=== PATIENT | male | born 1955 | race Caucasian/White ===

== ENCOUNTER → 2017-05-18 | Day surgery (SDC) | payer OTHER ==
[2017-05-11 07:41] VITALS: BMI 28.0
[~2017-05-18] VITALS: Ht 167.6 cm; Wt 79.5 kg
[~2017-05-18] MED LIST: 500ML BSS 0.3ML EPI 1:1000PF IRRIG ONE; ACETAMINOPHEN 325 MG TAB PO PRN; AMVISC PLUS 0.8ML SYRINGE INT OCU ONE; ASPI-461 PO; ATROPINE SULFATE 0.1 MG/ML 5ML SYR IV PRN; BSS FLUSH ONE; EpHEDrine SULFATE INJ 50 MG/ML AMP IV PRN; EpINEphrine INJ 1MG/ML AMP 1 MG/ML AMP ONE; LACTATED RINGER'S 1000ML 500 ML IV SCH; LIDOCAINE 3.5% OPH GEL PER APPLICATION CHARGE ONE; LIDOCAINE HCL 1% MPF 2 ML VIAL ONE; MIDAZOLAM HCL 1 MG/ML 2ML VIAL ONE; NAPR1TAB9 PO; NRN600 PO; NTRGSL/4 UT; OCUCOAT 1 ML SOLN IO ONE; POVIDONE-IODINE OP SOLN 30 ML BTL ONE; PRLSR20 PO; PROPARACAINE 0.5% OP SOLN PER DROP CHARGE OPR SCH; TOBRAMYCIN/DEXAMETHASONE OPH OINT PER APPLN CHARGE ONE
[2017-05-18 13:12] VITALS: Ht 167.6 cm; Wt 79.5 kg
[2017-05-18] MEDS: GATIFLOXACIN OP SOLN PER DROP CHARGE OPR SCH ×2 (13:19→13:26)
[2017-05-18] MEDS: PHENYLEPHRINE HCL 2.5% OP SOLN PER DROP CHARGE OPR SCH ×2 (13:19→13:20)
[2017-05-18] MEDS: CYCLOPENTOLATE HCL 1% OP SOLN PER DROP CHARGE OPR SCH ×2 (13:19→13:23)
[2017-05-18] MEDS: TROPICAMIDE 1% OP SOLN PER DROP CHARGE OPR SCH ×2 (13:19→13:21)
[2017-05-18] MEDS: KETOROLAC 0.5% OP SOLN PER DROP CHARGE OPR SCH ×2 (13:19→13:24)
--- NOTE | 2017-05-18 13:39 | History & Physical Bridge - [place] ---
H&P Re-Evaluation Bridge Note: I have examined the patient, reviewed the History & Physical and in the interval since the performance of the History & Physical I have noted the following changes of clinical significance: No changes noted
--- NOTE | 2017-05-18 14:44 | [facility] Operative Report ---
Operative Report Date of Service May 18, 2017. Operative Report 1. PREOPERATIVE DIAGNOSIS: Cataract of the right eye. 2. POSTOPERATIVE DIAGNOSIS: Same. 3. PROCEDURE: Phacoemulsification with intraocular lens implantation of the right eye. SURGEON: Dr. Sukhjinder Hart. ANESTHESIA: Topical Lidocaine gel, 1% Non- Preserved intracameral Lidocaine, and monitored intravenous sedation. INDICATIONS FOR THE PROCEDURE: The patient is a 61 - year-old male with a history of cataract of the right eye causing significant visual impairment. The details of the proposed procedure were explained to the patient who asked appropriate questions and following discussion of all risks, benefits and alternatives agreed to have the procedure done. 4. OPERATION AND FINDINGS: DESCRIPTION OF PROCEDURE: After informed consent was obtained, the patient was brought to the Operating Room at the [facility]. The patient was placed in a supine position and then the right eye was prepped and draped in the usual sterile fashion for intraocular surgery. A drop of topical Lidocaine gel was placed in the operative eye. A wire lid speculum was then placed in the fornices. A corneal paracentesis was then created temporally. The Non-Preserved Lidocaine was then instilled into the anterior chamber. The anterior chamber was then pressurized with viscoelastic. A 2.0 mm clear corneal incision was then created temporally. A cystotome was inserted into the anterior chamber and used to create a tear in the anterior lens capsule. This capsular tear was then used to create a small flap and the flap was dragged in a counterclockwise direction in order to create a continuous curvilinear capsulorrhexis. Hydrodissection was accomplished with balanced salt solution. Phacoemulsification of the lens nucleus was then performed in a standard [id number] technique. The phaco time was 16 seconds with an average power of 11 %. The remaining cortical material was removed using irrigation aspiration. The capsular bag was then filled with viscoelastic. A Bausch [employer] Lomb MI60L +22.5 diopters lens was then loaded into the injector and injected into the capsular bag. The remaining viscoelastic was removed with the irrigation aspiration handpiece. The wound was hydrated and then checked and found to be watertight. The intraocular pressure was checked and found to be adequate. The wire lid speculum was removed and the patient's face was cleaned and dried. TobraDex ointment was placed in the inferior fornix. The patient was discharged to the Recovery Room having tolerated the procedure well. There were no complications. The patient will be seen tomorrow in the office for follow-up. I attest to the content of the Intraoperative Record and any orders documented therein. Any exceptions are noted below.
--- NOTE | 2017-05-18 14:45 | Discharge Instructions-SurgCtr ---
Discharge Instructions Date of Service May 18, 2017. Visit Reason for Visit: Right Cataract Discharge Discharge Diagnosis / Problem: cataract Discharge Goals Goal(s): Improve function Activity Recommendations Activity Limitations: per Instructions/Follow-up section Anesthesia . Post Anesthesia Instructions: If you have had General Anesthesia or IV Sedation: * Do not drive today. * Resume driving when surgeon permits. * Do not make important decisions or sign legal documents today. * Call surgeon for: 1. Temperature elevations greater than 101 degrees F. 2. Uncontrollable pain. 3. Excessive bleeding. 4. Persistent nausea and vomiting. 5. Medication intolerance (nausea, vomiting or rash). * For nausea and vomiting use only clear liquids such as: tea, soda, bouillon until nausea subsides, then gradually increase diet as tolerated. * If you have any concerns or questions, call your surgeon's office. If physician is unavailable and it is an emergency, call 911 or go to the nearest emergency room. . Diet Recommendations Home Diet: resume previous diet Procedures Procedures Performed: Right Cataract Phacoemulsification With Intraocular Lens Implant Pending Studies Studies pending at discharge: no Medical Emergencies . Who to Call and When: Medical Emergencies: If at any time you feel your situation is an emergency, please call 911 immediately. . Non-Emergent Contact Non-Emergency issues call your: Regional Education Manager . . "Provider Documentation" section prepared by Sukhjinder Hart. .
[2017-05-18 14:49] VITALS: TEMP 36.5
--- NOTE | 2017-05-18 15:02 | Anesthesia Progress Nt - [facility] ---
Anesthesia Post Op Note Date & Time May 18, 2017 at 15:02 Vital Signs Pain Intensity: 0 Vital Signs Past 12 Hours Date Time Temp Pulse Resp B/P (MAP) Pulse Ox O2 Delivery O2 Flow Rate FiO2 05/18/17 14:49 36.5 57 16 165/91 (115) 97 Room Air 05/18/17 13:06 36.9 57 16 131/88 (102) 98 Room Air Notes Mental Status: alert / awake / arousable, participated in evaluation Pt Amnestic to Procedure: Yes Nausea / Vomiting: adequately controlled Pain: adequately controlled Airway Patency, RR, SpO2: stable & adequate BP & HR: stable & adequate Hydration State: stable & adequate Anesthetic Complications: no major complications apparent
[2017-05-18 15:18] VITALS: BP 163/80; PULSE 55; O2SAT 98
== END | disposition home or self-care (01) ==
LOC: X.SURG 12:01
PROVIDERS: ATTEND Ophthalmology
DX: H26.8 Other specified cataract (principal); K21.9 Gastro-esophageal reflux disease without esophagitis; I10 Essential (primary) hypertension; M54.5 Low back pain; Z79.82 Long term (current) use of aspirin; Z79.899 Other long term (current) drug therapy; I25.10 Atherosclerotic heart disease of native coronary artery without angina pectoris

== ENCOUNTER → 2017-06-15 | Day surgery (SDC) | payer OTHER ==
[2017-05-26 13:23] VITALS: Ht 169.5 cm; Wt 81.8 kg
[~2017-06-15] VITALS: Ht 169.5 cm; Wt 81.8 kg
[~2017-06-15] MED LIST changes: +ONDANSETRON INJ 2 MG/ML 2 ML VIAL IV PRN; +PROPARACAINE 0.5% OP SOLN PER DROP CHARGE OPL SCH; -PROPARACAINE 0.5% OP SOLN PER DROP CHARGE OPR SCH
[2017-06-15] MEDS: PHENYLEPHRINE HCL 2.5% OP SOLN PER DROP CHARGE OPL SCH ×2 (10:14→10:19)
[2017-06-15] MEDS: TROPICAMIDE 1% OP SOLN PER DROP CHARGE OPL SCH ×2 (10:15→10:20)
[2017-06-15] MEDS: CYCLOPENTOLATE HCL 1% OP SOLN PER DROP CHARGE OPL SCH ×2 (10:16→10:21)
[2017-06-15] MEDS: KETOROLAC 0.5% OP SOLN PER DROP CHARGE OPL SCH ×2 (10:17→10:22)
[2017-06-15] MEDS: GATIFLOXACIN OP SOLN PER DROP CHARGE OPL SCH ×2 (10:18→10:28)
--- NOTE | 2017-06-15 10:22 | History & Physical Bridge - [place] ---
H&P Re-Evaluation Bridge Note: I have examined the patient, reviewed the History & Physical and in the interval since the performance of the History & Physical I have noted the following changes of clinical significance: Diagnosis: Left Cataract Procedure: Left Cataract Removal with Lens Implant No changes noted
--- NOTE | 2017-06-15 10:54 | [facility] Operative Report ---
Operative Report Date of Service Jun 15, 2017. Operative Report 1. PREOPERATIVE DIAGNOSIS: Cataract of the left eye. 2. POSTOPERATIVE DIAGNOSIS: Same. 3. PROCEDURE: Phacoemulsification with intraocular lens implantation of the left eye. SURGEON: Dr. Sukhjinder Hart. ANESTHESIA: Topical Lidocaine gel, 1% Non- Preserved intracameral Lidocaine INDICATIONS FOR THE PROCEDURE: The patient is a 62 - year-old male with a history of cataract of the left eye causing significant visual impairment. The details of the proposed procedure were explained to the patient who asked appropriate questions and following discussion of all risks, benefits and alternatives agreed to have the procedure done. 4. OPERATION AND FINDINGS: DESCRIPTION OF PROCEDURE: After informed consent was obtained, the patient was brought to the Operating Room at the [facility]. The patient was placed in a supine position and then the left eye was prepped and draped in the usual sterile fashion for intraocular surgery. A drop of topical Lidocaine gel was placed in the operative eye. A wire lid speculum was then placed in the fornices. A corneal paracentesis was then created temporally. The Non-Preserved Lidocaine was then instilled into the anterior chamber. The anterior chamber was then pressurized with viscoelastic. A 2.0 mm clear corneal incision was then created temporally. A cystotome was inserted into the anterior chamber and used to create a tear in the anterior lens capsule. This capsular tear was then used to create a small flap and the flap was dragged in a counterclockwise direction in order to create a continuous curvilinear capsulorrhexis. Hydrodissection was accomplished with balanced salt solution. Phacoemulsification of the lens nucleus was then performed in a standard [id number] technique. The phaco time was 16 seconds with an average power of 8 %. The remaining cortical material was removed using irrigation aspiration. The capsular bag was then filled with viscoelastic. A Bausch & Lomb MI60L +22.5 diopters lens was then loaded into the injector and injected into the capsular bag. The remaining viscoelastic was removed with the irrigation aspiration handpiece. The wound was hydrated and then checked and found to be watertight. The intraocular pressure was checked and found to be adequate. The wire lid speculum was removed and the patient's face was cleaned and dried. TobraDex ointment was placed in the inferior fornix. The patient was discharged to the Recovery Room having tolerated the procedure well. There were no complications. The patient will be seen tomorrow in the office for follow-up. I attest to the content of the Intraoperative Record and any orders documented therein. Any exceptions are noted below.
--- NOTE | 2017-06-15 10:55 | Discharge Instructions-SurgCtr ---
Discharge Instructions Date of Service Jun 15, 2017. Visit Reason for Visit: Cataract Left Eye Discharge Discharge Diagnosis / Problem: cataract Discharge Goals Goal(s): Improve function Activity Recommendations Activity Limitations: per Instructions/Follow-up section Anesthesia . Post Anesthesia Instructions: If you have had General Anesthesia or IV Sedation: * Do not drive today. * Resume driving when surgeon permits. * Do not make important decisions or sign legal documents today. * Call surgeon for: 1. Temperature elevations greater than 101 degrees F. 2. Uncontrollable pain. 3. Excessive bleeding. 4. Persistent nausea and vomiting. 5. Medication intolerance (nausea, vomiting or rash). * For nausea and vomiting use only clear liquids such as: tea, soda, bouillon until nausea subsides, then gradually increase diet as tolerated. * If you have any concerns or questions, call your surgeon's office. If physician is unavailable and it is an emergency, call 911 or go to the nearest emergency room. . Diet Recommendations Home Diet: resume previous diet Procedures Procedures Performed: Left Cataract Phacoemulsification With Intraocular Lens Implant Pending Studies Studies pending at discharge: no Medical Emergencies . Who to Call and When: Medical Emergencies: If at any time you feel your situation is an emergency, please call 911 immediately. . Non-Emergent Contact Non-Emergency issues call your: Spindraw Operator . . "Provider Documentation" section prepared by Sukhjinder Hart. .
[2017-06-15 11:00] VITALS: BP 153/79; PULSE 60; TEMP 36.6; O2SAT 97
== END | disposition home or self-care (01) ==
LOC: X.SURG 09:16
PROVIDERS: ATTEND Ophthalmology
DX: H26.9 Unspecified cataract (principal); I10 Essential (primary) hypertension; I25.10 Atherosclerotic heart disease of native coronary artery without angina pectoris; K21.9 Gastro-esophageal reflux disease without esophagitis; M54.5 Low back pain; Z88.8 Allergy status to other drugs, medicaments and biological substances; Z88.0 Allergy status to penicillin; Z91.013 Allergy to seafood; Z91.040 Latex allergy status; I25.2 Old myocardial infarction; Z95.5 Presence of coronary angioplasty implant and graft; M19.90 Unspecified osteoarthritis, unspecified site

== ENCOUNTER 2020-12-03 17:02 | Inpatient (IN) ==
[2020-12-03] MEDS ORDERED: SODIUM CHLORIDE 0.9% 500 ML IV ONE (19:18)
[2020-12-03] MEDS ORDERED: dexAMETHasone**PF** 10 MG/ML VIAL IV ONE (19:18)
--- NOTE | 2020-12-03 19:28 | Emergency Department Note ---
Impression & Plan COVID-19, Hypoxia ED Provider Note NAME: KEYONNA DOUGLAS AGE: 65 SEX: M : 1955 ARRIVES VIA: Walk-In INFORMANT: Patient ED PROVIDER(S): Byron Castillo DO CHIEF COMPLAINT: Upper respiratory symptoms HPI: Patient is a 65-year-old male who presents to the ER for cough, congestion, shortness of breath. His symptoms started 10 days ago. Started with diffuse myalgias and arthralgias. He denies any belly pain, nausea, vomiting, or diarrhea. No dysuria, urgency, or frequency. He has lost his sense of taste and smell. He notes he is exhausted with any kind of movement. He is not vaccinated. He has not been around anyone has been sick that he is aware of. He does have a little headache. ROS: See above HPI for pertinent positives & negatives. A total of 10 systems reviewed and were otherwise negative. PAST MEDICAL HISTORY:See Below PAST SURGICAL HISTORY:See Below FAMILY HISTORY:See Below SOCIAL HISTORY:See Below HOME MEDICATIONS:See Below ALLERGIES:See Below VITALS:See Below PHYSICAL EXAMINATION: GENERAL: Sitting up in bed, alert, ill-appearing, disheveled, mild distress with exertion, intermittent cough EYE EXAM: normal conjunctiva. OROPHARYNX: no exudate, no erythema, lips, buccal mucosa, and tongue normal and mucous membranes are moist NECK: supple, no nuchal rigidity, no adenopathy, non-tender LUNGS: Clear to auscultation. Normal chest wall mechanics HEART: no murmurs, S1 normal and S2 normal ABDOMEN: abdomen soft, non-tender, normo-active bowel sounds, no masses, no rebound or guarding. BACK: Back is symmetrical on inspection and there is no deformity, no midline tenderness, no CVA tenderness. SKIN: no rashes and no bruising UPPER EXTREMITIES: upper extremities are grossly normal. LOWER EXTREMITIES: No pitting edema. NEURO EXAM: Normal sensorium, cranial nerves II-XII intact, normal speech, no weakness of arms, no weakness of legs. MEDICAL DECISION MAKING: Patient is a 65-year-old male who presents the ER for upper respiratory symptoms. IV was established blood work was obtained. Labs show no significant leukocytosis or anemia. BMP with mild hyponatremia at 134. Potassium slightly low at 3.4. LFTs bilirubin was unremarkable. Patient was Covid positive. Chest x-ray with patchy infiltrates bilaterally. He remained on 3 L nasal cannula. He was given steroids and fluids. He was updated bedside. Discussed with the hospitalist for further evaluation. EKG with T wave inversion versions. Triage Nursing notes reviewed. Limited review of prior medical records performed Vital Signs: reviewed and remarkable for hypoxic, hypertensive Differential diagnosis: Differential diagnoses includes but is not limited to pneumonia, bronchitis, COPD/Asthma exacerbation, pneumothorax, pulmonary embolism, congestive heart failure, acute coronary syndrome ER treatment provided: See below Diagnostics interpreted by me: ECG: Sinus rhythm rate 74 Left axis T wave inversions in inferior leads QTC 452 Cardiac Monitoring: An order was placed for continuous cardiac monitoring. The monitor shows a rate of 70 with sinus rhythm. Laboratory studies: As stated above and show below. Imaging studies: See below Consultation(s): Discussed with Disha Betts for further evaluation Procedures: none Critical Care: I have personally spent 32 minutes of critical care time in the direct management of this patient. This includes bedside care, interpretation of diagnostic studies, and testing, discussion with consultants, patient, and family members, and other required patient management activities. This 32 minutes is in excess of all separately billable procedures. Past Med/Surg History Medical History (Updated 12/04/20 @ 14:33 by Byron Castillo DO) Benign essential hypertension CAD (coronary artery disease) s/p TATI x 2 to RCA in 06/2015 GERD (gastroesophageal reflux disease) Hyperlipidemia Surgical History (Updated 12/03/20 @ 22:42 by May Betts DO) S/P coronary artery stent placement Social History (Updated 12/03/20 @ 22:42 by May Betts DO) Smoking Status: Never smoker Do You Dip or Chew Tobacco: No; Hx Alcohol Use: No Hx Substance Use: No Preferred Language: Yakut Communication Ability: Effective Coat Operator Required: No Beliefs That Will Affect Care: None marital status: Current Living Situation: Spouse Feels Safe at Home: Yes Assistive Devices: None Allergies Allergies Allergy/AdvReac Type Severity Reaction Status Date / Time latex Allergy Unknown RASH Verified 12/03/20 20:36 Penicillins Allergy Unknown RASH Verified 12/03/20 20:36 shellfish derived Allergy Unknown RASH Verified 12/03/20 20:36 Methylated Spirits Allergy Unknown RASH Uncoded 12/03/20 20:36 Home Meds Home Medications Medication Instructions Recorded Confirmed aspirin 81 mg tablet,delayed 81 mg PO HS tab 11/03/18 12/03/20 release atorvastatin 80 mg tablet 0 mg PO QPM #90 tab 11/03/18 12/03/20 lisinopril 5 mg tablet 0 mg PO DAILY #30 tab 11/03/18 12/03/20 omeprazole 20 mg capsule,delayed 20 mg PO DAILY cap 11/03/18 12/03/20 release ibuprofen 200 mg tablet 400 - 600 mg PO DAILY tab 11/25/18 12/03/20 metoprolol succinate 25 mg 0 mg PO DAILY 11/25/18 12/03/20 tablet,extended release 24 hr nitroglycerin 0.4 mg sublingual 0.4 mg SL Q5M PRN 11/25/18 12/03/20 tablet (Nitrostat) Results & Data (ED) Vital Signs Vital Signs - 24 hr 12/03/20 17:13 12/03/20 19:18 12/03/20 19:29 Temperature 37.3 C Temperature Source Oral Pulse Rate 93 H Pulse Rate [Apical] 95 H Respiratory Rate 22 24 Respiratory Effort / Characteristics Non-Labored Spontaneous Respiratory Depth Normal Blood Pressure 148/87 H Blood Pressure [Left Arm] 149/104 H Blood Pressure Mean 107 Blood Pressure Mean [Left Arm] 119 Blood Pressure Position Sitting Pulse Oximetry 89 L 86 L 96 Oxygen Delivery Method Room Air Room Air Nasal Cannula Nasal Cannula Oxygen Flow Rate 3 Sepsis Recent Fever Within 48 Hours No Sepsis New/Unexplained Change in Mental Status N/A Sepsis Action Taken by Nursing No Action Required Oxygen Flow Rate - Titration 3 Pulse Oximetry Post Tiitration 94 12/03/20 19:56 12/03/20 20:29 Temperature Temperature Source Pulse Rate Pulse Rate [Apical] Respiratory Rate Respiratory Effort / Characteristics Respiratory Depth Blood Pressure Blood Pressure [Left Arm] Blood Pressure Mean Blood Pressure Mean [Left Arm] Blood Pressure Position Pulse Oximetry 89 L 97 Oxygen Delivery Method Nasal Cannula Nasal Cannula Oxygen Flow Rate 3 6 Sepsis Recent Fever Within 48 Hours Sepsis New/Unexplained Change in Mental Status Sepsis Action Taken by Nursing Oxygen Flow Rate - Titration 6 4 Pulse Oximetry Post Tiitration 94 94 Laboratory Data Result diagrams: 12/03/20 19:10 12/03/20 19:10 Lab Results 12/03/20 12/03/20 12/03/20 Range/Units 19:05 19:05 19:10 WBC 6.08 (4.8-10.8) K/uL RBC 4.98 (4.7-6.1) M/uL Hgb 15.0 (14.0-18.0) g/dL Hct 43.1 (42-52) % MCV 86.5 (80-100) fL MCH 30.1 (25-34) pg MCHC 34.8 (32-36) g/dL RDW Std Deviation 45.9 (36.4-46.3) fL RDW Coeff of Lu 14.5 (11.5-14.5) % Plt Count 157 (130-400) K/uL MPV 9.6 (7.4-10.4) fL Immature Gran % (Auto) 0.2 % Neut % (Auto) 85.1 % Lymph % (Auto) 8.9 % Teller % (Auto) 5.8 % Eos % (Auto) 0.0 % Baso % (Auto) 0.0 % Neut # (Auto) 5.18 (1.4-6.5) K/uL Lymph # (Auto) 0.54 L (1.2-3.4) K/uL Teller # (Auto) 0.35 (0.11-0.59) K/uL Eos # (Auto) 0.00 (0-0.5) K/uL Baso # (Auto) 0.00 (0-0.2) K/uL Immature Gran # (Auto) 0.01 (0.00-0.02) K/uL Sodium (136-145) mmol/L Potassium (3.5-5.1) mmol/L Chloride (98-107) mmol/L Carbon Dioxide (21-32) mmol/L Anion Gap (3-11) BUN (7-18) mg/dl Creatinine (0.6-1.4) mg/dl Est Cr Clr Drug Dosing ml/min Est GFR ( Amer) ml/min Est GFR (Non-Af Amer) ml/min BUN/Creatinine Ratio (10-20) Glucose (70-99) mg/dl Lactate (0.4-2.0) mmol/L Calcium (8.5-10.1) mg/dl Ferritin (8-388) ng/ml Total Bilirubin (0.2-1) mg/dl AST (15-37) U/L ALT (12-78) U/L Alkaline Phosphatase (45-117) U/L Lactate Dehydrogenase (87-241) U/L C-Reactive Protein (0-0.29) mg/dl NT-Pro-B Natriuret Pep (0-900) pg/ml Total Protein (6.4-8.2) gm/dl Albumin (3.4-5.0) gm/dl Globulin (2.5-4.0) gm/dl Albumin/Globulin Ratio (0.9-2) COVID-19 Eval Order Covid19 at [facility] SARS-CoV-2 (PCR) POSITIVE A* (Negative) 12/03/20 12/03/20 12/03/20 Range/Units 19:10 20:41 20:41 WBC (4.8-10.8) K/uL RBC (4.7-6.1) M/uL Hgb (14.0-18.0) g/dL Hct (42-52) % MCV (80-100) fL MCH (25-34) pg MCHC (32-36) g/dL RDW Std Deviation (36.4-46.3) fL RDW Coeff of Lu (11.5-14.5) % Plt Count (130-400) K/uL MPV (7.4-10.4) fL Immature Gran % (Auto) % Neut % (Auto) % Lymph % (Auto) % Teller % (Auto) % Eos % (Auto) % Baso % (Auto) % Neut # (Auto) (1.4-6.5) K/uL Lymph # (Auto) (1.2-3.4) K/uL Teller # (Auto) (0.11-0.59) K/uL Eos # (Auto) (0-0.5) K/uL Baso # (Auto) (0-0.2) K/uL Immature Gran # (Auto) (0.00-0.02) K/uL Sodium 134 L (136-145) mmol/L Potassium 3.4 L (3.5-5.1) mmol/L Chloride 100 (98-107) mmol/L Carbon Dioxide 25 (21-32) mmol/L Anion Gap 9.0 (3-11) BUN 19 H (7-18) mg/dl Creatinine 0.99 (0.6-1.4) mg/dl Est Cr Clr Drug Dosing 70.1 ml/min Est GFR ( Amer) 91.0 ml/min Est GFR (Non-Af Amer) 78.5 ml/min BUN/Creatinine Ratio 18.8 (10-20) Glucose 126 H (70-99) mg/dl Lactate 1.6 (0.4-2.0) mmol/L Calcium 9.2 (8.5-10.1) mg/dl Ferritin 190.8 (8-388) ng/ml Total Bilirubin 0.7 (0.2-1) mg/dl AST 93 H (15-37) U/L ALT 39 (12-78) U/L Alkaline Phosphatase 203 H (45-117) U/L Lactate Dehydrogenase (87-241) U/L C-Reactive Protein 10.90 H (0-0.29) mg/dl NT-Pro-B Natriuret Pep 143 (0-900) pg/ml Total Protein 8.1 (6.4-8.2) gm/dl Albumin 2.5 L (3.4-5.0) gm/dl Globulin 5.6 H (2.5-4.0) gm/dl Albumin/Globulin Ratio 0.4 L (0.9-2) COVID-19 Eval Order SARS-CoV-2 (PCR) (Negative) 12/03/20 Range/Units 20:41 WBC (4.8-10.8) K/uL RBC (4.7-6.1) M/uL Hgb (14.0-18.0) g/dL Hct (42-52) % MCV (80-100) fL MCH (25-34) pg MCHC (32-36) g/dL RDW Std Deviation (36.4-46.3) fL RDW Coeff of Lu (11.5-14.5) % Plt Count (130-400) K/uL MPV (7.4-10.4) fL Immature Gran % (Auto) % Neut % (Auto) % Lymph % (Auto) % Teller % (Auto) % Eos % (Auto) % Baso % (Auto) % Neut # (Auto) (1.4-6.5) K/uL Lymph # (Auto) (1.2-3.4) K/uL Teller # (Auto) (0.11-0.59) K/uL Eos # (Auto) (0-0.5) K/uL Baso # (Auto) (0-0.2) K/uL Immature Gran # (Auto) (0.00-0.02) K/uL Sodium (136-145) mmol/L Potassium (3.5-5.1) mmol/L Chloride (98-107) mmol/L Carbon Dioxide (21-32) mmol/L Anion Gap (3-11) BUN (7-18) mg/dl Creatinine (0.6-1.4) mg/dl Est Cr Clr Drug Dosing ml/min Est GFR ( Amer) ml/min Est GFR (Non-Af Amer) ml/min BUN/Creatinine Ratio (10-20) Glucose (70-99) mg/dl Lactate (0.4-2.0) mmol/L Calcium (8.5-10.1) mg/dl Ferritin (8-388) ng/ml Total Bilirubin (0.2-1) mg/dl AST (15-37) U/L ALT (12-78) U/L Alkaline Phosphatase (45-117) U/L Lactate Dehydrogenase 341 H (87-241) U/L C-Reactive Protein (0-0.29) mg/dl NT-Pro-B Natriuret Pep (0-900) pg/ml Total Protein (6.4-8.2) gm/dl Albumin (3.4-5.0) gm/dl Globulin (2.5-4.0) gm/dl Albumin/Globulin Ratio (0.9-2) COVID-19 Eval Order SARS-CoV-2 (PCR) (Negative) Administered Medications Aspirin (Aspirin 81 Mg Ectab) 81 mg PO HS TONY Stop: 01/02/21 22:22 Last Admin: 12/03/20 23:54 Dose: 81 mg Documented by: [id number] Enoxaparin Sodium (Enoxaparin Inj 40 Mg/0.4 Ml Syr) 40 mg SQ Q12H TONY Stop: 01/02/21 22:59 Last Admin: 12/04/20 11:13 Dose: Not Given Documented by: [id number] Admin: 12/03/20 23:53 Dose: 40 mg Documented by: [id number] Famotidine (Famotidine 40 Mg Tablet) 40 mg PO QAM TONY Stop: 01/03/21 08:59 Last Admin: 12/04/20 08:05 Dose: 40 mg Documented by: [id number] Guaifenesin (Guaifenesin 600 Mg Tabcr) 1,200 mg PO Q12 TONY Stop: 01/03/21 09:29 Last Admin: 12/04/20 10:19 Dose: 1,200 mg Documented by: [id number] Dexamethasone 6 mg/ Syringe 1.5 mls @ 1 mls/min IV Q24H TONY Stop: 01/03/21 08:59 Last Admin: 12/04/20 08:06 Dose: 1 mls/min Documented by: [id number] Lisinopril (Lisinopril 5 Mg Tab) 0 mg PO DAILY TONY Stop: 01/03/21 08:59 Last Admin: 12/04/20 10:59 Dose: Not Given Documented by: [id number] Metoprolol Succinate (Metoprolol Succ 25mg Ext Rel Tab) 0 mg PO DAILY TONY Stop: 01/03/21 08:59 Last Admin: 12/04/20 11:00 Dose: Not Given Documented by: [id number] Discontinued Medications Dexamethasone Sodium Phosphate (DexamethasonePf 10 Mg/Ml Vial) 6 mg IV NOW ONE Stop: 12/03/20 19:19 Last Admin: 12/03/20 20:23 Dose: 6 mg Documented by: [id number] Sodium Chloride (Nss) 500 mls @ 999 mls/hr IV .Q31M ONE Stop: 12/03/20 19:48 Last Infusion: 12/03/20 20:06 Dose: 0 mls/hr Documented by: [id number] Admin: 12/03/20 19:26 Dose: 999 mls/hr Documented by: [id number] Potassium Chloride (Potassium Chloride Crtab 20 Meq Tabcr) 40 meq PO NOW STA Stop: 12/03/20 22:54 Last Admin: 12/03/20 23:53 Dose: 40 meq Documented by: [id number] Imaging Data Radiologist's Impression: Chest X-Ray 12/03/20 18:35 XR chest 1V portable INDICATION: [place] ^fever. TECHNIQUE: Single frontal radiograph of the chest was obtained. Comparison: None available at the time of this dictation. FINDINGS: No lines and tubes are seen. The aorta is tortuous. The remainder of the cardiomediastinal silhouette is unremarkable. Faint bilateral airspace opacities are seen. No evidence of pleural effusion or pneumothorax. IMPRESSION: Faint bilateral airspace opacities which may represent atelectasis, pneumonia, and/or aspiration. ACT 112: Negative or not required by law. Electronically signed by: Felipe Fenton M.D. 12/03/2020 7:39 PM Discharge Plan Visit Data Chief Complaint: Headache Stated Complaint: chills, aches, headache, dehydrated ED Provider: Byron Castillo Discharge Problem: COVID-19, Hypoxia Patient Disposition: Admitted As Inpatient Discharge Instructions Interventions: ED Discharge Assessment Last Done: 12/03/20 21:38
--- NOTE | 2020-12-03 19:40 | XRay Report ---
XR chest 1V portable INDICATION: MN ^fever. TECHNIQUE: Single frontal radiograph of the chest was obtained. Comparison: None available at the time of this dictation. FINDINGS: No lines and tubes are seen. The aorta is tortuous. The remainder of the cardiomediastinal silhouette is unremarkable. Faint bilateral airspace opacities are seen. No evidence of pleural effusion or pne umothorax. IMPRESSION: Faint bilateral airspace opacities which may represent atelectasis, pneumonia, and/or aspiration. ACT 112: Negative or not required by law. Electronically signed by: Felipe Fenton M.D. 12/03/2020 7:39 PM
[2020-12-03 19:58] LABS: Hematocrit (blood only) 43.1 % (42-52); Immature Granulocytes # (auto) 0.01 K/uL (0.00-0.02); Immature Granulocytes % (auto) 0.2 %; Lymphocytes # (auto) 0.54 K/uL (1.2-3.4); Lymphocytes % (auto) 8.9 %; Mean Corpuscular Hemoglobin 30.1 pg (25-34); Mean Corpuscular Hgb Conc 34.8 g/dL (32-36); Mean Corpuscular Volume 86.5 fL (80-100); Mean Platelet Volume 9.6 fL (7.4-10.4); Monocytes # (auto) 0.35 K/uL (0.11-0.59); Monocytes % (auto) 5.8 %; Neutrophils # (auto) 5.18 K/uL (1.4-6.5); Neutrophils % (auto) 85.1 %; Platelet Count 157 K/uL (130-400); RDW Coefficient of Variation 14.5 % (11.5-14.5); RDW Standard Deviation 45.9 fL (36.4-46.3); Red Blood Count 4.98 M/uL (4.7-6.1); White Blood Count 6.08 K/uL (4.8-10.8)
[2020-12-03 20:22] LABS: Albumin Level 2.5 gm/dl (3.4-5.0); BUN Creatinine Ratio 18.8 (10-20); Calcium 9.2 mg/dl (8.5-10.1); Creatinine Clr Calc Pharmacy 70.1 ml/min; Est GFR (Non-African American) 78.5 ml/min; Potassium 3.4 mmol/L (3.5-5.1)
[2020-12-03 20:25] LABS: Albumin Globulin Ratio 0.4 (0.9-2); Bilirubin,Total 0.7 mg/dl (0.2-1); Globulin 5.6 gm/dl (2.5-4.0); Total Protein 8.1 gm/dl (6.4-8.2)
--- NOTE | 2020-12-03 20:52 | History & Physical Report ---
Date of Service December 03, 2020 Assessment & Plan (1) COVID-19: Plan: 65yo male presenting with Covid-19 infection. Patient is unvaccinated. On approximately day 10 of illness. Hypoxic on arrival to 86% - improved with supplemental O2 -Admit to medical -Maintain isolation precautions -Supplemental O2 as needed -Dexamethasone 6mg IV daily -Tylenol as needed -Lovenox 40mg BID (2) CAD (coronary artery disease): Plan: Chronic. Stable -Continue ASA 81mg po qHS -Continue Atorvastatin 80mg po qPM -Continue metoprolol and Lisinopril (3) GERD (gastroesophageal reflux disease): Plan: Chronic -Continue Pepcid 40mg po q AM (4) Hyperlipidemia: Plan: Chronic -Continue Atorvastatin 80mg po qPM (5) Benign essential hypertension: Plan: Blood pressure mildly elevated -Continue metoprolol and Lisinopril -Continue to monitor History of Present Illness Chief Complaint: cough, congestion, SOB Primary Care Provider: Elyse Hall PA-C Rony Sierra is a 65yo male presenting to [facility] with 10d of cough productive for yellow sputum, congestion, SOB, chills, body aches and headache. Patient also with loss of taste and smell. Found to be POSITIVE for Covid-19 infection. He is unvaccinated against Covid-19. Uncertain of where his was exposed. He denies chest pain, abdominal pain, nausea, vomiting. He had some diarrhea last week which has since resolved. Upon arrival to the ER patient afebrile, mildly hypertensive. RR of 22 saturating 89% on room air. He was placed on 3L NC which was increased to 4L. Presently breathing comfortably on 4L, saturating 94% No additional complaints at this time ER Course: Dexamethasone 6mg IV, NSS x 500mL bolus Allergies Allergy/AdvReac Type Severity Reaction Status Date / Time latex Allergy Unknown RASH Verified 12/03/20 20:36 Penicillins Allergy Unknown RASH Verified 12/03/20 20:36 shellfish derived Allergy Unknown RASH Verified 12/03/20 20:36 Methylated Spirits Allergy Unknown RASH Uncoded 12/03/20 20:36 Home Medications Medication Instructions Recorded Confirmed Type aspirin 81 mg tablet,delayed 81 mg PO HS tab 11/03/18 12/03/20 History release atorvastatin 80 mg tablet 0 mg PO QPM #90 tab 11/03/18 12/03/20 History lisinopril 5 mg tablet 0 mg PO DAILY #30 tab 11/03/18 12/03/20 History omeprazole 20 mg capsule,delayed 20 mg PO DAILY cap 11/03/18 12/03/20 History release ibuprofen 200 mg tablet 400 - 600 mg PO DAILY tab 11/25/18 12/03/20 History metoprolol succinate 25 mg 0 mg PO DAILY 11/25/18 12/03/20 History tablet,extended release 24 hr nitroglycerin 0.4 mg sublingual 0.4 mg SL Q5M PRN 11/25/18 12/03/20 History tablet (Nitrostat) Past Med/Surg History Medical History (Updated 12/03/20 @ 22:44 by May Betts DO) Benign essential hypertension CAD (coronary artery disease) s/p TATI x 2 to RCA in 06/2015 GERD (gastroesophageal reflux disease) Hyperlipidemia Surgical History (Updated 12/03/20 @ 22:42 by Mya Betts DO) S/P coronary artery stent placement Social History (Updated 12/03/20 @ 22:42 by May Betts DO) Smoking Status: Never smoker Do You Dip or Chew Tobacco: No; Hx Alcohol Use: No Hx Substance Use: No Preferred Language: Indonesian Communication Ability: Effective Construction Safety Consultant Required: No Beliefs That Will Affect Care: None Current Living Situation: Spouse Feels Safe at Home: No Assistive Devices: None Review of Systems Review of Systems: All systems reviewed & are unremarkable except as noted in HPI & below Physical Exam Physical Exam: General: patient resting comfortably, NAD, AA&O x 4, +cough Skin: warm, dry, intact, no rashes or lesions HEENT: NC/AT, PERRL, EOMI, anicteric sclera, conjunctiva without injection, external ear normal to inspection and nontender, nares patent, moist mucus membranes, dentition intact, no oropharyngeal lesions, neck supple, trachea midline, no LAD, no thyromegaly, no JVD Heart: +S1/S2, regular, no m/r/g Lungs: equal air entry bilaterally, no rales/rhonchi/wheezes Abd: +BS, soft, NT/ND, no masses/organomegaly/ascites Ext: warm, 2+ pulses in UE/LE bilaterally, no clubbing/cyanosis or edema Neuro: nonfocal, patient AA&O x 4, speech intact, no facial droop, moving all extremities on command with equal strength 5/5 Results & Data Results & Data ([facility]) Vital Signs (Past 12 Hours) Vital Signs Temp Pulse Pulse Resp BP BP Pulse Ox 12/03/20 20:29 97 12/03/20 19:56 89 L 12/03/20 19:29 95 H 24 149/104 H 96 12/03/20 19:18 86 L 12/03/20 17:13 37.3 C 93 H 22 148/87 H 89 L Laboratory Results Laboratory Results WBC 6.08 K/uL (4.8-10.8) 12/03/20 19:10 RBC 4.98 M/uL (4.7-6.1) 12/03/20 19:10 Hgb 15.0 g/dL (14.0-18.0) 12/03/20 19:10 Hct 43.1 % (42-52) 12/03/20 19:10 MCV 86.5 fL (80-100) 12/03/20 19:10 MCH 30.1 pg (25-34) 12/03/20 19:10 MCHC 34.8 g/dL (32-36) 12/03/20 19:10 RDW Std Deviation 45.9 fL (36.4-46.3) 12/03/20 19:10 RDW Coeff of Lu 14.5 % (11.5-14.5) 12/03/20 19:10 Plt Count 157 K/uL (130-400) 12/03/20 19:10 MPV 9.6 fL (7.4-10.4) 12/03/20 19:10 Immature Gran % (Auto) 0.2 % 12/03/20 19:10 Neut % (Auto) 85.1 % 12/03/20 19:10 Lymph % (Auto) 8.9 % 12/03/20 19:10 [place] % (Auto) 5.8 % 12/03/20 19:10 Eos % (Auto) 0.0 % 12/03/20 19:10 Baso % (Auto) 0.0 % 12/03/20 19:10 Neut # (Auto) 5.18 K/uL (1.4-6.5) 12/03/20 19:10 Lymph # (Auto) 0.54 K/uL (1.2-3.4) L 12/03/20 19:10 [place] # (Auto) 0.35 K/uL (0.11-0.59) 12/03/20 19:10 Eos # (Auto) 0.00 K/uL (0-0.5) 12/03/20 19:10 Baso # (Auto) 0.00 K/uL (0-0.2) 12/03/20 19:10 Immature Gran # (Auto) 0.01 K/uL (0.00-0.02) 12/03/20 19:10 Sodium 134 mmol/L (136-145) L 12/03/20 19:10 Potassium 3.4 mmol/L (3.5-5.1) L 12/03/20 19:10 Chloride 100 mmol/L (98-107) 12/03/20 19:10 Carbon Dioxide 25 mmol/L (21-32) 12/03/20 19:10 Anion Gap 9.0 (3-11) 12/03/20 19:10 BUN 19 mg/dl (7-18) H 12/03/20 19:10 Creatinine 0.99 mg/dl (0.6-1.4) 12/03/20 19:10 Est Cr Clr Drug Dosing 70.1 ml/min 12/03/20 19:10 Est GFR ( Amer) 91.0 ml/min 12/03/20 19:10 Est GFR (Non-Af Amer) 78.5 ml/min 12/03/20 19:10 BUN/Creatinine Ratio 18.8 (10-20) 12/03/20 19:10 Glucose 126 mg/dl (70-99) H 12/03/20 19:10 Lactate 1.6 mmol/L (0.4-2.0) 12/03/20 20:41 Calcium 9.2 mg/dl (8.5-10.1) 12/03/20 19:10 Ferritin 190.8 ng/ml (8-388) 12/03/20 20:41 Total Bilirubin 0.7 mg/dl (0.2-1) 12/03/20 19:10 AST 93 U/L (15-37) H 12/03/20 19:10 ALT 39 U/L (12-78) 12/03/20 19:10 Alkaline Phosphatase 203 U/L (45-117) H 12/03/20 19:10 Lactate Dehydrogenase 341 U/L (87-241) H 12/03/20 20:41 C-Reactive Protein 10.90 mg/dl (0-0.29) H 12/03/20 20:41 NT-Pro-B Natriuret Pep 143 pg/ml (0-900) 12/03/20 20:41 Total Protein 8.1 gm/dl (6.4-8.2) 12/03/20 19:10 Albumin 2.5 gm/dl (3.4-5.0) L 12/03/20 19:10 Globulin 5.6 gm/dl (2.5-4.0) H 12/03/20 19:10 Albumin/Globulin Ratio 0.4 (0.9-2) L 12/03/20 19:10 COVID-19 Eval Order Covid19 at [facility] 12/03/20 19:05 SARS-CoV-2 (PCR) POSITIVE (Negative) A* 12/03/20 19:05 Impressions Chest X-Ray 12/03/20 18:35 XR chest 1V portable INDICATION: MN ^fever. TECHNIQUE: Single frontal radiograph of the chest was obtained. Comparison: None available at the time of this dictation. FINDINGS: No lines and tubes are seen. The aorta is tortuous. The remainder of the cardiomediastinal silhouette is unremarkable. Faint bilateral airspace opacities are seen. No evidence of pleural effusion or pneumothorax. IMPRESSION: Faint bilateral airspace opacities which may represent atelectasis, pneumonia, and/or aspiration. ACT 112: Negative or not required by law. Electronically signed by: Felipe Fenton M.D. 12/03/2020 7:39 PM Code Status & VTE Plan VTE Prophylaxis Plan VTE Prophylaxis will be ordered: Yes PG Care Time/CCT Total # of Minutes Spent Total Time Spent with Patient: Total time spent is greater than 50% in coordination of care (as documented) at patient's floor/unit and/or counseling patient: Coding Level of Care Code 12930 Initial Inpt Care Lvl 3 Diagnoses CAD (coronary artery disease) I25.10 COVID-19 U07.1 GERD (gastroesophageal reflux disease) K21.9 Hyperlipidemia E78.5 Benign essential hypertension I10
[2020-12-03 21:13] LABS: C Reactive Protein 10.9 mg/dl (0-0.29); Ferritin 190.8 ng/ml (8-388)
[2020-12-03] MEDS ORDERED: ATORVASTATIN 40 MG TAB PO SCH (22:23)
[2020-12-03] MEDS ORDERED: ONDANSETRON INJ 2 MG/ML 2 ML VIAL IV PRN (22:23)
[2020-12-03] MEDS ORDERED: POTASSIUM CHLORIDE CRTAB 20 MEQ TABCR PO STA (22:53)
[2020-12-03] MEDS: ENOXAPARIN INJ 40 MG/0.4 ML SYR SQ SCH (23:53)
[2020-12-03] MEDS: ASPIRIN 81 MG ECTAB PO SCH (23:54)
[2020-12-04 07:51] LABS: Albumin Level 2.1 gm/dl (3.4-5.0); Bilirubin Direct 0.2 mg/dl (0-0.2); Bilirubin,Total 0.7 mg/dl (0.2-1)
[2020-12-04] MEDS: FAMOTIDINE 40 MG TABLET PO SCH (08:05)
[2020-12-04] MEDS: dexAMETHasone 6 MG in SYRINGE 0 ML IV SCH (08:06)
[2020-12-04] MEDS ORDERED: lisinopril 5 MG TAB PO SCH (09:00)
[2020-12-04] MEDS ORDERED: METOPROLOL SUCC 25MG EXT REL TAB PO SCH (09:00)
[2020-12-04] MEDS: guaiFENesin 600 MG TABCR PO SCH ×2 (10:19→20:31)
[2020-12-04] MEDS: ENOXAPARIN INJ 40 MG/0.4 ML SYR SQ SCH ×2 (11:13→21:55)
--- NOTE | 2020-12-04 17:46 | Electrocardiogram Report ---
Test Reason : Blood Pressure : / mmHG Vent. Rate : 074 BPM Atrial Rate : 074 BPM P-R Int : 156 ms QRS Dur : 114 ms QT Int : 408 ms P-R-T Axes : 021 -38 -21 degrees QTc Int : 452 ms Normal sinus rhythm Left axis deviation Moderate voltage criteria for LVH, may be normal variant Abnormal ECG When compared with ECG of 12-JUL-2015 06:43, T wave inversion no longer evident in Anterior leads Confirmed by Jj Saab ([id number]) on 12/04/2020 5:45:45 PM Referred By: REFERRED SELF Confirmed By:Pankaj Saab
[2020-12-04] MEDS: ASPIRIN 81 MG ECTAB PO SCH (20:32)
[2020-12-04] MEDS: ATORVASTATIN 40 MG TAB PO SCH (20:33)
[2020-12-04] MEDS: ACETAMINOPHEN 325 MG TAB PO PRN (20:34)
--- NOTE | 2020-12-04 21:44 | Hospitalist Progress Note ---
Date of Service December 04, 2020 Assessment & Plan (1) Pneumonia due to 2019 novel coronavirus: Plan: moderate 4 L NC O2 requirement has the potential to worsen from hypoxia standpoint as he is just past the 10- day david of the illness we discussed proning - he will attempt discussed pulm toilet -- incentive jamel, flutter valve, etc add mucinex 1200mg BID no evidence of bacterial superinfection continue dexamethasone 6mg daily; day #2 of such Remdesivir deferred due to where he is in the illness course (over 10 days); minimal to no efficacy at this point CRP elevated - recheck am (2) Acute respiratory failure with hypoxia: Plan: 2nd to #1 no complicating CHF no complicating bacterial superinfection DVT proph as below (3) CAD (coronary artery disease): Plan: h/o RCA stents remains on asa, statin was NOT taking REI or BB at home - hold for now no ischemic symptoms during this illness (4) Benign essential hypertension: Plan: BPs relatively controlled despite being off his usual meds Monitor (5) Hyperlipidemia: Plan: statin (6) GERD (gastroesophageal reflux disease): Plan: PPI (7) Elevated LFTs: Plan: likely 2nd to COVID-19 infection trend (8) Hyponatremia: Plan: 2nd recent diarrhea, poor oral intake, etc BMP am (9) Hypokalemia: Plan: replace repeat BMP am check mag level am (10) DVT prophylaxis: Plan: lovenox 40mg BID Plan: left message for pt's this evening on voicemail Admission and Anticipated Discharge Date Admission Date: December 03, 2020 Subjective patient feels poorly fatigue, anorexia, cough, congestion, dyspnea on exertion, weak he lost weight from his illness - 8 pounds he feels "a little better" than yesterday over the last few months/weeks he has had NO exertional chest pain, dyspnea, etc Review of Systems Review of Systems: gen - no fevers/chills CV - no chest pain, no pleuritic pain pulm - minimal sputum production GI - no vomiting; had had diarrhea at home - now resolved - voiding w/o issue Physical Exam Physical Exam: Gen: NAD, lying flat in bed comfortably Mouth: MM mildly dry Neck: no JVD Heart: RRR, s1 s2 Lungs: b/l rales, no wheeze, no increased work of breathing Abd: soft, NT, ND, BS+, no HSM Ext: no edema, pulses 2+ b/l Skin: no rash Psych: a/o x 3 Results & Data Results & Data ([facility]) Vital Signs (Past 12 Hours) Vital Signs Temp Pulse Resp BP Pulse Ox 12/04/20 15:38 36.6 C 62 16 131/71 90 Laboratory Results Laboratory Results - last 24 hr 12/04/20 06:50 Total Bilirubin 0.7 Direct Bilirubin 0.2 AST 73 H ALT 41 Alkaline Phosphatase 181 H Total Protein 7.0 Albumin 2.1 L PG Care Time/CCT Total # of Minutes Spent Total Time Spent with Patient: Total time spent is greater than 50% in coordination of care (as documented) at patient's floor/unit and/or counseling patient: Coding Level of Care Code 11168 Subseq Hosp Care Lvl 3 Diagnoses Pneumonia due to 2019 novel coronavirus U07.1; J12.82 Acute respiratory failure with hypoxia J96.01 CAD (coronary artery disease) I25.10 Benign essential hypertension I10 Hyperlipidemia E78.5 GERD (gastroesophageal reflux disease) K21.9 Elevated LFTs R79.89 DVT prophylaxis Z29.9 Hyponatremia E87.1 Hypokalemia E87.6
[2020-12-04] MEDS: PANTOprazole 40 MG TAB PO SCH (21:55)
[2020-12-05 07:52] LABS: BUN Creatinine Ratio 30.6 (10-20); C Reactive Protein 5.57 mg/dl (0-0.29); Calcium 8.3 mg/dl (8.5-10.1); Creatinine Clr Calc Pharmacy 73.8 ml/min; Est GFR (African American) 96.8 ml/min; Est GFR (Non-African American) 83.6 ml/min; Magnesium 2.4 mg/dl (1.8-2.4)
[2020-12-05] MEDS: FAMOTIDINE 40 MG TABLET PO SCH (09:10)
[2020-12-05] MEDS: guaiFENesin 600 MG TABCR PO SCH ×2 (09:10→20:11)
[2020-12-05] MEDS: dexAMETHasone 6 MG in SYRINGE 0 ML IV SCH (09:17)
[2020-12-05] MEDS: ENOXAPARIN INJ 40 MG/0.4 ML SYR SQ SCH ×4 (11:45→22:06)
--- NOTE | 2020-12-05 13:44 | XRay Report ---
XR chest 1V portable INDICATION: MN ^Y ^Covid 19 pneumonia. TECHNIQUE: Single frontal radiograph of the chest was obtained. Comparison: Comparison is made to chest one view 12/03/2020 FINDINGS: No lines and tubes are seen. The cardiomediastinal silhouette is normal. Lungs are underinflated. Mul tifocal airspace opacities are more prominent on the prior exam. No evidence of pleural effusion or p neumothorax. IMPRESSION: Multifocal airspace opacities compatible with history of viral pneumonia. ACT 112: Negative or not required by law. Electronically signed by: Felipe Fenton M.D. 12/05/2020 1:43 PM
[2020-12-05] MEDS: ACETAMINOPHEN 325 MG TAB PO PRN (20:12)
[2020-12-05] MEDS: ATORVASTATIN 40 MG TAB PO SCH (20:12)
[2020-12-05] MEDS: ASPIRIN 81 MG ECTAB PO SCH (20:12)
[2020-12-05] MEDS: PANTOprazole 40 MG TAB PO SCH (20:13)
--- NOTE | 2020-12-05 21:15 | Hospitalist Progress Note ---
Date of Service December 05, 2020 Assessment & Plan (1) Pneumonia due to 2019 novel coronavirus: Plan: moderate-severe requiring more O2 today he is about 11 days into his illness CXR obtained - low lung volumes, but infiltrates similar he needs to prone and do more pulmonary toilet given the findings he does not examine volume overloaded if his O2 requirements escalate beyond 8-10 L will move to telemetry COVID unit again encouraged proning + pulm toilet -- incentive jamel, flutter valve, etc cont mucinex 1200mg BID no evidence of bacterial superinfection - procal neg today continue dexamethasone 6mg daily; day #3 of such Remdesivir deferred due to where he is in the illness course (over 10 days); minimal to no efficacy at this point CRP elevated but improved today (2) Acute respiratory failure with hypoxia: Plan: 2nd to #1 no complicating CHF no complicating bacterial superinfection DVT proph as below (3) CAD (coronary artery disease): Plan: h/o RCA stents remains on asa, statin was NOT taking REI or BB at home - hold for now as BPs are normal or low-normal states he is noncompliant with all of his meds no ischemic symptoms during this illness EKG with inverted T's inferiorly however it is unchanged from EKG from several years ago (4) Benign essential hypertension: Plan: BPs relatively controlled despite being off his usual meds Monitor (5) Hyperlipidemia: Plan: statin (6) GERD (gastroesophageal reflux disease): Plan: PPI (7) Elevated LFTs: Plan: likely 2nd to COVID-19 infection AST acceptable today (8) Hyponatremia: Plan: 2nd recent diarrhea, poor oral intake, etc resolved bmp am (9) Hypokalemia: Plan: replaced and resolved mag wnl (10) DVT prophylaxis: Plan: lovenox 40mg BID Plan: spoke with today, gave update; discussed increasing O2 requirements and plan she voiced understanding will ultimately need PT/OT Admission and Anticipated Discharge Date Admission Date: December 03, 2020 Subjective patient states he overall feels much better than the last few days appetite improved today better energy he continues with cough with sputum production he has XIAO unfortunately he is requiring more O2 today he has not been able to prone trying to lay on side he refused lovenox today - I explained why the lovenox is important and he was ultimately agreeable to taking it no chest pain Review of Systems Review of Systems: gen - no fevers/chills pulm - no wheezing CV - no orthopnea GI - no N/V; diarrhea resolved (had such at home) Physical Exam Physical Exam: Gen: NAD Mouth: MMM Neck: no JVD Heart: RRR, s1 s2, no murmur Lungs: b/l rales - a bit worse today; no wheeze, no increased work of breathing Abd: soft, NT, ND, BS+, no HSM Ext: no edema, pulses 2+ b/l Skin: no rash Psych: a/o x 3 Results & Data Results & Data ([facility]) Vital Signs (Past 12 Hours) Vital Signs Temp Pulse Resp BP Pulse Ox 12/05/20 18:33 93 12/05/20 16:32 36.8 C 75 20 150/62 H 92 12/05/20 10:37 93 Laboratory Results Laboratory Results - last 24 hr 12/05/20 12/05/20 06:50 06:50 Sodium 137 Potassium 4.0 D Chloride 106 Carbon Dioxide 27 Anion Gap 4.0 BUN 29 H D Creatinine 0.94 Est Cr Clr Drug Dosing 73.8 Est GFR ( Amer) 96.8 Est GFR (Non-Af Amer) 83.6 BUN/Creatinine Ratio 30.6 H Glucose 132 H Calcium 8.3 L Magnesium 2.4 AST 51 H C-Reactive Protein 5.57 H Procalcitonin 0.19 PG Care Time/CCT Total # of Minutes Spent Total Time Spent with Patient: Total time spent is greater than 50% in coordination of care (as documented) at patient's floor/unit and/or counseling patient: Coding Level of Care Code 47651 Subseq Hosp Care Lvl 3 Diagnoses Pneumonia due to 2019 novel coronavirus U07.1; J12.82 Acute respiratory failure with hypoxia J96.01 CAD (coronary artery disease) I25.10 Benign essential hypertension I10 Hyperlipidemia E78.5 GERD (gastroesophageal reflux disease) K21.9 Elevated LFTs R79.89 Hyponatremia E87.1 Hypokalemia E87.6 DVT prophylaxis Z29.9
[2020-12-06] MEDS: guaiFENesin 600 MG TABCR PO SCH ×2 (07:31→20:46)
[2020-12-06] MEDS: dexAMETHasone 6 MG in SYRINGE 0 ML IV SCH (07:31)
[2020-12-06] MEDS: ACETAMINOPHEN 325 MG TAB PO PRN ×2 (07:31→20:48)
[2020-12-06] MEDS: FAMOTIDINE 40 MG TABLET PO SCH (07:32)
[2020-12-06 07:39] LABS: BUN Creatinine Ratio 22.6 (10-20); Calcium 8.3 mg/dl (8.5-10.1); Creatinine Clr Calc Pharmacy 80.6 ml/min; Est GFR (Non-African American) 89.7 ml/min
[2020-12-06] MEDS: ENOXAPARIN INJ 40 MG/0.4 ML SYR SQ SCH ×2 (11:37→22:29)
[2020-12-06] MEDS ORDERED: FUROSEMIDE 20 MG TAB PO ONE (14:00)
--- NOTE | 2020-12-06 19:53 | Hospitalist Progress Note ---
Date of Service December 06, 2020 Assessment & Plan (1) Pneumonia due to 2019 novel coronavirus: Plan: moderate-severe O2 requirements unchanged from yesterday he is about 12 days into his illness if his O2 requirements escalate will move to telemetry COVID unit again encouraged side positioning + pulm toilet -- incentive jamel, flutter valve, etc cont mucinex 1200mg BID no evidence of bacterial superinfection - procal neg continue dexamethasone 6mg daily; day #4 of such Remdesivir deferred due to where he is in the illness course (over 10 days); minimal to no efficacy at this point to keep I/O balance negative will give lasix 20mg po x 1 (2) Acute respiratory failure with hypoxia: Plan: 2nd to #1 no complicating CHF no complicating bacterial superinfection DVT proph as below (3) CAD (coronary artery disease): Plan: h/o RCA stents remains on asa, statin was NOT taking REI or BB at home - hold for now as BPs are normal or low-normal states he is noncompliant with all of his meds no ischemic symptoms during this illness EKG with inverted T's inferiorly however it is unchanged from EKG from several years ago (4) Benign essential hypertension: Plan: BPs relatively controlled despite being off his usual meds Monitor (5) Hyperlipidemia: Plan: statin (6) GERD (gastroesophageal reflux disease): Plan: PPI (7) Elevated LFTs: Plan: likely 2nd to COVID-19 infection needs recheck in 48 hours for stability (8) Hyponatremia: Plan: 2nd recent diarrhea, poor oral intake, etc resolved (9) Hypokalemia: Plan: replaced and resolved mag wnl (10) DVT prophylaxis: Plan: lovenox 40mg BID Plan: updated again today Admission and Anticipated Discharge Date Admission Date: December 03, 2020 Subjective overall feeling better biggest change is his appetite - finally wants to eat cough/rosenberg are unchanged no chest pain, abd pain, N/V Review of Systems Review of Systems: gen - no fevers/chills CV - no orthopnea ENT - mouth dry (chronic) pulm - sputum production has slowed GI - no further diarrhea Physical Exam Physical Exam: Gen: NAD, looks better today Mouth: MM dry Neck: no JVD Heart: RRR, s1 s2, no murmur Lungs: b/l rales bases, no wheeze, no distress Abd: soft, NT, ND, BS+, no HSM Ext: no edema, pulses 2+ b/l Psych: a/o x 3 Results & Data Results & Data ([facility]) Vital Signs (Past 12 Hours) Vital Signs Temp Pulse Resp BP Pulse Ox 12/06/20 14:51 36.8 C 70 18 145/65 H 93 Laboratory Results Laboratory Results - last 24 hr 12/06/20 06:55 Sodium 138 Potassium 4.0 Chloride 108 H Carbon Dioxide 25 Anion Gap 5.0 BUN 20 H Creatinine 0.86 Est Cr Clr Drug Dosing 80.6 Est GFR ( Amer) 104.0 Est GFR (Non-Af Amer) 89.7 BUN/Creatinine Ratio 22.6 H Glucose 115 H Calcium 8.3 L PG Care Time/CCT Total # of Minutes Spent Total Time Spent with Patient: Total time spent is greater than 50% in coordination of care (as documented) at patient's floor/unit and/or counseling patient: Coding Level of Care Code 04936 Subseq Hosp Care Lvl 3 Diagnoses Pneumonia due to 2019 novel coronavirus U07.1; J12.82 Acute respiratory failure with hypoxia J96.01 CAD (coronary artery disease) I25.10 Benign essential hypertension I10 Hyperlipidemia E78.5 GERD (gastroesophageal reflux disease) K21.9 Elevated LFTs R79.89 Hyponatremia E87.1 Hypokalemia E87.6 DVT prophylaxis Z29.9
[2020-12-06] MEDS: ATORVASTATIN 40 MG TAB PO SCH (20:45)
[2020-12-06] MEDS: ASPIRIN 81 MG ECTAB PO SCH (20:45)
[2020-12-06] MEDS: PANTOprazole 40 MG TAB PO SCH (20:45)
[2020-12-07 06:19] LABS: Creatinine Clr Calc Pharmacy 84.6 ml/min; Est GFR (African American) 106.1 ml/min; Est GFR (Non-African American) 91.5 ml/min
[2020-12-07] MEDS: dexAMETHasone 6 MG in SYRINGE 0 ML IV SCH (09:13)
[2020-12-07] MEDS: guaiFENesin 600 MG TABCR PO SCH ×2 (09:13→20:12)
[2020-12-07] MEDS: FAMOTIDINE 40 MG TABLET PO SCH (09:13)
[2020-12-07] MEDS: ENOXAPARIN INJ 40 MG/0.4 ML SYR SQ SCH ×2 (11:27→22:34)
[2020-12-07] MEDS: ACETAMINOPHEN 325 MG TAB PO PRN ×2 (13:44→22:35)
[2020-12-07] MEDS ORDERED: BUTALBITAL/ACETAMIN/CAFFEINE TAB PO STA ×2 (14:32→18:58)
[2020-12-07] MEDS: ATORVASTATIN 40 MG TAB PO SCH (20:11)
[2020-12-07] MEDS: PANTOprazole 40 MG TAB PO SCH (20:12)
[2020-12-07] MEDS: ASPIRIN 81 MG ECTAB PO SCH (20:12)
--- NOTE | 2020-12-07 21:28 | Hospitalist Progress Note ---
Date of Service December 07, 2020 Assessment & Plan (1) Pneumonia due to 2019 novel coronavirus: Plan: moderate-severe largely unchanged hypoxia similar - remains on 8-9 L NC O2 he is about ~13 days into his illness if any worsening in pulmonary status will move to telemetry COVID unit cont pulmonary toilet cont mucinex 1200mg BID no evidence of bacterial superinfection - procal neg continue dexamethasone 6mg daily; day #5 of such Remdesivir had been deferred as he was close to 10 days into the illness at time of ER presentation (low efficacy at that point) repeat labs am (2) Acute respiratory failure with hypoxia: Plan: 2nd to #1 no complicating CHF no complicating bacterial superinfection stable (3) CAD (coronary artery disease): Plan: h/o RCA stents remains on asa, statin was NOT taking REI or BB at home - hold for now as BPs are normal or low-normal states he is noncompliant with all of his meds no ischemic symptoms during this illness EKG with inverted T's inferiorly however it is unchanged from EKG from several years ago (4) Benign essential hypertension: Plan: BPs starting to rise mildly will resume lisinopril 5mg tomorrow am if creatinine is stable (5) Hyperlipidemia: Plan: statin (6) GERD (gastroesophageal reflux disease): Plan: PPI (7) Elevated LFTs: Plan: likely 2nd to COVID-19 infection repeat in am (8) Hyponatremia: Plan: 2nd recent diarrhea, poor oral intake, etc resolved repeat BMP am for stability (9) Hypokalemia: Plan: replaced and resolved bmp in am (10) DVT prophylaxis: Plan: lovenox 40mg BID (11) Headache: Plan: right eye region/right forehead with right eye tearing, right nare drainage. could be cluster headache. could be simply 2nd to COVID infection. will give fioricet x 1 if effective then repeat the fioricet in 4-6 hours if any worsening or persistence - low threshold for head imaging Plan: updated again today by phone discussed new-onset headache & plan of care Admission and Anticipated Discharge Date Admission Date: December 03, 2020 Subjective patient reports significant headache over his right eye feels like "I hit it against the door" right eye is tearing right nostril is draining/runny no photophobia or phonophobia no nausea denies h/o migraines or headaches cough unchanged XIAO unchanged no dyspnea on rest no orthopnea no chest pain eating is very robust Review of Systems Review of Systems: gen - no fevers/chills eyes - no vision change either eye neuro - no paresthesias any limb; no motor weakness CV - no chest pain pulm - no wheezing Physical Exam Physical Exam: Gen: a/o x 3, NAD Eyes: PERRL, no injection of conjunctiva Mouth: MM dry Neck: no JVD Heart: RRR, s1 s2, no murmur Lungs: b/l rales bases - no change; no wheeze, no distress Abd: soft, NT, ND, BS+, no HSM Ext: no edema, pulses 2+ b/l Neuro: strength 5/5 x 4 extremities Results & Data Results & Data ([facility]) Vital Signs (Past 12 Hours) Vital Signs Temp Pulse BP Pulse Ox 12/07/20 17:14 36.6 C 63 155/57 H 93 Laboratory Results Laboratory Results - last 24 hr 12/07/20 05:30 Creatinine 0.82 Est Cr Clr Drug Dosing 84.6 Est GFR ( Amer) 106.1 Est GFR (Non-Af Amer) 91.5 PG Care Time/CCT Total # of Minutes Spent Total Time Spent with Patient: Total time spent is greater than 50% in coordination of care (as documented) at patient's floor/unit and/or counseling patient: Coding Level of Care Code 95661 Subseq Hosp Care Lvl 3 Diagnoses Pneumonia due to 2019 novel coronavirus U07.1; J12.82 Acute respiratory failure with hypoxia J96.01 CAD (coronary artery disease) I25.10 Benign essential hypertension I10 Hyperlipidemia E78.5 GERD (gastroesophageal reflux disease) K21.9 Elevated LFTs R79.89 Hyponatremia E87.1 Hypokalemia E87.6 DVT prophylaxis Z29.9 Headache R51.9
[2020-12-08 06:40] LABS: Basophils # (auto) 0.01 K/uL (0-0.2); Basophils % (auto) 0.1 %; Hematocrit (blood only) 40.4 % (42-52); Hemoglobin 13.8 g/dL (14.0-18.0); Immature Granulocytes # (auto) 0.04 K/uL (0.00-0.02); Immature Granulocytes % (auto) 0.5 %; Lymphocytes # (auto) 0.54 K/uL (1.2-3.4); Lymphocytes % (auto) 6.2 %; Mean Corpuscular Hemoglobin 29.8 pg (25-34); Mean Corpuscular Hgb Conc 34.2 g/dL (32-36); Mean Corpuscular Volume 87.3 fL (80-100); Monocytes # (auto) 0.42 K/uL (0.11-0.59); Monocytes % (auto) 4.8 %; Neutrophils # (auto) 7.67 K/uL (1.4-6.5); Neutrophils % (auto) 88.4 %; Platelet Count 207 K/uL (130-400); RDW Coefficient of Variation 14.6 % (11.5-14.5); RDW Standard Deviation 46.6 fL (36.4-46.3); Red Blood Count 4.63 M/uL (4.7-6.1); White Blood Count 8.68 K/uL (4.8-10.8)
[2020-12-08 07:05] LABS: Albumin Level 1.8 gm/dl (3.4-5.0); Calcium 8.2 mg/dl (8.5-10.1); Creatinine Clr Calc Pharmacy 99.1 ml/min; Est GFR (African American) 113.2 ml/min; Est GFR (Non-African American) 97.7 ml/min; Potassium 3.9 mmol/L (3.5-5.1)
[2020-12-08 07:08] LABS: Albumin Globulin Ratio 0.4 (0.9-2); Bilirubin,Total 0.6 mg/dl (0.2-1); Globulin 4.7 gm/dl (2.5-4.0); Total Protein 6.5 gm/dl (6.4-8.2)
[2020-12-08] MEDS: guaiFENesin 600 MG TABCR PO SCH ×2 (09:09→19:40)
[2020-12-08] MEDS: FAMOTIDINE 40 MG TABLET PO SCH (09:09)
[2020-12-08] MEDS: dexAMETHasone 6 MG in SYRINGE 0 ML IV SCH (09:10)
[2020-12-08] MEDS: ACETAMINOPHEN 325 MG TAB PO PRN ×2 (10:12→17:52)
--- NOTE | 2020-12-08 11:02 | XRay Report ---
SINGLE VIEW CHEST CLINICAL HISTORY: Covid pneumonia. Hypoxia. FINDINGS: An AP, portable, upright chest radiograph is compared to study dated 12/05/2020. The heart i s mildly enlarged. Chronic elevation of the right hemidiaphragm is similar to previous. Multifocal ai rspace consolidation is again seen throughout both lungs. No large pleural effusion or pneumothorax i s identified. The skeletal structures are osteopenic. The bony thorax is grossly intact. IMPRESSION: Multifocal airspace consolidation has not significantly changed as compared to 12/05/2020. ACT 112: Negative or not required by law. Electronically signed by: Kapil Pugh M.D. 12/08/2020 11:00 AM
--- NOTE | 2020-12-08 11:52 | CT Scan Report ---
CT SCAN OF THE BRAIN WITHOUT IV CONTRAST CLINICAL HISTORY: Headache. COMPARISON STUDY: No priors. TECHNIQUE: Unenhanced axial CT scan of the brain is performed from the vertex to the skull base. A do se lowering technique was utilized adhering to the principles of ALARA. CT DOSE: 614.27 mGy.cm FINDINGS: Brain parenchyma: There are age-related involutional changes noting mild subcortical and periventric ular microangiopathic change. There is no hemorrhage, mass effect, or evidence of acute territorial i schemia by CT criteria. [place]-white matter differentiation is preserved. No extra-axial fluid collecti on is seen. Ventricles, sulci, cisterns: Prominent secondary to involutional change. Intracranial vasculature: There is atherosclerotic calcification of the cavernous carotid and vertebr al arteries. Calvarium: Unremarkable. Sinuses and mastoids: The visualized paranasal sinuses are clear. The mastoid air cells are well pneu matized. Orbits: The bony orbits are grossly intact. IMPRESSION: There is no hemorrhage, mass effect, or evidence of acute territorial ischemia by CT crit [place]. ACT 112: Negative or not required by law. Electronically signed by: Kapil Pugh M.D. 12/08/2020 11:51 AM
[2020-12-08] MEDS: ENOXAPARIN INJ 40 MG/0.4 ML SYR SQ SCH ×2 (12:20→19:41)
[2020-12-08] MEDS ORDERED: FUROSEMIDE 20 MG in SYRINGE 0 ML IV ONE (13:03)
[2020-12-08] MEDS ORDERED: POTASSIUM CHLORIDE CRTAB 20 MEQ TABCR PO STA (13:03)
--- NOTE | 2020-12-08 13:03 | Hospitalist Progress Note ---
Date of Service December 08, 2020 Assessment & Plan (1) Pneumonia due to 2019 novel coronavirus: Plan: moderate-severe WORSE today clinically although cxr unchanged requiring more O2 he is about ~14 days into his illness no evidence of bacterial superinfection - procal neg cont pulmonary toilet cont mucinex 1200mg BID \\continue dexamethasone 6mg daily; day #6 of such Remdesivir had been deferred as he was near 10 days into his illness at time of admission will give lasix 20mg IV x 1 to keep I/O balance negative repeat labs am given his worsening will move to the 2east telemetry COVID unit (2) Acute respiratory failure with hypoxia: Plan: 2nd to #1 worse today no complicating CHF, although will give lasix IV x 1 today to keep I/O balance negative no complicating bacterial superinfection (3) Headache: Plan: right eye region/right forehead with right eye tearing, right nare drainage. could be cluster headache. could be migraine. could be simply 2nd to COVID infection. fioricet x 2 yesterday helped but did not resolve the headache sent for CT head this am - negative for ICH, stroke, etc. he had transient L hand numbness this am - now resolved could have been TIA could have been neuro symptoms 2nd to a migraine headache tried toradol with low-dose ativan to abort headache - did not help spoke with on-call neurology -- will load with depakote 1000mg IV x 1 to attempt to abort headache unfortunately he is not a triptan candidate due to CAD if headache persists, if he has additional neuro symptoms, etc -- obtain MRI brain (I am concerned that he would not tolerate such, however, at this time) (4) CAD (coronary artery disease): Plan: h/o RCA stents remains on asa, statin was NOT taking REI or BB at home resume REI no ischemic symptoms during this illness EKG with inverted T's inferiorly however it is unchanged from EKG from several years ago (5) Benign essential hypertension: Plan: BPs starting to rise thus restart lisinopril 5mg daily (6) Hyperlipidemia: Plan: statin (7) GERD (gastroesophageal reflux disease): Plan: PPI (8) Elevated LFTs: Plan: likely 2nd to COVID-19 infection repeat AST today stable/unchanged (9) Hyponatremia: Plan: 2nd recent diarrhea, poor oral intake, etc resolved (10) Hypokalemia: Plan: replaced and resolved bmp in am (11) DVT prophylaxis: Plan: lovenox 40mg BID Plan: updated again today by phone discussed that he was transferred to [facility] discussed Rx of headache, CT head, etc discussed Rx of covid-19 pneumonia I am concerned by his worsening status finally, patient counseled heavily that if he left the hospital AMA he could face given the severity of his hypoxia from COVID total time today with complex care coordination -- 80 minutes (call to neuro, call to pt's , ordering studies/labs, Rx of refractory headache, etc) Admission and Anticipated Discharge Date Admission Date: December 03, 2020 Subjective patient continues with severe right sided headache over the eye tearing and nasal d/c from R nare continue fioricet did help yesterday but did not resolve the headache he slept poorly all night because of his breathing and the headache he is anxious and agitated this am before I came to the COVID unit to see him he had told the nursing staff he was leaving and calling his to pick him up nursing told him that this would not be prudent given the severity of his illnes s and high O2 requirement with eating or excessive talking his O2 sats drop into the 80s and remain there unless o2 is increased patient states that this am his left hand was "numb" he blamed it on the room being cold the numbness resolved he did not have numbness any other location no motor weakness Review of Systems Review of Systems: gen - extreme fatigue, no fevers; appetite has improved CV - no chest pain or orthopnea pulm - cough, congestion, dyspnea with minimal exertion GI - no abd pain/N/V/diarrhea Physical Exam Physical Exam: Gen: a/o x 3, agitated, anxious; with getting more agitated he develops dyspnea Mouth: MMM Neck: no JVD Heart: RRR, s1 s2, no murmur Lungs: b/l rales -- WORSE today - extend 1/2 way up back today; no wheeze; tachypnea with moving in bed Abd: soft, NT, ND, BS+, no HSM Ext: no edema, pulses 2+ b/l Neuro: strength 5/5 x 4 extremities; sensation intact to light touch over all 4 extremities; no facial droop; speech fluent/clear Results & Data Results & Data ([facility]) Vital Signs (Past 12 Hours) Vital Signs Temp Pulse Resp BP Pulse Ox 12/08/20 08:55 36.8 C 67 28 H 145/72 H 88 L Laboratory Results Laboratory Results - last 24 hr 12/08/20 12/08/20 05:55 05:55 WBC 8.68 RBC 4.63 L Hgb 13.8 L Hct 40.4 L MCV 87.3 MCH 29.8 MCHC 34.2 RDW Std Deviation 46.6 H RDW Coeff of Lu 14.6 H Plt Count 207 MPV 10.0 Immature Gran % (Auto) 0.5 Neut % (Auto) 88.4 Lymph % (Auto) 6.2 [place] % (Auto) 4.8 Eos % (Auto) 0.0 Baso % (Auto) 0.1 Neut # (Auto) 7.67 H Lymph # (Auto) 0.54 L [place] # (Auto) 0.42 Eos # (Auto) 0.00 Baso # (Auto) 0.01 Immature Gran # (Auto) 0.04 H Sodium 137 Potassium 3.9 Chloride 105 Carbon Dioxide 27 Anion Gap 5.0 BUN 14 Creatinine 0.70 Est Cr Clr Drug Dosing 99.1 Est GFR ( Amer) 113.2 Est GFR (Non-Af Amer) 97.7 BUN/Creatinine Ratio 20.0 Glucose 99 Calcium 8.2 L Total Bilirubin 0.6 AST 51 H ALT 47 Alkaline Phosphatase 189 H Total Protein 6.5 Albumin 1.8 L Globulin 4.7 H Albumin/Globulin Ratio 0.4 L PG Care Time/CCT Total # of Minutes Spent Total Time Spent with Patient: Total time spent is greater than 50% in coordination of care (as documented) at patient's floor/unit and/or counseling patient: Prolonged Care Time Prolonged Care Time: Yes 80 Coding Level of Care Code 02921 Subseq Hosp Care Lvl 3 (25 - SIGNIFICANT, SEPARATELY IDENTIFIABLE ) Diagnoses Pneumonia due to 2019 novel coronavirus U07.1; J12.82 Acute respiratory failure with hypoxia J96.01 CAD (coronary artery disease) I25.10 Benign essential hypertension I10 Hyperlipidemia E78.5 GERD (gastroesophageal reflux disease) K21.9 Elevated LFTs R79.89 Hyponatremia E87.1 Hypokalemia E87.6 DVT prophylaxis Z29.9 Headache R51.9 Additional Codes Prolonged Care Time - Prolonged Care Time: Yes ([id number])
[2020-12-08] MEDS: CHOLECALCIFEROL 1,000 UNITS 25 MCG TAB PO SCH (13:47)
[2020-12-08] MEDS: CEROVITE ADV FORMULA TAB PO SCH (13:47)
[2020-12-08] MEDS ORDERED: KETOROLAC TROMETHAMINE 15 MG/ML VIAL IV ONE (13:50)
[2020-12-08] MEDS ORDERED: LORazepam 0.5 MG TAB PO STA (13:52)
[2020-12-08] MEDS: lisinopril 5 MG TAB PO SCH (18:40)
[2020-12-08] MEDS ORDERED: VALPROATE SOD 1,000 MG in DEXTROSE 5% 100 ML IV ONE (18:49)
[2020-12-08] MEDS: ASPIRIN 81 MG ECTAB PO SCH (19:40)
[2020-12-08] MEDS: ATORVASTATIN 40 MG TAB PO SCH (19:40)
[2020-12-08] MEDS: PANTOprazole 40 MG TAB PO SCH (19:40)
[2020-12-08] MEDS: HYDROCODONE/ACETAMOPHEN 5/325MG TAB PO PRN (23:37)
--- NOTE | 2020-12-09 08:01 | Hospitalist Progress Note ---
Date of Service December 09, 2020 Assessment & Plan (1) Pneumonia due to 2019 novel coronavirus: Plan: Severe disease clinically worse the past 48 hours, went from oxy mask to maxed out on 60L and 100% FiO2 working to breathe, saturations 88-92%, at high risk of needing intubation he is about ~15 days into his illness continue dexamethasone 6mg daily; day #7 of such Lasix 20mg IV again this morning for negative fluid balance consult pulmonary medicine as he is high risk for intubation, want them on board early consider baricitinib but might be too far along in course add Zithromax due to thick sputum production, atypical coverage cont pulmonary toilet cont mucinex 1200mg BID flutter valve, incentive spirometer told patient he needs to lay on his stomach to keep saturations up, he says he can lay on his side, not stomach he confirms he would want intubated if breathing gets worse (2) Acute respiratory failure with hypoxia: Plan: 2nd to #1 worsening the past 48 hours consult pulmonary to follow at this point, at risk of needing intubation (3) Headache: Plan: right eye region/right forehead with right eye tearing, right nare drainage, more intense on 12/08, no complaints today CT head 12/08 - negative for ICH, stroke, etc. he had transient L hand numbness this am - now resolved could have been TIA could have been neuro symptoms 2nd to a migraine headache tried toradol with low-dose ativan to abort headache - did not help Dr. Villareal spoke with on-call neurology -- will load with depakote 1000mg IV x 1 to attempt to abort headache unfortunately he is not a triptan candidate due to CAD no REYNOLDS today, perhaps the Depakote aborted the headache, will try again if headache returns (4) CAD (coronary artery disease): Plan: h/o RCA stents remains on asa, statin was NOT taking REI or BB at home resume REI no ischemic symptoms during this illness EKG with inverted T's inferiorly however it is unchanged from EKG from several years ago (5) Benign essential hypertension: Plan: BPs starting to rise thus restart lisinopril 5mg daily (6) Hyperlipidemia: Plan: statin (7) GERD (gastroesophageal reflux disease): Plan: PPI (8) Elevated LFTs: Plan: likely 2nd to COVID-19 infection repeat AST today stable/unchanged (9) Hyponatremia: Plan: 2nd recent diarrhea, poor oral intake, etc resolved (10) Hypokalemia: Plan: replaced and resolved K is 4.1 (11) DVT prophylaxis: Plan: lovenox 40mg BID Plan: continue HFNC at 60L and 100% FiO2, high risk of needing intubated encouraged him to lay prone, says he can lay on his side consult pulmonary will check on him frequently today Admission and Anticipated Discharge Date Admission Date: December 03, 2020 Subjective patient decompensated this morning, saturations in 80's on 15L mask placed on HFNC, feels uncomfortable, not very compliant but will need to make it work told him that he needs to lay on his side or stomach the entire day if he wants to try to avoid intubation and mechanical ventilation he understands he is eating and drinking okay, making urine, moving his bowels I reviewed the chart and labs, appreciate notes from Dr. Villareal Review of Systems Review of Systems: All systems reviewed & are unremarkable except as noted in Subjective Constitutional: + fatigue and + weakness; no fever Respiratory: + cough, + chest congestion, + dyspnea, + dyspnea on exertion and + sputum production; no hemoptysis and no pain with cough Cardiovascular: no chest pain, no palpitations and no edema Gastrointestinal: no abdominal pain, no nausea, no vomiting, no constipation and no diarrhea/loose stools Physical Exam Physical Exam: General: well developed, well nourished, ill appearing, mild distress due to breathing, frail appearing Neck: supple, trachea midline, normal thyroid Lungs: crackles in bases, no wheezing, labored breathing, using accessory muscles, mild distress, tachypnea Heart: regular S1 and S2, no murmur, peripheral pulses normal, capillary refill normal, no edema Abdomen: soft, NT, ND, + BS, no hepatomegaly, normal to percussion Extremities: normal in appearance, mildly cyanotic, no petechiae, strength is 5/5 bilaterally Neuro: awake, cooperative, moves all extremities, no focal motor deficits, CN II-XII intact, sensation in extremities intact, normal speech Skin: warm, dry, no rash, normal turgor Psych: Awake, alert oriented x 3, flat/irritated affect Results & Data Results & Data ([facility]) Vital Signs (Past 12 Hours) Vital Signs Temp Pulse Pulse Pulse Resp BP BP 10/11/21 07:27 36.7 C 73 22 137/72 12/09/20 01:37 87 12/09/20 01:23 12/09/20 00:11 12/08/20 23:32 37.2 C 77 24 130/67 Pulse Ox 12/09/20 07:27 94 12/09/20 01:37 12/09/20 01:23 91 12/09/20 00:11 92 12/08/20 23:32 Laboratory Results Laboratory Results - last 24 hr 12/09/20 12/09/20 07:38 07:38 WBC 10.40 RBC 4.74 Hgb 14.2 Hct 40.9 L MCV 86.3 MCH 30.0 MCHC 34.7 RDW Std Deviation 46.3 RDW Coeff of Lu 14.6 H Plt Count 227 MPV 10.5 H Immature Gran % (Auto) 0.7 Neut % (Auto) 87.7 Lymph % (Auto) 7.6 [place] % (Auto) 3.8 Eos % (Auto) 0.1 Baso % (Auto) 0.1 Neut # (Auto) 9.13 H Lymph # (Auto) 0.79 L [place] # (Auto) 0.39 Eos # (Auto) 0.01 Baso # (Auto) 0.01 Immature Gran # (Auto) 0.07 H Sodium 138 Potassium 4.1 Chloride 106 Carbon Dioxide 27 Anion Gap 5.0 BUN 18 Creatinine 0.69 Est Cr Clr Drug Dosing 108.9 Est GFR ( Amer) 113.9 Est GFR (Non-Af Amer) 98.2 BUN/Creatinine Ratio 26.5 H Glucose 80 Calcium 8.6 AST 54 H ALT 64 Medications Administered Current Inpatient Medications Acetaminophen (Acetaminophen 325 Mg Tab) 650 mg PO Q4H PRN PRN Reason: pain/fever Stop: 01/02/21 22:22 Last Admin: 12/09/20 08:56 Dose: 650 mg Documented by: Hydrocodone Bitart/Acetaminophen (Hydrocodone/Acetamophen 5/325mg Tab) 1 tab PO Q6H PRN PRN Reason: Pain or headache Stop: 12/22/20 19:12 Last Admin: 12/08/20 23:37 Dose: 1 tab Documented by: Aspirin (Aspirin 81 Mg Ectab) 81 mg PO HS TONY Stop: 01/02/21 22:22 Last Admin: 12/08/20 19:40 Dose: 81 mg Documented by: Atorvastatin Calcium (Atorvastatin 40 Mg Tab) 80 mg PO QPM [facility] Stop: 01/03/21 20:59 Last Admin: 12/08/20 19:40 Dose: 80 mg Documented by: Enoxaparin Sodium (Enoxaparin Inj 40 Mg/0.4 Ml Syr) 40 mg SQ Q12H [facility] Stop: 01/02/21 22:59 Last Admin: 12/08/20 19:41 Dose: 40 mg Documented by: Famotidine (Famotidine 40 Mg Tablet) 40 mg PO QAM [facility] Stop: 01/03/21 08:59 Last Admin: 12/09/20 08:35 Dose: 40 mg Documented by: Guaifenesin (Guaifenesin 600 Mg Tabcr) 1,200 mg PO Q12 [facility] Stop: 01/03/21 09:29 Last Admin: 12/09/20 08:35 Dose: 1,200 mg Documented by: Dexamethasone 6 mg/ Syringe 1.5 mls @ 1 mls/min IV Q24H [facility] Stop: 01/03/21 08:59 Last Admin: 12/09/20 08:51 Dose: 1 mls/min Documented by: Lisinopril (Lisinopril 5 Mg Tab) 5 mg PO [facility] Stop: 01/07/21 15:58 Last Admin: 12/09/20 08:35 Dose: 5 mg Documented by: Multivitamins/Minerals (Cerovite Adv Formula Tab) 1 tab PO [facility] Stop: 01/07/21 11:59 Last Admin: 12/09/20 08:35 Dose: 1 tab Documented by: Ondansetron HCl (Ondansetron Inj 2 Mg/Ml 2 Ml Vial) 4 mg IV Q6H PRN PRN Reason: Nausea Stop: 01/02/21 22:22 Last Admin: 12/08/20 23:37 Dose: 4 mg Documented by: Pantoprazole Sodium (Pantoprazole 40 Mg Tab) 40 mg PO HS [facility] Stop: 01/03/21 20:59 Last Admin: 12/08/20 19:40 Dose: 40 mg Documented by: Vitamin D (Cholecalciferol 1,000 Units 25 Mcg Tab) 2,000 units [facility] Stop: 11/09/21 11:59 Last Admin: 12/09/20 08:35 Dose: 2,000 units Documented by: PG Care Time/CCT Total # of Minutes Spent Total Time Spent: 32 Total Time Spent with Patient: Total time spent is greater than 50% in coordination of care (as documented) at patient's floor/unit and/or counseling patient: Coding Level of Care Code 11934 Subseq Hosp Care Lvl 3 (25 - SIGNIFICANT, SEPARATELY IDENTIFIABLE ) Diagnoses Pneumonia due to 2019 novel coronavirus U07.1; J12.82 Acute respiratory failure with hypoxia J96.01 Headache R51.9 CAD (coronary artery disease) I25.10 Benign essential hypertension I10 Hyperlipidemia E78.5 GERD (gastroesophageal reflux disease) K21.9 Elevated LFTs R79.89 Hyponatremia E87.1 Hypokalemia E87.6 DVT prophylaxis Z29.9
[2020-12-09 08:06] LABS: Basophils # (auto) 0.01 K/uL (0-0.2); Basophils % (auto) 0.1 %; Eosinophils # (auto) 0.01 K/uL (0-0.5); Eosinophils % (auto) 0.1 %; Hematocrit (blood only) 40.9 % (42-52); Hemoglobin 14.2 g/dL (14.0-18.0); Immature Granulocytes # (auto) 0.07 K/uL (0.00-0.02); Immature Granulocytes % (auto) 0.7 %; Lymphocytes # (auto) 0.79 K/uL (1.2-3.4); Lymphocytes % (auto) 7.6 %; Mean Corpuscular Hgb Conc 34.7 g/dL (32-36); Mean Corpuscular Volume 86.3 fL (80-100); Mean Platelet Volume 10.5 fL (7.4-10.4); Monocytes # (auto) 0.39 K/uL (0.11-0.59); Monocytes % (auto) 3.8 %; Neutrophils # (auto) 9.13 K/uL (1.4-6.5); Neutrophils % (auto) 87.7 %; Platelet Count 227 K/uL (130-400); RDW Coefficient of Variation 14.6 % (11.5-14.5); RDW Standard Deviation 46.3 fL (36.4-46.3); Red Blood Count 4.74 M/uL (4.7-6.1)
[2020-12-09 08:28] LABS: BUN Creatinine Ratio 26.5 (10-20); Calcium 8.6 mg/dl (8.5-10.1); Creatinine Clr Calc Pharmacy 108.9 ml/min; Est GFR (African American) 113.9 ml/min; Est GFR (Non-African American) 98.2 ml/min; Potassium 4.1 mmol/L (3.5-5.1)
[2020-12-09] MEDS: lisinopril 5 MG TAB PO SCH (08:35)
[2020-12-09] MEDS: CHOLECALCIFEROL 1,000 UNITS 25 MCG TAB PO SCH (08:35)
[2020-12-09] MEDS: CEROVITE ADV FORMULA TAB PO SCH (08:35)
[2020-12-09] MEDS: guaiFENesin 600 MG TABCR PO SCH ×2 (08:35→21:00)
[2020-12-09] MEDS: FAMOTIDINE 40 MG TABLET PO SCH (08:35)
[2020-12-09] MEDS: dexAMETHasone 6 MG in SYRINGE 0 ML IV SCH (08:51)
[2020-12-09] MEDS: ACETAMINOPHEN 325 MG TAB PO PRN ×2 (08:56→13:40)
[2020-12-09] MEDS ORDERED: FUROSEMIDE 20 MG in SYRINGE 0 ML IV ONE (10:14)
[2020-12-09] MEDS ORDERED: FUROSEMIDE 40 MG/4 ML VIAL IV ONE (10:30)
[2020-12-09] MEDS: AZITHROMYCIN 250 MG TAB PO SCH (11:39)
[2020-12-09] MEDS: ENOXAPARIN INJ 40 MG/0.4 ML SYR SQ SCH ×2 (11:40→21:01)
--- NOTE | 2020-12-09 13:17 | Pulmonary Consultation ---
Date of Consultation December 09, 2020 Assessment & Plan (1) COVID-19: (2) Pneumonia due to 2019 novel coronavirus: (3) Hypoxia: (4) Acute respiratory failure with hypoxia: Impression: 65-year-old male with severe Covid pneumonia and progressive hypoxemic respiratory failure. He is completed dexamethasone and was outside the window for remdesivir. He has been here for 6 days now so is outside the window of baricitinib or Tocilizumab as well. His white count is not markedly elevated and is not been febrile. Recommendations: 1. Acute hypoxemic respiratory failure: Continue supportive care with oxygen as tolerated. The patient is not think he can tolerate noninvasive positive pre ssure ventilation and is refusing to try self proning. We will continue to wean high flow oxygen as tolerated. If he should fail, could consider a trial of noninvasive if the patient may tolerate it. If not would likely need to progress to intubation mechanical ventilation. He states he is breathing fine currently and does not interested in discussing additional options at this point time. Recheck procalcitonin and BNP level. 2. Covid pneumonia: Patient is currently on dexamethasone at 6 mg a day. 3. Patient has been initiated on a azithromycin today. Check respiratory culture if the patient can produce phlegm. 4. Given his decompensation, I think it is reasonable to exclude thromboembolic disease so we will proceed with a CTA of the chest. History of Present Illness Attending Physician: Felipe Davila, History of Present Illness Asked by hospitalists to evaluate patient with COVID and hypoxemia. History obtained from review of the EMR and discussion with the patient. 65 y/o M who was admitted to the facility 12/03/2020 with 10 days history of cough shortness of breath and headache. His swab was positive for Covid at that point time. He was unvaccinated. He was admitted to the hospital and treated with dexamethasone. He was appropriately felt to be outside the window for remdesivir. Over the last 24 hours the patient is had increasing oxygen requirement escalating to the point of high flow oxygen and pulmonary was consulted. The patient states that he is breathing fine. He states he cannot sleep supine due to back issues. He is not coughing or expectorating phlegm. He denies chest pain. No palpitations. No significant edema. Allergies Allergy/AdvReac Type Severity Reaction Status Date / Time latex Allergy Unknown RASH Verified 12/03/20 20:36 Penicillins Allergy Unknown RASH Verified 12/03/20 20:36 shellfish derived Allergy Unknown RASH Verified 12/03/20 20:36 Home Medications Medication Instructions Recorded Confirmed Type aspirin 81 mg tablet,delayed 81 mg PO HS tab 11/03/18 12/03/20 History release atorvastatin 80 mg tablet 0 mg PO QPM #90 tab 11/03/18 12/03/20 History lisinopril 5 mg tablet 0 mg PO DAILY #30 tab 11/03/18 12/03/20 History omeprazole 20 mg capsule,delayed 20 mg PO DAILY cap 11/03/18 12/03/20 History release ibuprofen 200 mg tablet 400 - 600 mg PO DAILY tab 11/25/18 12/03/20 History metoprolol succinate 25 mg 0 mg PO DAILY 11/25/18 12/03/20 History tablet,extended release 24 hr nitroglycerin 0.4 mg sublingual 0.4 mg SL Q5M PRN 11/25/18 12/03/20 History tablet (Nitrostat) Patient History Medical History (Updated 12/07/20 @ 21:26 by Дмитрий Villareal) Benign essential hypertension CAD (coronary artery disease) s/p TATI x 2 to RCA in 06/2015 GERD (gastroesophageal reflux disease) Hyperlipidemia Surgical History (Updated 12/03/20 @ 22:42 by May Betts DO) S/P coronary artery stent placement Social History (Updated 12/03/20 @ 22:42 by May Betts DO) Smoking Status: Never smoker Do You Dip or Chew Tobacco: No; Hx Alcohol Use: No Hx Substance Use: No Preferred Language: Italian Communication Ability: Effective Program Professional Required: No Beliefs That Will Affect Care: None marital status: Current Living Situation: Spouse Feels Safe at Home: Yes Assistive Devices: Oxygen - Continuous Review of Systems Review of Systems: per admission HPI. No additions or deletions Physical Exam Constitutional: WD/WN, vitals as above Neck: trachea midline, no thyromegaly Respiratory: normal respiratory effort; no respiratory distress and no labored breathing few scattered rales posteriorly. Cardiovascular: RRR, no murmur, no edema Gastrointestinal (Abdomen): normal bowel sounds, soft, nontender, no hepatospl enomegaly Musculoskeletal: Extremities: extremities normal to inspection Skin: no rashes, warm and dry Neurologic: Nonfocal exam Lymphatic: no cervical lymphadenopathy Results & Data Results & Data ([facility]) Vital Signs (Past 12 Hours) Vital Signs Temp Pulse Pulse Resp BP Pulse Ox 12/09/20 10:55 80 32 H 94 12/09/20 08:14 80 24 90 12/09/20 07:27 36.7 C 73 22 137/72 94 12/09/20 01:37 87 12/09/20 01:23 91 Laboratory Results 12/09/20 07:38 12/09/20 07:38 Diagnostic Findings Image that is been independently reviewed. Last chest x-ray from demonstrated patchy parenchymal infiltrates more prominent on the left than the right. Lung volumes were low. No pleural effusion or pneumothorax. Not appreciably changed from prior chest x-ray 12/05/2020 PG Care Time/CCT Total # of Minutes Spent Total Time Spent with Patient: Total time spent is greater than 50% in coordination of care (as documented) at patient's floor/unit and/or counseling patient: Coding Level of Care Code 05640 Initial Inpt Care Lvl 3 Diagnoses COVID-19 U07.1 Pneumonia due to 2019 novel coronavirus U07.1; J12.82 Hypoxia R09.02 Acute respiratory failure with hypoxia J96.01 Time Spent (min) 45
[2020-12-09] MEDS ORDERED: OPTIRAY 320 125ml IV ONE (15:35)
--- NOTE | 2020-12-09 15:45 | CT Scan Report ---
CT ANGIOGRAM OF THE CHEST CLINICAL HISTORY: Atypical chest pain. Dyspnea. Covid pneumonia. COMPARISON STUDY: Chest x-ray dated 12/08/2020. TECHNIQUE: Following the IV administration of 120 cc of Optiray 320, CT angiogram of the chest was pe rformed from the upper abdomen to the thoracic inlet utilizing the pulmonary embolus protocol. Images are reviewed in the axial, sagittal, and coronal planes. 3-D MIPS images are created and assessed. I V contrast was administered without complication. A dose lowering technique was utilized adhering to the principles of ALARA. The examination is compromised by motion artifact. CT DOSE: 385.82 mGy.cm FINDINGS: Thyroid: Imaged portions of the thyroid gland are normal in size and attenuation. Thoracic aorta: There is mild atherosclerotic calcification of the thoracic aorta, which is normal in caliber and demonstrates variant 3-vessel arch anatomy. There is a bovine arch, and the left vertebr al artery arises directly from the thoracic aorta. No dissection is seen. Pulmonary vasculature: The pulmonary trunk is normal in caliber. There are no filling defects identif ied in main, lobar, or segmental pulmonary branches to suggest pulmonary embolus. Heart: The heart is enlarged and without pericardial effusion. The coronary arteries are densely calc ified. Lungs and pleural spaces: Extensive multifocal airspace consolidation is seen throughout both lungs. No pleural effusion is identified. The trachea and central airways are clear. Mediastinum: There are numerous mildly enlarged mediastinal lymph nodes. These measure up to 11 mm sh ort axis. Mona: Clear. Axillae: There is no axillary lymphadenopathy. Upper abdomen: There is a small hiatal hernia. The liver is cirrhotic in morphology and heterogeneous in attenuation. There is hypertrophy of the left lobe and nodularity of the hepatic surface contour. The gallbladder is contracted. Diverticula are noted in the partially imaged colon. Skeletal structures: Degenerative change and mild hyperkyphosis is noted in the thoracic spine. No ly tic or blastic bony lesions are seen. Chronic posttraumatic versus degenerative change is noted in th e left glenoid. IMPRESSION: 1. There is no evidence of pulmonary embolus in the main, lobar, or segmental pulmonary arteries. 2. Extensive multifocal airspace consolidation is consistent with the reported history of a viral pne umonia. Radiographic follow-up to resolution is recommended. 3. Cardiomegaly. 4. Mildly enlarged mediastinal lymph nodes are likely reactive. 5. Cirrhotic liver morphology. 6. Additional findings as above. ACT 112: Negative or not required by law Electronically signed by: Kapil Pugh M.D. 12/09/2020 3:43 PM
[2020-12-09] MEDS: HYDROCODONE/ACETAMOPHEN 5/325MG TAB PO PRN (16:17)
[2020-12-09] MEDS: ASPIRIN 81 MG ECTAB PO SCH (21:00)
[2020-12-09] MEDS: PANTOprazole 40 MG TAB PO SCH (21:01)
[2020-12-09] MEDS: ATORVASTATIN 40 MG TAB PO SCH (21:01)
[2020-12-10] MEDS: dexAMETHasone 6 MG in SYRINGE 0 ML IV SCH (08:56)
[2020-12-10 09:12] LABS: Creatinine Clr Calc Pharmacy 76.2 ml/min; Est GFR (African American) 100.7 ml/min; Est GFR (Non-African American) 86.9 ml/min
[2020-12-10] MEDS: ACETAMINOPHEN 325 MG TAB PO PRN (09:53)
[2020-12-10] MEDS: CHOLECALCIFEROL 1,000 UNITS 25 MCG TAB PO SCH (09:54)
[2020-12-10] MEDS: CEROVITE ADV FORMULA TAB PO SCH (09:54)
[2020-12-10] MEDS: lisinopril 5 MG TAB PO SCH (09:55)
[2020-12-10] MEDS: guaiFENesin 600 MG TABCR PO SCH ×2 (09:55→19:46)
[2020-12-10] MEDS: FAMOTIDINE 40 MG TABLET PO SCH (09:56)
[2020-12-10] MEDS: ENOXAPARIN INJ 40 MG/0.4 ML SYR SQ SCH ×2 (09:56→22:57)
--- NOTE | 2020-12-10 10:32 | Hospitalist Progress Note ---
Date of Service December 10, 2020 Assessment & Plan (1) Pneumonia due to 2019 novel coronavirus: Plan: Severe disease clinically worse the past 72 hours, needed high flow and transferred to [facility] tele unit today he is on 40L and 95% FiO2, very tenuous increased dexamethasone to 20mg IV daily on 12/10, today is day 8 of treatment consult pulmonary medicine as he is high risk for intubation, want them on board early add Zithromax due to thick sputum production, atypical coverage cont pulmonary toilet cont mucinex 1200mg BID flutter valve, incentive spirometer told patient he needs to lay on his stomach to keep saturations up, he says he can lay on his side, not stomach he confirms he would want intubated if breathing gets worse will check up on him again this afternoon (2) Acute respiratory failure with hypoxia: Plan: 2nd to #1 try to wean high flow as tolerated pulmonary following (3) Headache: Plan: right eye region/right forehead with right eye tearing, right nare drainage, more intense on 12/08 has headache again today CT head 12/08 - negative for ICH, stroke, etc. he had transient L hand numbness this am - now resolved could have been TIA could have been neuro symptoms 2nd to a migraine headache no triptans due to CAD try Depakote, already on dexamethasone, add a dose of Toradol IV (4) CAD (coronary artery disease): Plan: h/o RCA stents remains on asa, statin was NOT taking REI or BB at home resume REI no ischemic symptoms during this illness EKG with inverted T's inferiorly however it is unchanged from EKG from several years ago (5) Benign essential hypertension: Plan: BPs starting to rise thus restart lisinopril 5mg daily (6) Hyperlipidemia: Plan: statin (7) GERD (gastroesophageal reflux disease): Plan: PPI (8) Elevated LFTs: Plan: likely 2nd to COVID-19 infection repeat AST today stable/unchanged (9) Hyponatremia: Plan: 2nd recent diarrhea, poor oral intake, etc resolved (10) Hypokalemia: Plan: replaced and resolved K is 4.1 (11) DVT prophylaxis: Plan: lovenox 40mg BID Plan: monitor closely for any decompensation high risk of needing intubated Admission and Anticipated Discharge Date Admission Date: December 03, 2020 Subjective patient feels about the same, laying on his right side he is at 40L and 95% FiO2 this morning d/w Dr. Hernandez, appreciate his input, he increased dexamethasone to 20mg from 6mg patient is eating okay, says he slept decent last night making urine, no BM today + cough, + dyspnea at rest and worse with any exertion + headache Review of Systems Review of Systems: All systems reviewed & are unremarkable except as noted in Subjective Respiratory: + cough, + dyspnea and + dyspnea on exertion Neurologic: + headache(s) Physical Exam Physical Exam: General: well developed, well nourished, ill appearing, mild distress due to breathing, frail appearing Neck: supple, trachea midline, normal thyroid Lungs: crackles in bases, no wheezing, labored breathing, using accessory muscles, mild distress, tachypnea Heart: regular S1 and S2, no murmur, peripheral pulses normal, capillary refill normal, no edema Abdomen: soft, NT, ND, + BS, no hepatomegaly, normal to percussion Extremities: normal in appearance, mildly cyanotic, no petechiae, strength is 5/5 bilaterally Neuro: awake, cooperative, moves all extremities, no focal motor deficits, CN II-XII intact, sensation in extremities intact, normal speech Skin: warm, dry, no rash, normal turgor Psych: Awake, alert oriented x 3, flat/irritated affect Results & Data Results & Data ([facility]) Vital Signs (Past 12 Hours) Vital Signs Temp Pulse Pulse Pulse Resp BP BP 12/10/20 08:08 84 22 12/10/20 08:06 36.4 C L 73 20 158/73 H 12/10/20 03:41 55 L 26 H 12/10/20 03:31 68 16 147/69 H 12/10/20 00:00 55 L 12/09/20 23:15 72 26 H 12/09/20 22:41 36.9 C 69 22 118/61 Pulse Ox 12/10/20 08:08 87 L 12/10/20 08:06 88 L 12/10/20 03:41 89 L 12/10/20 03:31 90 12/10/20 00:00 12/09/20 23:15 93 12/09/20 22:41 92 Laboratory Results Laboratory Results - last 24 hr 12/09/20 12/09/20 12/10/20 07:38 07:38 08:23 Creatinine 0.91 Est Cr Clr Drug Dosing 76.2 Est GFR ( Amer) 100.7 Est GFR (Non-Af Amer) 86.9 NT-Pro-B Natriuret Pep 536 Procalcitonin 0.30 Medications Administered Current Inpatient Medications Acetaminophen (Acetaminophen 325 Mg Tab) 650 mg PO Q4H PRN PRN Reason: pain/fever Stop: 01/02/21 22:22 Last Admin: 12/10/20 09:53 Dose: 650 mg Documented by: Hydrocodone Bitart/Acetaminophen (Hydrocodone/Acetamophen 5/325mg Tab) 1 tab PO Q6H PRN PRN Reason: Pain or headache Stop: 12/22/20 19:12 Last Admin: 12/09/20 16:17 Dose: 1 tab Documented by: Aspirin (Aspirin 81 Mg Ectab) 81 mg PO HS [facility] Stop: 01/02/21 22:22 Last Admin: 12/09/20 21:00 Dose: 81 mg Documented by: Atorvastatin Calcium (Atorvastatin 40 Mg Tab) 80 mg PO QPM [facility] Stop: 01/03/21 20:59 Last Admin: 12/09/20 21:01 Dose: 80 mg Documented by: Azithromycin (Azithromycin 250 Mg Tab) 500 mg PO QAM [facility] Stop: 12/16/20 10:29 Last Admin: 12/09/20 11:39 Dose: 500 mg Documented by: Enoxaparin Sodium (Enoxaparin Inj 40 Mg/0.4 Ml Syr) 40 mg SQ Q12H [facility] Stop: 01/02/21 22:59 Last Admin: 12/10/20 09:56 Dose: 40 mg Documented by: Famotidine (Famotidine 40 Mg Tablet) 40 mg PO QAM [facility] Stop: 01/03/21 08:59 Last Admin: 12/10/20 09:56 Dose: 40 mg Documented by: Guaifenesin (Guaifenesin 600 Mg Tabcr) 1,200 mg PO Q12 [facility] Stop: 01/03/21 09:29 Last Admin: 12/10/20 09:55 Dose: 1,200 mg Documented by: Dexamethasone 6 mg/ Syringe 1.5 mls @ 1 mls/min IV Q24H [facility] Stop: 01/03/21 08:59 Last Admin: 12/10/20 08:56 Dose: 1 mls/min Documented by: Lisinopril (Lisinopril 5 Mg Tab) [facility] [place] Stop: 01/07/21 15:58 Last Admin: 12/10/20 09:55 Dose: 5 mg Documented by: Multivitamins/Minerals (Cerovite Adv Formula Tab) 1 tab [facility] [place] Stop: 01/07/21 11:59 Last Admin: 12/10/20 09:54 Dose: 1 tab Documented by: Ondansetron HCl (Ondansetron Inj 2 Mg/Ml 2 Ml Vial) 4 mg IV Q6H PRN PRN Reason: Nausea Stop: 01/02/21 22:22 Last Admin: 12/08/20 23:37 Dose: 4 mg Documented by: Pantoprazole Sodium (Pantoprazole 40 Mg Tab) [address] [facility] Stop: 01/03/21 20:59 Last Admin: 12/09/20 21:01 Dose: 40 mg Documented by: Vitamin D (Cholecalciferol 1,000 Units 25 Mcg Tab) 2,000 units PO [facility] Stop: 01/07/21 11:59 Last Admin: 12/10/20 09:54 Dose: 2,000 units Documented by: PG Care Time/CCT Total # of Minutes Spent Total Time Spent with Patient: Total time spent is greater than 50% in coordination of care (as documented) at patient's floor/unit and/or counseling patient: Coding Level of Care Code 20158 Subseq Hosp Care Lvl 3 Diagnoses Pneumonia due to 2019 novel coronavirus U07.1; J12.82 Acute respiratory failure with hypoxia J96.01 Headache R51.9 CAD (coronary artery disease) I25.10 Benign essential hypertension I10 Hyperlipidemia E78.5 GERD (gastroesophageal reflux disease) K21.9 Elevated LFTs R79.89 Hyponatremia E87.1 Hypokalemia E87.6 DVT prophylaxis Z29.9
[2020-12-10] MEDS: AZITHROMYCIN 250 MG TAB PO SCH (11:19)
--- NOTE | 2020-12-10 11:22 | Pulmonology Progress Note ---
Date of Service December 10, 2020 Assessment & Plan (1) COVID-19: (2) Pneumonia due to 2019 novel coronavirus: (3) Hypoxia: (4) Acute respiratory failure with hypoxia: Plan: Impression: 65-year-old male with severe Covid pneumonia and progressive hypoxemic respiratory failure. He is completed dexamethasone and was outside the window for remdesivir. He has been here for 6 days now so is outside the window of baricitinib or Tocilizumab as well. His white count is not markedly elevated and is not been febrile. Does appear to be experiencing some increased work of breathing today. Recommendations: 1. Acute hypoxemic respiratory failure: Continue supportive care with oxygen as tolerated. Patient appears clinically worse. He is at risk of impending resp iratory failure necessitating escalation of care. We discussed noninvasive positive pressure ventilation as well as intubation mechanical ventilation. The patient would like to avoid all of these interventions if possible. He feels like he is doing okay for now. He understands that this could potentially get worse. Again he states he is comfortable continuing of high flow for now. 2. Covid pneumonia: Patient is currently on dexamethasone at 6 mg a day day #6. Given the extensive groundglass opacities noted on his CT scan, he may benefit from higher dose of dexamethasone. We will transition him to the Dex ARDS dosing 20 mg a day for 5 days followed by 10 mg a day for 5 days in hopes of staving off intubation mechanical ventilation. 3. Patient has been initiated on a azithromycin 12/09. No respiratory cultures and procalcitonin was negative at 0.3. BNP normal at 536 4. No evidence of PE on CT angiogram. Patient's prognosis at this point time is guarded. He certainly at risk of progressing to overt respiratory failure requiring intubation mechanical ventilation. We did discuss potentially seeing if we could bridge him with noninvasive positive pressure ventilation however the patient is unsure whether or not he can tolerate this. He will need to be followed closely. Admission and Anticipated Discharge Date Admission Date: December 03, 2020 Subjective Patient seen and examined. EMR reviewed. The patient states that his breathing is okay. He continues to try and stay in the decubitus position. He is not coughing or expectorating significant phlegm. He denies chest pain or palpitations. Review of Systems Review of Systems: Negative except as noted above Physical Exam Constitutional: WD/WN, vitals as above Neck: trachea midline, no thyromegaly Respiratory: + labored breathing and + tachypneic; + abnormal respiratory effort Auscultation: + rales Cardiovascular: RRR, no murmur, no edema Gastrointestinal (Abdomen): normal bowel sounds, soft, nontender, no hepatosplenomegaly Musculoskeletal: Extremities: extremities normal to inspection Skin: no rashes, warm and dry Lymphatic: no cervical lymphadenopathy Results & Data Results & Data ([facility]) Vital Signs (Past 12 Hours) Vital Signs Temp Pulse Pulse Resp BP BP Pulse Ox 12/10/20 11:07 79 22 91 12/10/20 08:08 84 22 87 L 12/10/20 08:06 36.4 C L 73 20 158/73 H 88 L 12/10/20 03:41 55 L 26 H 89 L 12/10/20 03:31 68 16 147/69 H 90 12/10/20 00:00 55 L 12/09/20 23:15 72 26 H 93 Laboratory Results 12/09/20 07:38 12/10/20 08:[address] angiogram was independently reviewed. No evidence of PE but extensive multifocal airspace opacity noted. PG Care Time/CCT Total # of Minutes Spent Total Time Spent with Patient: Total time spent is greater than 50% in coordination of care (as documented) at patient's floor/unit and/or counseling patient: Coding Level of Care Code 10934 Subseq Hosp Care Lvl 3 Diagnoses COVID-19 U07.1 Pneumonia due to 2019 novel coronavirus U07.1; J12.82 Hypoxia R09.02 Acute respiratory failure with hypoxia J96.01
[2020-12-10] MEDS ORDERED: dexAMETHasone 20 MG in SYRINGE 0 ML IV SCH (12:00)
[2020-12-10] MEDS ORDERED: KETOROLAC TROMETHAMINE 15 MG/ML VIAL IV ONE (12:50)
[2020-12-10] MEDS: DIVALPROEX EXTENDED RELEASE 250 MG TABCR PO SCH ×2 (14:11→19:47)
[2020-12-10] MEDS: HYDROCODONE/ACETAMOPHEN 5/325MG TAB PO PRN (19:46)
[2020-12-10] MEDS: PANTOprazole 40 MG TAB PO SCH (19:47)
[2020-12-10] MEDS: ATORVASTATIN 40 MG TAB PO SCH (19:47)
[2020-12-10] MEDS: ASPIRIN 81 MG ECTAB PO SCH (19:47)
[2020-12-11] MEDS ORDERED: KETOROLAC TROMETHAMINE 15 MG/ML VIAL IV ONE ×2 (01:03→09:20)
[2020-12-11] MEDS: MELATONIN 3 MG TAB PO PRN ×2 (01:11→23:10)
[2020-12-11] MEDS ORDERED: COUGH DROP (SUGAR FREE) LOZ 24 LOZ/1 BOX BUCCAL STA (01:15)
[2020-12-11] MEDS ORDERED: CHLORASEPTIC 1.4% SOLN 180 ML BTL MT PRN (09:19)
[2020-12-11] MEDS: ENOXAPARIN INJ 40 MG/0.4 ML SYR SQ SCH ×2 (10:17→21:02)
[2020-12-11] MEDS: lisinopril 5 MG TAB PO SCH (10:18)
[2020-12-11] MEDS: AZITHROMYCIN 250 MG TAB PO SCH (10:18)
[2020-12-11] MEDS: CHOLECALCIFEROL 1,000 UNITS 25 MCG TAB PO SCH (10:18)
[2020-12-11] MEDS: FAMOTIDINE 40 MG TABLET PO SCH (10:21)
[2020-12-11] MEDS: guaiFENesin 600 MG TABCR PO SCH ×2 (10:21→21:02)
[2020-12-11] MEDS: CEROVITE ADV FORMULA TAB PO SCH (10:21)
[2020-12-11] MEDS: DIVALPROEX EXTENDED RELEASE 250 MG TABCR PO SCH ×2 (10:22→21:03)
[2020-12-11] MEDS ORDERED: LIDOCAINE VISCOUS 2% SOLN 60 ML, diphenhydrAMINE Syrup 150 MG, ALUMINUM/MAGNESIUM SUSP ... PO PRN (11:17)
--- NOTE | 2020-12-11 11:25 | Hospitalist Progress Note ---
Date of Service December 11, 2020 Assessment & Plan (1) Pneumonia due to 2019 novel coronavirus: Plan: Severe disease remains on high flow, 40L and 85% at this time, desaturates quickly with any movement increased dexamethasone to 20mg IV daily on 12/10, today is day 9 of treatment consult pulmonary medicine as he is high risk for intubation, want them on board early add Zithromax due to thick sputum production, atypical coverage cont pulmonary toilet cont mucinex 1200mg BID flutter valve, incentive spirometer told patient he needs to lay on his stomach to keep saturations up, he says he can lay on his side, not stomach he confirms he would want intubated if breathing gets worse Lasix 20mg IV for negative fluid balance (2) Acute respiratory failure with hypoxia: Plan: 2nd to #1 try to wean high flow as tolerated pulmonary following (3) Headache: Plan: right eye region/right forehead with right eye tearing, right nare drainage, more intense on 12/08 has headache again today CT head 12/08 - negative for ICH, stroke, etc. he had transient L hand numbness this am - now resolved could have been TIA could have been neuro symptoms 2nd to a migraine headache no triptans due to CAD Depakote 250mg BID for prophylaxis? had a 1000mg load on 12/09 already on dexamethasone, add a dose of Toradol IV PRN (4) Sore throat: Plan: most pressing complaint today tongue and throat very dry, could be thrush from steroids? try Magic Swizzle (lidocaine) and Nystatin S/S QID some relief with chloraseptic spray (5) CAD (coronary artery disease): Plan: h/o RCA stents remains on asa, statin was NOT taking REI or BB at home resume REI no ischemic symptoms during this illness EKG with inverted T's inferiorly however it is unchanged from EKG from several years ago (6) Benign essential hypertension: Plan: BPs starting to rise thus restart lisinopril 5mg daily (7) Hyperlipidemia: Plan: statin (8) GERD (gastroesophageal reflux disease): Plan: PPI (9) Elevated LFTs: Plan: likely 2nd to COVID-19 infection repeat AST today stable/unchanged (10) Hyponatremia: Plan: 2nd recent diarrhea, poor oral intake, etc resolved (11) Hypokalemia: Plan: replaced and resolved K is 4.1 (12) DVT prophylaxis: Plan: lovenox 40mg BID Plan: monitor closely for any decompensation high risk of needing intubated Admission and Anticipated Discharge Date Admission Date: December 03, 2020 Subjective patient c/o sore throat, it was really bad last night, cough drops made it worse tongue and back of throat very dry, red -- could be thrush from steroids, try Magic Swizzle and Nystatin breathing is about the same, he actually says he feels better compared to yesterday he desaturated this morning when he sat up to urinate and eat, dropped to 70%, RN made him lay back down and placed him on 50L 100% now he is laying on left side, saturations 90% on 40L 85% still with headache but he says he is okay with it discussed with Dr. Hernandez, guarded prognosis, at risk of needing intubation spoke with patient about placing palmer so he does not desaturate getting up to urinate, he refuses Review of Systems Review of Systems: All systems reviewed & are unremarkable except as noted in Subjective Constitutional: + fatigue and + weakness; no fever Ear, Nose, Mouth, Throat: + dry mouth and + sore throat Respiratory: + cough, + dyspnea and + dyspnea on exertion Neurologic: + headache(s) Physical Exam Physical Exam: General: well developed, well nourished, ill appearing, mild distress due to breathing, frail appearing EENT: mouth and tongue very dry, white spots on back of tongue, throat is red and dry Neck: supple, trachea midline, normal thyroid Lungs: crackles in bases, no wheezing, labored breathing, using accessory muscles, mild distress, tachypnea Heart: regular S1 and S2, no murmur, peripheral pulses normal, capillary refill normal, no edema Abdomen: soft, NT, ND, + BS, no hepatomegaly, normal to percussion Extremities: normal in appearance, mildly cyanotic, no petechiae, strength is 5/5 bilaterally Neuro: awake, cooperative, moves all extremities, no focal motor deficits, CN II-XII intact, sensation in extremities intact, normal speech Skin: warm, dry, no rash, normal turgor Psych: Awake, alert oriented x 3, flat/irritated affect Results & Data Results & Data ([facility]) Vital Signs (Past 12 Hours) Vital Signs Temp Pulse Pulse Pulse Resp BP Pulse Ox 12/11/20 10:13 78 22 95 12/11/20 07:54 36.8 C 63 22 133/63 95 12/11/20 07:00 70 20 93 12/11/20 03:20 52 L 94 12/11/20 03:14 56 L 24 90 12/11/20 00:00 54 L Medications Administered Current Inpatient Medications Acetaminophen (Acetaminophen 325 Mg Tab) 650 mg PO Q4H PRN PRN Reason: pain/fever Stop: 01/02/21 22:22 Last Admin: 12/10/20 09:53 Dose: 650 mg Documented by: Hydrocodone Bitart/Acetaminophen (Hydrocodone/Acetamophen 5/325mg Tab) 1 tab PO Q6H PRN PRN Reason: Pain or headache Stop: 12/22/20 19:12 Last Admin: 12/10/20 19:46 Dose: 1 tab Documented by: Aspirin (Aspirin 81 Mg Ectab) 81 mg PO HS TONY Stop: 01/02/21 22:22 Last Admin: 12/10/20 19:47 Dose: 81 mg Documented by: Atorvastatin Calcium (Atorvastatin 40 Mg Tab) 80 mg PO QPM [facility] Stop: 01/03/21 20:59 Last Admin: 12/10/20 19:47 Dose: 80 mg Documented by: Azithromycin (Azithromycin 250 Mg Tab) 250 mg PO QAM [facility] Stop: 12/18/20 08:59 Last Admin: 12/11/20 10:18 Dose: 250 mg Documented by: Lidocaine HCl 60 ml/Diphenhydramine HCl 150 mg/ Al Hydrox/Mg Hydrox/Simethicone 60 ml/ Glycerin 60 ml/ BARCODE IDENTIFIER 1 ea 0 ml PO Q4H PRN PRN Reason: Sore Throat Stop: 01/10/21 11:16 Divalproex Sodium (Divalproex Extended Release 250 Mg Tabcr) 250 mg PO BID [facility] Stop: 01/09/21 12:59 Last Admin: 12/11/20 10:22 Dose: 250 mg Documented by: Enoxaparin Sodium (Enoxaparin Inj 40 Mg/0.4 Ml Syr) 40 mg SQ Q12H [facility] Stop: 01/02/21 22:59 Last Admin: 12/11/20 10:17 Dose: 40 mg Documented by: Famotidine (Famotidine 40 Mg Tablet) 40 mg PO QAM [facility] Stop: 01/03/21 08:59 Last Admin: 12/11/20 10:21 Dose: 40 mg Documented by: Guaifenesin (Guaifenesin 600 Mg Tabcr) 1,200 mg PO Q12 [facility] Stop: 01/03/21 09:29 Last Admin: 12/11/20 10:21 Dose: 1,200 mg Documented by: Dexamethasone 20 mg/ Dextrose 30 mls @ 0.833 mls/min IV Q24H [facility] Stop: 12/15/20 11:59 Lisinopril ([facility] 5 Mg Tab) [facility] [place] Stop: 01/07/21 15:58 Last Admin: 12/11/20 10:18 Dose: 5 mg Documented by: Melatonin (Melatonin 3 Mg Tab) 3 mg PO HS PRN PRN Reason: Sleep Stop: 01/10/21 01:02 Last Admin: 12/11/20 01:11 Dose: 3 mg Documented by: Multivitamins/Minerals (Cerovite Adv Formula Tab) 1 tab PO [facility] Stop: 01/07/21 11:59 Last Admin: 12/11/20 10:21 Dose: 1 tab Documented by: Nystatin (Nystatin Susp 500,000 U/5 Ml Udc) 5 ml PO QID [facility] Stop: 12/21/20 12:59 Ondansetron HCl (Ondansetron Inj 2 Mg/Ml 2 Ml Vial) 4 mg IV Q6H PRN PRN Reason: Nausea Stop: 01/02/21 22:22 Last Admin: 12/08/20 23:37 Dose: 4 mg Documented by: Pantoprazole Sodium (Pantoprazole 40 Mg Tab) 40 mg PO HS [facility] Stop: 01/03/21 20:59 Last Admin: 12/10/20 19:47 Dose: 40 mg Documented by: Phenol (Chloraseptic 1.4% Soln 180 Ml Btl) 2 sprays MT Q4 PRN PRN Reason: Sore Throat Stop: 01/10/21 09:18 Vitamin D (Cholecalciferol 1,000 Units 25 Mcg Tab) [facility] [place] Stop: 01/07/21 11:59 Last Admin: 12/11/20 10:18 Dose: 2,000 units Documented by: PG Care Time/CCT Total # of Minutes Spent Total Time Spent with Patient: Total time spent is greater than 50% in coordination of care (as documented) at patient's floor/unit and/or counseling patient: Coding Level of Care Code 66709 Subseq Hosp Care Lvl 3 Diagnoses Pneumonia due to 2019 novel coronavirus U07.1; J12.82 Acute respiratory failure with hypoxia J96.01 Headache R51.9 CAD (coronary artery disease) I25.10 Benign essential hypertension I10 Hyperlipidemia E78.5 GERD (gastroesophageal reflux disease) K21.9 Elevated LFTs R79.89 Hyponatremia E87.1 Hypokalemia E87.6 DVT prophylaxis Z29.9 Sore throat J02.9
[2020-12-11] MEDS ORDERED: FUROSEMIDE 20 MG in SYRINGE 0 ML IV ONE (11:32)
[2020-12-11] MEDS ORDERED: FUROSEMIDE 40 MG/4 ML VIAL IV ONE (11:45)
[2020-12-11] MEDS: dexAMETHasone 20 MG in DEXTROSE 5% 25 ML IV SCH (12:26)
[2020-12-11] MEDS: NYSTATIN SUSP 500,000 U/5 ML UDC PO SCH ×3 (12:56→21:02)
--- NOTE | 2020-12-11 14:23 | Pulmonology Progress Note ---
Date of Service December 11, 2020 Assessment & Plan (1) COVID-19: (2) Pneumonia due to 2019 novel coronavirus: (3) Hypoxia: (4) Acute respiratory failure with hypoxia: Plan: Impression: 65-year-old male with severe Covid pneumonia and progressive hypoxemic respiratory failure. He is completed dexamethasone and was outside the window for remdesivir. He has been here for 6 days now so is outside the window of baricitinib or Tocilizumab as well. His white count is not markedly elevated and is not been febrile. Stable today but still at risk of decompensation. Recommendations: 1. Acute hypoxemic respiratory failure: Continue supportive care with oxygen as tolerated. Patient appears clinically worse. He is at risk of impending respiratory failure necessitating escalation of care. We discussed noninvasive positive pressure ventilation as well as intubation mechanical ventilation. The patient would like to avoid all of these interventions if possible. He feels like he is doing okay for now. He understands that this could potentially get worse. Again he states he is comfortable continuing of high flow for now. 2. Covid pneumonia: Patient is currently on dexamethasone at 20 mg for 5 days followed by 10 mg a day for 5 days in hopes of staving off intubation mechanical ventilation. 3. Patient has been initiated on a azithromycin 12/09. No respiratory cultures and procalcitonin was negative at 0.3. BNP normal at 536 4. No evidence of PE on CT angiogram. Patient's prognosis at this point time is guarded. Oxygenation stable today. Admission and Anticipated Discharge Date Admission Date: December 03, 2020 Subjective Discussed with hospitalist. Oxygenation appears about the same. Deferred in person evaluation of patient today. Review of Systems Review of Systems: Per hospitalist note Physical Exam Physical Exam: Exam deferred Results & Data Results & Data ([facility]) Vital Signs (Past 12 Hours) Vital Signs Temp Pulse Pulse Resp BP Pulse Ox 12/11/20 11:56 36.7 C 82 22 95 12/11/20 10:13 78 22 95 12/11/20 07:54 36.8 C 63 22 133/63 95 12/11/20 07:00 70 20 93 12/11/20 03:20 52 L 94 12/11/20 03:14 56 L 24 90 Laboratory Results 12/09/20 07:38 12/10/20 08:23 Diagnostic Findings No new imaging PG Care Time/CCT Total # of Minutes Spent Total Time Spent with Patient: Total time spent is greater than 50% in coordination of care (as documented) at patient's floor/unit and/or counseling patient: Coding Level of Care Code 68983 Subseq Hosp Care Lvl 1 Diagnoses COVID-19 U07.1 Pneumonia due to 2019 novel coronavirus U07.1; J12.82 Hypoxia R09.02 Acute respiratory failure with hypoxia J96.01
[2020-12-11] MEDS: PANTOprazole 40 MG TAB PO SCH (21:02)
[2020-12-11] MEDS: ATORVASTATIN 40 MG TAB PO SCH (21:03)
[2020-12-11] MEDS: ASPIRIN 81 MG ECTAB PO SCH (21:03)
[2020-12-12] MEDS ORDERED: FUROSEMIDE 20 MG in SYRINGE 0 ML IV ONE (09:00)
[2020-12-12] MEDS: guaiFENesin 600 MG TABCR PO SCH (09:32)
[2020-12-12] MEDS: NYSTATIN SUSP 500,000 U/5 ML UDC PO SCH ×2 (09:32→15:05)
[2020-12-12] MEDS: AZITHROMYCIN 250 MG TAB PO SCH (09:32)
[2020-12-12] MEDS: DIVALPROEX EXTENDED RELEASE 250 MG TABCR PO SCH (09:32)
[2020-12-12] MEDS: lisinopril 5 MG TAB PO SCH (09:33)
[2020-12-12] MEDS: CHOLECALCIFEROL 1,000 UNITS 25 MCG TAB PO SCH (09:33)
[2020-12-12] MEDS: FAMOTIDINE 40 MG TABLET PO SCH (09:33)
[2020-12-12] MEDS: CEROVITE ADV FORMULA TAB PO SCH (09:33)
[2020-12-12 10:08] LABS: Hematocrit (blood only) 42.5 % (42-52); Hemoglobin 14.6 g/dL (14.0-18.0); Mean Corpuscular Hemoglobin 29.8 pg (25-34); Mean Corpuscular Hgb Conc 34.4 g/dL (32-36); Mean Corpuscular Volume 86.7 fL (80-100); Mean Platelet Volume 10.1 fL (7.4-10.4); Platelet Count 380 K/uL (130-400); RDW Coefficient of Variation 14.7 % (11.5-14.5); RDW Standard Deviation 46.9 fL (36.4-46.3); White Blood Count 19.03 K/uL (4.8-10.8)
[2020-12-12 10:41] LABS: BUN Creatinine Ratio 32.5 (10-20); C Reactive Protein 6.49 mg/dl (0-0.29); Calcium 8.9 mg/dl (8.5-10.1); Creatinine Clr Calc Pharmacy 92.5 ml/min; Est GFR (Non-African American) 94.9 ml/min; Potassium 3.8 mmol/L (3.5-5.1)
[2020-12-12] MEDS ORDERED: RAPID SEQUENCE INDUCTION BAG ONE (11:27)
--- NOTE | 2020-12-12 11:28 | Hospitalist Progress Note ---
Date of Service December 12, 2020 Assessment & Plan (1) Pneumonia due to 2019 novel coronavirus: Plan: Severe disease getting worse today, up to 60L and 100% and still desaturating, sats in 80's a lot at the point that he needs intubated, move to ICU, he agrees with intubation after speaking with his increased dexamethasone to 20mg IV daily on 12/10, today is day 10 of treatment pulmonary following, will now consult ICU Zithromax day 3 Lasix 20mg IV given daily for negative fluid balance, he had refused a palmer anticipate intubation, prone position if possible, Dr. Hernandez will now be managing (2) Acute respiratory failure with hypoxia: Plan: progressing to need for intubation desaturating on 60L and 100% FiO2 today move to ICU (3) Headache: Plan: right eye region/right forehead with right eye tearing, right nare drainage, more intense on 12/08 has headache again today CT head 12/08 - negative for ICH, stroke, etc. he had transient L hand numbness this am - now resolved could have been TIA could have been neuro symptoms 2nd to a migraine headache no triptans due to CAD Depakote 250mg BID for prophylaxis? had a 1000mg load on 12/09 already on dexamethasone, add a dose of Toradol IV PRN will now be sedated so headache will not be an issue (4) Sore throat: Plan: most pressing complaint on 12/11 tongue and throat very dry, could be thrush from steroids? started Magic Swizzle (lidocaine) and Nystatin S/S QID, gave him some relief (5) CAD (coronary artery disease): Plan: h/o RCA stents remains on asa, statin was NOT taking REI or BB at home holding Lisinopril 5mg no ischemic symptoms during this illness EKG with inverted T's inferiorly however it is unchanged from EKG from several years ago (6) Benign essential hypertension: Plan: BP stable (7) Hyperlipidemia: Plan: statin (8) GERD (gastroesophageal reflux disease): Plan: PPI (9) Elevated LFTs: Plan: likely 2nd to COVID-19 infection trended down (10) Hyponatremia: Plan: 2nd recent diarrhea, poor oral intake, etc resolved (11) Hypokalemia: Plan: replaced and resolved (12) DVT prophylaxis: Plan: lovenox 40mg BID Plan: move to ICU for intubation will update his later today Admission and Anticipated Discharge Date Admission Date: December 03, 2020 Subjective patient is up to 60L and 100% this morning desaturating this morning to 70's with minimal movement c/o sore throat, headache evaluated with Dr. Hernandez, he recommends intubation, if he would not want intubation the palliative care patient spoke with his over the phone, he agrees to intubation, not ready to will move to the ICU to prepare for intubation Review of Systems Review of Systems: All systems reviewed & are unremarkable except as noted in Subjective Constitutional: + fatigue and + weakness Ear, Nose, Mouth, Throat: + sore throat Respiratory: + cough, + dyspnea, + dyspnea on exertion and + sputum production Cardiovascular: no chest pain and no edema Gastrointestinal: no abdominal pain, no nausea and no vomiting Neurologic: + headache(s) Physical Exam Physical Exam: General: well developed, well nourished, ill appearing, mild distress due to breathing, frail appearing EENT: mouth and tongue very dry, white spots on back of tongue, throat is red and dry Neck: supple, trachea midline, normal thyroid Lungs: crackles in bases, no wheezing, labored breathing, using accessory muscles, increased distress, tachypnea Heart: regular S1 and S2, no murmur, peripheral pulses normal, capillary refill normal, no edema Abdomen: soft, NT, ND, + BS, no hepatomegaly, normal to percussion Extremities: normal in appearance, mildly cyanotic, no petechiae, strength is 5/5 bilaterally Neuro: awake, cooperative, moves all extremities, no focal motor deficits, CN II-XII intact, sensation in extremities intact, normal speech Skin: warm, dry, no rash, normal turgor Psych: Awake, alert oriented x 3, flat/irritated affect Results & Data Results & Data ([facility]) Vital Signs (Past 12 Hours) Vital Signs Temp Pulse Resp BP BP Pulse Ox 12/12/20 08:43 70 20 94 12/12/20 07:20 36.7 C 67 20 136/68 94 12/12/20 04:00 52 L 20 152/78 H 94 12/12/20 02:15 91 H 16 91 12/12/20 01:18 89 L Laboratory Results Laboratory Results - last 24 hr 12/12/20 12/12/20 09:11 09:11 WBC 19.03 H RBC 4.90 Hgb 14.6 Hct 42.5 MCV 86.7 MCH 29.8 MCHC 34.4 RDW Std Deviation 46.9 H RDW Coeff of Lu 14.7 H Plt Count 380 MPV 10.1 Sodium 137 Potassium 3.8 Chloride 103 Carbon Dioxide 24 Anion Gap 10.0 BUN 24 H Creatinine 0.75 Est Cr Clr Drug Dosing 92.5 Est GFR ( Amer) 110.0 Est GFR (Non-Af Amer) 94.9 BUN/Creatinine Ratio 32.5 H Glucose 99 Calcium 8.9 C-Reactive Protein 6.49 H Medications Administered Current Inpatient Medications Acetaminophen (Acetaminophen 325 Mg Tab) 650 mg PO Q4H PRN PRN Reason: pain/fever Stop: 01/02/21 22:22 Last Admin: 12/10/20 09:53 Dose: 650 mg Documented by: Hydrocodone Bitart/Acetaminophen (Hydrocodone/Acetamophen 5/325mg Tab) 1 tab PO Q6H PRN PRN Reason: Pain or headache Stop: 12/22/20 19:12 Last Admin: 12/10/20 19:46 Dose: 1 tab Documented by: Aspirin (Aspirin 81 Mg Ectab) 81 mg PO HS [facility] Stop: 01/02/21 22:22 Last Admin: 12/11/20 21:03 Dose: 81 mg Documented by: Atorvastatin Calcium (Atorvastatin 40 Mg Tab) 80 mg PO QPM [facility] Stop: 01/03/21 20:59 Last Admin: 12/11/20 21:03 Dose: 80 mg Documented by: Azithromycin (Azithromycin 250 Mg Tab) 250 mg PO QAM [facility] Stop: 12/18/20 08:59 Last Admin: 12/12/20 09:32 Dose: 250 mg Documented by: Lidocaine HCl 60 ml/Diphenhydramine HCl 150 mg/ Al Hydrox/Mg Hydrox/Simethicone 60 ml/ Glycerin 60 ml/ BARCODE IDENTIFIER 1 ea 0 ml PO Q4H PRN PRN Reason: Sore Throat Stop: 01/10/21 11:16 Last Admin: 12/12/20 09:34 Dose: 5 ml Documented by: Divalproex Sodium (Divalproex Extended Release 250 Mg Tabcr) 250 mg PO BID [facility] Stop: 01/09/21 12:59 Last Admin: 12/12/20 09:32 Dose: 250 mg Documented by: Enoxaparin Sodium (Enoxaparin Inj 40 Mg/0.4 Ml Syr) 40 mg SQ Q12H [facility] Stop: 01/02/21 22:59 Last Admin: 12/11/20 21:02 Dose: 40 mg Documented by: Famotidine (Famotidine 40 Mg Tablet) 40 mg PO QAM [facility] Stop: 01/03/21 08:59 Last Admin: 12/12/20 09:33 Dose: 40 mg Documented by: Guaifenesin (Guaifenesin 600 Mg Tabcr) 1,200 mg PO Q12 [facility] Stop: 01/03/21 09:29 Last Admin: 12/12/20 09:32 Dose: 1,200 mg Documented by: Dexamethasone 20 mg/ Dextrose 30 mls @ 0.833 mls/min IV Q24H [facility] Stop: 12/15/20 11:59 Last Infusion: 12/11/20 13:17 Dose: Infused Documented by: Lisinopril (Lisinopril 5 Mg Tab) 5 mg PO QAM [facility] Stop: 01/07/21 15:58 Last Admin: 12/12/20 09:33 Dose: 5 mg Documented by: Melatonin (Melatonin 3 Mg Tab) 3 mg PO HS PRN PRN Reason: Sleep Stop: 01/10/21 01:02 Last Admin: 12/11/20 23:10 Dose: 3 mg Documented by: Multivitamins/Minerals (Cerovite Adv Formula Tab) 1 tab PO QAM [facility] Stop: 01/07/21 11:59 Last Admin: 12/12/20 09:33 Dose: 1 tab Documented by: Nystatin (Nystatin Susp 500,000 U/5 Ml Ud) 5 ml PO QID [facility] Stop: 12/21/20 12:59 Last Admin: 12/12/20 09:32 Dose: 5 ml Documented by: Ondansetron HCl (Ondansetron Inj 2 Mg/Ml 2 Ml Vial) 4 mg IV Q6H PRN PRN Reason: Nausea Stop: 01/02/21 22:22 Last Admin: 12/08/20 23:37 Dose: 4 mg Documented by: Pantoprazole Sodium (Pantoprazole 40 Mg Tab) 40 mg PO HS [facility] Stop: 01/03/21 20:59 Last Admin: 12/11/20 21:02 Dose: 40 mg Documented by: Phenol (Chloraseptic 1.4% Soln 180 Ml Btl) 2 sprays MT Q4 PRN PRN Reason: Sore Throat Stop: 01/10/21 09:18 Last Admin: 12/12/20 08:30 Dose: 2 sprays Documented by: Vitamin D (Cholecalciferol 1,000 Units 25 Mcg Tab) 2,000 units PO QAM [facility] Stop: 01/07/21 11:59 Last Admin: 12/12/20 09:33 Dose: 2,000 units Documented by: PG Care Time/CCT Total # of Minutes Spent Total Time Spent with Patient: Total time spent is greater than 50% in coordination of care (as documented) at patient's floor/unit and/or counseling patient: Coding Level of Care Code 89990 Subseq Hosp Care Lvl 3 Diagnoses Pneumonia due to 2019 novel coronavirus U07.1; J12.82 Acute respiratory failure with hypoxia J96.01 Headache R51.9 Sore throat J02.9 CAD (coronary artery disease) I25.10 Benign essential hypertension I10 Hyperlipidemia E78.5 GERD (gastroesophageal reflux disease) K21.9 Elevated LFTs R79.89 Hyponatremia E87.1 Hypokalemia E87.6 DVT prophylaxis Z29.9
[2020-12-12] MEDS ORDERED: PROPOFOL IV EMULSION 10 MG/ML 100 ML VIAL IV ONE (12:41)
[2020-12-12] MEDS: propofoL 1,000 MG/100 ML VIAL IV SCH ×2 (13:00→19:01)
[2020-12-12] MEDS ORDERED: NOREPINEPHRINE/D5W 8 MG/508 ML IV ONE (13:16)
[2020-12-12] MEDS ORDERED: fentaNYL citrate 100 MCG/2 ML VIAL IV PRN (13:45)
[2020-12-12] MEDS ORDERED: STAT IV Infusion **Titration per Protocol STA ×2 (13:45→14:31)
[2020-12-12] MEDS ORDERED: ICU PROTOCOL FOR HYPERGLYCEMIA PRN (13:45)
[2020-12-12] MEDS ORDERED: NOREPINEPHRINE/D5W 8 MG/508 ML BAG IV SCH (13:45)
[2020-12-12] MEDS ORDERED: MIDAZOLAM HCL 1 MG/ML 2ML VIAL IV PRN (13:45)
--- NOTE | 2020-12-12 13:53 | Procedure Note ---
Procedure Note Date of Service December 12, 2020 Note INTUBATION PROCEDURE NOTE: Provider: Amos Hernandez MD A time-out was completed verifying correct patient, procedure, site, positioning. Patient was evaluated and required intubation for hypoxemic respiratory failure secondary to Covid infection. Sedative agent used: Etomidate, Versed Paralysis agent used: None Emergent consent was implied given patients rapidly declining clinical status and need for airway protection. The patient was prepared in the appropriate fashion. Sedation was achieved utilizing Versed and etomidate. Patient was already on noninvasive positive pressure ventilation which was continued. He was placed on an FiO2 of 100%. Video laryngoscopy was performed using the glide scope. A good view was obtained. A previously tested 8 oh endotracheal tube was placed under direct video guidance to 23 cm at the lip. The stylette was removed and balloon was inflated with 10mL of air. Appropriate Colorimetric change was appreciated. Bilateral breath sounds were heard without air sounds in the abdomen. Post Intubation Chest X-ray currently pending Patient tolerated the procedure well and there were no immediate complications. Coding CPT Codes Resuscitation - Resuscitation: 71429 Endotracheal Intubation, emergency ([id number]) [facility] [place] Procedure Codes (Charges) Resuscitation Resuscitation: 85998 Endotracheal Intubation, emergency
--- NOTE | 2020-12-12 13:55 | Procedure Note ---
Procedure Note Date of Service December 12, 2020 Note CENTRAL LINE PROCEDURE NOTE: Procedure: Central Line Placement Provider: Amos Hernandez MD Indication: Central Drug Administration, Poor Venous Access, Multiple Lab Draws Necessary, etc. Anesthesia: 3 mL 1% lidocaine locally Site: Left subclavian Patient verbally consented prior to being intubated. A time-out was completed verifying correct patient, procedure, site, positioning, and implants(s) or special equipment if applicable. Patients left subclavian fossa was cleansed and draped in the typical sterile fashion using Chloraprep. Landmarks were easily identified. The superficial tissue was anesthetized using 3 mL mL of 1% lidocaine without epinephrine. After adequate anesthetization was achieved, the left subclavian vein was cannulated using an introducer needle on a syringe. Good venous blood return was maintained prior to removal of syringe from introducer needle. Using Seldinger Technique, a guide wire was advanced through the introducer needle without resistance. The introducer needle was removed. A small incision was made in penetrating fashion at the guide wire insertion site utilizing an 11 blade scalpel. The dilator was advanced to the vessel without resistance. The dilator was exchanged for the triple lumen catheter which was advanced into the vessel without resistance. The guide wire was removed intact from the catheter without issue. Claves were placed on each catheter tip with confirmation of good blood flow from each lumen. Each port was easily flushed with sterile saline. The catheter was placed at at the hub and sutured in place. BioPatch was applied to the catheter and a sterile Tegaderm dressing was applied over the catheter with careful attention to sterility. Patient tolerated procedure well. No immediate complications were met. Post procedure x-ray currently pending. Coding CPT Codes Tubes, Drains, and Vasc Access - Tubes, Drains, and Vasc Access: [id number] Place catheter in vein superior or inferior vena cava ([id number]) [facility] [place] Procedure Codes (Charges) Tubes, Drains, and Vasc Access Procedure 1: Tubes, Drains, and Vasc Access: [id number] Place catheter in vein superior or inferior vena cava
--- NOTE | 2020-12-12 13:56 | Procedure Note ---
Procedure Note Date of Service December 12, 2020 Note ARTERIAL LINE PROCEDURE NOTE: Procedure: Arterial Line Placement Provider: Amos Hernandez MD Indication: Monitoring on Pressors Anesthesia: None Patient verbally consented to the procedure prior to being intubated A time-out was completed verifying correct patient, procedure, site, positioning, and implant(s) or special equipment if applicable. Allens test was performed to ensure adequate perfusion. Patients right wrist was prepped and draped in the usual sterile fashion. A 20g Arrow arterial line was introduced into the right radial artery. Catheter was threaded, and the needle was removed with appropriate blood return. Good waveform was observed. The patient tolerated the procedure well. Blood Loss: Minimal Complications: None Coding CPT Codes Tubes, Drains, and Vasc Access - Tubes, Drains, and Vasc Access: [id number] Insertion Catheter, Artery ([id number]) [facility] [place] Procedure Codes (Charges) Tubes, Drains, and Vasc Access Procedure 1: Tubes, Drains, and Vasc Access: [id number] Insertion Catheter, Artery
[2020-12-12] MEDS: dexAMETHasone 20 MG in DEXTROSE 5% 25 ML IV SCH (13:58)
[2020-12-12 14:07] LABS: iSTAT Art Bld Gas pCO2 Correct 57 mmHg (35-46); iSTAT Art Bld Gas pH Corrected 7.327 (7.35-7.45); iSTAT Arterial Blood Gas HCO3 30 meg/L (19-24); iSTAT Arterial Blood Gas pCO2 57 mmHg (35-46); iSTAT Arterial Blood Gas pH 7.33 (7.35-7.45); iSTAT Arterial Blood Gas pO2 143 mmHg (80-95); iSTAT Arterial Blood Gas pO2 C 143; iSTAT Carbon Dioxide 32 mmol/L (24-31); iSTAT FiO2 100 %; iSTAT Hematocrit 43 % (42-52); iSTAT Hemoglobin 14.6 g/dl (14.0-18.0); iSTAT Potassium 3.5 mmol/L (3.3-5.0); iSTAT Site Art Line; iSTAT Sodium 139 mmol/L (135-144)
[2020-12-12] MEDS: fentaNYL DRIP 1,250 MCG/250 ML BAG IV SCH (14:07)
[2020-12-12] MEDS: NORMOSOL-R 1,000 ML IV SCH (14:07)
[2020-12-12] MEDS: PROPOFOL BOLUS FROM BAG IV PRN (14:10)
--- NOTE | 2020-12-12 14:16 | XRay Report ---
XR chest 1V portable HISTORY: central line, ETT, OG tube placement COMPARISON: Chest 12/08/2020. FINDINGS: The endotracheal tube terminates 3.7 cm from the joey. Left subclavian central venous cat heter terminates at the SVC. Nasogastric tube terminates in the stomach. Multifocal patchy bilateral airspace opacities consistent with a viral pneumonia are again noted. The heart is borderline enlarge d. No pneumothorax. No pleural effusions. IMPRESSION: 1. Satisfactory support line placement. 2. Multifocal patchy bilateral airspace opacities are again noted. This is consistent with a viral pn eumonia. ACT 112: Negative or not required by law. Electronically signed by: Pradeep Falcon M.D. 12/12/2020 2:15 PM
[2020-12-12] MEDS ORDERED: CISATRACURIUM BOLUS FROM BAG IV STA (14:38)
--- NOTE | 2020-12-12 14:40 | Critical Care Progress Note ---
Date of Service December 12, 2020 Assessment & Plan (1) Acute respiratory failure with hypoxia: (2) Pneumonia due to 2019 novel coronavirus: Plan: Impression: 65-year-old male with Covid pneumonia and ARDS. He has been admitted since 12/03 and has been on dexamethasone. He has been hospitalized long enough that was outside the window for Tocilizumab or Baricitinib. Recommendations: 1. Neurologic: Continue deep sedation with propofol, fentanyl, and Versed. John l use neuromuscular blockade as needed to promote ventilator synchrony for ARDS ventilator strategy. 2. Pulmonary: ARDS secondary to Covid pneumonia. ID had a CT angiogram demonstrating no evidence of PE. Review of the patient's imaging demonstrated fairly diffuse disease and I am not sure that he would be a candidate for proning. We will see how we can do with low PEEP high FiO2 strategy and try and target plateau pressures below 30. Continue the late-phase ARDS dexamethasone protocol with 20 mg daily for 5 days followed by 10 mg daily for 5 days. 3. Cardiovascular: Patient did develop transient hypotension with sedatives. He may be relatively volume depleted due to poor p.o. intake. Judicious fluid administration will be conducted. Will use pressors as needed to maintain mean arterial pressures above 65. 4. Renal: No current issues. Electrolyte replacement protocol. Follow acid- base status with serial blood gases. 5. GI: We will keep n.p.o. for now. Will address nutrition in the next [address] Trend LFTs. 6. ID: Covid pneumonitis with ARDS physiology. Continue dexamethasone as noted. 7. Endocrine: No prior issues. Glycemic control per ICU protocol. 8. Heme-onc: No current issues. Continue to trend over time. 9. DVT and GI prophylaxis in place. The patient is critically ill at this point time with significant possibility of clinical deterioration and/or . A total of 85 minutes in critical care time was spent in evaluation management and stabilization of this patient excluding procedures.. Admission and Anticipated Discharge Date Admission Date: December 03, 2020 Subjective Patient seen and examined initially on the Covid unit and then later in the ICU. The patient continues to decline clinically. When I saw him his oxygen saturations were in the 70s despite being maxed out on high flow. He continues to have reservations about his ability to tolerate noninvasive positive pressure ventilation. I recommended intubation given the fact that he is tachypneic in the 40s and is failed conservative therapy. The patient initially was reluctant however after discussing with his and with his admitting hospitalist he was agreeable. He was then transferred to the ICU where he was intubated, central lines were placed, and he was initiated on mechanical ventilation per ARDS net strategy. Review of Systems Review of Systems: Unobtainable due to endotracheal tube Physical Exam Constitutional: + mechanically ventilated Intubated and sedated Neck: trachea midline, no thyromegaly Respiratory: + respiratory distress, + labored breathing and + tachypneic; + abnormal respiratory effort Auscultation: + rales and + wheezes Cardiovascular: RRR, no murmur, no edema Gastrointestinal (Abdomen): normal bowel sounds, soft, nontender, no hepatosplenomegaly Musculoskeletal: Extremities: extremities normal to inspection Skin: no rashes, warm and dry Neurologic: Nonfocal exam Lymphatic: no cervical lymphadenopathy Results & Data Results & Data ([facility]) Vital Signs (Past 12 Hours) Vital Signs Temp Pulse Pulse Resp BP BP Pulse Ox 12/12/20 13:03 83 31 H 93 12/12/20 12:27 92 H 39 H 91 12/12/20 11:10 93 12/12/20 09:00 54 L 12/12/20 08:43 70 20 94 12/12/20 07:20 36.7 C 67 20 136/68 94 12/12/20 04:00 52 L 20 152/78 H 94 Critical Care Results & Data Vital Signs (Past 12 Hours) Vital Signs Temp Pulse Pulse Resp BP BP Pulse Ox 12/12/20 13:03 83 31 H 93 12/12/20 12:27 92 H 39 H 91 12/12/20 11:10 93 12/12/20 09:00 54 L 12/12/20 08:43 70 20 94 12/12/20 07:20 36.7 C 67 20 136/68 94 12/12/20 04:00 52 L 20 152/78 H 94 Lab & Micro Results (Past 24 Hours) RBC 4.90 M/uL (4.7-6.1) 12/12/20 WBC 19.03 K/uL (4.8-10.8) H 12/12/20 Hgb 14.6 g/dL (14.0-18.0) 12/12/20 Hct 42.5 % (42-52) 12/12/20 MCV 86.7 fL (80-100) 12/12/20 MCH 29.8 pg (25-34) 12/12/20 MCHC 34.4 g/dL (32-36) 12/12/20 RDW Standard Deviation 46.9 fL (36.4-46.3) H 12/12/20 RDW Coefficient of Variation 14.7 % (11.5-14.5) H 12/12/20 Plt Count 380 K/uL (130-400) 12/12/20 MPV 10.1 fL (7.4-10.4) 12/12/20 Na 137 mmol/L (136-145) 12/12/20 K 3.8 mmol/L (3.5-5.1) 12/12/20 Cl 103 mmol/L (98-107) 12/12/20 CO2 24 mmol/L (21-32) 12/12/20 Anion Gap 10.0 (3-11) 12/12/20 BUN 24 mg/dl (7-18) H 12/12/20 Creatinine 0.75 mg/dl (0.6-1.4) 12/12/20 Estimated GFR ( Amer) 110.0 ml/min 12/12/20 Estimated GFR (Non-Af Amer) 94.9 ml/min 12/12/20 BUN/Creatinine Ratio 32.5 (10-20) H 12/12/20 Glu 99 mg/dl (70-99) 12/12/20 Ca 8.9 mg/dl (8.5-10.1) 12/12/20 Calcium Level 8.9 mg/dl (8.5-10.1) 12/12/20 09:11 12/12/20 Robert Test NA 12/12/20 13:50 12/12/20 Diagnostic Findings (Past 24 Hours) Chest X-Ray 12/12/20 13:44 XR chest 1V portable HISTORY: central line, ETT, OG tube placement COMPARISON: Chest 12/08/2020. FINDINGS: The endotracheal tube terminates 3.7 cm from the joey. Left subclavian central venous catheter terminates at the SVC. Nasogastric tube terminates in the stomach. Multifocal patchy bilateral airspace opacities consistent with a viral pneumonia are again noted. The heart is borderline enlarged. No pneumothorax. No pleural effusions. IMPRESSION: 1. Satisfactory support line placement. 2. Multifocal patchy bilateral airspace opacities are again noted. This is consistent with a viral pneumonia. ACT 112: Negative or not required by law. Electronically signed by: Pradeep Falcon M.D. 12/12/2020 2:15 PM I & O Totals 24 Hours 12/11/20 12/12/20 12/13/20 06:59 06:59 06:59 Intake Total 1420 / 1420 390 / 390 7.575 / 7.575 Output Total 1200 / 1200 2500 / 2500 600 / 600 Balance 220 / 220 -2110 / -2110 -592.425 / -592.425 Cumulative 12/03/20 17:02 thru 12/12/20 13:45 Intake Total 4957.575 Output Total 39143 Balance -7192.425 RT Ventilator Mngmt (Last Documented) Ventilator Ordered Settings Ventilator Support Mode Assist Control 12/12/20 13:03 Respiratory Rate 31 12/12/20 13:03 Ventilator Tidal Volume 360 12/12/20 13:03 Setting Minute Ventilation 11.3 12/12/20 13:03 Positive End Expiratory 12 12/12/20 13:03 Pressure Fraction of Inspired Oxygen 100 12/12/20 13:03 Ventilator - PT Measurements Respiratory Rate 31 Exhaled Tidal Volume 415 Minute Ventilation 11.3 Peak Inspiratory Airway 30 Pressure Respiratory Cycle Inspiratory: 1:1.1 Expiratory Ratio Inspiratory Phase Time 0.9 End-Tidal CO2 28 Dynamic Lung Compliance 23.06 Normal Static Lung Compliance 46.00 Coding Level of Care Code Critical Care ea addt'l 30 min Diagnoses Acute respiratory failure with hypoxia J96.01 Pneumonia due to 2019 novel coronavirus U07.1; J12.82 Time Spent (min) 85 Comment Please code [id number] and [id number]
[2020-12-12] MEDS: CISATRACURIUM BESYLATE 40 MG in 0.9 % SODIUM CHLORIDE 80 ML IV SCH ×2 (14:46→19:50)
[2020-12-12] MEDS: ENOXAPARIN INJ 40 MG/0.4 ML SYR SQ SCH ×2 (14:47→22:53)
[2020-12-12] MEDS: ARTIFICIAL TEARS OP OINT 3.5 GM TUBE OP SCH ×2 (14:47→18:05)
[2020-12-12] MEDS ORDERED: ROCURONIUM BROMIDE 10 MG/ML 5 ML VIAL IV ONE (14:51)
[2020-12-12] MEDS ORDERED: ETOMIDATE 2 MG/ML 20 ML VIAL IV ONE (14:51)
[2020-12-12] MEDS ORDERED: MIDAZOLAM HCL 5 MG/ML 1 ML VIAL IV ONE (14:51)
[2020-12-12] MEDS ORDERED: fentaNYL citrate 100 MCG/2 ML VIAL IV ONE (14:51)
--- NOTE | 2020-12-12 16:55 | XRay Report ---
XR chest 1V portable HISTORY: Respiratory failure. change in condition COMPARISON: Chest 12/12/2020. FINDINGS: Lines and tubes remain unchanged in position. No pneumothorax. Trace bilateral pleural effu sions. Diffuse hazy bilateral airspace opacities persist. The heart remains top normal in size. IMPRESSION: 1. Satisfactory support line placement. 2. No change in the hazy bilateral airspace opacities. 3. Trace bilateral pleural effusions. ACT 112: Negative or not required by law. Electronically signed by: Pradeep Falcon M.D. 12/12/2020 4:54 PM
[2020-12-12 18:17] LABS: iSTAT Art Bld Gas pCO2 Correct 86 mmHg (35-46); iSTAT Art Bld Gas pH Corrected 7.183 (7.35-7.45); iSTAT Arterial Blood Gas HCO3 33 meg/L (19-24); iSTAT Arterial Blood Gas pCO2 87 mmHg (35-46); iSTAT Arterial Blood Gas pH 7.18 (7.35-7.45); iSTAT Arterial Blood Gas pO2 93 mmHg (80-95); iSTAT Arterial Blood Gas pO2 C 90; iSTAT Carbon Dioxide 35 mmol/L (24-31); iSTAT FiO2 80 %; iSTAT Hematocrit 48 % (42-52); iSTAT Hemoglobin 16.3 g/dl (14.0-18.0); iSTAT Potassium 5.2 mmol/L (3.3-5.0); iSTAT Site Art Line; iSTAT Sodium 137 mmol/L (135-144)
[2020-12-12 18:23] LABS: Magnesium 2.5 mg/dl (1.8-2.4); Phosphorus 5.3 mg/dl (2.5-4.9)
[2020-12-12 18:30] LABS: BUN Creatinine Ratio 34.8 (10-20); Calcium 8.6 mg/dl (8.5-10.1); Creatinine Clr Calc Pharmacy 75.4 ml/min; Est GFR (African American) 99.4 ml/min; Est GFR (Non-African American) 85.8 ml/min; Potassium 5.2 mmol/L (3.5-5.1)
[2020-12-12] MEDS: ICU ELECTROLYTE REPLACEMENT PROTOCOL SCH (18:37)
[2020-12-12 20:28] LABS: Base Excess ABG -0.1 mEq/L (-9-1.8); HCO3 ABG 28 mmol/L (19-24); PCO2 ABG 62 mmHg (35-46); PO2 ABG 70 mmHg (80-95); pH ABG 7.28 (7.35-7.45)
[2020-12-12 20:29] LABS: Allen Test Pos (Pos)
[2020-12-12] MEDS: FAMOTIDINE 20 MG in SYRINGE 3 ML IV SCH (21:22)
[2020-12-13] MEDS: propofoL 1,000 MG/100 ML VIAL IV SCH ×6 (00:08→19:24)
[2020-12-13] MEDS: CISATRACURIUM BESYLATE 40 MG in 0.9 % SODIUM CHLORIDE 80 ML IV SCH ×4 (00:30→11:24)
[2020-12-13] MEDS ORDERED: PHARMACY GLYCEMIC MGMT CONSULT PRN (00:31)
[2020-12-13] MEDS ORDERED: GLUCOSE 40% GEL 15 GM TUBE PO PRN (01:30)
[2020-12-13] MEDS ORDERED: CARBOHYDRATES FOR HYPOGLYCEMIA PO PRN (01:30)
[2020-12-13] MEDS ORDERED: DEXTROSE 50% 50 ML SYRINGE IV PRN (01:30)
[2020-12-13] MEDS ORDERED: GLUCAGON FOR INJ 1 MG VIAL SQ PRN (01:30)
[2020-12-13] MEDS ORDERED: INSULIN GLARGINE SOLOSTAR 100 UNITS/ML 3 ML PEN SC SCH (01:30)
[2020-12-13] MEDS ORDERED: GLUCOSE 10 TABS/TUBE PO PRN (01:30)
[2020-12-13] MEDS: NORMOSOL-R 1,000 ML IV SCH (02:04)
[2020-12-13] MEDS: ARTIFICIAL TEARS OP OINT 3.5 GM TUBE OP SCH ×7 (02:04→20:44)
[2020-12-13] MEDS: INSULIN ASPART 100 UNITS/ML 3 ML PEN SC SCH ×6 (02:38→20:42)
[2020-12-13] MEDS ORDERED: INSULIN ASPART 100 UNITS/ML 3 ML PEN SC ONE (04:00)
[2020-12-13 04:41] LABS: iSTAT Art Bld Gas pCO2 Correct 53 mmHg (35-46); iSTAT Arterial Blood Gas HCO3 31 meg/L (19-24); iSTAT Arterial Blood Gas pCO2 55 mmHg (35-46); iSTAT Arterial Blood Gas pH 7.37 (7.35-7.45); iSTAT Arterial Blood Gas pO2 88 mmHg (80-95); iSTAT Arterial Blood Gas pO2 C 84; iSTAT Carbon Dioxide 33 mmol/L (24-31); iSTAT FiO2 60 %; iSTAT Hematocrit 43 % (42-52); iSTAT Hemoglobin 14.6 g/dl (14.0-18.0); iSTAT Potassium 4.7 mmol/L (3.3-5.0); iSTAT Site Art Line; iSTAT Sodium 137 mmol/L (135-144)
[2020-12-13 04:43] LABS: Basophils # (auto) 0.01 K/uL (0-0.2); Basophils % (auto) 0.1 %; Hematocrit (blood only) 42.6 % (42-52); Hemoglobin 14.2 g/dL (14.0-18.0); Immature Granulocytes # (auto) 0.15 K/uL (0.00-0.02); Immature Granulocytes % (auto) 0.8 %; Lymphocytes # (auto) 0.45 K/uL (1.2-3.4); Lymphocytes % (auto) 2.3 %; Mean Corpuscular Hemoglobin 30.3 pg (25-34); Mean Corpuscular Hgb Conc 33.3 g/dL (32-36); Mean Platelet Volume 9.7 fL (7.4-10.4); Monocytes % (auto) 4.7 %; Neutrophils # (auto) 17.76 K/uL (1.4-6.5); Neutrophils % (auto) 92.1 %; Platelet Count 423 K/uL (130-400); RDW Coefficient of Variation 15.1 % (11.5-14.5); RDW Standard Deviation 50.6 fL (36.4-46.3); Red Blood Count 4.68 M/uL (4.7-6.1); White Blood Count 19.27 K/uL (4.8-10.8)
[2020-12-13 05:02] LABS: BUN Creatinine Ratio 47.1 (10-20); Calcium 8.1 mg/dl (8.5-10.1); Creatinine Clr Calc Pharmacy 90.1 ml/min; Est GFR (African American) 108.8 ml/min; Est GFR (Non-African American) 93.9 ml/min; Magnesium 2.7 mg/dl (1.8-2.4); Potassium 4.8 mmol/L (3.5-5.1)
[2020-12-13 05:13] LABS: Phosphorus 3.9 mg/dl (2.5-4.9)
[2020-12-13] MEDS: ICU ELECTROLYTE REPLACEMENT PROTOCOL SCH ×2 (05:25→17:23)
[2020-12-13] MEDS: PROPOFOL BOLUS FROM BAG IV PRN (05:45)
[2020-12-13] MEDS: ENOXAPARIN INJ 40 MG/0.4 ML SYR SQ SCH ×2 (08:29→22:29)
[2020-12-13] MEDS: FAMOTIDINE 20 MG in SYRINGE 3 ML IV SCH ×2 (08:30→22:29)
--- NOTE | 2020-12-13 08:52 | Critical Care Progress Note ---
Date of Service December 13, 2020 Assessment & Plan (1) Acute respiratory failure with hypoxia: (2) Pneumonia due to 2019 novel coronavirus: Plan: Impression: 65-year-old male with Covid pneumonia and ARDS. He has been admitted since 12/03 and has been on dexamethasone. He has been hospitalized long enough that was outside the window for Tocilizumab or Baricitinib. 24-hour events: Patient had progressive hypoxemia and increased work of breathing. He was transferred to the ICU. He was subsequently intubated. Central line and arterial lines were placed. He initially had high peak and plateau pressures necessitating neuromuscular blockade and adjustment of his tidal volume down to 5 cc/kg ideal body weight. He is stabilized overnight but remains critically ill Recommendations: 1. Neurologic: Continue deep sedation with propofol, fentanyl, and Versed. Will use neuromuscular blockade as needed to promote ventilator synchrony for ARDS ventilator strategy. 2. Pulmonary: ARDS secondary to Covid pneumonia. He had a CT angiogram demonstrating no evidence of PE. Review of the patient's imaging demonstrated fairly diffuse disease and I am not sure that he would be a candidate for pro lemuel. Continue low PEEP high FiO2 strategy and try and target plateau pressures below 30. Currently tolerating 5 cc/kg ideal body weight. Continue the late- phase ARDS dexamethasone protocol with 20 mg daily for 5 days followed by 10 mg daily for 5 days. Most current blood gas 7.3 / with vent settings of assist control respiratory rate 30 tidal volume 350 PEEP of 10 and FiO2 0.5. Plateau pressures 28 3. Cardiovascular: Continue norepinephrine as needed to maintain mean arterial pressures above 65. Would like to maintain on the dry side. 4. Renal: No current issues. Electrolyte replacement protocol. Follow acid- base status with serial blood gases. 5. GI: Consult dietary for trophic trickle tube feeds. PPI in place. 6. ID: Covid pneumonitis with ARDS physiology. Continue dexamethasone as noted. White cell count elevated at 19, may be demargination due to steroids. He remains afebrile. No antibiotics currently 7. Endocrine: No prior issues. Glycemic control per ICU protocol. 8. Heme-onc: Leukocytosis as noted above. Continue to trend over time. 9. DVT and GI prophylaxis in place. The patient is critically ill at this point time with significant possibility of clinical deterioration and/or . He was discussed with the overnight critical care SHAUN and with the bedside ICU nurse as well as on multidisciplinary rounds. A total of 50 minutes in critical care time was spent in evaluation management and stabilization of this patient excluding procedures.. Admission and Anticipated Discharge Date Admission Date: December 03, 2020 Subjective ` Intubated sedated and paralyzed Review of Systems Review of Systems: Unobtainable due to endotracheal tube Physical Exam Physical Exam: Exam deferred Constitutional: WD/WN, vitals as above + mechanically ventilated Neck: trachea midline, no thyromegaly Respiratory: Auscultation: + rales and + wheezes Cardiovascular: RRR, no murmur, no edema Gastrointestinal (Abdomen): normal bowel sounds, soft, nontender, no hepatosplenomegaly Musculoskeletal: Extremities: extremities normal to inspection Skin: no rashes, warm and dry Lymphatic: no cervical lymphadenopathy Results & Data Results & Data ([facility]) Vital Signs (Past 12 Hours) Vital Signs Temp Pulse Resp Pulse Ox 12/13/20 07:47 56 L 30 H 93 12/13/20 06:30 36.1 C L 55 L 29 H 92 12/13/20 06:15 36.1 C L 51 L 29 H 93 12/13/20 06:00 36.2 C L 56 L 29 H 92 12/13/20 05:45 36.1 C L 68 29 H 92 12/13/20 05:30 36.2 C L 56 L 29 H 92 12/13/20 05:15 36.2 C L 55 L 29 H 92 12/13/20 05:00 36.2 C L 55 L 29 H 92 12/13/20 04:45 36.2 C L 53 L 29 H 92 12/13/20 04:30 36.2 C L 54 L 32 H 93 12/13/20 04:25 56 L 32 H 94 12/13/20 04:15 36.2 C L 56 L 32 H 94 12/13/20 04:00 36.1 C L 54 L 32 H 95 12/13/20 03:45 36.1 C L 52 L 32 H 94 12/13/20 03:30 36.1 C L 52 L 32 H 94 12/13/20 03:15 36.0 C L 54 L 32 H 95 12/13/20 03:00 36.1 C L 52 L 32 H 95 12/13/20 02:45 36.1 C L 52 L 32 H 95 12/13/20 02:30 36.1 C L 52 L 32 H 95 12/13/20 02:15 36.1 C L 54 L 32 H 95 12/13/20 02:00 36.1 C L 56 L 32 H 96 12/13/20 01:45 36.1 C L 52 L 32 H 94 12/13/20 01:30 36.0 C L 52 L 32 H 93 12/13/20 01:15 36.0 C L 54 L 32 H 93 12/13/20 01:00 36.1 C L 51 L 32 H 92 12/13/20 00:45 36.1 C L 52 L 32 H 92 12/13/20 00:30 36.1 C L 52 L 32 H 92 12/13/20 00:15 36.1 C L 52 L 32 H 91 12/13/20 00:00 36.0 C L 56 L 18 96 12/12/20 23:45 36.0 C L 52 L 32 H 95 12/12/20 23:30 36.1 C L 54 L 32 H 94 12/12/20 23:15 36.1 C L 53 L 32 H 94 12/12/20 23:00 36.2 C L 59 L 32 H 95 12/12/20 22:45 36.2 C L 54 L 32 H 94 12/12/20 22:30 36.2 C L 54 L 32 H 94 12/12/20 22:15 36.2 C L 55 L 32 H 95 12/12/20 22:00 36.2 C L 54 L 32 H 95 12/12/20 21:45 36.3 C L 55 L 32 H 94 12/12/20 21:30 36.4 C L 56 L 32 H 95 12/12/20 21:15 36.4 C L 58 L 32 H 95 12/12/20 21:00 36.4 C L 67 32 H 92 12/12/20 20:45 36.4 C L 70 32 H 92 Critical Care Results & Data Vital Signs (Past 12 Hours) Vital Signs Temp Pulse Resp Pulse Ox 12/13/20 07:47 56 L 30 H 93 12/13/20 06:30 36.1 C L 55 L 29 H 92 12/13/20 06:15 36.1 C L 51 L 29 H 93 12/13/20 06:00 36.2 C L 56 L 29 H 92 12/13/20 05:45 36.1 C L 68 29 H 92 12/13/20 05:30 36.2 C L 56 L 29 H 92 12/13/20 05:15 36.2 C L 55 L 29 H 92 12/13/20 05:00 36.2 C L 55 L 29 H 92 12/13/20 04:45 36.2 C L 53 L 29 H 92 12/13/20 04:30 36.2 C L 54 L 32 H 93 12/13/20 04:25 56 L 32 H 94 12/13/20 04:15 36.2 C L 56 L 32 H 94 12/13/20 04:00 36.1 C L 54 L 32 H 95 12/13/20 03:45 36.1 C L 52 L 32 H 94 12/13/20 03:30 36.1 C L 52 L 32 H 94 12/13/20 03:15 36.0 C L 54 L 32 H 95 12/13/20 03:00 36.1 C L 52 L 32 H 95 12/13/20 02:45 36.1 C L 52 L 32 H 95 12/13/20 02:30 36.1 C L 52 L 32 H 95 12/13/20 02:15 36.1 C L 54 L 32 H 95 12/13/20 02:00 36.1 C L 56 L 32 H 96 12/13/20 01:45 36.1 C L 52 L 32 H 94 12/13/20 01:30 36.0 C L 52 L 32 H 93 12/13/20 01:15 36.0 C L 54 L 32 H 93 12/13/20 01:00 36.1 C L 51 L 32 H 92 12/13/20 00:45 36.1 C L 52 L 32 H 92 12/13/20 00:30 36.1 C L 52 L 32 H 92 12/13/20 00:15 36.1 C L 52 L 32 H 91 12/13/20 00:00 36.0 C L 56 L 18 96 12/12/20 23:45 36.0 C L 52 L 32 H 95 12/12/20 23:30 36.1 C L 54 L 32 H 94 12/12/20 23:15 36.1 C L 53 L 32 H 94 12/12/20 23:00 36.2 C L 59 L 32 H 95 12/12/20 22:45 36.2 C L 54 L 32 H 94 12/12/20 22:30 36.2 C L 54 L 32 H 94 12/12/20 22:15 36.2 C L 55 L 32 H 95 12/12/20 22:00 36.2 C L 54 L 32 H 95 12/12/20 21:45 36.3 C L 55 L 32 H 94 12/12/20 21:30 36.4 C L 56 L 32 H 95 12/12/20 21:15 36.4 C L 58 L 32 H 95 12/12/20 21:00 36.4 C L 67 32 H 92 Lab & Micro Results (Past 24 Hours) RBC 4.68 M/uL (4.7-6.1) L 12/13/20 WBC 19.27 K/uL (4.8-10.8) H 12/13/20 Hgb 14.2 g/dL (14.0-18.0) 12/13/20 Hct 42.6 % (42-52) 12/13/20 MCV 91.0 fL (80-100) 12/13/20 MCH 30.3 pg (25-34) 12/13/20 MCHC 33.3 g/dL (32-36) 12/13/20 RDW Standard Deviation 50.6 fL (36.4-46.3) H 12/13/20 RDW Coefficient of Variation 15.1 % (11.5-14.5) H 12/13/20 Plt Count 423 K/uL (130-400) H 12/13/20 MPV 9.7 fL (7.4-10.4) 12/13/20 Neutrophils (%) (Auto) 92.1 % 12/13/20 Lymphocytes (%) (Auto) 2.3 % 12/13/20 Monocytes # (Auto) 0.90 K/uL (0.11-0.59) H 12/13/20 Eosinophils # (Auto) 0.00 K/uL (0-0.5) 12/13/20 Immature Granulocyte % (Auto) 0.8 % 12/13/20 Neutrophils # (Auto) 17.76 K/uL (1.4-6.5) H 12/13/20 Lymphocytes # (Auto) 0.45 K/uL (1.2-3.4) L 12/13/20 Monocytes # (Auto) 0.90 K/uL (0.11-0.59) H 12/13/20 Eosinophils # (Auto) 0.00 K/uL (0-0.5) 12/13/20 Basophils # (Auto) 0.01 K/uL (0-0.2) 12/13/20 Immature Granulocyte # (Auto) 0.15 K/uL (0.00-0.02) H 12/13/20 2 Na 133 mmol/L (136-145) L 12/13/20 K 4.8 mmol/L (3.5-5.1) 12/13/20 Cl 103 mmol/L (98-107) 12/13/20 CO2 28 mmol/L (21-32) 12/13/20 Anion Gap 2.0 (3-11) L 12/13/20 BUN 36 mg/dl (7-18) H 12/13/20 Creatinine 0.77 mg/dl (0.6-1.4) 12/13/20 Estimated GFR ( Amer) 108.8 ml/min 12/13/20 Estimated GFR (Non-Af Amer) 93.9 ml/min 12/13/20 BUN/Creatinine Ratio 47.1 (10-20) H 12/13/20 Glu 172 mg/dl (70-99) H 12/13/20 Ca 8.1 mg/dl (8.5-10.1) L 12/13/20 Phosphorus Level 3.9 mg/dl (2.5-4.9) 12/13/20 Mg 2.7 mg/dl (1.8-2.4) H 12/13/20 04:24 12/13/20 Calcium Level 8.1 mg/dl (8.5-10.1) L 12/13/20 04:24 12/13/20 Blood Gas Barometric Pressure 730.7 mm/Hg 12/12/20 20:09 12/12/20 Arterial Blood pH 7.28 (7.35-7.45) L 12/12/20 20:09 12/12/20 Arterial Blood Partial Pressure CO2 62 mmHg (35-46) H 12/12/20 20:09 12/12/20 Arterial Blood Partial Pressure O2 70 mmHg (80-95) L 12/12/20 20:09 12/12/20 Arterial Blood HCO3 28 mmol/L (19-24) H 12/12/20 20:09 12/12/20 Arterial Blood Base Excess -0.1 mEq/L (-9-1.8) 12/12/20 20:09 12/12/20 Arterial Blood Oxygen Saturation 93.0 % (90-95) 12/12/20 20:09 12/12/20 Blood Gas Oxygen Given 60 12/12/20 20:09 12/12/20 Robert Test NA 12/13/20 04:26 12/13/20 Blood Gas Barometric Pressure 730.7 mm/Hg 12/12/20 20:09 12/12/20 Microbiology 12/12/20 18:00 Gram Stain - Final Sputum, Expectorated Diagnostic Findings (Past 24 Hours) Chest X-Ray 12/12/20 13:44 XR chest 1V portable HISTORY: central line, ETT, OG tube placement COMPARISON: Chest 12/08/2020. FINDINGS: The endotracheal tube terminates 3.7 cm from the joey. Left subclavian central venous catheter terminates at the SVC. Nasogastric tube terminates in the stomach. Multifocal patchy bilateral airspace opacities consistent with a viral pneumonia are again noted. The heart is borderline enlarged. No pneumothorax. No pleural effusions. IMPRESSION: 1. Satisfactory support line placement. 2. Multifocal patchy bilateral airspace opacities are again noted. This is consistent with a viral pneumonia. ACT 112: Negative or not required by law. Electronically signed by: Pradeep Falcon M.D. 12/12/2020 2:15 PM Chest X-Ray 12/12/20 16:21 XR chest 1V portable HISTORY: Respiratory failure. change in condition COMPARISON: Chest 12/12/2020. FINDINGS: Lines and tubes remain unchanged in position. No pneumothorax. Trace bilateral pleural effusions. Diffuse hazy bilateral airspace opacities persist. The heart remains top normal in size. IMPRESSION: 1. Satisfactory support line placement. 2. No change in the hazy bilateral airspace opacities. 3. Trace bilateral pleural effusions. ACT 112: Negative or not required by law. Electronically signed by: Pradeep Falcon M.D. 12/12/2020 4:54 PM I & O Totals 24 Hours 12/12/20 12/13/20 12/14/20 06:59 06:59 06:59 Intake Total 390 / 390 1415.311 / 1415.311 4.19 / 4.19 Output Total 2500 / 2500 2400 / 2400 Balance -2110 / -2110 -984.689 / -984.689 4.19 / 4.19 Cumulative 12/03/20 17:02 thru 12/13/20 07:08 Intake Total 6369.501 Output Total 54937 Balance -7580.499 RT Ventilator Mngmt (Last Documented) Ventilator Ordered Settings Ventilator Support Mode Assist Control 12/13/20 07:47 Respiratory Rate 30 12/13/20 07:47 Ventilator Tidal Volume 350 12/13/20 07:47 Setting Minute Ventilation 10.2 12/13/20 07:47 Positive End Expiratory 10 12/13/20 07:47 Pressure Fraction of Inspired Oxygen 50 12/13/20 07:47 Peak Inspiratory Flow 31 12/13/20 07:47 Machine Comment weaned peep to 8 12/13/20 07:47 Ventilator - PT Measurements Respiratory Rate 30 Exhaled Tidal Volume 350 Minute Ventilation 10.2 Peak Inspiratory Airway 32 Pressure Plateau Pressure 29.2 Respiratory Cycle Inspiratory: 1:2.1 Expiratory Ratio Inspiratory Phase Time 0.90 End-Tidal CO2 33 Static Lung Compliance 18.23 Dynamic Lung Compliance 15.91 Normal Static Lung Compliance 44.00 Patient Measurements Comment FiO2 decreased to 50% per ABG results, SI[employer] aware Coding Level of Care Code Critical Care 1st 30-74 mins Diagnoses Acute respiratory failure with hypoxia J96.01 Pneumonia due to 2019 novel coronavirus U07.1; J12.82
--- NOTE | 2020-12-13 09:27 | XRay Report ---
SINGLE VIEW CHEST CLINICAL HISTORY: Covid pneumonia. Respiratory failure. FINDINGS: An AP, portable, upright chest radiograph is compared to study dated 12/12/2020. A left sub clavian central venous catheter, an endotracheal tube, and an enteric tube are unchanged in position. The heart is mildly enlarged. Chronic elevation of the right hemidiaphragm is similar to previous. M ultifocal airspace consolidation is again seen throughout both lungs. Suspect trace pleural effusions . No pneumothorax is clearly identified. The skeletal structures are osteopenic. The bony thorax is g rossly intact. IMPRESSION: 1. Stable lines and tubes. 2. Multifocal airspace consolidation has not significantly changed as compared to yesterday. ACT 112: Negative or not required by law. Electronically signed by: Kapil Pugh M.D. 12/13/2020 9:25 AM
[2020-12-13] MEDS: dexAMETHasone 20 MG in DEXTROSE 5% 25 ML IV SCH (11:26)
[2020-12-13] MEDS: TUBE FEEDING WATER FLUSH OG SCH ×3 (11:27→20:43)
--- NOTE | 2020-12-13 11:52 | Hospitalist Progress Note ---
Date of Service December 13, 2020 Assessment & Plan (1) Pneumonia due to 2019 novel coronavirus: Plan: Severe disease declined to point of needing intubation on 12/12, up to 60L and 100% and still desaturating, working hard to breathe currently doing well on ventilator, PEEP 5, FiO2 40%, minimal sedation and no paralytics increased dexamethasone to 20mg IV daily on 12/10, today is day 11 of treatment pulmonary following, will now consult ICU Zithromax day 4 Lasix 20mg IV given daily for negative fluid balance, palmer in place (2) Acute respiratory failure with hypoxia: Plan: ventilator dependent respiratory failure, intubated on 12/[address] Hernandez doing well on ventilator, PEEP 5, FiO2 40% minimal sedation might attempt SBT tomorrow depending on how he is doing (3) Headache: Plan: right eye region/right forehead with right eye tearing, right nare drainage, more intense on 12/08 has headache again today CT head 12/08 - negative for ICH, stroke, etc. he had transient L hand numbness this am - now resolved could have been TIA could have been neuro symptoms 2nd to a migraine headache no triptans due to CAD Depakote 250mg BID for prophylaxis? had a 1000mg load on 12/09 already on dexamethasone, add a dose of Toradol IV PRN will now be sedated so headache will not be an issue (4) Sore throat: Plan: most pressing complaint on 12/11 tongue and throat very dry, could be thrush from steroids? started Magic Swizzle (lidocaine) and Nystatin S/S QID, gave him some relief (5) CAD (coronary artery disease): Plan: h/o RCA stents remains on asa, statin was NOT taking REI or BB at home holding Lisinopril 5mg no ischemic symptoms during this illness EKG with inverted T's inferiorly however it is unchanged from EKG from several years ago (6) Benign essential hypertension: Plan: BP stable (7) Hyperlipidemia: Plan: statin (8) GERD (gastroesophageal reflux disease): Plan: PPI (9) Elevated LFTs: Plan: likely 2nd to COVID-19 infection trended down (10) Hyponatremia: Plan: 2nd recent diarrhea, poor oral intake, etc resolved (11) Hypokalemia: Plan: replaced and resolved (12) DVT prophylaxis: Plan: lovenox 40mg BID Plan: move to ICU for intubation will update his later today Admission and Anticipated Discharge Date Admission Date: December 03, 2020 Subjective patient doing well on ventilator, on 5 PEEP and 40% FiO2 minimal sedation with Fentanyl and Versed, Propofol making urine via palmer no paralytics needed ICU: plan to rest today, evaluated for extubation tomorrow if he does well wiht SBT Review of Systems Review of Systems: Unobtainable due to endotracheal tube Physical Exam Physical Exam: General: well developed, well nourished, sedated, mechanically ventilated Neck: supple, trachea midline, normal thyroid Lungs: crackles in bases, no wheezing, symmetric chest movement on ventilator Heart: regular S1 and S2, no murmur, peripheral pulses normal, capillary refill normal, no edema Abdomen: soft, NT, ND, + BS, no hepatomegaly, normal to percussion Extremities: normal in appearance, mildly cyanotic, no petechiae, strength is 5/5 bilaterally Neuro: sedated, no focal motor deficits, CN II-XII intact Skin: warm, dry, no rash, normal turgor Psych: sedated on ventilator Results & Data Results & Data ([facility]) Vital Signs (Past 12 Hours) Vital Signs Temp Pulse Resp Pulse Ox 12/13/20 07:47 56 L 30 H 93 12/13/20 06:30 36.1 C L 55 L 29 H 92 12/13/20 06:15 36.1 C L 51 L 29 H 93 12/13/20 06:00 36.2 C L 56 L 29 H 92 12/13/20 05:45 36.1 C L 68 29 H 92 12/13/20 05:30 36.2 C L 56 L 29 H 92 12/13/20 05:15 36.2 C L 55 L 29 H 92 12/13/20 05:00 36.2 C L 55 L 29 H 92 12/13/20 04:45 36.2 C L 53 L 29 H 92 12/13/20 04:30 36.2 C L 54 L 32 H 93 12/13/20 04:25 56 L 32 H 94 12/13/20 04:15 36.2 C L 56 L 32 H 94 12/13/20 04:00 36.1 C L 54 L 32 H 95 12/13/20 03:45 36.1 C L 52 L 32 H 94 12/13/20 03:30 36.1 C L 52 L 32 H 94 12/13/20 03:15 36.0 C L 54 L 32 H 95 12/13/20 03:00 36.1 C L 52 L 32 H 95 12/13/20 02:45 36.1 C L 52 L 32 H 95 12/13/20 02:30 36.1 C L 52 L 32 H 95 12/13/20 02:15 36.1 C L 54 L 32 H 95 12/13/20 02:00 36.1 C L 56 L 32 H 96 12/13/20 01:45 36.1 C L 52 L 32 H 94 12/13/20 01:30 36.0 C L 52 L 32 H 93 12/13/20 01:15 36.0 C L 54 L 32 H 93 12/13/20 01:00 36.1 C L 51 L 32 H 92 12/13/20 00:45 36.1 C L 52 L 32 H 92 12/13/20 00:30 36.1 C L 52 L 32 H 92 12/13/20 00:15 36.1 C L 52 L 32 H 91 12/13/20 00:00 36.0 C L 56 L 18 96 12/12/20 23:45 36.0 C L 52 L 32 H 95 Laboratory Results Laboratory Results - last 24 hr 12/12/20 12/12/20 12/12/20 13:00 13:50 17:53 WBC RBC Hgb POC Hgb 14.6 Hct POC Hct 43 MCV MCH MCHC RDW Std Deviation RDW Coeff of Lu Plt Count MPV Immature Gran % (Auto) Neut % (Auto) Lymph % (Auto) [place] % (Auto) Eos % (Auto) Baso % (Auto) Neut # (Auto) Lymph # (Auto) [place] # (Auto) Eos # (Auto) Baso # (Auto) Immature Gran # (Auto) Sample Site Art Line POC pH 7.33 L POC pCO2 57 H POC pO2 143 H POC HCO3 30 H POC Total CO2 32 H POC Base Excess 4.0 H ABG pH ABG pH (Temp Correct) 7.327 L ABG pCO2 ABG pCO2 (Temp Corrct 57 H ABG pO2 POC ABG pO2 at Pt Temp 143 ABG HCO3 POC ABG O2 Sat 99.0 H ABG O2 Saturation ABG Base Excess Robert Test NA Barometric Pressure Oxygen Given O2 Delivery Device Ventilator POC O2 Rate 26 POC FiO2 100 Tidal Volume 360 PEEP 12 POC Sodium 139 Sodium POC Potassium 3.5 Potassium Chloride Carbon Dioxide Anion Gap BUN Creatinine Est Cr Clr Drug Dosing Est GFR ( Amer) Est GFR (Non-Af Amer) BUN/Creatinine Ratio Glucose POC Glucose POC Glucose (other) Calcium Phosphorus 5.3 H Magnesium 2.5 H Nasal Screen MRSA (PCR) Negative 12/12/20 12/12/20 12/12/20 17:53 18:02 20:09 WBC RBC Hgb POC Hgb 16.3 Hct POC Hct 48 MCV MCH MCHC RDW Std Deviation RDW Coeff of Lu Plt Count MPV Immature Gran % (Auto) Neut % (Auto) Lymph % (Auto) [place] % (Auto) Eos % (Auto) Baso % (Auto) Neut # (Auto) Lymph # (Auto) [place] # (Auto) Eos # (Auto) Baso # (Auto) Immature Gran # (Auto) Sample Site Art Line POC pH 7.18 L* POC pCO2 87 H POC pO2 93 POC HCO3 33 H POC Total CO2 35 H POC Base Excess 4.0 H ABG pH 7.28 L ABG pH (Temp Correct) 7.183 L* ABG pCO2 62 H ABG pCO2 (Temp Corrct 86 H ABG pO2 70 L POC ABG pO2 at Pt Temp 90 ABG HCO3 28 H POC ABG O2 Sat 94.0 ABG O2 Saturation 93.0 ABG Base Excess -0.1 Robert Test NA Pos Barometric Pressure 730.7 Oxygen Given 60 O2 Delivery Device Ventilator POC O2 Rate 25 POC FiO2 80 Tidal Volume 300 PEEP 10 POC Sodium 137 Sodium 135 L POC Potassium 5.2 H Potassium 5.2 H D Chloride 101 Carbon Dioxide 29 Anion Gap 5.0 BUN 32 H Creatinine 0.92 Est Cr Clr Drug Dosing 75.4 Est GFR ( Amer) 99.4 Est GFR (Non-Af Amer) 85.8 BUN/Creatinine Ratio 34.8 H Glucose 187 H POC Glucose POC Glucose (other) Calcium 8.6 Phosphorus Magnesium Nasal Screen MRSA (PCR) 12/12/20 12/13/20 12/13/20 21:54 00:17 02:31 WBC RBC Hgb POC Hgb Hct POC Hct MCV MCH MCHC RDW Std Deviation RDW Coeff of Lu Plt Count MPV Immature Gran % (Auto) Neut % (Auto) Lymph % (Auto) [place] % (Auto) Eos % (Auto) Baso % (Auto) Neut # (Auto) Lymph # (Auto) [place] # (Auto) Eos # (Auto) Baso # (Auto) Immature Gran # (Auto) Sample Site POC pH POC pCO2 POC pO2 POC HCO3 POC Total CO2 POC Base Excess ABG pH ABG pH (Temp Correct) ABG pCO2 ABG pCO2 (Temp Corrct ABG pO2 POC ABG pO2 at Pt Temp ABG HCO3 POC ABG O2 Sat ABG O2 Saturation ABG Base Excess Robert Test Barometric Pressure Oxygen Given O2 Delivery Device POC O2 Rate POC FiO2 Tidal Volume PEEP POC Sodium Sodium POC Potassium Potassium Chloride Carbon Dioxide Anion Gap BUN Creatinine Est Cr Clr Drug Dosing Est GFR ( Amer) Est GFR (Non-Af Amer) BUN/Creatinine Ratio Glucose POC Glucose POC Glucose (other) 219 H 206 H 189 H Calcium Phosphorus Magnesium Nasal Screen MRSA (PCR) 12/13/20 12/13/20 12/13/20 04:24 04:24 04:26 WBC 19.27 H RBC 4.68 L Hgb 14.2 POC Hgb 14.6 Hct 42.6 POC Hct 43 MCV 91.0 MCH 30.3 MCHC 33.3 RDW Std Deviation 50.6 H RDW Coeff of Lu 15.1 H Plt Count 423 H MPV 9.7 Immature Gran % (Auto) 0.8 Neut % (Auto) 92.1 Lymph % (Auto) 2.3 [place] % (Auto) 4.7 Eos % (Auto) 0.0 Baso % (Auto) 0.1 Neut # (Auto) 17.76 H Lymph # (Auto) 0.45 L [place] # (Auto) 0.90 H Eos # (Auto) 0.00 Baso # (Auto) 0.01 Immature Gran # (Auto) 0.15 H Sample Site Art Line POC pH 7.37 POC pCO2 55 H POC pO2 88 POC HCO3 31 H POC Total CO2 33 H POC Base Excess 6.0 H ABG pH ABG pH (Temp Correct) 7.380 ABG pCO2 ABG pCO2 (Temp Corrct 53 H ABG pO2 POC ABG pO2 at Pt Temp 84 ABG HCO3 POC ABG O2 Sat 96.0 H ABG O2 Saturation ABG Base Excess Robert Test NA Barometric Pressure Oxygen Given O2 Delivery Device Ventilator POC O2 Rate 32 POC FiO2 60 Tidal Volume 350 PEEP 10 POC Sodium 137 Sodium 133 L POC Potassium 4.7 Potassium 4.8 Chloride 103 Carbon Dioxide 28 Anion Gap 2.0 L BUN 36 H Creatinine 0.77 Est Cr Clr Drug Dosing 90.1 Est GFR ( Amer) 108.8 Est GFR (Non-Af Amer) 93.9 BUN/Creatinine Ratio 47.1 H Glucose 172 H POC Glucose POC Glucose (other) Calcium 8.1 L Phosphorus 3.9 D Magnesium 2.7 H Nasal Screen MRSA (PCR) 12/13/20 12/13/20 06:23 08:36 WBC RBC Hgb POC Hgb Hct POC Hct MCV MCH MCHC RDW Std Deviation RDW Coeff of Lu Plt Count MPV Immature Gran % (Auto) Neut % (Auto) Lymph % (Auto) [place] % (Auto) Eos % (Auto) Baso % (Auto) Neut # (Auto) Lymph # (Auto) [place] # (Auto) Eos # (Auto) Baso # (Auto) Immature Gran # (Auto) Sample Site POC pH POC pCO2 POC pO2 POC HCO3 POC Total CO2 POC Base Excess ABG pH ABG pH (Temp Correct) ABG pCO2 ABG pCO2 (Temp Corrct ABG pO2 POC ABG pO2 at Pt Temp ABG HCO3 POC ABG O2 Sat ABG O2 Saturation ABG Base Excess Robert Test Barometric Pressure Oxygen Given O2 Delivery Device POC O2 Rate POC FiO2 Tidal Volume PEEP POC Sodium Sodium POC Potassium Potassium Chloride Carbon Dioxide Anion Gap BUN Creatinine Est Cr Clr Drug Dosing Est GFR ( Amer) Est GFR (Non-Af Amer) BUN/Creatinine Ratio Glucose POC Glucose 126 H POC Glucose (other) 148 H Calcium Phosphorus Magnesium Nasal Screen MRSA (PCR) Medications Administered Current Inpatient Medications Acetaminophen (Acetaminophen 325 Mg Tab) 650 mg PO Q4H PRN PRN Reason: pain/fever Stop: 01/02/21 22:22 Last Admin: 12/10/20 09:53 Dose: 650 mg Documented by: Dextrose (Dextrose 50% 50 Ml Syringe) 25 - 50 ml IV UD PRN; Protocol PRN Reason: Hypoglycemia Protocol Stop: 01/12/21 01:29 Enoxaparin Sodium (Enoxaparin Inj 40 Mg/0.4 Ml Syr) 40 mg SQ Q12H TONY Stop: 01/02/21 22:59 Last Admin: 12/13/20 08:29 Dose: 40 mg Documented by: Fentanyl Citrate (Fentanyl Citrate 100 Mcg/2 Ml Vial) 50 mcg IV Q2H PRN PRN Reason: Moderate Pain (4,5,6) on NRS Stop: 12/26/20 13:44 Fentanyl Citrate (Fentanyl Bolus From Bag) 50 mcg IV Q60M PRN PRN Reason: Pain or Agitation Stop: 12/26/20 13:44 Last Admin: 12/12/20 14:10 Dose: 50 mcg Documented by: Glucagon (Glucagon For Inj 1 Mg Vial) 1 mg SQ UD PRN; Protocol PRN Reason: Hypoglycemia Protocol Stop: 01/12/21 01:29 Glucose (Glucose 40% Gel 15 Gm Tube) 15 - 30 gm PO UD PRN; Protocol PRN Reason: Hypoglycemia Protocol Stop: 01/12/21 01:29 Glucose (Glucose 10 Tabs/Tube) 4 - 8 tabs PO UD PRN; Protocol PRN Reason: Hypoglycemia Protocol Stop: 01/12/21 01:29 Dexamethasone 20 mg/ Dextrose 30 mls @ 0.833 mls/min IV Q24H [facility] Stop: 12/15/20 11:59 Last Admin: 12/13/20 11:26 Dose: 60 mls/min Documented by: Famotidine 20 mg/ Syringe 5 mls @ 2.5 mls/min IV Q12H [facility] Stop: 01/11/21 20:59 Last Admin: 12/13/20 08:30 Dose: 2.5 mls/min Documented by: Propofol (Diprivan) 1,000 mg in 100 mls @ 14.31 mls/hr IV .Q7H [facility]; Protocol Stop: 12/15/20 13:44 Last Admin: 12/13/20 08:30 Dose: 30 mcg/kg/min, 14.3 mls/hr Documented by: Fentanyl Citrate (Fentanyl Drip) 1,250 mcg in 250 mls @ 10 mls/hr IV .Q25H [facility]; Protocol Stop: 12/26/20 13:44 Last Titration: 12/13/20 06:50 Dose: 50 mcg/hr, 10 mls/hr Documented by: Norepinephrine Bitartrate (Levophed/D5w) 8 mg in 508 mls @ 0 mls/hr IV .Q0M [facility]; Protocol Stop: 01/11/21 13:44 Last Titration: 12/13/20 10:24 Dose: 0 mcg/kg/min, 0 mls/hr Documented by: Parenteral Electrolytes (Normosol-R) 1,000 mls @ 30 mls/hr IV .Q24H [facility] Stop: 01/11/21 13:44 Last Infusion: 12/13/20 06:50 Dose: 30 mls/hr Documented by: Cisatracurium Besylate 40 mg/ (Sodium Chloride) 100 mls @ 0 mls/hr IV .Q0M [facility]; Protocol Stop: 01/11/21 14:44 Last Admin: 12/13/20 11:24 Dose: Not Given Documented by: Dexamethasone 10 mg/ Syringe 2.5 mls @ 1 mls/min IV DAILY@1200 [facility]Y Stop: 12/19/20 12:03 Insulin Aspart (Insulin Aspart 100 Units/Ml 3 Ml Pen) 0 units SC Q4 [facility]; Protocol Stop: 01/12/21 01:29 Last Admin: 12/13/20 08:37 Dose: Not Given Documented by: Midazolam HCl (Midazolam Hcl 1 Mg/Ml 2ml Vial) 2 mg IV Q2H PRN PRN Reason: RASS goal -1 Stop: 01/11/21 13:44 Miscellaneous (Icu Electrolyte Replacement Protocol) 1 ea N/A BID@06,18 [facility]; Protocol Stop: 12/19/20 17:59 Last Admin: 12/13/20 05:25 Dose: 1 ea Documented by: Miscellaneous (Carbohydrates For Hypoglycemia ) 15 - 30 gm PO UD PRN PRN Reason: Hypoglycemia Treatment Stop: 01/12/21 01:29 Miscellaneous Information (Pharmacy Glycemic Mgmt Consult) 1 ea N/A UD PRN PRN Reason: Consult Stop: 01/12/21 00:30 Multi-Ingredient Cream (Artificial Tears Op Oint 3.5 Gm Tube) 1 appln OP Q4H [facility] Stop: 01/11/21 14:44 Last Admin: 12/13/20 11:24 Dose: 1 appln Documented by: Nutritional Formula (Peptamen Intense Vhp 1.0 Yoandy 1,000 Ml Bag) 1,000 ml OG UD [facility]; Protocol Stop: 01/12/21 10:14 Ondansetron HCl (Ondansetron Inj 2 Mg/Ml 2 Ml Vial) 4 mg IV Q6H PRN PRN Reason: Nausea Stop: 01/02/21 22:22 Last Admin: 12/08/20 23:37 Dose: 4 mg Documented by: Propofol (Propofol Bolus From Bag) 20 mg IV Q5M PRN PRN Reason: Sedation Stop: 12/15/20 13:44 Last Admin: 12/13/20 05:45 Dose: 20 mg Documented by: Sterile Water (Tube Feeding Water Flush) 30 ml OG Q4 [facility] Stop: 01/12/21 11:59 Last Admin: 12/13/20 11:27 Dose: 30 ml Documented by: PG Care Time/CCT Total # of Minutes Spent Total Time Spent with Patient: Total time spent is greater than 50% in coordination of care (as documented) at patient's floor/unit and/or counseling patient: Coding Level of Care Code 46686 Subseq Hosp Care Lvl 2 Diagnoses Pneumonia due to 2019 novel coronavirus U07.1; J12.82 Acute respiratory failure with hypoxia J96.01 Headache R51.9 Sore throat J02.9 CAD (coronary artery disease) I25.10 Benign essential hypertension I10 Hyperlipidemia E78.5 GERD (gastroesophageal reflux disease) K21.9 Elevated LFTs R79.89 Hyponatremia E87.1 Hypokalemia E87.6 DVT prophylaxis Z29.9
[2020-12-13] MEDS: fentaNYL DRIP 1,250 MCG/250 ML BAG IV SCH ×2 (12:03→17:21)
--- NOTE | 2020-12-13 13:12 | Pharmacy Report ---
Pharmacy Glycemic Short Note 2 - Date of Service December 13, 2020 - Glycemic Short BSG Results (Last 24 hours): 12/12/20 12/12/20 12/13/20 17:53 21:54 00:17 Glucose 187 H POC Glucose POC Glucose (other) 219 H 206 H 12/13/20 12/13/20 12/13/20 02:31 04:24 06:23 Glucose 172 H POC Glucose POC Glucose (other) 189 H 148 H 12/13/20 12/13/20 08:36 11:36 Glucose POC Glucose 126 H 128 H POC Glucose (other) OUTPATIENT ANTIDIABETIC REGIMEN: * n/A * A1c pending ASSESSMENT: * Patient currently intubated, sedated with propofol, fentanyl. Norepinephrine was started overnight but has been titrated off. Patient was also paralyzed with nimbex, this has also been weened off. * Blood sugars elevated last evening and met criteria for glycemic consult. Patient's blood sugars have trended down with 10 units of lantus and correction factor of 30. * Tube feeds to begin with trickle (no titration), will add carb coverage. * Patient is currently on dexamethasone 20 mg, last day tomorrow and will taper down to 10 mg on 12/15. Will put additional lantus dose on for this evening if BSG >160 mg/dL PLAN FOR INPATIENT GLYCEMIC CONTROL: * Hold outpatient oral diabetes medications * Basal insulin * Lantus 0/10 units tonight depending on BSG * Bolus insulin * NovoLog per scale ACHS or Q6hrs while NPO * Goal Range: Low 110 mg/dL - High 140 mg/dL * Correction Factor: 30 mg/dL/unit * Nutritional / Prandial insulin per carb ratio of 1 unit per 10 grams CHO consumed PLAN FOR DISCHARGE: * tbd
[2020-12-13] MEDS ORDERED: ALBUT/IPRATROP 3MG/0.5MG NEB 3 ML VIAL ONE (14:22)
[2020-12-13] MEDS: PEPTAMEN INTENSE VHP 1.0 CAL 1,000 ML BAG OG SCH (14:45)
--- NOTE | 2020-12-13 16:23 | XRay Report ---
XR chest 1V portable CLINICAL HISTORY: hypoxemia COMPARISON STUDY: Chest CT December 09, 2020. Chest CT December 13, 2020 at 7:44 AM. FINDINGS: Tip of endotracheal tube is 3.4 cm above the joey. Tip of nasogastric tube is below the l ower aspect of this image but at least within the body of the stomach. Left subclavian central line i s in place. There is a small left apical pneumothorax. Superior pleural separation is 5 mm. There is subcutaneous gas within the neck. There may be pneumomediastinum. Cardiomediastinal silhouette is sta ble. Bilateral airspace opacities are similar to prior exam. IMPRESSION: 1. Small left apical pneumothorax. Subcutaneous gas within the lower neck. Possible pneumomediastinum . The findings will be called/faxed to the ordering provider at time of dictation. 2. Satisfactory positioning of lines and tubes. 3. No significant change in bilateral airspace opacities suggestive of viral pneumonia. ACT 112: Negative or not required by law. Electronically signed by: Alcides Adrian M.D. 12/13/2020 4:22 PM
[2020-12-13] MEDS ORDERED: INSULIN GLARGINE SOLOSTAR 100 UNITS/ML 3 ML PEN SC ONE (21:00)
[2020-12-14] MEDS: INSULIN ASPART 100 UNITS/ML 3 ML PEN SC SCH ×6 (00:20→20:28)
[2020-12-14] MEDS: TUBE FEEDING WATER FLUSH OG SCH ×6 (00:20→20:15)
[2020-12-14] MEDS: ARTIFICIAL TEARS OP OINT 3.5 GM TUBE OP SCH ×6 (02:14→20:15)
[2020-12-14] MEDS: propofoL 1,000 MG/100 ML VIAL IV SCH ×5 (02:14→17:59)
[2020-12-14] MEDS: fentaNYL DRIP 1,250 MCG/250 ML BAG IV SCH ×3 (04:40→18:00)
[2020-12-14 05:52] LABS: Calcium 8.3 mg/dl (8.5-10.1); Creatinine Clr Calc Pharmacy 126.1 ml/min; Est GFR (Non-African American) 107.8 ml/min; Magnesium 2.9 mg/dl (1.8-2.4); Potassium 4.6 mmol/L (3.5-5.1)
[2020-12-14 06:06] LABS: Base Excess ABG 4.8 mEq/L (-9-1.8); HCO3 ABG 30 mmol/L (19-24); Oxygen Saturation ABG 95.8 % (90-95); PCO2 ABG 46 mmHg (35-46); PO2 ABG 77 mmHg (80-95); pH ABG 7.43 (7.35-7.45)
[2020-12-14 06:11] LABS: Allen Test Pos (Pos)
[2020-12-14 06:15] LABS: Phosphorus 2.8 mg/dl (2.5-4.9)
[2020-12-14] MEDS: ICU ELECTROLYTE REPLACEMENT PROTOCOL SCH ×2 (06:32→17:46)
[2020-12-14 07:47] LABS: Hematocrit (blood only) 38.6 % (42-52); Hemoglobin 12.7 g/dL (14.0-18.0); Mean Corpuscular Hemoglobin 29.9 pg (25-34); Mean Corpuscular Hgb Conc 32.9 g/dL (32-36); Mean Corpuscular Volume 90.8 fL (80-100); Mean Platelet Volume 10.5 fL (7.4-10.4); Platelet Count 199 K/uL (130-400); RDW Coefficient of Variation 15.2 % (11.5-14.5); RDW Standard Deviation 50.9 fL (36.4-46.3); Red Blood Count 4.25 M/uL (4.7-6.1); White Blood Count 12.22 K/uL (4.8-10.8)
[2020-12-14 07:51] LABS: Estimated Average Glucose 143 mg/dl; Hemoglobin A1C 6.6 % (4.5-5.6)
[2020-12-14] MEDS: FAMOTIDINE 20 MG in SYRINGE 3 ML IV SCH ×2 (07:55→20:15)
--- NOTE | 2020-12-14 08:56 | XRay Report ---
XR chest 1V portable CLINICAL HISTORY: Respiratory failure. COMPARISON STUDY: Chest radiograph December 13, 2020 at 3:59 PM. FINDINGS: Tip of endotracheal tube is 3.2 cm above the joey. Tip of nasogastric tube is within the body of the stomach. Left subclavian central line remains in place. Cardiomediastinal silhouette is s table. Small left pneumothorax has slightly increased in size. Superior pleural separation is 7 mm. S ubcutaneous gas within the right neck has increased. There is probable pneumomediastinum. Bilateral a irspace opacities persist. IMPRESSION: 1. Satisfactory positioning of lines and tubes. 2. Slight increase in size of a small left apical pneumothorax. Increase in subcutaneous gas within t he right lower neck. Probable pneumomediastinum. 3. Persistent bilateral airspace opacities suggestive of pneumonia. ACT 112: Negative or not required by law. Electronically signed by: Alcides Adrian M.D. 12/14/2020 8:55 AM
[2020-12-14] MEDS: PROPOFOL BOLUS FROM BAG IV PRN ×2 (09:13→20:29)
[2020-12-14] MEDS: dexAMETHasone 20 MG in DEXTROSE 5% 25 ML IV SCH (11:37)
[2020-12-14] MEDS: NORMOSOL-R 1,000 ML IV SCH (11:38)
[2020-12-14] MEDS: ENOXAPARIN INJ 40 MG/0.4 ML SYR SQ SCH ×2 (11:38→23:00)
--- NOTE | 2020-12-14 11:43 | Hospitalist Progress Note ---
Date of Service December 14, 2020 Assessment & Plan (1) Pneumonia due to 2019 novel coronavirus: Plan: Severe disease declined to point of needing intubation on 12/12, up to 60L and 100% and still desaturating, working hard to breathe currently doing well on ventilator, PEEP 5, FiO2 70%, minimal sedation and no paralytics increased dexamethasone to 20mg IV daily on 12/10, today is day 12 of treatment pulmonary following, will now consult ICU Zithromax day 5 Lasix 20mg IV given daily for negative fluid balance, palmer in place (2) Acute respiratory failure with hypoxia: Plan: ventilator dependent respiratory failure, intubated on 12/[address] Hernandez doing well on ventilator, PEEP 5, FiO2 70% minimal sedation going up on FiO2 compared to yesterday, no plans for SBT today (3) Headache: Plan: right eye region/right forehead with right eye tearing, right nare drainage, more intense on 12/08 has headache again today CT head 12/08 - negative for ICH, stroke, etc. he had transient L hand numbness this am - now resolved could have been TIA could have been neuro symptoms 2nd to a migraine headache no triptans due to CAD Depakote 250mg BID for prophylaxis? had a 1000mg load on 12/09 already on dexamethasone, add a dose of Toradol IV PRN will now be sedated so headache will not be an issue (4) Sore throat: Plan: most pressing complaint on 12/11 tongue and throat very dry, could be thrush from steroids? started Magic Swizzle (lidocaine) and Nystatin S/S QID, gave him some relief (5) CAD (coronary artery disease): Plan: h/o RCA stents remains on asa, statin was NOT taking REI or BB at home holding Lisinopril 5mg no ischemic symptoms during this illness EKG with inverted T's inferiorly however it is unchanged from EKG from several years ago (6) Benign essential hypertension: Plan: BP stable (7) Hyperlipidemia: Plan: statin (8) GERD (gastroesophageal reflux disease): Plan: PPI (9) Elevated LFTs: Plan: likely 2nd to COVID-19 infection trended down (10) Hyponatremia: Plan: 2nd recent diarrhea, poor oral intake, etc resolved (11) Hypokalemia: Plan: replaced and resolved (12) DVT prophylaxis: Plan: lovenox 40mg BID Plan: move to ICU for intubation will update his later today Admission and Anticipated Discharge Date Admission Date: December 03, 2020 Subjective patient stable on ventilator on Propofol and Fentanyl FiO2 up to 70%, PEEP still only 5, not paralyzed reviewed labs spoke with ENGINEERING RECRUITER at the bedside Review of Systems Review of Systems: Unobtainable due to endotracheal tube Physical Exam Physical Exam: General: well developed, well nourished, sedated, mechanically ventilated Neck: supple, trachea midline, normal thyroid Lungs: crackles in bases, no wheezing, symmetric chest movement on ventilator Heart: regular S1 and S2, no murmur, peripheral pulses normal, capillary refill normal, no edema Abdomen: soft, NT, ND, + BS, no hepatomegaly, normal to percussion Extremities: normal in appearance, mildly cyanotic, no petechiae, strength is 5/5 bilaterally Neuro: sedated, no focal motor deficits, CN II-XII intact Skin: warm, dry, no rash, normal turgor Psych: sedated on ventilator Results & Data Results & Data ([facility]) Vital Signs (Past 12 Hours) Vital Signs Temp Pulse Resp Pulse Ox 12/14/20 09:30 36.6 C 45 L 30 H 92 12/14/20 09:00 36.5 C 46 L 26 H 89 L 12/14/20 08:30 36.5 C 45 L 26 H 91 12/14/20 08:00 36.6 C 44 L 25 H 90 12/14/20 07:40 45 L 28 H 95 12/14/20 07:30 36.5 C 44 L 28 H 95 12/14/20 07:00 36.5 C 44 L 28 H 95 12/14/20 05:45 36.5 C 45 L 28 H 95 12/14/20 05:30 36.5 C 45 L 28 H 95 12/14/20 05:15 36.6 C 45 L 28 H 95 12/14/20 05:00 36.5 C 46 L 28 H 95 12/14/20 04:45 36.5 C 47 L 28 H 95 12/14/20 04:30 36.4 C L 45 L 28 H 94 12/14/20 04:15 36.4 C L 45 L 28 H 94 12/14/20 04:00 36.3 C L 46 L 28 H 93 12/14/20 03:45 36.3 C L 46 L 25 H 93 12/14/20 03:30 36.2 C L 45 L 26 H 93 12/14/20 03:15 36.2 C L 44 L 28 H 94 12/14/20 03:00 36.2 C L 44 L 22 95 12/14/20 02:45 36.1 C L 45 L 24 95 12/14/20 02:30 36.1 C L 41 L 31 H 95 12/14/20 02:15 36.1 C L 43 L 25 H 96 12/14/20 02:00 36.2 C L 47 L 28 H 80 L 12/14/20 01:50 44 L 28 H 96 12/14/20 01:45 36.2 C L 44 L 28 H 95 12/14/20 01:30 36.2 C L 44 L 28 H 96 12/14/20 01:15 36.2 C L 45 L 28 H 96 12/14/20 01:00 36.2 C L 44 L 28 H 95 12/14/20 00:45 36.2 C L 45 L 28 H 96 12/14/20 00:30 36.2 C L 45 L 28 H 96 12/14/20 00:15 36.2 C L 45 L 28 H 95 12/14/20 00:00 36.2 C L 45 L 28 H 95 12/13/20 23:45 36.2 C L 45 L 28 H 94 Laboratory Results Laboratory Results - last 24 hr 12/13/20 12/13/20 12/13/20 11:36 17:03 19:28 WBC RBC Hgb Hct MCV MCH MCHC RDW Std Deviation RDW Coeff of Lu Plt Count MPV ABG pH ABG pCO2 ABG pO2 ABG HCO3 ABG O2 Saturation ABG Base Excess Robert Test Barometric Pressure Oxygen Given Sodium Potassium Chloride Carbon Dioxide Anion Gap BUN Creatinine Est Cr Clr Drug Dosing Est GFR ( Amer) Est GFR (Non-Af Amer) BUN/Creatinine Ratio Glucose POC Glucose 128 H 173 H 153 H Estimat Average Glucose Hemoglobin A1c Calcium Phosphorus Magnesium 12/13/20 12/14/20 12/14/20 23:58 04:44 05:15 WBC 12.22 H RBC 4.25 L Hgb 12.7 L Hct 38.6 L MCV 90.8 MCH 29.9 MCHC 32.9 RDW Std Deviation 50.9 H RDW Coeff of Lu 15.2 H Plt Count 199 D MPV 10.5 H ABG pH ABG pCO2 ABG pO2 ABG HCO3 ABG O2 Saturation ABG Base Excess Robert Test Barometric Pressure Oxygen Given Sodium Potassium Chloride Carbon Dioxide Anion Gap BUN Creatinine Est Cr Clr Drug Dosing Est GFR ( Amer) Est GFR (Non-Af Amer) BUN/Creatinine Ratio Glucose POC Glucose 136 H 118 H Estimat Average Glucose Hemoglobin A1c Calcium Phosphorus Magnesium 12/14/20 12/14/20 12/14/20 05:15 05:15 05:18 WBC RBC Hgb Hct MCV MCH MCHC RDW Std Deviation RDW Coeff of Lu Plt Count MPV ABG pH 7.43 ABG pCO2 46 ABG pO2 77 L ABG HCO3 30 H ABG O2 Saturation 95.8 H ABG Base Excess 4.8 H Robert Test Pos Barometric Pressure 724.2 Oxygen Given 70 Sodium 135 L Potassium 4.6 Chloride 105 Carbon Dioxide 29 Anion Gap 1.0 L BUN 36 H Creatinine 0.55 L Est Cr Clr Drug Dosing 126.1 Est GFR ( Amer) 125.0 Est GFR (Non-Af Amer) 107.8 BUN/Creatinine Ratio 66.0 H Glucose 121 H POC Glucose Estimat Average Glucose 143 Hemoglobin A1c 6.6 H Calcium 8.3 L Phosphorus 2.8 D Magnesium 2.9 H 12/14/20 08:05 WBC RBC Hgb Hct MCV MCH MCHC RDW Std Deviation RDW Coeff of Lu Plt Count MPV ABG pH ABG pCO2 ABG pO2 ABG HCO3 ABG O2 Saturation ABG Base Excess Robert Test Barometric Pressure Oxygen Given Sodium Potassium Chloride Carbon Dioxide Anion Gap BUN Creatinine Est Cr Clr Drug Dosing Est GFR ( Amer) Est GFR (Non-Af Amer) BUN/Creatinine Ratio Glucose POC Glucose 96 Estimat Average Glucose Hemoglobin A1c Calcium Phosphorus Magnesium Medications Administered Current Inpatient Medications Acetaminophen (Acetaminophen 325 Mg Tab) 650 mg PO Q4H PRN PRN Reason: pain/fever Stop: 01/02/21 22:22 Last Admin: 12/10/20 09:53 Dose: 650 mg Documented by: Dextrose (Dextrose 50% 50 Ml Syringe) 25 - 50 ml IV UD PRN; Protocol PRN Reason: Hypoglycemia Protocol Stop: 01/12/21 01:29 Enoxaparin Sodium (Enoxaparin Inj 40 Mg/0.4 Ml Syr) 40 mg SQ Q12H TONY Stop: 01/02/21 22:59 Last Admin: 12/14/20 11:38 Dose: 40 mg Documented by: Fentanyl Citrate (Fentanyl Citrate 100 Mcg/2 Ml Vial) 50 mcg IV Q2H PRN PRN Reason: Moderate Pain (4,5,6) on NRS Stop: 12/26/20 13:44 Fentanyl Citrate (Fentanyl Bolus From Bag) 50 mcg IV Q60M PRN PRN Reason: Pain or Agitation Stop: 12/26/20 13:44 Last Admin: 12/14/20 09:13 Dose: 50 mcg Documented by: Glucagon (Glucagon For Inj 1 Mg Vial) 1 mg SQ UD PRN; Protocol PRN Reason: Hypoglycemia Protocol Stop: 01/12/21 01:29 Glucose (Glucose 40% Gel 15 Gm Tube) 15 - 30 gm PO UD PRN; Protocol PRN Reason: Hypoglycemia Protocol Stop: 01/12/21 01:29 Glucose (Glucose 10 Tabs/Tube) 4 - 8 tabs PO UD PRN; Protocol PRN Reason: Hypoglycemia Protocol Stop: 01/12/21 01:29 Dexamethasone 20 mg/ Dextrose 30 mls @ 0.833 mls/min IV Q24H TONY Stop: 12/15/20 11:59 Last Admin: 12/14/20 11:37 Dose: 0.8 mls/min Documented by: Famotidine 20 mg/ Syringe 5 mls @ 2.5 mls/min IV Q12H TONY Stop: 01/11/21 20:59 Last Admin: 12/14/20 07:55 Dose: 2.5 mls/min Documented by: Propofol (Diprivan) 1,000 mg in 100 mls @ 16.695 mls/hr IV .Q6H TONY; Protocol Stop: 12/15/20 13:44 Last Titration: 12/14/20 09:12 Dose: 35 mcg/kg/min, 16.7 mls/hr Documented by: Fentanyl Citrate (Fentanyl Drip) 1,250 mcg in 250 mls @ 20 mls/hr IV .[id number] TONY; Protocol Stop: 12/26/20 13:44 Last Titration: 12/14/20 09:13 Dose: 100 mcg/hr, 20 mls/hr Documented by: Norepinephrine Bitartrate (Levophed/D5w) 8 mg in 508 mls @ 0 mls/hr IV .Q0M [facility]; Protocol Stop: 01/11/21 13:44 Last Titration: 12/13/20 11:50 Dose: Infused Documented by: Parenteral Electrolytes (Normosol-R) 1,000 mls @ 30 mls/hr IV .Q24H TONY Stop: 01/11/21 13:44 Last Admin: 12/14/20 11:38 Dose: 30 mls/hr Documented by: Cisatracurium Besylate 40 mg/ (Sodium Chloride) 100 mls @ 0 mls/hr IV .Q0M [facility]; Protocol Stop: 01/11/21 14:44 Last Titration: 12/13/20 11:50 Dose: Infused Documented by: Dexamethasone 10 mg/ Syringe 2.5 mls @ 1 mls/min IV DAILY@1200 TONY Stop: 12/19/20 12:03 Insulin Aspart (Insulin Aspart 100 Units/Ml 3 Ml Pen) 0 units SC Q4 [facility]; Protocol Stop: 01/12/21 01:29 Last Admin: 12/14/20 08:11 Dose: Not Given Documented by: Midazolam HCl (Midazolam Hcl 1 Mg/Ml 2ml Vial) 2 mg IV Q2H PRN PRN Reason: RASS goal -1 Stop: 01/11/21 13:44 Miscellaneous (Icu Electrolyte Replacement Protocol) 1 ea N/A BID@06,18 [facility]; Protocol Stop: 12/19/20 17:59 Last Admin: 12/14/20 06:32 Dose: Not Given Documented by: Miscellaneous (Carbohydrates For Hypoglycemia ) 15 - 30 gm PO UD PRN PRN Reason: Hypoglycemia Treatment Stop: 01/12/21 01:29 Miscellaneous Information (Pharmacy Glycemic Mgmt Consult) 1 ea N/A UD PRN PRN Reason: Consult Stop: 01/12/21 00:30 Multi-Ingredient Cream (Artificial Tears Op Oint 3.5 Gm Tube) 1 appln OP Q4H [facility] Stop: 01/11/21 14:44 Last Admin: 12/14/20 09:13 Dose: 1 appln Documented by: Nutritional Formula (Peptamen Intense Vhp 1.0 Yoandy 1,000 Ml Bag) 1,000 ml OG UD [facility]; Protocol Stop: 01/12/21 10:14 Last Admin: 12/13/20 14:45 Dose: 1,000 ml Documented by: Ondansetron HCl (Ondansetron Inj 2 Mg/Ml 2 Ml Vial) 4 mg IV Q6H PRN PRN Reason: Nausea Stop: 01/02/21 22:22 Last Admin: 12/08/20 23:37 Dose: 4 mg Documented by: Propofol (Propofol Bolus From Bag) 20 mg IV Q5M PRN PRN Reason: Sedation Stop: 12/15/20 13:44 Last Admin: 12/14/20 09:13 Dose: 20 mg Documented by: Sterile Water (Tube Feeding Water Flush) 30 ml OG Q4 TONY Stop: 01/12/21 11:59 Last Admin: 12/14/20 11:38 Dose: 30 ml Documented by: PG Care Time/CCT Total # of Minutes Spent Total Time Spent with Patient: Total time spent is greater than 50% in coordination of care (as documented) at patient's floor/unit and/or counseling patient: Coding Level of Care Code 49237 Subseq Hosp Care Lvl 2 Diagnoses Pneumonia due to 2019 novel coronavirus U07.1; J12.82 Acute respiratory failure with hypoxia J96.01 Headache R51.9 Sore throat J02.9 CAD (coronary artery disease) I25.10 Benign essential hypertension I10 Hyperlipidemia E78.5 GERD (gastroesophageal reflux disease) K21.9 Elevated LFTs R79.89 Hyponatremia E87.1 Hypokalemia E87.6 DVT prophylaxis Z29.9
[2020-12-14] MEDS ORDERED: VANCOMYCIN CONSULT ACTIVE PRN (13:14)
--- NOTE | 2020-12-14 13:15 | Critical Care Progress Note ---
Date of Service December 14, 2020 Assessment & Plan (1) Acute respiratory failure with hypoxia: (2) Pneumonia due to 2019 novel coronavirus: Plan: Impression: 65-year-old male with Covid pneumonia and ARDS. He has been admitted since 12/03 and has been on dexamethasone. He has been hospitalized long enough that was outside the window for Tocilizumab or Baricitinib. 24-hour events: Had been able to wean the patient's oxygenation significantly over the last 24 hours. Chest x-ray demonstrated a small apical pneumothorax which on serial imaging is not demonstrated any significant progression. Pressors were also weaned off. Recommendations: 1. Neurologic: Continue deep sedation with propofol, fentanyl, and Versed. Will use neuromuscular blockade as needed to promote ventilator synchrony for ARDS ventilator strategy. 2. Pulmonary: ARDS secondary to Covid pneumonia. He had a CT angiogram demonstrating no evidence of PE. Review of the patient's imaging demonstrated fairly diffuse disease and I am not sure that he would be a candidate for proning so holding off for now. Continue low PEEP high FiO2 strategy and try and target plateau pressures below 30 especially given his small apical left pneumothorax and subcutaneous emphysema. Currently tolerating 5 cc/kg ideal body weight. Continue the late-phase ARDS dexamethasone protocol with 20 mg daily for 5 days followed by 10 mg daily for 5 days. Most current blood gas 7.4 with vent settings of assist control respiratory rate 30 tidal volume 350 PEEP of 5 and FiO2 0.6. Plateau pressures 18 3. Cardiovascular: Now off norepinephrine. Would like to maintain on the dry side. 4. Renal: No current issues. Electrolyte replacement protocol. Follow acid- base status with serial blood gases. 5. GI: Tube feeding per nutritional services. PPI in place. 6. ID: Covid pneumonitis with ARDS physiology. Continue dexamethasone as noted. Sputum with a staph species. Will place on vancomycin pending speciation. Pharmacy consultation. Recheck procalcitonin. 7. Endocrine: No prior issues. Glycemic control per ICU protocol. 8. Heme-onc: Leukocytosis as noted above. Continue to trend over time. 9. DVT and GI prophylaxis in place. The patient is critically ill at this point time with significant possibility of clinical deterioration and/or . He was discussed with the overnight critical care SHAUN and with the bedside ICU nurse as well. A total of 46 minutes in critical care time was spent in evaluation management and stabilization of this patient excluding procedures.. Admission and Anticipated Discharge Date Admission Date: December 03, 2020 Subjective Intubated and sedated Review of Systems Review of Systems: Unobtainable due to endotracheal tube Physical Exam Physical Exam: Exam deferred Constitutional: WD/WN, vitals as above + mechanically ventilated Neck: trachea midline, no thyromegaly Respiratory: Auscultation: + rales and + wheezes Cardiovascular: RRR, no murmur, no edema Gastrointestinal (Abdomen): normal bowel sounds, soft, nontender, no hepatosplenomegaly Musculoskeletal: Extremities: extremities normal to inspection Skin: no rashes, warm and dry Lymphatic: no cervical lymphadenopathy Results & Data Results & Data ([facility]) Vital Signs (Past 12 Hours) Vital Signs Temp Pulse Resp Pulse Ox 12/14/20 11:40 49 L 29 H 89 L 12/14/20 09:30 36.6 C 45 L 30 H 92 12/14/20 09:00 36.5 C 46 L 26 H 89 L 12/14/20 08:30 36.5 C 45 L 26 H 91 12/14/20 08:00 36.6 C 44 L 25 H 90 12/14/20 07:40 45 L 28 H 95 12/14/20 07:30 36.5 C 44 L 28 H 95 12/14/20 07:00 36.5 C 44 L 28 H 95 12/14/20 05:45 36.5 C 45 L 28 H 95 12/14/20 05:30 36.5 C 45 L 28 H 95 12/14/20 05:15 36.6 C 45 L 28 H 95 12/14/20 05:00 36.5 C 46 L 28 H 95 12/14/20 04:45 36.5 C 47 L 28 H 95 12/14/20 04:30 36.4 C L 45 L 28 H 94 12/14/20 04:15 36.4 C L 45 L 28 H 94 12/14/20 04:00 36.3 C L 46 L 28 H 93 12/14/20 03:45 36.3 C L 46 L 25 H 93 12/14/20 03:30 36.2 C L 45 L 26 H 93 12/14/20 03:15 36.2 C L 44 L 28 H 94 12/14/20 03:00 36.2 C L 44 L 22 95 12/14/20 02:45 36.1 C L 45 L 24 95 12/14/20 02:30 36.1 C L 41 L 31 H 95 12/14/20 02:15 36.1 C L 43 L 25 H 96 12/14/20 02:00 36.2 C L 47 L 28 H 80 L 12/14/20 01:50 44 L 28 H 96 12/14/20 01:45 36.2 C L 44 L 28 H 95 12/14/20 01:30 36.2 C L 44 L 28 H 96 12/14/20 01:15 36.2 C L 45 L 28 H 96 Critical Care Results & Data Vital Signs (Past 12 Hours) Vital Signs Temp Pulse Resp Pulse Ox 12/14/20 11:40 49 L 29 H 89 L 12/14/20 09:30 36.6 C 45 L 30 H 92 12/14/20 09:00 36.5 C 46 L 26 H 89 L 12/14/20 08:30 36.5 C 45 L 26 H 91 12/14/20 08:00 36.6 C 44 L 25 H 90 12/14/20 07:40 45 L 28 H 95 12/14/20 07:30 36.5 C 44 L 28 H 95 12/14/20 07:00 36.5 C 44 L 28 H 95 12/14/20 05:45 36.5 C 45 L 28 H 95 12/14/20 05:30 36.5 C 45 L 28 H 95 12/14/20 05:15 36.6 C 45 L 28 H 95 12/14/20 05:00 36.5 C 46 L 28 H 95 12/14/20 04:45 36.5 C 47 L 28 H 95 12/14/20 04:30 36.4 C L 45 L 28 H 94 12/14/20 04:15 36.4 C L 45 L 28 H 94 12/14/20 04:00 36.3 C L 46 L 28 H 93 12/14/20 03:45 36.3 C L 46 L 25 H 93 12/14/20 03:30 36.2 C L 45 L 26 H 93 12/14/20 03:15 36.2 C L 44 L 28 H 94 12/14/20 03:00 36.2 C L 44 L 22 95 12/14/20 02:45 36.1 C L 45 L 24 95 12/14/20 02:30 36.1 C L 41 L 31 H 95 12/14/20 02:15 36.1 C L 43 L 25 H 96 12/14/20 02:00 36.2 C L 47 L 28 H 80 L 12/14/20 01:50 44 L 28 H 96 12/14/20 01:45 36.2 C L 44 L 28 H 95 12/14/20 01:30 36.2 C L 44 L 28 H 96 12/14/20 01:15 36.2 C L 45 L 28 H 96 Lab & Micro Results (Past 24 Hours) RBC 4.25 M/uL (4.7-6.1) L 12/14/20 WBC 12.22 K/uL (4.8-10.8) H 12/14/20 Hgb 12.7 g/dL (14.0-18.0) L 12/14/20 Hct 38.6 % (42-52) L 12/14/20 MCV 90.8 fL (80-100) 12/14/20 MCH 29.9 pg (25-34) 12/14/20 MCHC 32.9 g/dL (32-36) 12/14/20 RDW Standard Deviation 50.9 fL (36.4-46.3) H 12/14/20 RDW Coefficient of Variation 15.2 % (11.5-14.5) H 12/14/20 Plt Count 199 K/uL (130-400) 12/14/20 MPV 10.5 fL (7.4-10.4) H 12/14/20 Na 135 mmol/L (136-145) L 12/14/20 K 4.6 mmol/L (3.5-5.1) 12/14/20 Cl 105 mmol/L (98-107) 12/14/20 CO2 29 mmol/L (21-32) 12/14/20 Anion Gap 1.0 (3-11) L 12/14/20 BUN 36 mg/dl (7-18) H 12/14/20 Creatinine 0.55 mg/dl (0.6-1.4) L 12/14/20 Estimated GFR ( Amer) 125.0 ml/min 12/14/20 Estimated GFR (Non-Af Amer) 107.8 ml/min 12/14/20 BUN/Creatinine Ratio 66.0 (10-20) H 12/14/20 Glu 121 mg/dl (70-99) H 12/14/20 Ca 8.3 mg/dl (8.5-10.1) L 12/14/20 Phosphorus Level 2.8 mg/dl (2.5-4.9) 12/14/20 Mg 2.9 mg/dl (1.8-2.4) H 12/14/20 05:15 12/14/20 Calcium Level 8.3 mg/dl (8.5-10.1) L 12/14/20 05:15 12/14/20 Blood Gas Barometric Pressure 724.2 mm/Hg 12/14/20 05:18 12/14/20 Arterial Blood pH 7.43 (7.35-7.45) 12/14/20 05:18 12/14/20 Arterial Blood Partial Pressure CO2 46 mmHg (35-46) 12/14/20 05:18 12/14/20 Arterial Blood Partial Pressure O2 77 mmHg (80-95) L 12/14/20 05:18 12/14/20 Arterial Blood HCO3 30 mmol/L (19-24) H 12/14/20 05:18 12/14/20 Arterial Blood Base Excess 4.8 mEq/L (-9-1.8) H 12/14/20 05:18 12/14/20 Arterial Blood Oxygen Saturation 95.8 % (90-95) H 12/14/20 05:18 12/14/20 Blood Gas Oxygen Given 70 12/14/20 05:18 12/14/20 Robert Test Pos (Pos) 12/14/20 05:18 12/14/20 Blood Gas Barometric Pressure 724.2 mm/Hg 12/14/20 05:18 12/14/20 Microbiology 12/12/20 18:00 Gram Stain - Final Sputum, Expectorated Sputum Culture - Preliminary Staphylococcus species Diagnostic Findings (Past 24 Hours) Chest X-Ray 12/13/20 15:58 XR chest 1V portable CLINICAL HISTORY: hypoxemia COMPARISON STUDY: Chest CT December 09, 2020. Chest CT December 13, 2020 at 7:44 AM. FINDINGS: Tip of endotracheal tube is 3.4 cm above the joey. Tip of nasogastric tube is below the lower aspect of this image but at least within the body of the stomach. Left subclavian central line is in place. There is a small left apical pneumothorax. Superior pleural separation is 5 mm. There is subcutaneous gas within the neck. There may be pneumomediastinum. Cardiomediastinal silhouette is stable. Bilateral airspace opacities are similar to prior exam. IMPRESSION: 1. Small left apical pneumothorax. Subcutaneous gas within the lower neck. Possible pneumomediastinum. The findings will be called/faxed to the ordering provider at time of dictation. 2. Satisfactory positioning of lines and tubes. 3. No significant change in bilateral airspace opacities suggestive of viral pneumonia. ACT 112: Negative or not required by law. Electronically signed by: Alcides Adrian M.D. 12/13/2020 4:22 PM Chest X-Ray 12/14/20 07:30 XR chest 1V portable CLINICAL HISTORY: Respiratory failure. COMPARISON STUDY: Chest radiograph December 13, 2020 at 3:59 PM. FINDINGS: Tip of endotracheal tube is 3.2 cm above the joey. Tip of nasogastric tube is within the body of the stomach. Left subclavian central line remains in place. Cardiomediastinal silhouette is stable. Small left pneumothorax has slightly increased in size. Superior pleural separation is 7 mm. Subcutaneous gas within the right neck has increased. There is probable pneumomediastinum. Bilateral airspace opacities persist. IMPRESSION: 1. Satisfactory positioning of lines and tubes. 2. Slight increase in size of a small left apical pneumothorax. Increase in subcutaneous gas within the right lower neck. Probable pneumomediastinum. 3. Persistent bilateral airspace opacities suggestive of pneumonia. ACT 112: Negative or not required by law. Electronically signed by: Alcides Adrian M.D. 12/14/2020 8:55 AM I & O Totals 24 Hours 12/13/20 12/14/20 12/15/20 06:59 06:59 06:59 Intake Total 1415.311 / 5356.319 5484.106 / 1117.106 894.625 / 894.625 Output Total 2400 / 2400 950 / 950 250 / 250 Balance -984.689 / -984.689 167.106 / 167.106 644.625 / 644.625 Cumulative 12/03/20 17:02 thru 12/14/20 12:33 Intake Total 8377.042 Output Total 20506 Balance -6772.958 RT Ventilator Mngmt (Last Documented) Ventilator Ordered Settings Ventilator Support Mode Assist Control 12/14/20 11:40 Respiratory Rate 29 12/14/20 11:40 Ventilator Tidal Volume 350 12/14/20 11:40 Setting Minute Ventilation 9.8 12/14/20 11:40 Positive End Expiratory 5 12/14/20 11:40 Pressure Fraction of Inspired Oxygen 70 12/14/20 11:40 Peak Inspiratory Flow 31 12/13/20 15:08 Machine Comment increased to 75%O2 12/14/20 11:40 Ventilator - PT Measurements Respiratory Rate 29 Exhaled Tidal Volume 353 Minute Ventilation 9.8 Peak Inspiratory Airway 25 Pressure Plateau Pressure 13 Respiratory Cycle Inspiratory: 1:2.1 Expiratory Ratio Inspiratory Phase Time 0.70 End-Tidal CO2 30 Static Lung Compliance 44.13 Dynamic Lung Compliance 17.65 Normal Static Lung Compliance 45.00 Patient Measurements Comment Weaned FiO2 to 70%. Coding Level of Care Code Critical Care 1st 30-74 mins Diagnoses Acute respiratory failure with hypoxia J96.01 Pneumonia due to 2019 novel coronavirus U07.1; J12.82 Time Spent (min) 46
[2020-12-14] MEDS ORDERED: VANCOMYCIN HCL 1,500 MG in SODIUM CHLORIDE 0.9% 500 ML IV STA (13:22)
[2020-12-15] MEDS: PROPOFOL BOLUS FROM BAG IV PRN ×2 (00:10→23:00)
[2020-12-15] MEDS: propofoL 1,000 MG/100 ML VIAL IV SCH ×7 (00:25→21:29)
[2020-12-15] MEDS: TUBE FEEDING WATER FLUSH OG SCH ×6 (01:30→21:18)
[2020-12-15] MEDS: INSULIN ASPART 100 UNITS/ML 3 ML PEN SC SCH ×6 (01:30→21:17)
[2020-12-15] MEDS ORDERED: VANCOMYCIN HCL 1,250 MG in SODIUM CHLORIDE 0.9% 250 ML IV SCH (02:00)
[2020-12-15] MEDS: fentaNYL DRIP 1,250 MCG/250 ML BAG IV SCH ×5 (02:02→21:29)
[2020-12-15] MEDS: ARTIFICIAL TEARS OP OINT 3.5 GM TUBE OP SCH ×6 (03:33→21:18)
[2020-12-15 04:52] LABS: Basophils # (auto) 0.01 K/uL (0-0.2); Basophils % (auto) 0.1 %; Hemoglobin 12.4 g/dL (14.0-18.0); Immature Granulocytes # (auto) 0.05 K/uL (0.00-0.02); Immature Granulocytes % (auto) 0.3 %; Lymphocytes % (auto) 3.4 %; Mean Corpuscular Hemoglobin 29.8 pg (25-34); Mean Corpuscular Hgb Conc 32.6 g/dL (32-36); Mean Corpuscular Volume 91.3 fL (80-100); Mean Platelet Volume 9.8 fL (7.4-10.4); Monocytes # (auto) 0.58 K/uL (0.11-0.59); Monocytes % (auto) 3.9 %; Neutrophils % (auto) 92.3 %; Platelet Count 171 K/uL (130-400); RDW Coefficient of Variation 14.9 % (11.5-14.5); RDW Standard Deviation 50.2 fL (36.4-46.3); Red Blood Count 4.16 M/uL (4.7-6.1); White Blood Count 14.74 K/uL (4.8-10.8)
[2020-12-15 05:13] LABS: BUN Creatinine Ratio 71.1 (10-20); Creatinine Clr Calc Pharmacy 133.4 ml/min; Est GFR (African American) 127.9 ml/min; Est GFR (Non-African American) 110.3 ml/min; Magnesium 2.7 mg/dl (1.8-2.4); Phosphorus 2.7 mg/dl (2.5-4.9); Potassium 4.5 mmol/L (3.5-5.1)
[2020-12-15 05:47] LABS: Allen Test POS (Pos); Base Excess ABG 7.6 mEq/L (-9-1.8); HCO3 ABG 32 mmol/L (19-24); Oxygen Saturation ABG 91.7 % (90-95); PCO2 ABG 46 mmHg (35-46); PO2 ABG 73 mmHg (80-95); pH ABG 7.47 (7.35-7.45)
[2020-12-15] MEDS: PEPTAMEN INTENSE VHP 1.0 CAL 1,000 ML BAG OG SCH (06:01)
[2020-12-15] MEDS: ICU ELECTROLYTE REPLACEMENT PROTOCOL SCH ×2 (06:31→19:04)
--- NOTE | 2020-12-15 07:44 | XRay Report ---
XR chest 1V portable CLINICAL HISTORY: Respiratory failure. COMPARISON STUDY: Chest radiograph December 14, 2020. FINDINGS: Tip of endotracheal tube is 3.2 cm above the joey. Tip of nasogastric tube is below the l ower aspect of this image but at least within the body of the stomach. There is a left subclavian betty tral line. Subcutaneous gas within the right lower neck has diminished. Pneumomediastinum has likely improved. Left pneumothorax shown on prior chest radiograph is no longer identified. Cardiomediastina l silhouette is stable. Bilateral airspace opacities persist. IMPRESSION: 1. Satisfactory positioning of lines and tubes. 2. Resolution of left pneumothorax. Decrease in pneumomediastinum and subcutaneous gas within the low er neck. 3. Persistent bilateral airspace opacities suggestive of pneumonia. ACT 112: Negative or not required by law. Electronically signed by: Alcides Adrian M.D. 12/15/2020 7:43 AM
--- NOTE | 2020-12-15 08:55 | Critical Care Progress Note ---
Date of Service December 15, 2020 Assessment & Plan (1) Acute respiratory failure with hypoxia: (2) Pneumonia due to 2019 novel coronavirus: Plan: Impression: 65-year-old male with Covid pneumonia and ARDS. He has been admitted since 12/03 and has been on dexamethasone. He has been hospitalized long enough that was outside the window for Tocilizumab or Baricitinib. He was intubated 12/12 for progressive respiratory distress and increased work of br eathing. 24-hour events: Stable HD and vent settings overnight. No acute changes. Recommendations: 1. Neurologic: Continue deep sedation with propofol, fentanyl, and Versed. Will use neuromuscular blockade as needed to promote ventilator synchrony for ARDS ventilator strategy. 2. Pulmonary: ARDS secondary to Covid pneumonia. D#3 MV. He had a CT angiogram demonstrating no evidence of PE. Review of the patient's imaging demonstrated fairly diffuse disease and I am not sure that he would be a candidate for proning so holding off for now. Continue low PEEP high FiO2 strategy and try and target plateau pressures below 30 especially given his small apical left pneumothorax and subcutaneous emphysema. Currently tolerating 5 cc/kg ideal body weight. Continue the late-phase ARDS dexamethasone protocol with 20 mg daily for 5 days followed by 10 mg daily for 5 days. Most current blood gas 7.47/46/73 with vent settings of assist control respiratory rate 28 tidal volume 350 PEEP of 5 and FiO2 0.7. Plateau pressures 22. Continue daily CXR for apical ptx. 3. Cardiovascular: Now off norepinephrine. Would like to maintain on the dry side. 4. Renal: No current issues. Electrolyte replacement protocol. Follow acid- base status with serial blood gases. 5. GI: Tube feeding per nutritional services. PPI in place. 6. ID: Covid pneumonitis with ARDS physiology. Continue dexamethasone as noted. Sputum with a staph species resistant to emycin. Day #2 vancomycin. Transition to rocephin. Procalcitonin negative. 7. Endocrine: No prior issues. Glycemic control per ICU protocol. 8. Heme-onc: Leukocytosis as noted above. Continue to trend over time. 9. DVT and GI prophylaxis in place. The patient is critically ill at this point time with significant possibility of clinical deterioration and/or . He was discussed with the overnight critical care SHAUN and with the bedside ICU nurse as well. A total of 45 minutes in critical care time was spent in evaluation management and stabilization of this patient excluding procedures. Admission and Anticipated Discharge Date Admission Date: December 03, 2020 Subjective Intubated and sedated Review of Systems Review of Systems: Unobtainable due to endotracheal tube Physical Exam Constitutional: WD/WN, vitals as above + mechanically ventilated ENMT: ETT and OGT Neck: trachea midline, no thyromegaly Respiratory: normal respiratory effort; not tachypneic Auscultation: + rales Cardiovascular: RRR, no murmur, no edema Gastrointestinal (Abdomen): normal bowel sounds, soft, nontender, no hepatosplenomegaly Musculoskeletal: Extremities: extremities normal to inspection Skin: no rashes, warm and dry Lymphatic: no cervical lymphadenopathy Results & Data Results & Data ([facility]) Vital Signs (Past 12 Hours) Vital Signs Temp Pulse Resp Pulse Ox 12/15/20 07:15 43 L 28 H 94 12/15/20 06:15 36.6 C 42 L 28 H 93 12/15/20 06:00 36.6 C 44 L 28 H 12/15/20 05:45 36.7 C 43 L 28 H 92 12/15/20 05:30 36.7 C 43 L 28 H 92 12/15/20 05:15 36.7 C 43 L 28 H 92 12/15/20 05:00 36.7 C 43 L 28 H 93 12/15/20 04:45 36.7 C 41 L 28 H 93 12/15/20 04:30 36.7 C 43 L 28 H 93 12/15/20 04:15 36.7 C 44 L 28 H 93 12/15/20 04:00 36.7 C 43 L 28 H 93 12/15/20 03:45 36.7 C 45 L 28 H 94 12/15/20 03:30 36.8 C 45 L 28 H 94 12/15/20 03:15 36.8 C 45 L 28 H 93 12/15/20 03:00 36.8 C 45 L 28 H 93 12/15/20 02:45 36.7 C 44 L 28 H 91 12/15/20 02:30 36.7 C 46 L 28 H 92 12/15/20 02:16 46 L 28 H 93 12/15/20 02:15 36.7 C 48 L 28 H 92 12/15/20 02:00 36.7 C 47 L 28 H 91 12/15/20 01:45 36.6 C 44 L 28 H 90 12/15/20 01:30 36.6 C 46 L 28 H 90 12/15/20 01:15 36.6 C 45 L 28 H 91 12/15/20 01:00 36.6 C 45 L 28 H 91 12/15/20 00:45 36.6 C 44 L 26 H 92 12/15/20 00:30 36.6 C 44 L 26 H 93 12/15/20 00:15 36.5 C 45 L 21 94 12/15/20 00:00 36.7 C 45 L 30 H 91 12/14/20 23:55 56 L 33 H 93 12/14/20 23:45 36.7 C 43 L 28 H 93 12/14/20 23:30 36.7 C 42 L 28 H 93 12/14/20 23:15 36.7 C 43 L 28 H 94 12/14/20 23:00 36.7 C 44 L 28 H 93 12/14/20 22:45 36.8 C 45 L 28 H 93 12/14/20 22:30 36.8 C 44 L 28 H 93 12/14/20 22:15 36.8 C 46 L 28 H 92 12/14/20 22:00 36.8 C 44 L 28 H 92 12/14/20 21:45 36.8 C 44 L 28 H 92 12/14/20 21:30 36.8 C 46 L 26 H 91 12/14/20 21:15 36.8 C 45 L 28 H 91 12/14/20 21:00 36.9 C 44 L 28 H 91 Critical Care Results & Data Vital Signs (Past 12 Hours) Vital Signs Temp Pulse Resp Pulse Ox 12/15/20 07:15 43 L 28 H 94 12/15/20 06:15 36.6 C 42 L 28 H 93 12/15/20 06:00 36.6 C 44 L 28 H 93 12/15/20 05:45 36.7 C 43 L 28 H 92 12/15/20 05:30 36.7 C 43 L 28 H 92 12/15/20 05:15 36.7 C 43 L 28 H 92 12/15/20 05:00 36.7 C 43 L 28 H 93 12/15/20 04:45 36.7 C 41 L 28 H 93 12/15/20 04:30 36.7 C 43 L 28 H 93 12/15/20 04:15 36.7 C 44 L 28 H 93 12/15/20 04:00 36.7 C 43 L 28 H 93 12/15/20 03:45 36.7 C 45 L 28 H 94 12/15/20 03:30 36.8 C 45 L 28 H 94 12/15/20 03:15 36.8 C 45 L 28 H 93 12/15/20 03:00 36.8 C 45 L 28 H 93 12/15/20 02:45 36.7 C 44 L 28 H 91 12/15/20 02:30 36.7 C 46 L 28 H 92 12/15/20 02:16 46 L 28 H 93 12/15/20 02:15 36.7 C 48 L 28 H 92 12/15/20 02:00 36.7 C 47 L 28 H 91 12/15/20 01:45 36.6 C 44 L 28 H 90 12/15/20 01:30 36.6 C 46 L 28 H 90 12/15/20 01:15 36.6 C 45 L 28 H 91 12/15/20 01:00 36.6 C 45 L 28 H 91 12/15/20 00:45 36.6 C 44 L 26 H 92 12/15/20 00:30 36.6 C 44 L 26 H 93 12/15/20 00:15 36.5 C 45 L 21 94 12/15/20 00:00 36.7 C 45 L 30 H 91 12/14/20 23:55 56 L 33 H 93 12/14/20 23:45 36.7 C 43 L 28 H 93 12/14/20 23:30 36.7 C 42 L 28 H 93 12/14/20 23:15 36.7 C 43 L 28 H 94 12/14/20 23:00 36.7 C 44 L 28 H 93 12/14/20 22:45 36.8 C 45 L 28 H 93 12/14/20 22:30 36.8 C 44 L 28 H 93 12/14/20 22:15 36.8 C 46 L 28 H 92 12/14/20 22:00 36.8 C 44 L 28 H 92 12/14/20 21:45 36.8 C 44 L 28 H 92 12/14/20 21:30 36.8 C 46 L 26 H 91 12/14/20 21:15 36.8 C 45 L 28 H 91 12/14/20 21:00 36.9 C 44 L 28 H 91 Lab & Micro Results (Past 24 Hours) RBC 4.16 M/uL (4.7-6.1) L 12/15/20 WBC 14.74 K/uL (4.8-10.8) H 12/15/20 Hgb 12.4 g/dL (14.0-18.0) L 12/15/20 Hct 38.0 % (42-52) L 12/15/20 MCV 91.3 fL (80-100) 12/15/20 MCH 29.8 pg (25-34) 12/15/20 MCHC 32.6 g/dL (32-36) 12/15/20 RDW Standard Deviation 50.2 fL (36.4-46.3) H 12/15/20 RDW Coefficient of Variation 14.9 % (11.5-14.5) H 12/15/20 Plt Count 171 K/uL (130-400) 12/15/20 MPV 9.8 fL (7.4-10.4) 12/15/20 Neutrophils (%) (Auto) 92.3 % 12/15/20 Lymphocytes (%) (Auto) 3.4 % 12/15/20 Monocytes # (Auto) 0.58 K/uL (0.11-0.59) 12/15/20 Eosinophils # (Auto) 0.00 K/uL (0-0.5) 12/15/20 Immature Granulocyte % (Auto) 0.3 % 12/15/20 Neutrophils # (Auto) 13.60 K/uL (1.4-6.5) H 12/15/20 Lymphocytes # (Auto) 0.50 K/uL (1.2-3.4) L 12/15/20 Monocytes # (Auto) 0.58 K/uL (0.11-0.59) 12/15/20 Eosinophils # (Auto) 0.00 K/uL (0-0.5) 12/15/20 Basophils # (Auto) 0.01 K/uL (0-0.2) 12/15/20 Immature Granulocyte # (Auto) 0.05 K/uL (0.00-0.02) H 12/15/20 Na 135 mmol/L (136-145) L 12/15/20 K 4.5 mmol/L (3.5-5.1) 12/15/20 Cl 106 mmol/L (98-107) 12/15/20 CO2 30 mmol/L (21-32) 12/15/20 Anion Gap -1.0 (3-11) L 12/15/20 BUN 37 mg/dl (7-18) H 12/15/20 Creatinine 0.52 mg/dl (0.6-1.4) L 12/15/20 Estimated GFR ( Amer) 127.9 ml/min 12/15/20 Estimated GFR (Non-Af Amer) 110.3 ml/min 12/15/20 BUN/Creatinine Ratio 71.1 (10-20) H 12/15/20 Glu 111 mg/dl (70-99) H 12/15/20 Ca 8.0 mg/dl (8.5-10.1) L 12/15/20 Phosphorus Level 2.7 mg/dl (2.5-4.9) 12/15/20 Mg 2.7 mg/dl (1.8-2.4) H 12/15/20 04:40 12/15/20 Calcium Level 8.0 mg/dl (8.5-10.1) L 12/15/20 04:40 12/15/20 Blood Gas Barometric Pressure 729.2 mm/Hg 12/15/20 04:40 12/15/20 Arterial Blood pH 7.47 (7.35-7.45) H 12/15/20 04:40 12/15/20 Arterial Blood Partial Pressure CO2 46 mmHg (35-46) 12/15/20 04:40 1 Arterial Blood Partial Pressure O2 73 mmHg (80-95) L 12/15/20 04:40 12/15/20 Arterial Blood HCO3 32 mmol/L (19-24) H 12/15/20 04:40 12/15/20 Arterial Blood Base Excess 7.6 mEq/L (-9-1.8) H 12/15/20 04:40 12/15/20 Arterial Blood Oxygen Saturation 91.7 % (90-95) 12/15/20 04:40 12/15/20 Blood Gas Oxygen Given 60L 12/15/20 04:40 12/15/20 Robert Test POS (Pos) 12/15/20 04:40 12/15/20 Blood Gas Barometric Pressure 729.2 mm/Hg 12/15/20 04:40 12/15/20 Microbiology 12/12/20 18:00 Gram Stain - Final Sputum, Expectorated Sputum Culture - Final Staphylococcus aureus Diagnostic Findings (Past 24 Hours) Chest X-Ray 12/14/20 07:30 XR chest 1V portable CLINICAL HISTORY: Respiratory failure. COMPARISON STUDY: Chest radiograph December 13, 2020 at 3:59 PM. FINDINGS: Tip of endotracheal tube is 3.2 cm above the joey. Tip of nasogastric tube is within the body of the stomach. Left subclavian central line remains in place. Cardiomediastinal silhouette is stable. Small left pneumothorax has slightly increased in size. Superior pleural separation is 7 mm. Subcutaneous gas within the right neck has increased. There is probable pneumomediastinum. Bilateral airspace opacities persist. IMPRESSION: 1. Satisfactory positioning of lines and tubes. 2. Slight increase in size of a small left apical pneumothorax. Increase in subcutaneous gas within the right lower neck. Probable pneumomediastinum. 3. Persistent bilateral airspace opacities suggestive of pneumonia. ACT 112: Negative or not required by law. Electronically signed by: Alcides Adrian M.D. 12/14/2020 8:55 AM Chest X-Ray 12/15/20 07:30 XR chest 1V portable CLINICAL HISTORY: Respiratory failure. COMPARISON STUDY: Chest radiograph December 14, 2020. FINDINGS: Tip of endotracheal tube is 3.2 cm above the joey. Tip of nasogastri c tube is below the lower aspect of this image but at least within the body of the stomach. There is a left subclavian central line. Subcutaneous gas within the right lower neck has diminished. Pneumomediastinum has likely improved. Left pneumothorax shown on prior chest radiograph is no longer identified. Cardiomediastinal silhouette is stable. Bilateral airspace opacities persist. IMPRESSION: 1. Satisfactory positioning of lines and tubes. 2. Resolution of left pneumothorax. Decrease in pneumomediastinum and subc utaneous gas within the lower neck. 3. Persistent bilateral airspace opacities suggestive of pneumonia. ACT 112: Negative or not required by law. Electronically signed by: Alcides Adrian M.D. 12/15/2020 7:43 AM I & O Totals 24 Hours 12/14/20 12/15/20 12/16/20 06:59 06:59 06:59 Intake Total 1117.106 / 0902.790 4896.121 / 2457.121 91.459 / 91.459 Output Total 950 / 950 1310 / 1310 Balance 167.106 / 108.683 2895.121 / 1147.121 91.459 / 91.459 Cumulative 12/03/20 17:02 thru 12/15/20 07:09 Intake Total 56801.997 Output Total 42056 Balance -6179.003 RT Ventilator Mngmt (Last Documented) Ventilator Ordered Settings Ventilator Support Mode Assist Control 12/15/20 07:15 Respiratory Rate 28 12/15/20 07:15 Ventilator Tidal Volume 350 12/15/20 07:15 Setting Minute Ventilation 9.7 12/15/20 07:15 Positive End Expiratory 5 12/15/20 07:15 Pressure Fraction of Inspired Oxygen 75 12/15/20 07:15 Peak Inspiratory Flow 31 12/13/20 15:08 Machine Comment weaned to 70%O2 12/15/20 07:15 Ventilator - PT Measurements Respiratory Rate 28 Exhaled Tidal Volume 339 Minute Ventilation 9.7 Peak Inspiratory Airway 32 Pressure Plateau Pressure 28 Respiratory Cycle Inspiratory: 1:2.1 Expiratory Ratio Inspiratory Phase Time 0.70 End-Tidal CO2 29 Static Lung Compliance 14.74 Dynamic Lung Compliance 12.56 Normal Static Lung Compliance 43.00 Patient Measurements Comment Weaned FiO2 to 70%. Coding Level of Care Code Critical Care 1st 30-74 mins Diagnoses Acute respiratory failure with hypoxia J96.01 Pneumonia due to 2019 novel coronavirus U07.1; J12.82 Time Spent (min) 45
[2020-12-15] MEDS: FAMOTIDINE 20 MG in SYRINGE 3 ML IV SCH ×2 (09:39→20:45)
[2020-12-15] MEDS: cefTRIAXone SODIUM 1,000 MG in DEXTROSE 5% 50 ML IV SCH (10:00)
--- NOTE | 2020-12-15 11:02 | Pharmacy Report ---
Pharmacy Glycemic Short Note 2 - Date of Service December 15, 2020 - Glycemic Short BSG Results (Last 24 hours): 12/14/20 12/14/20 12/14/20 11:48 16:47 20:20 Glucose POC Glucose 93 118 H 128 H 12/15/20 12/15/20 12/15/20 00:31 04:40 05:07 Glucose 111 H POC Glucose 113 H 108 H 12/15/20 09:13 Glucose POC Glucose 87 OUTPATIENT ANTIDIABETIC REGIMEN: * n/A * A1c pending ASSESSMENT: 12/15/20 * Patient's BSGs yesterday were 326-87-88-118-128-113 mg/dL. * Patient received 0 units of insulin. * Fasting BSG today was 108 mg/dL. Continue to hold Lantus. * Patient is on trickle feeds so no coverage for this at this time. Background * Patient currently intubated, sedated with propofol, fentanyl. Norepinephrine was started overnight but has been titrated off. Patient was also paralyzed with nimbex, this has also been weened off. * Blood sugars elevated last evening and met criteria for glycemic consult. Patient's blood sugars have trended down with 10 units of lantus and correction factor of 30. * Tube feeds to begin with trickle (no titration), will add carb coverage. * Patient is currently on dexamethasone 20 mg, last day tomorrow and will taper down to 10 mg on 12/15. Will put additional lantus dose on for this evening if BSG >160 mg/dL PLAN FOR INPATIENT GLYCEMIC CONTROL: * Basal insulin * Lantus - held * Bolus insulin * NovoLog per scale ACHS or Q6hrs while NPO * Goal Range: Low 110 mg/dL - High 140 mg/dL * Correction Factor: 30 mg/dL/unit * Nutritional / Prandial insulin per carb ratio of 1 unit per 10 grams CHO consumed PLAN FOR DISCHARGE: * Patient's HbA1C is slightly elevated at 6.6% but is at goal (goal HbA1C < 7%) * Recommend continued monitoring as an outpatient. * Patient may adopt dietary and exercise changes to help control HbA1C.
[2020-12-15] MEDS: ENOXAPARIN INJ 40 MG/0.4 ML SYR SQ SCH ×2 (12:23→23:00)
[2020-12-15] MEDS: dexAMETHasone 10 MG in SYRINGE 0 ML IV SCH (12:25)
[2020-12-15] MEDS ORDERED: STAT IV Infusion **Titration per Protocol STA (14:39)
[2020-12-15] MEDS ORDERED: VECURONIUM BROMIDE 10 MG VIAL IV PRN (14:53)
--- NOTE | 2020-12-15 14:57 | XRay Report ---
XR chest 1V portable CLINICAL HISTORY: decrease o2 sats COMPARISON STUDY: Chest radiograph performed earlier today. FINDINGS: Tip of the endotracheal tube is 3.1 cm above the joey. Left subclavian central line remai ns in place. Tip of nasogastric tube is at least within the body of the stomach. There is no pneumoth orax or pleural effusion. Note is again made of subcutaneous gas within the right lower neck. Cardiom ediastinal silhouette is stable. Bilateral airspace opacities persist. Conclusions right upper lung a nd left basilar consolidation. IMPRESSION: 1. Satisfactory positioning of lines and tubes. 2. No significant change in bilateral airspace opacities, including left basilar and right upper lung consolidation. 3. Redemonstration of subcutaneous gas within the right neck. ACT 112: Negative or not required by law. Electronically signed by: Alcides Adrian M.D. 12/15/2020 2:55 PM
--- NOTE | 2020-12-15 15:56 | Hospitalist Progress Note ---
Date of Service December 15, 2020 Assessment & Plan (1) Pneumonia due to 2019 novel coronavirus: Plan: Severe disease declined to point of needing intubation on 12/12, up to 60L and 100% and still desaturating, working hard to breathe currently doing well on ventilator, PEEP 5, FiO2 70%, minimal sedation and no paralytics complicated by small apical pneumothorax left side, resolved on imaging today also with pneumomediastinum, air over neck increased dexamethasone to 20mg IV daily on 12/10, plan for 5 days of 20mg then 5 days of 10mg pulmonary following, will now consult ICU Zithromax completed (2) Acute respiratory failure with hypoxia: Plan: ventilator dependent respiratory failure, intubated on 12/[address] Hernandez doing well on ventilator, PEEP 5, FiO2 70% minimal sedation small apical PTX on left, pneumomediastinum stress importance of low PEEP, low plateau pressures (3) Pneumothorax: Plan: resolved on CXR today, still with subcutaneous air over neck low PEEP high FiO2 (4) Headache: Plan: right eye region/right forehead with right eye tearing, right nare drainage, more intense on 12/08 has headache again today CT head 12/08 - negative for ICH, stroke, etc. he had transient L hand numbness this am - now resolved could have been TIA could have been neuro symptoms 2nd to a migraine headache no triptans due to CAD Depakote 250mg BID for prophylaxis? had a 1000mg load on 12/09 already on dexamethasone, add a dose of Toradol IV PRN will now be sedated so headache will not be an issue (5) Sore throat: Plan: most pressing complaint on 12/11 tongue and throat very dry, could be thrush from steroids? started Magic Swizzle (lidocaine) and Nystatin S/S QID, gave him some relief (6) CAD (coronary artery disease): Plan: h/o RCA stents remains on asa, statin was NOT taking REI or BB at home holding Lisinopril 5mg no ischemic symptoms during this illness EKG with inverted T's inferiorly however it is unchanged from EKG from several years ago (7) Benign essential hypertension: Plan: BP stable (8) Hyperlipidemia: Plan: statin (9) GERD (gastroesophageal reflux disease): Plan: PPI (10) Elevated LFTs: Plan: likely 2nd to COVID-19 infection trended down (11) Hyponatremia: Plan: 2nd recent diarrhea, poor oral intake, etc resolved (12) Hypokalemia: Plan: replaced and resolved (13) DVT prophylaxis: Plan: lovenox 40mg BID Plan: updated his Kaden daily Admission and Anticipated Discharge Date Admission Date: December 03, 2020 Subjective patient stable on ventilator has some subcutaneous air over neck from pneumomediastinum and PTX PEEP low at 5, plateau pressures lower than 30, FiO2 70% labs stable updated his Kaden over the phone discussed with ICU, appreciate their management Review of Systems Review of Systems: Unobtainable due to endotracheal tube Physical Exam Physical Exam: General: well developed, well nourished, sedated, mechanically ventilated Neck: supple, trachea midline, normal thyroid Lungs: crackles in bases, no wheezing, symmetric chest movement on ventilator chest wall - subcutaneous air over neck Heart: regular S1 and S2, no murmur, peripheral pulses normal, capillary refill normal, no edema Abdomen: soft, NT, ND, + BS, no hepatomegaly, normal to percussion Extremities: normal in appearance, mildly cyanotic, no petechiae, strength is 5/5 bilaterally Neuro: sedated, no focal motor deficits, CN II-XII intact Skin: warm, dry, no rash, normal turgor Psych: sedated on ventilator Results & Data Results & Data ([facility]) Vital Signs (Past 12 Hours) Vital Signs Temp Pulse Resp Pulse Ox 12/15/20 14:20 54 L 29 H 88 L 12/15/20 11:45 50 L 32 H 91 12/15/20 10:30 36.8 C 47 L 26 H 89 L 12/15/20 10:00 36.8 C 48 L 28 H 88 L 12/15/20 09:30 36.8 C 47 L 28 H 91 12/15/20 09:00 36.7 C 45 L 28 H 90 12/15/20 08:30 36.7 C 45 L 28 H 89 L 12/15/20 08:00 36.7 C 44 L 28 H 91 12/15/20 07:30 36.7 C 44 L 26 H 93 12/15/20 07:15 43 L 28 H 94 12/15/20 07:00 36.7 C 44 L 28 H 94 12/15/20 06:15 36.6 C 42 L 28 H 93 12/15/20 06:00 36.6 C 44 L 28 H 93 12/15/20 05:45 36.7 C 43 L 28 H 92 12/15/20 05:30 36.7 C 43 L 28 H 92 12/15/20 05:15 36.7 C 43 L 28 H 92 12/15/20 05:00 36.7 C 43 L 28 H 93 12/15/20 04:45 36.7 C 41 L 28 H 93 12/15/20 04:30 36.7 C 43 L 28 H 93 12/15/20 04:15 36.7 C 44 L 28 H 93 12/15/20 04:00 36.7 C 43 L 28 H 93 Laboratory Results Laboratory Results - last 24 hr 12/14/20 12/14/20 12/15/20 16:47 20:20 00:31 WBC RBC Hgb Hct MCV MCH MCHC RDW Std Deviation RDW Coeff of Lu Plt Count MPV Immature Gran % (Auto) Neut % (Auto) Lymph % (Auto) Gordon % (Auto) Eos % (Auto) Baso % (Auto) Neut # (Auto) Lymph # (Auto) Gordon # (Auto) Eos # (Auto) Baso # (Auto) Immature Gran # (Auto) ABG pH ABG pCO2 ABG pO2 ABG HCO3 ABG O2 Saturation ABG Base Excess Robert Test Barometric Pressure Oxygen Given Sodium Potassium Chloride Carbon Dioxide Anion Gap BUN Creatinine Est Cr Clr Drug Dosing Est GFR ( Amer) Est GFR (Non-Af Amer) BUN/Creatinine Ratio Glucose POC Glucose 118 H 128 H 113 H Calcium Phosphorus Magnesium 12/15/20 12/15/20 12/15/20 04:40 04:40 04:40 WBC 14.74 H RBC 4.16 L Hgb 12.4 L Hct 38.0 L MCV 91.3 MCH 29.8 MCHC 32.6 RDW Std Deviation 50.2 H RDW Coeff of Lu 14.9 H Plt Count 171 MPV 9.8 Immature Gran % (Auto) 0.3 Neut % (Auto) 92.3 Lymph % (Auto) 3.4 Gordon % (Auto) 3.9 Eos % (Auto) 0.0 Baso % (Auto) 0.1 Neut # (Auto) 13.60 H Lymph # (Auto) 0.50 L Gordon # (Auto) 0.58 Eos # (Auto) 0.00 Baso # (Auto) 0.01 Immature Gran # (Auto) 0.05 H ABG pH 7.47 H ABG pCO2 46 ABG pO2 73 L ABG HCO3 32 H ABG O2 Saturation 91.7 ABG Base Excess 7.6 H Orbert Test POS Barometric Pressure 729.2 Oxygen Given 60L Sodium 135 L Potassium 4.5 Chloride 106 Carbon Dioxide 30 Anion Gap -1.0 L BUN 37 H Creatinine 0.52 L Est Cr Clr Drug Dosing 133.4 Est GFR ( Amer) 127.9 Est GFR (Non-Af Amer) 110.3 BUN/Creatinine Ratio 71.1 H Glucose 111 H POC Glucose Calcium 8.0 L Phosphorus 2.7 Magnesium 2.7 H 12/15/20 12/15/20 12/15/20 05:07 09:13 12:37 WBC RBC Hgb Hct MCV MCH MCHC RDW Std Deviation RDW Coeff of Lu Plt Count MPV Immature Gran % (Auto) Neut % (Auto) Lymph % (Auto) Gordon % (Auto) Eos % (Auto) Baso % (Auto) Neut # (Auto) Lymph # (Auto) Gordon # (Auto) Eos # (Auto) Baso # (Auto) Immature Gran # (Auto) ABG pH ABG pCO2 ABG pO2 ABG HCO3 ABG O2 Saturation ABG Base Excess Robert Test Barometric Pressure Oxygen Given Sodium Potassium Chloride Carbon Dioxide Anion Gap BUN Creatinine Est Cr Clr Drug Dosing Est GFR ( Amer) Est GFR (Non-Af Amer) BUN/Creatinine Ratio Glucose POC Glucose 108 H 87 69 L* Calcium Phosphorus Magnesium 12/15/20 12:38 WBC RBC Hgb Hct MCV MCH MCHC RDW Std Deviation RDW Coeff of Lu Plt Count MPV Immature Gran % (Auto) Neut % (Auto) Lymph % (Auto) Gordon % (Auto) Eos % (Auto) Baso % (Auto) Neut # (Auto) Lymph # (Auto) Gordon # (Auto) Eos # (Auto) Baso # (Auto) Immature Gran # (Auto) ABG pH ABG pCO2 ABG pO2 ABG HCO3 ABG O2 Saturation ABG Base Excess Robert Test Barometric Pressure Oxygen Given Sodium Potassium Chloride Carbon Dioxide Anion Gap BUN Creatinine Est Cr Clr Drug Dosing Est GFR ( Amer) Est GFR (Non-Af Amer) BUN/Creatinine Ratio Glucose POC Glucose 87 Calcium Phosphorus Magnesium Medications Administered Current Inpatient Medications Acetaminophen (Acetaminophen 325 Mg Tab) 650 mg PO Q4H PRN PRN Reason: pain/fever Stop: 01/02/21 22:22 Last Admin: 12/10/20 09:53 Dose: 650 mg Documented by: Dextrose (Dextrose 50% 50 Ml Syringe) 25 - 50 ml IV UD PRN; Protocol PRN Reason: Hypoglycemia Protocol Stop: 01/12/21 01:29 Enoxaparin Sodium (Enoxaparin Inj 40 Mg/0.4 Ml Syr) 40 mg SQ Q12H TONY Stop: 01/02/21 22:59 Last Admin: 12/15/20 12:23 Dose: 40 mg Documented by: Fentanyl Citrate (Fentanyl Citrate 100 Mcg/2 Ml Vial) 50 mcg IV Q2H PRN PRN Reason: Moderate Pain (4,5,6) on NRS Stop: 12/26/20 13:44 Fentanyl Citrate (Fentanyl Bolus From Bag) 50 mcg IV Q60M PRN PRN Reason: Pain or Agitation Stop: 12/26/20 13:44 Last Admin: 12/15/20 13:48 Dose: 50 mcg Documented by: Glucagon (Glucagon For Inj 1 Mg Vial) 1 mg SQ UD PRN; Protocol PRN Reason: Hypoglycemia Protocol Stop: 01/12/21 01:29 Glucose (Glucose 40% Gel 15 Gm Tube) 15 - 30 gm PO UD PRN; Protocol PRN Reason: Hypoglycemia Protocol Stop: 01/12/21 01:29 Glucose (Glucose 10 Tabs/Tube) 4 - 8 tabs PO UD PRN; Protocol PRN Reason: Hypoglycemia Protocol Stop: 01/12/21 01:29 Famotidine 20 mg/ Syringe 5 mls @ 2.5 mls/min IV Q12H TONY Stop: 01/11/21 20:59 Last Admin: 12/15/20 09:39 Dose: 2.5 mls/min Documented by: Fentanyl Citrate (Fentanyl Drip) 1,250 mcg in 250 mls @ 30 mls/hr IV .Q8H20M TONY; Protocol Stop: 12/26/20 13:44 Last Admin: 12/15/20 13:46 Dose: 150 mcg/hr, 30 mls/hr Documented by: Norepinephrine Bitartrate (Levophed/D5w) 8 mg in 508 mls @ 0 mls/hr IV .Q0M [facility]; Protocol Stop: 01/11/21 13:44 Last Titration: 12/13/20 11:50 Dose: Infused Documented by: Parenteral Electrolytes (Normosol-R) 1,000 mls @ 30 mls/hr IV .Q24H TONY Stop: 01/11/21 13:44 Last Admin: 12/14/20 11:38 Dose: 30 mls/hr Documented by: Dexamethasone 10 mg/ Syringe 2.5 mls @ 1 mls/min IV DAILY@1200 TONY Stop: 12/19/20 12:03 Last Admin: 12/15/20 12:25 Dose: 1 mls/min Documented by: Ceftriaxone Sodium 1,000 mg/ (Dextrose) 50 mls @ 100 mls/hr IV Q24H [facility]; Pro tocol Stop: 12/22/20 09:29 Last Infusion: 12/15/20 10:56 Dose: Infused Documented by: Propofol (Diprivan) 1,000 mg in 100 mls @ 9.12 mls/hr IV .H07P49S [facility]; Protocol Stop: 12/18/20 14:44 Insulin Aspart (Insulin Aspart 100 Units/Ml 3 Ml Pen) 0 units SC Q4 [facility]; Protocol Stop: 01/12/21 01:29 Last Admin: 12/15/20 12:42 Dose: Not Given Documented by: Midazolam HCl (Midazolam Hcl 1 Mg/Ml 2ml Vial) 2 mg IV Q2H PRN PRN Reason: RASS goal -1 Stop: 01/11/21 13:44 Miscellaneous (Icu Electrolyte Replacement Protocol) 1 ea N/A BID@,18 [facility]; Protocol Stop: 12/19/20 17:59 Last Admin: 12/15/20 06:31 Dose: 1 ea Documented by: Miscellaneous (Carbohydrates For Hypoglycemia ) 15 - 30 gm PO UD PRN PRN Reason: Hypoglycemia Treatment Stop: 01/12/21 01:29 Miscellaneous Information (Pharmacy Glycemic Mgmt Consult) 1 ea N/A UD PRN PRN Reason: Consult Stop: 01/12/21 00:30 Multi-Ingredient Cream (Artificial Tears Op Oint 3.5 Gm Tube) 1 appln OP Q4H [facility] Stop: 01/11/21 14:44 Last Admin: 12/15/20 13:46 Dose: 1 appln Documented by: Nutritional Formula (Peptamen Intense Vhp 1.0 Yoandy 1,000 Ml Bag) 1,000 ml OG UD TONY; Protocol Stop: 01/12/21 10:14 Last Admin: 12/15/20 06:01 Dose: 1,000 ml Documented by: Ondansetron HCl (Ondansetron Inj 2 Mg/Ml 2 Ml Vial) 4 mg IV Q6H PRN PRN Reason: Nausea Stop: 01/02/21 22:22 Last Admin: 12/08/20 23:37 Dose: 4 mg Documented by: Propofol (Propofol Bolus From Bag) 20 mg IV Q5M PRN PRN Reason: Sedation Stop: 12/18/20 14:38 Sterile Water (Tube Feeding Water Flush) 30 ml OG Q4 TONY Stop: 01/12/21 11:59 Last Admin: 12/15/20 12:23 Dose: 30 ml Documented by: Vecuronium Wright (Vecuronium Wright 10 Mg Vial) 10 mg IV ONCE PRN PRN Reason: Dyspnea Stop: 01/14/21 14:52 PG Care Time/CCT Total # of Minutes Spent Total Time Spent with Patient: Total time spent is greater than 50% in coordination of care (as documented) at patient's floor/unit and/or counseling patient: Coding Level of Care Code 29779 Subseq Hosp Care Lvl 2 Diagnoses Pneumonia due to 2019 novel coronavirus U07.1; J12.82 Acute respiratory failure with hypoxia J96.01 Headache R51.9 Sore throat J02.9 CAD (coronary artery disease) I25.10 Benign essential hypertension I10 Hyperlipidemia E78.5 GERD (gastroesophageal reflux disease) K21.9 Elevated LFTs R79.89 Hyponatremia E87.1 Hypokalemia E87.6 DVT prophylaxis Z29.9 Pneumothorax J93.9
[2020-12-15] MEDS: NORMOSOL-R 1,000 ML IV SCH (16:26)
[2020-12-16] MEDS: INSULIN ASPART 100 UNITS/ML 3 ML PEN SC SCH ×6 (00:10→20:00)
[2020-12-16] MEDS: TUBE FEEDING WATER FLUSH OG SCH ×7 (00:11→23:21)
[2020-12-16] MEDS: PROPOFOL BOLUS FROM BAG IV PRN ×2 (00:12→05:46)
[2020-12-16] MEDS: propofoL 1,000 MG/100 ML VIAL IV SCH ×5 (02:52→19:31)
[2020-12-16] MEDS: ARTIFICIAL TEARS OP OINT 3.5 GM TUBE OP SCH ×6 (04:43→21:11)
[2020-12-16 05:04] LABS: iSTAT Arterial Blood Gas HCO3 31 meg/L (19-24); iSTAT Arterial Blood Gas pCO2 53 mmHg (35-46); iSTAT Arterial Blood Gas pH 7.38 (7.35-7.45); iSTAT Arterial Blood Gas pO2 76 mmHg (80-95); iSTAT Carbon Dioxide 33 mmol/L (24-31); iSTAT FiO2 70 %; iSTAT Site Art Line
[2020-12-16 05:10] LABS: Basophils # (auto) 0.01 K/uL (0-0.2); Basophils % (auto) 0.1 %; Hematocrit (blood only) 37.1 % (42-52); Hemoglobin 12.1 g/dL (14.0-18.0); Immature Granulocytes # (auto) 0.06 K/uL (0.00-0.02); Immature Granulocytes % (auto) 0.4 %; Lymphocytes # (auto) 0.34 K/uL (1.2-3.4); Lymphocytes % (auto) 2.2 %; Mean Corpuscular Hemoglobin 29.9 pg (25-34); Mean Corpuscular Hgb Conc 32.6 g/dL (32-36); Mean Corpuscular Volume 91.6 fL (80-100); Mean Platelet Volume 9.6 fL (7.4-10.4); Monocytes # (auto) 0.47 K/uL (0.11-0.59); Monocytes % (auto) 3.1 %; Neutrophils # (auto) 14.31 K/uL (1.4-6.5); Neutrophils % (auto) 94.2 %; Platelet Count 170 K/uL (130-400); RDW Coefficient of Variation 14.8 % (11.5-14.5); Red Blood Count 4.05 M/uL (4.7-6.1); White Blood Count 15.19 K/uL (4.8-10.8)
[2020-12-16 05:36] LABS: BUN Creatinine Ratio 53.1 (10-20); Calcium 8.1 mg/dl (8.5-10.1); Creatinine Clr Calc Pharmacy 126.1 ml/min; Est GFR (Non-African American) 107.8 ml/min; Magnesium 2.4 mg/dl (1.8-2.4); Potassium 4.9 mmol/L (3.5-5.1)
[2020-12-16 05:38] LABS: Phosphorus 2.9 mg/dl (2.5-4.9)
[2020-12-16] MEDS: fentaNYL DRIP 1,250 MCG/250 ML BAG IV SCH ×3 (05:44→23:25)
--- NOTE | 2020-12-16 06:00 | Critical Care Progress Note ---
Date of Service December 16, 2020 Assessment & Plan (1) CAD (coronary artery disease): (2) Benign essential hypertension: (3) Hyperlipidemia: (4) GERD (gastroesophageal reflux disease): (5) COVID-19: Plan: Reason Critically Ill: 65-year-old male here with Covid pneumonia and ARDS. He is on the late phase ARDS dexamethasone protocol since 12/03. He is outside the window for Tocilizumab or baricitinib. Intubated 12/12 for respiratory demise. Neuro - Sedation: Continue propofol, Fentanyl. Can consider neuromuscular blockade agents as needed for asynchrony Cardiac - No longer requiring Levophed. Continue to monitor I's and O's. Respiratory - COVID-19 pneumonia with ARDS. Intubated on 12/12. Noted to have small, apical left pneumothorax with subcutaneous emphysema. Transition to low PEEP, high FiO2 strategy. Continue late-phase dexamethasone, 20 mg X 5 days followed by 10 mg X 5 days. ABG pH 7.38 / pCO2 53 / pO2 76 / pHCO3 31 on AC vent settings of TV 350, PEEP 10, FiO2 60, RR 28. -- CTA-PE negative on 12/09 GI - Continue feedings via OGT. Appreciate nutrition insight and recommendations. Continue famotidine. RENAL/LYTES - No significant issues at this time. BUN 29 / Cr 0.55. Will continue to follow electrolytes and replete as needed. -- 24 hour I&O: 2290/-1300 = 990 (0.72cc/kg/hr) -- Fluids: NormoSol at 30cc/hr - Mccullough in place, monitor intake and output ENDO - ICU hyperglycemia protocol HEME - Stable H&H. Monitor. Leukocytosis noted. ID - COVID-19 pneumonia with ARDS, as noted above. On dexamethasone. Further, patient was found to have staph positive sputum culture. Procal negative. Continue Rocephin. INTEGUMENTARY - No acute needs. LINES/IV ACCESS - CVC, ETT, PIV, OGT, Mccullough DVT PROPHYLAXIS - Lovenox 40 q12 Thank you for allowing us to be part of this patient's care. Please refer to Dr. Hong's documentation for any further recommendations. (6) Hypoxia: (7) Pneumonia due to 2019 novel coronavirus: (8) Acute respiratory failure with hypoxia: (9) Elevated LFTs: (10) DVT prophylaxis: (11) Hyponatremia: (12) Hypokalemia: (13) Headache: (14) Sore throat: (15) Pneumothorax: Admission and Anticipated Discharge Date Admission Date: December 03, 2020 Supervising Physician Co-Signing Physician Notes Dr. Reyes was resident physician during care of patient. I separately evaluated patient for bolaños portions of the history and the exam. I was present during the critical portion of medical decision making, and I discussed the case with the resident. I generally agree with the findings and plan. General: Sedated. nontoxic. Skin: Warm, dry, Head: Atraumatic Ears, nose, mouth and throat: airway obscured by endotracheal tube Cardiovascular: Normal peripheral perfusion Respiratory: Ventilator settings reviewed Gastrointestinal: Non distended Musculoskeletal: No deformity Increase tube feeds to goal, high FiO2 table low PEEP, wean as tolerated. Add atorvastatin patient previously stopped cardiac medications Subjective History continues to be unobtainable given sedation and mechanical ventilation. No major updates overnight. Review of Systems Review of Systems: Unobtainable due to cognitive status and Unobtainable due to endotracheal tube Physical Exam Physical Exam: To minimize contact with COVID-19 positive patients, patient was only seen by attending physician. Please see his attestation for physical examination. Results & Data Results & Data ([facility]) Vital Signs (Past 12 Hours) Vital Signs Temp Pulse Resp Pulse Ox 12/16/20 04:43 48 L 28 H 95 12/16/20 04:30 36.5 C 48 L 28 H 95 12/16/20 04:00 36.5 C 48 L 28 H 95 12/16/20 03:30 36.4 C L 48 L 28 H 94 12/16/20 03:00 36.4 C L 48 L 28 H 94 12/16/20 02:30 36.4 C L 48 L 28 H 94 12/16/20 02:15 36.4 C L 48 L 28 H 93 12/16/20 02:00 36.4 C L 48 L 28 H 95 12/16/20 01:56 48 L 29 H 95 12/16/20 01:45 36.4 C L 48 L 28 H 95 12/16/20 01:30 36.4 C L 48 L 28 H 95 12/16/20 01:15 36.4 C L 49 L 28 H 95 12/16/20 01:00 36.4 C L 48 L 28 H 96 12/16/20 00:45 36.4 C L 49 L 28 H 95 12/16/20 00:30 36.4 C L 49 L 28 H 95 12/16/20 00:15 36.5 C 47 L 28 H 94 12/16/20 00:00 36.6 C 49 L 28 H 94 12/15/20 23:45 36.6 C 49 L 28 H 93 12/15/20 23:30 36.7 C 51 L 28 H 93 12/15/20 23:15 36.7 C 49 L 28 H 94 12/15/20 23:07 51 L 12/15/20 23:00 36.8 C 51 L 28 H 95 12/15/20 22:45 36.8 C 52 L 28 H 95 12/15/20 22:33 52 L 29 H 94 12/15/20 22:30 36.8 C 54 L 26 H 94 12/15/20 22:15 36.8 C 54 L 25 H 94 12/15/20 22:00 36.8 C 53 L 28 H 93 12/15/20 21:45 36.9 C 52 L 25 H 93 12/15/20 21:30 36.9 C 52 L 28 H 93 12/15/20 21:15 36.9 C 51 L 28 H 94 12/15/20 21:00 36.9 C 53 L 26 H 94 12/15/20 20:45 37.0 C 54 L 14 93 12/15/20 20:30 37.0 C 53 L 25 H 94 12/15/20 20:15 37.0 C 51 L 28 H 94 12/15/20 20:00 37.0 C 52 L 25 H 94 12/15/20 19:45 37.0 C 53 L 25 H 94 12/15/20 19:30 37.0 C 53 L 25 H 92 12/15/20 19:20 52 L 29 H 93 12/15/20 19:15 37.0 C 53 L 28 H 92 12/15/20 19:00 37.0 C 53 L 28 H 91 12/15/20 18:45 37.0 C 53 L 28 H 92 12/15/20 18:30 36.6 C 52 L 28 H 92 12/15/20 18:00 37.0 C 51 L 28 H 90 Critical Care Time Patient discussed on multidisciplinary rounds patient remains critically ill I have personally spent 35 minutes of critical care time in the direct management of this patient. This is a life/limb threatening event. This includes time spent evaluating patient, direct bedside care, chart review, placing orders, interpretation of diagnostic studies, discussion with consultants, patient, and/or family members regarding treatment decisions, as well as other required patient management activities. This time is exclusive of all separately billable procedures, and teaching time and separate from and in addition to any other critical care service time. Resident Activity Tracking Resident Involvement: Resident Care Provided Care Provided: Adult [facility]
[2020-12-16] MEDS: ICU ELECTROLYTE REPLACEMENT PROTOCOL SCH ×2 (06:33→17:40)
[2020-12-16] MEDS: cefTRIAXone SODIUM 1,000 MG in DEXTROSE 5% 50 ML IV SCH (08:12)
[2020-12-16] MEDS: FAMOTIDINE 20 MG in SYRINGE 3 ML IV SCH ×2 (08:12→21:09)
--- NOTE | 2020-12-16 08:26 | XRay Report ---
SINGLE VIEW CHEST CLINICAL HISTORY: Covid pneumonia. Respiratory failure. FINDINGS: 2 AP, portable, upright chest radiographs are compared to study dated 12/15/2020. A left lyles bclavian central venous catheter, an endotracheal tube, and an enteric tube are unchanged in position . The heart is mildly enlarged. Chronic elevation of the right hemidiaphragm is similar to previous. Multifocal airspace consolidation is again seen throughout both lungs. Suspect trace pleural effusion s. No pneumothorax is clearly identified. The skeletal structures are osteopenic. The bony thorax is grossly intact. Subcutaneous emphysema is seen in the right lower neck. IMPRESSION: 1. Stable lines and tubes. 2. Multifocal airspace consolidation has not significantly changed as compared to yesterday. ACT 112: Negative or not required by law. Electronically signed by: Kapil Pugh M.D. 12/16/2020 8:25 AM
--- NOTE | 2020-12-16 10:08 | Billing Data ---
Date of Service December 16, 2020 Coding Level of Care Code Critical Care 1st - mins
[2020-12-16] MEDS: ENOXAPARIN INJ 40 MG/0.4 ML SYR SQ SCH ×2 (10:56→23:20)
[2020-12-16] MEDS: dexAMETHasone 10 MG in SYRINGE 0 ML IV SCH (10:57)
[2020-12-16] MEDS: ASPIRIN 81 MG ECTAB PO SCH (11:11)
[2020-12-16] MEDS: NORMOSOL-R 1,000 ML IV SCH (14:55)
--- NOTE | 2020-12-16 15:43 | Hospitalist Progress Note ---
Date of Service December 16, 2020 Assessment & Plan (1) Pneumonia due to 2019 novel coronavirus: Plan: Severe disease declined to point of needing intubation on 12/12, up to 60L and 100% and still desaturating, working hard to breathe currently doing well on ventilator, now pursuing low PEEP and high FiO2 due to pneumomediastinum and pneumothorax which is small and is now resolved -Requiring minimal sedation and no paralytics -Continue high-dose dexamethasone now down to 10 mg IV daily x5 days -He was not a candidate for Tocilizumab at the time his respiratory status decompensated -Completed a course of azithromycin early on -Now sputum culture growing MSSA-continue ceftriaxone (2) Acute respiratory failure with hypoxia: Plan: ventilator dependent respiratory failure, intubated on 12/[address] Hernandez doing well on ventilator, as above, possible extubation tomorrow minimal sedation To treating for bacterial pneumonia (3) Pneumothorax: Plan: resolved on CXR now, still with subcutaneous air over neck low PEEP high FiO2 Follow chest x-ray daily (4) Headache: Plan: right eye region/right forehead with right eye tearing, right nare drainage, more intense on 12/08 CT head 12/08 - negative for ICH, stroke, etc. he had transient L hand numbness this am - now resolved could have been TIA could have been neuro symptoms 2nd to a migraine headache no triptans due to CAD Depakote 250mg BID for prophylaxis? had a 1000mg load on 12/09 Now intubated so unclear if headache remains (5) Sore throat: Plan: most pressing complaint on 12/11 tongue and throat very dry, could be thrush from steroids? started Magic Swizzle (lidocaine) and Nystatin S/S QID, gave him some relief-no longer getting this since intubation (6) CAD (coronary artery disease): Plan: h/o RCA stents remains on asa, statin was NOT taking REI or BB at home but is on his home medication list no ischemic symptoms during this illness EKG with inverted T's inferiorly however it is unchanged from EKG from several years ago (7) Benign essential hypertension: Plan: BP stable (8) Hyperlipidemia: Plan: statin (9) GERD (gastroesophageal reflux disease): Plan: PPI (10) Elevated LFTs: Plan: likely 2nd to COVID-19 infection Resolved (11) Hyponatremia: Plan: 2nd recent diarrhea, poor oral intake, etc resolved (12) Hypokalemia: Plan: replaced and resolved (13) DVT prophylaxis: Plan: lovenox 40mg BID Plan: Disposition-continued stay in the ICU Admission and Anticipated Discharge Date Admission Date: December 03, 2020 Subjective Patient remains sedated and mechanically ventilated. 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 Review of Systems Review of Systems: Unobtainable due to endotracheal tube and Unobtainable due to reduced consciousness Physical Exam Constitutional: + mechanically ventilated; no acute distress Results & Data Results & Data ([facility]) Vital Signs (Past 12 Hours) Vital Signs Temp Pulse Resp Pulse Ox 12/16/20 15:00 37.1 C 49 L 28 H 90 12/16/20 14:30 37.1 C 51 L 28 H 90 12/16/20 14:00 37.1 C 52 L 28 H 90 12/16/20 13:30 37.0 C 52 L 28 H 89 L 12/16/20 13:00 37.0 C 51 L 28 H 88 L 12/16/20 12:30 37.0 C 51 L 28 H 89 L 12/16/20 12:00 36.9 C 52 L 28 H 88 L 12/16/20 11:30 36.9 C 51 L 28 H 94 12/16/20 11:20 54 L 29 H 92 12/16/20 11:00 36.9 C 52 L 28 H 93 12/16/20 10:30 36.9 C 52 L 28 H 94 12/16/20 10:00 36.9 C 50 L 28 H 94 12/16/20 09:30 36.8 C 50 L 28 H 93 12/16/20 09:15 36.9 C 51 L 28 H 93 12/16/20 09:00 36.8 C 50 L 22 94 12/16/20 08:45 36.8 C 49 L 28 H 93 12/16/20 08:30 36.8 C 50 L 28 H 93 12/16/20 08:15 36.7 C 50 L 28 H 93 12/16/20 08:00 36.7 C 51 L 28 H 93 12/16/20 07:45 36.7 C 51 L 28 H 93 12/16/20 07:30 36.7 C 50 L 25 H 92 12/16/20 07:15 36.6 C 50 L 28 H 93 12/16/20 07:10 50 L 28 H 93 12/16/20 07:00 36.6 C 53 L 28 H 93 12/16/20 06:45 36.6 C 49 L 28 H 93 12/16/20 06:30 36.5 C 50 L 28 H 93 12/16/20 06:00 36.5 C 50 L 28 H 93 12/16/20 05:30 36.5 C 48 L 28 H 92 12/16/20 05:00 36.5 C 47 L 28 H 92 12/16/20 04:43 48 L 28 H 95 12/16/20 04:30 36.5 C 48 L 28 H 95 12/16/20 04:00 36.5 C 48 L 28 H 95 Laboratory Results 12/16/20 12/16/20 12/16/20 Range/Units 23:37 19:40 15:06 WBC (4.8-10.8) K/uL RBC (4.7-6.1) M/uL Hgb (14.0-18.0) g/dL Hct (42-52) % MCV (80-100) fL MCH (25-34) pg MCHC (32-36) g/dL RDW Std Deviation (36.4-46.3) fL RDW Coeff of Lu (11.5-14.5) % Plt Count (130-400) K/uL MPV (7.4-10.4) fL Immature Gran % (Auto) % Neut % (Auto) % Lymph % (Auto) % Lawrence % (Auto) % Eos % (Auto) % Baso % (Auto) % Neut # (Auto) (1.4-6.5) K/uL Lymph # (Auto) (1.2-3.4) K/uL Lawrence # (Auto) (0.11-0.59) K/uL Eos # (Auto) (0-0.5) K/uL Baso # (Auto) (0-0.2) K/uL Immature Gran # (Auto) (0.00-0.02) K/uL Sample Site POC pH (7.35-7.45) POC pCO2 (35-46) mmHg POC pO2 (80-95) mmHg POC HCO3 (19-24) bella/L POC Total CO2 (24-31) mmol/L POC Base Excess (-9-1.8) bella/L POC ABG O2 Sat (90-95) % Robert Test O2 Delivery Device POC O2 Rate Minute Ventilation POC FiO2 % Tidal Volume PEEP Sodium (136-145) mmol/L Potassium (3.5-5.1) mmol/L Chloride (98-107) mmol/L Carbon Dioxide (21-32) mmol/L Anion Gap (3-11) BUN (7-18) mg/dl Creatinine (0.6-1.4) mg/dl Est Cr Clr Drug Dosing ml/min Est GFR ( Amer) ml/min Est GFR (Non-Af Amer) ml/min BUN/Creatinine Ratio (10-20) Glucose (70-99) mg/dl POC Glucose 128 H 139 H 122 H (70-99) mg/dl Calcium (8.5-10.1) mg/dl Phosphorus (2.5-4.9) mg/dl Magnesium (1.8-2.4) mg/dl 12/16/20 12/16/20 12/16/20 Range/Units 11:02 08:56 04:54 WBC 15.19 H (4.8-10.8) K/uL RBC 4.05 L (4.7-6.1) M/uL Hgb 12.1 L (14.0-18.0) g/dL Hct 37.1 L (42-52) % MCV 91.6 (80-100) fL MCH 29.9 (25-34) pg MCHC 32.6 (32-36) g/dL RDW Std Deviation 50.0 H (36.4-46.3) fL RDW Coeff of Lu 14.8 H (11.5-14.5) % Plt Count 170 (130-400) K/uL MPV 9.6 (7.4-10.4) fL Immature Gran % (Auto) 0.4 % Neut % (Auto) 94.2 % Lymph % (Auto) 2.2 % Lawrence % (Auto) 3.1 % Eos % (Auto) 0.0 % Baso % (Auto) 0.1 % Neut # (Auto) 14.31 H (1.4-6.5) K/uL Lymph # (Auto) 0.34 L (1.2-3.4) K/uL Lawrence # (Auto) 0.47 (0.11-0.59) K/uL Eos # (Auto) 0.00 (0-0.5) K/uL Baso # (Auto) 0.01 (0-0.2) K/uL Immature Gran # (Auto) 0.06 H (0.00-0.02) K/uL Sample Site POC pH (7.35-7.45) POC pCO2 (35-46) mmHg POC pO2 (80-95) mmHg POC HCO3 (19-24) bella/L POC Total CO2 (24-31) mmol/L POC Base Excess (-9-1.8) bella/L POC ABG O2 Sat (90-95) % Robert Test O2 Delivery Device POC O2 Rate Minute Ventilation POC FiO2 % Tidal Volume PEEP Sodium (136-145) mmol/L Potassium (3.5-5.1) mmol/L Chloride (98-107) mmol/L Carbon Dioxide (21-32) mmol/L Anion Gap (3-11) BUN (7-18) mg/dl Creatinine (0.6-1.4) mg/dl Est Cr Clr Drug Dosing ml/min Est GFR ( Amer) ml/min Est GFR (Non-Af Amer) ml/min BUN/Creatinine Ratio (10-20) Glucose (70-99) mg/dl POC Glucose 85 88 (70-99) mg/dl Calcium (8.5-10.1) mg/dl Phosphorus (2.5-4.9) mg/dl Magnesium (1.8-2.4) mg/dl 12/16/20 12/16/20 12/16/20 Range/Units 04:54 04:51 04:47 WBC (4.8-10.8) K/uL RBC (4.7-6.1) M/uL Hgb (14.0-18.0) g/dL Hct (42-52) % MCV (80-100) fL MCH (25-34) pg MCHC (32-36) g/dL RDW Std Deviation (36.4-46.3) fL RDW Coeff of Lu (11.5-14.5) % Plt Count (130-400) K/uL MPV (7.4-10.4) fL Immature Gran % (Auto) % Neut % (Auto) % Lymph % (Auto) % Lawrence % (Auto) % Eos % (Auto) % Baso % (Auto) % Neut # (Auto) (1.4-6.5) K/uL Lymph # (Auto) (1.2-3.4) K/uL Lawrence # (Auto) (0.11-0.59) K/uL Eos # (Auto) (0-0.5) K/uL Baso # (Auto) (0-0.2) K/uL Immature Gran # (Auto) (0.00-0.02) K/uL Sample Site Art Line POC pH 7.38 (7.35-7.45) POC pCO2 53 H (35-46) mmHg POC pO2 76 L (80-95) mmHg POC HCO3 31 H (19-24) bella/L POC Total CO2 33 H (24-31) mmol/L POC Base Excess 6.0 H (-9-1.8) bella/L POC ABG O2 Sat 94.0 (90-95) % Robert Test NA O2 Delivery Device Ventilator POC O2 Rate 28 Minute Ventilation 9.8 POC FiO2 70 % Tidal Volume 350 PEEP 10 Sodium 136 (136-145) mmol/L Potassium 4.9 (3.5-5.1) mmol/L Chloride 103 (98-107) mmol/L Carbon Dioxide 29 (21-32) mmol/L Anion Gap 4.0 (3-11) BUN 29 H (7-18) mg/dl Creatinine 0.55 L (0.6-1.4) mg/dl Est Cr Clr Drug Dosing 126.1 ml/min Est GFR ( Amer) 125.0 ml/min Est GFR (Non-Af Amer) 107.8 ml/min BUN/Creatinine Ratio 53.1 H (10-20) Glucose 109 H (70-99) mg/dl POC Glucose 103 H (70-99) mg/dl Calcium 8.1 L (8.5-10.1) mg/dl Phosphorus 2.9 (2.5-4.9) mg/dl Magnesium 2.4 (1.8-2.4) mg/dl Diagnostic Findings Chest X-Ray 12/16/20 07:00 SINGLE VIEW CHEST CLINICAL HISTORY: Covid pneumonia. Respiratory failure. FINDINGS: 2 AP, portable, upright chest radiographs are compared to study dated 12/15/2020. A left subclavian central venous catheter, an endotracheal tube, and an enteric tube are unchanged in position. The heart is mildly enlarged. Chronic elevation of the right hemidiaphragm is similar to previous. Multifocal airspace consolidation is again seen throughout both lungs. Suspect trace pleural effusions. No pneumothorax is clearly identified. The skeletal structures are osteopenic. The bony thorax is grossly intact. Subcutaneous emphysema is seen in the right lower neck. IMPRESSION: 1. Stable lines and tubes. 2. Multifocal airspace consolidation has not significantly changed as compared to yesterday. ACT 112: Negative or not required by law. Electronically signed by: Kapil Pugh M.D. 12/16/2020 8:25 AM PG Care Time/CCT Total # of Minutes Spent Total Time Spent with Patient: Total time spent is greater than 50% in coordination of care (as documented) at patient's floor/unit and/or counseling patient: Coding Level of Care Code 91354 Subseq Hosp Care Lvl 1 Diagnoses Pneumonia due to 2019 novel coronavirus U07.1; J12.82 Acute respiratory failure with hypoxia J96.01 Pneumothorax J93.9 Headache R51.9 Sore throat J02.9 CAD (coronary artery disease) I25.10 Benign essential hypertension I10 Hyperlipidemia E78.5 GERD (gastroesophageal reflux disease) K21.9 Elevated LFTs R79.89 Hyponatremia E87.1 Hypokalemia E87.6 DVT prophylaxis Z29.9
[2020-12-16] MEDS ORDERED: ASPIRIN 81 MG ECTAB PO SCH (21:00)
[2020-12-16] MEDS: ASPIRIN 81 MG CHEW PO SCH (21:09)
[2020-12-16] MEDS: ATORVASTATIN 40 MG TAB PO SCH (21:10)
[2020-12-16] MEDS: PEPTAMEN INTENSE VHP 1.0 CAL 1,000 ML BAG OG SCH (23:20)
[2020-12-17] MEDS: PROPOFOL BOLUS FROM BAG IV PRN ×2 (00:01→02:43)
[2020-12-17] MEDS: fentaNYL DRIP 1,250 MCG/250 ML BAG IV SCH ×6 (00:35→23:58)
[2020-12-17] MEDS: INSULIN ASPART 100 UNITS/ML 3 ML PEN SC SCH ×6 (00:37→20:38)
[2020-12-17] MEDS: ARTIFICIAL TEARS OP OINT 3.5 GM TUBE OP SCH ×6 (00:38→23:55)
[2020-12-17] MEDS: propofoL 1,000 MG/100 ML VIAL IV SCH ×7 (01:26→21:26)
[2020-12-17 04:49] LABS: Basophils # (auto) 0.01 K/uL (0-0.2); Basophils % (auto) 0.1 %; Hematocrit (blood only) 36.2 % (42-52); Hemoglobin 11.8 g/dL (14.0-18.0); Immature Granulocytes # (auto) 0.11 K/uL (0.00-0.02); Immature Granulocytes % (auto) 0.8 %; Lymphocytes # (auto) 0.44 K/uL (1.2-3.4); Mean Corpuscular Hemoglobin 29.9 pg (25-34); Mean Corpuscular Hgb Conc 32.6 g/dL (32-36); Mean Corpuscular Volume 91.9 fL (80-100); Mean Platelet Volume 10.3 fL (7.4-10.4); Monocytes # (auto) 0.55 K/uL (0.11-0.59); Monocytes % (auto) 3.8 %; Neutrophils # (auto) 13.51 K/uL (1.4-6.5); Neutrophils % (auto) 92.3 %; Platelet Count 186 K/uL (130-400); RDW Coefficient of Variation 14.7 % (11.5-14.5); RDW Standard Deviation 49.9 fL (36.4-46.3); Red Blood Count 3.94 M/uL (4.7-6.1); White Blood Count 14.62 K/uL (4.8-10.8)
[2020-12-17] MEDS: TUBE FEEDING WATER FLUSH OG SCH ×6 (04:59→23:55)
[2020-12-17 05:15] LABS: BUN Creatinine Ratio 50.5 (10-20); Creatinine Clr Calc Pharmacy 133.4 ml/min; Est GFR (African American) 127.9 ml/min; Est GFR (Non-African American) 110.3 ml/min; Magnesium 2.2 mg/dl (1.8-2.4); Potassium 4.6 mmol/L (3.5-5.1)
[2020-12-17 05:16] LABS: Phosphorus 2.7 mg/dl (2.5-4.9)
[2020-12-17] MEDS: ICU ELECTROLYTE REPLACEMENT PROTOCOL SCH ×2 (05:21→18:04)
[2020-12-17 05:25] LABS: iSTAT Arterial Blood Gas HCO3 33 meg/L (19-24); iSTAT Arterial Blood Gas pCO2 55 mmHg (35-46); iSTAT Arterial Blood Gas pH 7.39 (7.35-7.45); iSTAT Arterial Blood Gas pO2 60 mmHg (80-95); iSTAT Carbon Dioxide 34 mmol/L (24-31); iSTAT FiO2 60 %; iSTAT Site Art Line
--- NOTE | 2020-12-17 06:24 | Critical Care Progress Note ---
Date of Service December 17, 2020 Assessment & Plan (1) CAD (coronary artery disease): (2) Benign essential hypertension: (3) Hyperlipidemia: (4) GERD (gastroesophageal reflux disease): (5) COVID-19: Plan: Reason Critically Ill: 65-year-old male here with Covid pneumonia and ARDS. He is on the late phase ARDS dexamethasone protocol since 12/03. He is outside the window for Tocilizumab or baricitinib. Intubated 12/12 for respiratory demise. Neuro - Sedation: Continue propofol, Fentanyl. Can consider neuromuscular blockade agents as needed for asynchrony Cardiac - No longer requiring Levophed. Continue to monitor I's and O's. Respiratory - COVID-19 pneumonia with Severe ARDS. Intubated on 12/12. Noted to have small, apical left pneumothorax with subcutaneous emphysema. Continue low PEEP, high FiO2 strategy. Continue late-phase dexamethasone, 20 mg X 5 days followed by 10 mg X 5 days. ABG this AM pH 7.39 / pCO2 55 / pO2 60 (from 76) / pHCO3 33 on AC vent settings of TV 350, PEEP 10, FiO2 60, RR 28. Change to: FiO2 70. -- [place] positive. P/F ratio @ 100 mmHg (PaO2 60 / FiO2 60) - still severe ARDS. Ween settings as able. -- Lasix x 1 given this AM -- CTA-PE negative on 12/09 GI - Continue feedings via OGT. Not yet at goal. Stop IVF. Appreciate nutrition insight and recommendations. Continue famotidine. RENAL/LYTES - No significant issues at this time. BUN and Cr stable. Will continue to follow electrolytes and replete as needed. -- 24 hour I&O: 1900/-1350 = +560 (0.75 cc/kg/hr) - Mccullough in place, monitor intake and output ENDO - ICU hyperglycemia protocol HEME - Stable H&H. Monitor. Leukocytosis noted. ID - COVID-19 pneumonia with ARDS, as noted above. On dexamethasone. Further, patient was found to have staph positive sputum culture. Procal negative. Continue Rocephin. INTEGUMENTARY - No acute needs. LINES/IV ACCESS - CVC, ETT, PIV, OGT, Mccullough DVT PROPHYLAXIS - Lovenox 40 q12 Thank you for allowing us to be part of this patient's care. Please refer to Dr. Hong's documentation for any further recommendations. (6) Hypoxia: (7) Pneumonia due to 2019 novel coronavirus: (8) Acute respiratory failure with hypoxia: (9) Elevated LFTs: (10) DVT prophylaxis: (11) Hyponatremia: (12) Hypokalemia: (13) Headache: (14) Sore throat: (15) Pneumothorax: Admission and Anticipated Discharge Date Admission Date: December 03, 2020 Supervising Physician Co-Signing Physician Notes Dr. Reyes was resident physician during care of patient. I separately evaluated patient for bolaños portions of the history and the exam. I was present during the critical portion of medical decision making, and I discussed the case with the resident. I generally agree with the findings and plan. General: Sedated. nontoxic. Skin: Warm, dry, Head: Atraumatic Ears, nose, mouth and throat: airway obscured by endotracheal tube Cardiovascular: Normal peripheral perfusion Respiratory: Ventilator settings reviewed Gastrointestinal: Non distended Musculoskeletal: No deformity Patient was discussed in multidisciplinary rounds High FiO2 table low PEEP, wean as tolerated. Tube feeding near goal, stop a dditional IV fluid diuresis x1 continue current therapies Subjective No significant events overnight. Patient unable to provide meaningful history in the setting of mechanical ventilation and sedation. Review of Systems Review of Systems: Unobtainable due to endotracheal tube and Unobtainable due to reduced consciousness Physical Exam Physical Exam: To minimize contact with COVID-19 positive patients, patient was only seen by attending physician. Please see his attestation for physical examination. Results & Data Results & Data ([facility]) Vital Signs (Past 12 Hours) Vital Signs Temp Pulse Resp Pulse Ox 12/17/20 06:00 37.0 C 51 L 28 H 90 12/17/20 05:17 53 L 30 H 91 12/17/20 05:00 36.8 C 51 L 26 H 91 12/17/20 04:00 36.7 C 52 L 28 H 90 12/17/20 03:00 36.4 C L 48 L 28 H 89 L 12/17/20 02:06 49 L 28 H 92 12/17/20 02:00 36.3 C L 51 L 28 H 93 12/17/20 01:00 36.2 C L 44 L 27 H 93 12/17/20 00:48 44 L 12/17/20 00:30 36.3 C L 45 L 28 H 95 12/17/20 00:00 36.5 C 46 L 28 H 94 12/16/20 23:30 36.5 C 44 L 28 H 93 12/16/20 23:00 36.6 C 44 L 28 H 93 12/16/20 22:45 36.7 C 44 L 28 H 93 12/16/20 22:38 45 L 28 H 93 12/16/20 22:30 36.7 C 45 L 28 H 93 12/16/20 22:15 36.7 C 44 L 28 H 94 12/16/20 22:00 36.8 C 45 L 28 H 94 12/16/20 21:45 36.8 C 45 L 28 H 94 12/16/20 21:30 36.9 C 43 L 28 H 94 12/16/20 21:15 37.0 C 46 L 28 H 93 12/16/20 21:00 37.1 C 47 L 28 H 93 12/16/20 20:45 37.1 C 48 L 28 H 93 12/16/20 20:30 37.2 C 50 L 28 H 92 12/16/20 20:00 37.4 C 52 L 28 H 92 12/16/20 19:40 53 L 28 H 92 12/16/20 19:30 37.4 C 53 L 28 H 92 12/16/20 19:00 37.3 C 54 L 28 H 91 Resident Activity Tracking Resident Involvement: Resident Care Provided Care Provided: Adult [facility]
--- NOTE | 2020-12-17 07:33 | XRay Report ---
XR chest 1V portable HISTORY: Respiratory failure. COMPARISON: Chest 12/16/2020. FINDINGS: Lines and tubes remain unchanged in position. No pneumothorax. No pleural effusions. Bilate ral patchy airspace opacities persist. The heart remains normal in size. IMPRESSION: 1. Satisfactory support line placement. 2. No change in the multifocal bilateral airspace opacities consistent with a pneumonia. ACT 112: Negative or not required by law. Electronically signed by: Pradeep Falcon M.D. 12/17/2020 7:32 AM
[2020-12-17] MEDS: FAMOTIDINE 20 MG in SYRINGE 3 ML IV SCH ×2 (07:43→20:05)
[2020-12-17] MEDS: cefTRIAXone SODIUM 1,000 MG in DEXTROSE 5% 50 ML IV SCH (07:43)
[2020-12-17] MEDS ORDERED: FUROSEMIDE 40 MG in SYRINGE 0 ML IV ONE (09:57)
--- NOTE | 2020-12-17 10:00 | Billing Data ---
Date of Service December 17, 2020 Coding Level of Care Code Critical Care 1st - mins
[2020-12-17] MEDS: dexAMETHasone 10 MG in SYRINGE 0 ML IV SCH (11:30)
[2020-12-17] MEDS: ENOXAPARIN INJ 40 MG/0.4 ML SYR SQ SCH ×2 (16:09→23:54)
[2020-12-17] MEDS: ATORVASTATIN 40 MG TAB PO SCH (20:01)
[2020-12-17] MEDS: ASPIRIN 81 MG CHEW PO SCH (20:05)
--- NOTE | 2020-12-17 21:27 | Hospitalist Progress Note ---
Date of Service December 17, 2020 Assessment & Plan (1) Pneumonia due to 2019 novel coronavirus: Plan: Severe disease declined to point of needing intubation on 12/12, up to 60L and 100% and still desaturating, working hard to breathe currently doing well on ventilator, now pursuing low PEEP and high FiO2 due to pneumomediastinum and pneumothorax which is small and is now resolved -Requiring minimal sedation and no paralytics -Continue high-dose dexamethasone now down to 10 mg IV daily x5 days -He was not a candidate for Tocilizumab at the time his respiratory status decompensated -Completed a course of azithromycin early on -Now sputum culture growing MSSA-continue ceftriaxone Was given IV Lasix (2) Acute respiratory failure with hypoxia: Plan: ventilator dependent respiratory failure Covid-19 pneumonia as well as bacterial pneumonia, intubated on 12/[address] Hernandez doing well on ventilator, as above, weaning down FiO2 minimal sedation -Continue treating for bacterial pneumonia (3) Pneumothorax: Plan: resolved on CXR now, still with subcutaneous air over neck low PEEP high FiO2 Follow chest x-ray daily (4) Headache: Plan: right eye region/right forehead with right eye tearing, right nare drainage, more intense on 12/08 CT head 12/08 - negative for ICH, stroke, etc. he had transient L hand numbness this am - now resolved could have been TIA could have been neuro symptoms 2nd to a migraine headache no triptans due to CAD Depakote 250mg BID for prophylaxis? had a 1000mg load on 12/09 Now intubated so unclear if headache remains (5) Sore throat: Plan: most pressing complaint on 12/11 tongue and throat very dry, could be thrush from steroids? started Magic Swizzle (lidocaine) and Nystatin S/S QID, gave him some relief-no longer getting this since intubation (6) CAD (coronary artery disease): Plan: h/o RCA stents remains on asa, statin was NOT taking REI or BB at home but is on his home medication list no ischemic symptoms during this illness EKG with inverted T's inferiorly however it is unchanged from EKG from several years ago (7) Benign essential hypertension: Plan: BP stable (8) Hyperlipidemia: Plan: statin (9) GERD (gastroesophageal reflux disease): Plan: PPI (10) Elevated LFTs: Plan: likely 2nd to COVID-19 infection Resolved (11) Hyponatremia: Plan: 2nd recent diarrhea, poor oral intake, etc resolved (12) Hypokalemia: Plan: replaced and resolved (13) DVT prophylaxis: Plan: lovenox 40mg BID Plan: Disposition-continued stay in the ICU Admission and Anticipated Discharge Date Admission Date: December 03, 2020 Subjective Remains sedated and ventilated, trying to wean down on FiO2. Not requiring pressors. Afebrile. Sedation was weaned and patient was coughing a lot and agitated Review of Systems Review of Systems: All systems reviewed & are unremarkable except as noted in HPI & below Physical Exam Constitutional: + mechanically ventilated; no acute distress Results & Data Results & Data ([facility]) Vital Signs (Past 12 Hours) Vital Signs Temp Pulse Resp Pulse Ox 12/17/20 20:30 37.4 C 61 28 H 91 12/17/20 20:00 37.5 C 67 28 H 92 12/17/20 19:30 37.5 C 67 28 H 93 12/17/20 19:00 37.5 C 64 28 H 94 12/17/20 18:00 37.5 C 69 28 H 93 12/17/20 17:00 37.5 C 63 28 H 92 12/17/20 16:00 37.6 C H 63 26 H 90 12/17/20 15:30 37.6 C H 65 28 H 91 12/17/20 15:04 63 30 H 90 12/17/20 15:00 37.5 C 62 27 H 91 12/17/20 14:30 37.5 C 61 25 H 90 12/17/20 14:00 37.4 C 63 25 H 89 L 12/17/20 13:30 37.4 C 65 25 H 87 L 12/17/20 13:00 37.3 C 65 28 H 88 L 12/17/20 12:30 37.3 C 62 28 H 90 12/17/20 12:00 37.1 C 58 L 28 H 92 12/17/20 11:30 37.2 C 61 26 H 92 12/17/20 11:09 61 29 H 92 12/17/20 11:00 37.2 C 60 26 H 93 12/17/20 10:30 37.2 C 58 L 28 H 93 12/17/20 10:00 37.2 C 60 29 H 92 12/17/20 09:30 37.1 C 61 28 H 92 PG Care Time/CCT Total # of Minutes Spent Total Time Spent with Patient: Total time spent is greater than 50% in coordination of care (as documented) at patient's floor/unit and/or counseling patient: Coding Level of Care Code 76553 Subseq Hosp Care Lvl 1 Diagnoses Pneumonia due to 2019 novel coronavirus U07.1; J12.82 Acute respiratory failure with hypoxia J96.01 Pneumothorax J93.9 Headache R51.9 Sore throat J02.9 CAD (coronary artery disease) I25.10 Benign essential hypertension I10 Hyperlipidemia E78.5 GERD (gastroesophageal reflux disease) K21.9 Elevated LFTs R79.89 Hyponatremia E87.1 Hypokalemia E87.6 DVT prophylaxis Z29.9
[2020-12-18] MEDS: INSULIN ASPART 100 UNITS/ML 3 ML PEN SC SCH ×6 (00:26→20:55)
[2020-12-18] MEDS: ARTIFICIAL TEARS OP OINT 3.5 GM TUBE OP SCH ×6 (00:27→20:46)
[2020-12-18] MEDS: PEPTAMEN INTENSE VHP 1.0 CAL 1,000 ML BAG OG SCH ×2 (02:15→20:45)
[2020-12-18] MEDS: propofoL 1,000 MG/100 ML VIAL IV SCH ×5 (03:04→20:47)
[2020-12-18] MEDS: PROPOFOL BOLUS FROM BAG IV PRN ×3 (03:05→08:18)
[2020-12-18 04:53] LABS: Eosinophils # (auto) 0.02 K/uL (0-0.5); Eosinophils % (auto) 0.2 %; Hematocrit (blood only) 37.4 % (42-52); Hemoglobin 12.1 g/dL (14.0-18.0); Immature Granulocytes # (auto) 0.09 K/uL (0.00-0.02); Immature Granulocytes % (auto) 0.8 %; Lymphocytes # (auto) 0.42 K/uL (1.2-3.4); Lymphocytes % (auto) 3.6 %; Mean Corpuscular Hemoglobin 29.7 pg (25-34); Mean Corpuscular Hgb Conc 32.4 g/dL (32-36); Mean Corpuscular Volume 91.7 fL (80-100); Monocytes # (auto) 0.54 K/uL (0.11-0.59); Monocytes % (auto) 4.6 %; Neutrophils # (auto) 10.58 K/uL (1.4-6.5); Neutrophils % (auto) 90.8 %; Platelet Count 187 K/uL (130-400); RDW Coefficient of Variation 14.7 % (11.5-14.5); RDW Standard Deviation 49.2 fL (36.4-46.3); Red Blood Count 4.08 M/uL (4.7-6.1); White Blood Count 11.65 K/uL (4.8-10.8)
[2020-12-18 05:00] LABS: iSTAT Arterial Blood Gas HCO3 36 meg/L (19-24); iSTAT Arterial Blood Gas pCO2 61 mmHg (35-46); iSTAT Arterial Blood Gas pH 7.39 (7.35-7.45); iSTAT Arterial Blood Gas pO2 65 mmHg (80-95); iSTAT Carbon Dioxide 38 mmol/L (24-31); iSTAT FiO2 60 %; iSTAT Site Art Line
[2020-12-18 05:15] LABS: BUN Creatinine Ratio 54.1 (10-20); Calcium 8.3 mg/dl (8.5-10.1); Creatinine Clr Calc Pharmacy 128.4 ml/min; Est GFR (African American) 125.9 ml/min; Est GFR (Non-African American) 108.6 ml/min; Magnesium 2.1 mg/dl (1.8-2.4); Phosphorus 2.8 mg/dl (2.5-4.9); Potassium 4.3 mmol/L (3.5-5.1)
[2020-12-18] MEDS: TUBE FEEDING WATER FLUSH OG SCH ×5 (05:31→21:35)
[2020-12-18] MEDS: ICU ELECTROLYTE REPLACEMENT PROTOCOL SCH ×2 (05:32→17:07)
--- NOTE | 2020-12-18 06:35 | Critical Care Progress Note ---
Date of Service December 18, 2020 Assessment & Plan (1) CAD (coronary artery disease): (2) Benign essential hypertension: (3) Hyperlipidemia: (4) GERD (gastroesophageal reflux disease): (5) COVID-19: Plan: Reason Critically Ill: 65-year-old male here with Covid pneumonia and ARDS. He is on the late phase ARDS dexamethasone protocol since 12/03. He is outside the window for Tocilizumab or baricitinib. Intubated 12/12 for respiratory demise. Neuro - Sedation: Continue propofol, Fentanyl. Can consider neuromuscular blockade agents as needed for asynchrony Cardiac - No longer requiring Levophed. Continue to monitor I's and O's. Respiratory - COVID-19 pneumonia with ARDS, trace PNX/pneumomediastinum. Intubated on 12/12. Noted to have small, apical left pneumothorax with subcutaneous emphysema and pneumomediastinum on CXR 12/18 -- crepitus also appreciated on physical exam. No evidence of tension or obstructive physiology at this time. We will continue low PEEP, high FiO2 strategy and attempt to limit elevations of plateau pressures and barotrauma; will also lower TV to 350. Adequate diuresis yesterday following administration of Lasix --[place] positive. P/F ratio @ 108 mmHg (PaO2 65 / FiO2 60) - moderate-severe ARDS. --ABG this AM demonstrating mild improvements in oxygenation, slight increase in hypercapnia --AC vent settings of TV 350, PEEP 10, FiO2 60, RR 28 -- as above, decrease TV to 300 --Lasix 40 IV x 1 again today --Continue late-phase dexamethasone, protocol: 20 mg X 5 days followed by 10 mg X 5 days. --Likely a poor candidate for proning at this time given diffuse disease on CTA --Given size of PNX/pneumomediastinum, no room for interventional procedure right now. Will monitor. Patient's overall prognosis is quite guarded at this point. Intubated 12/12. We will consult palliative care for aid in goals of care planning with family - appreciate insight and recommendations. GI - Continue feedings via OGT. At goal. Appreciate nutrition insight and recommendations. Continue famotidine. RENAL/LYTES - No significant issues at this time. BUN and Cr stable. Will continue to follow electrolytes and replete as needed. -- 24 hour I&O: 2572/-3550: net negative ~1L (2cc/kg/hr) -- BMP stable with ongoing diuresis - Mccullough in place, monitor intake and output ENDO - ICU hyperglycemia protocol HEME - Stable H&H. Monitor. Leukocytosis noted. ID - COVID-19 pneumonia with ARDS, as noted above. On dexamethasone. Continue CFTX for presumed bacterial superinfection. INTEGUMENTARY - No acute needs. LINES/IV ACCESS - CVC, ETT, PIV, OGT, Mccullough DVT PROPHYLAXIS - Lovenox 40 q12 Thank you for allowing us to be part of this patient's care. Please refer to Dr. Hong's documentation for any further recommendations. (6) Hypoxia: (7) Pneumonia due to 2019 novel coronavirus: (8) Acute respiratory failure with hypoxia: (9) Elevated LFTs: (10) DVT prophylaxis: (11) Hyponatremia: (12) Hypokalemia: (13) Headache: (14) Sore throat: (15) Pneumothorax: Admission and Anticipated Discharge Date Admission Date: December 03, 2020 Supervising Physician Co-Signing Physician Notes Dr. Reyes was resident physician during care of patient. I separately evaluated patient for bolaños portions of the history and the exam. I was present during the critical portion of medical decision making, and I discussed the case with the resident. I generally agree with the findings and plan. General: Sedated. nontoxic. Skin: Warm, dry, Head: Atraumatic Ears, nose, mouth and throat: airway obscured by endotracheal tube, subcutaneous emphysema Cardiovascular: Normal peripheral perfusion Respiratory: Ventilator settings reviewed Gastrointestinal: Non distended Musculoskeletal: No deformity Patient was discussed in multidisciplinary rounds High FiO2 table low PEEP, wean as tolerated. Tube feeding at goal, diuresis x1 continue current therapies constipation x7 days: Dulcolax senna mineral oil 30 mL x 1 Decrease tidal volume to 300 Small apical left pneumothorax too small to intervene upon at this time We will discuss have goals of care discussion with family palliative care consult Patient remains critically ill Subjective NAEO. Per nursing, when patient is manipulated/moved, quite quickly becomes asynchronous with the vent. Review of Systems Review of Systems: Unobtainable due to endotracheal tube and Unobtainable due to reduced consciousness Physical Exam Physical Exam: General: Sedated 65-year-old gentleman who is nontoxic appearing with ETT in place and mechanical ventilation ongoing HEENT: Right side of the neck demonstrating prominence this morning. Trachea is midline. Neck vessels are unable to be observed. There is notable crepitus extending from the general region of the RIGHT anterior cervical chain down to the anterior clavicle, to about the level of the midclavicular line. Very mild extension of this crepitus towards the left. Cardiac: Bradycardia with regular rhythm. S1 and S2 are present without appreciable murmurs rubs or gallops Respiratory: ETT in place with mechanical ventilation. Diminished lung sounds throughout. Of what could be heard, scattered wheezes throughout all lung dejesus, most appreciable in the lower left lung field. Abdomen: Abdomen is soft and nondistended. Extremity: Upper and lower extremities appear well perfused. There is no peripheral edema. Capillary refill is about 2 seconds in the upper and lower extremities. Radial pulses 2+. Results & Data Results & Data ([facility]) Vital Signs (Past 12 Hours) Vital Signs Temp Pulse Resp Pulse Ox 12/18/20 05:30 36.6 C 50 L 28 H 12/18/20 05:15 36.6 C 49 L 26 H 91 12/18/20 05:00 36.6 C 50 L 28 H 83 L 12/18/20 04:43 49 L 29 H 12/18/20 04:00 36.4 C L 50 L 28 H 92 12/18/20 03:15 52 L 28 H 91 12/18/20 03:00 36.4 C L 49 L 28 H 92 12/18/20 02:00 36.6 C 55 L 28 H 92 12/18/20 01:00 36.5 C 53 L 28 H 92 12/18/20 00:00 36.5 C 52 L 28 H 92 12/17/20 23:41 58 L 12/17/20 23:00 36.8 C 54 L 26 H 90 12/17/20 22:32 55 L 28 H 92 12/17/20 22:00 37.0 C 59 L 28 H 93 12/17/20 21:00 37.2 C 61 26 H 91 12/17/20 20:30 37.4 C 61 28 H 91 12/17/20 20:00 37.5 C 67 28 H 92 12/17/20 19:30 37.5 C 67 28 H 93 12/17/20 19:27 65 28 H 94 12/17/20 19:00 37.5 C 64 28 H 94 Critical Care Time Patient discussed on multidisciplinary rounds I have personally spent 35 minutes of critical care time in the direct management of this patient. This is a life/limb threatening event. This includes time spent evaluating patient, direct bedside care, chart review, placing orders, interpretation of diagnostic studies, discussion with consultants, patient, and/or family members regarding treatment decisions, as well as other required patient management activities. This time is exclusive of all separately billable procedures, and teaching time and separate from and in addition to any other critical care service time. Resident Activity Tracking Resident Involvement: Resident Care Provided Care Provided: Adult [facility]
[2020-12-18] MEDS: cefTRIAXone SODIUM 1,000 MG in DEXTROSE 5% 50 ML IV SCH (08:04)
[2020-12-18] MEDS: FAMOTIDINE 20 MG in SYRINGE 3 ML IV SCH ×2 (08:04→20:45)
[2020-12-18] MEDS: fentaNYL DRIP 1,250 MCG/250 ML BAG IV SCH ×2 (08:06→16:34)
--- NOTE | 2020-12-18 08:35 | XRay Report ---
XR chest 1V portable HISTORY: Respiratory failure. Follow-up. COMPARISON: Chest 12/17/2020. FINDINGS: Lines and tubes remain unchanged in position. Patchy multifocal bilateral airspace opacitie s persist. The heart remains mildly enlarged. There are low lung volumes. Interval development of pne umomediastinum and emphysema within the neck base and left chest wall suspect a tiny left pneumothora x. IMPRESSION: 1. Interval development of pneumomediastinum, subcutaneous emphysema, trace left pneumothorax. 2. Satisfactory support line placement. 3. Multifocal bilateral airspace opacities consistent with pneumonia, unchanged. 4. These findings were called/faxed to the referring physician following dictation. ACT 112: Negative or not required by law. Electronically signed by: Pradeep Falcon M.D. 12/18/2020 8:33 AM
--- NOTE | 2020-12-18 09:46 | Billing Data ---
Date of Service December 18, 2020 Coding Level of Care Code Critical Care 1st - mins
[2020-12-18] MEDS ORDERED: bisacodyL 5 MG TABEC PO ONE (10:09)
[2020-12-18] MEDS ORDERED: MINERAL OIL 30 ML UDC PO ONE (10:10)
[2020-12-18] MEDS ORDERED: FUROSEMIDE 40 MG in SYRINGE 0 ML IV ONE (10:15)
[2020-12-18] MEDS: ENOXAPARIN INJ 40 MG/0.4 ML SYR SQ SCH ×2 (11:27→23:00)
[2020-12-18] MEDS: SENNA 8.6 MG TAB PO SCH (11:29)
[2020-12-18] MEDS: dexAMETHasone 10 MG in SYRINGE 0 ML IV SCH (11:30)
--- NOTE | 2020-12-18 12:28 | Pharmacy Report ---
Pharmacy Glycemic Short Note 2 - Date of Service December 18, 2020 - Glycemic Short BSG Results (Last 24 hours): 12/17/20 12/17/20 12/18/20 16:15 20:09 00:01 Glucose POC Glucose 166 H 166 H 130 H 12/18/20 12/18/20 12/18/20 04:41 04:47 08:10 Glucose 124 H POC Glucose 116 H 104 H 12/18/20 11:46 Glucose POC Glucose 97 OUTPATIENT ANTIDIABETIC REGIMEN: * n/A * A1c pending ASSESSMENT: 12/18: * Patient's BSGs yesterday were [id number] mg/dL * Patient received 5 units of bolus insulin yesterday. * TFs are running, delivering ~19g CHO per 4 hours. * Last dose of dexamethasone tomorrow 12/15/20 * Patient's BSGs yesterday were [phone] mg/dL. * Patient received 0 units of insulin. * Fasting BSG today was 108 mg/dL. Continue to hold Lantus. * Patient is on trickle feeds so no coverage for this at this time. Background * Patient currently intubated, sedated with propofol, fentanyl. Norepinephrine was started overnight but has been titrated off. Patient was also paralyzed with nimbex, this has also been weened off. * Blood sugars elevated last evening and met criteria for glycemic consult. Patient's blood sugars have trended down with 10 units of lantus and correction factor of 30. * Tube feeds to begin with trickle (no titration), will add carb coverage. * Patient is currently on dexamethasone 20 mg, last day tomorrow and will taper down to 10 mg on 12/15. Will put additional lantus dose on for this evening if BSG >160 mg/dL PLAN FOR INPATIENT GLYCEMIC CONTROL: * Basal insulin * Lantus - held * Bolus insulin * NovoLog per scale ACHS or Q6hrs while NPO * Goal Range: Low 110 mg/dL - High 140 mg/dL * Correction Factor: 30 mg/dL/unit * Nutritional / Prandial insulin per carb ratio of 1 unit per 20 grams CHO consumed PLAN FOR DISCHARGE: * Patient's HbA1C is slightly elevated at 6.6% but is at goal (goal HbA1C < 7%) * Recommend continued monitoring as an outpatient. * Patient may adopt dietary and exercise changes to help control HbA1C.
[2020-12-18] MEDS ORDERED: PROPOFOL BOLUS FROM BAG IV PRN (16:05)
[2020-12-18] MEDS ORDERED: STAT IV Infusion **Titration per Protocol STA (16:05)
[2020-12-18] MEDS: ASPIRIN 81 MG CHEW PO SCH (20:45)
[2020-12-18] MEDS: ATORVASTATIN 40 MG TAB PO SCH (20:45)
[2020-12-19] MEDS: TUBE FEEDING WATER FLUSH OG SCH ×6 (00:04→19:43)
[2020-12-19] MEDS: fentaNYL DRIP 1,250 MCG/250 ML BAG IV SCH ×3 (00:14→19:12)
[2020-12-19] MEDS: INSULIN ASPART 100 UNITS/ML 3 ML PEN SC SCH ×6 (00:27→19:41)
[2020-12-19] MEDS: propofoL 1,000 MG/100 ML VIAL IV SCH ×4 (03:07→19:12)
[2020-12-19] MEDS: ARTIFICIAL TEARS OP OINT 3.5 GM TUBE OP SCH ×6 (03:43→23:48)
[2020-12-19 03:53] LABS: iSTAT Art Bld Gas pCO2 Correct 61 mmHg (35-46); iSTAT Art Bld Gas pH Corrected 7.436 (7.35-7.45); iSTAT Arterial Blood Gas HCO3 41 meg/L (19-24); iSTAT Arterial Blood Gas pCO2 61 mmHg (35-46); iSTAT Arterial Blood Gas pH 7.44 (7.35-7.45); iSTAT Arterial Blood Gas pO2 67 mmHg (80-95); iSTAT Arterial Blood Gas pO2 C 67; iSTAT Carbon Dioxide > 40 mmol/L (24-31); iSTAT FiO2 60 %; iSTAT Hematocrit 35 % (42-52); iSTAT Hemoglobin 11.9 g/dl (14.0-18.0); iSTAT Potassium 4.3 mmol/L (3.3-5.0); iSTAT Site Art Line; iSTAT Sodium 136 mmol/L (135-144)
[2020-12-19 05:42] LABS: Basophils # (auto) 0.02 K/uL (0-0.2); Basophils % (auto) 0.2 %; Eosinophils # (auto) 0.08 K/uL (0-0.5); Eosinophils % (auto) 0.7 %; Hematocrit (blood only) 37.2 % (42-52); Hemoglobin 11.9 g/dL (14.0-18.0); Immature Granulocytes % (auto) 0.8 %; Lymphocytes # (auto) 0.58 K/uL (1.2-3.4); Lymphocytes % (auto) 4.9 %; Mean Corpuscular Hemoglobin 29.6 pg (25-34); Mean Corpuscular Volume 92.5 fL (80-100); Mean Platelet Volume 10.1 fL (7.4-10.4); Monocytes # (auto) 0.65 K/uL (0.11-0.59); Monocytes % (auto) 5.5 %; Neutrophils # (auto) 10.44 K/uL (1.4-6.5); Neutrophils % (auto) 87.9 %; Platelet Count 193 K/uL (130-400); RDW Coefficient of Variation 14.8 % (11.5-14.5); RDW Standard Deviation 50.1 fL (36.4-46.3); Red Blood Count 4.02 M/uL (4.7-6.1); White Blood Count 11.87 K/uL (4.8-10.8)
--- NOTE | 2020-12-19 05:44 | Critical Care Progress Note ---
Date of Service December 19, 2020 Assessment & Plan (1) CAD (coronary artery disease): (2) Benign essential hypertension: (3) Hyperlipidemia: (4) GERD (gastroesophageal reflux disease): (5) COVID-19: Plan: Reason Critically Ill: 65-year-old male here with Covid pneumonia and ARDS. He is now finished with the late phase ARDS dexamethasone protocol since 12/03. He is outside the window for Tocilizumab or baricitinib. Intubated 12/12 for respiratory demise. Unfortunately, he continues to make minimal improvement despite adjustments with his ventilator and adjunctive therapies. Neuro - Sedation: Continue propofol, Fentanyl. No need for NMB at this time. Cardiac - Maintain on dry side. I&Os at goal. No longer requiring pressor support. Respiratory - COVID-19 pneumonia with ARDS, trace PNX/pneumomediastinum. Intubated on 12/12. Noted to have small, apical left pneumothorax with subcutaneous emphysema and pneumomediastinum on CXR 12/18- -- crepitus also appreciated on physical exam. No evidence of tension or obstructive physiology at this time. We will continue low PEEP, high FiO2 strategy and attempt to limit elevations of plateau pressures and barotrauma --[place] positive. P/F ratio @ 112 mmHg - moderate-severe ARDS. --ABG, BMP this AM demonstrating respiratory acidosis and contraction alkalosis - continue rates, add acetazolamide/chlorothiazide --AC vent settings of TV 300, PEEP 8, FiO2 60, RR 28 -- maintain --Ends today: late-phase dexamethasone, protocol: 20 mg X 5 days followed by 10 mg X 5 days --Poor candidate for proning at this time given diffuse disease on CTA --Given small size of PNX/pneumomediastinum, no room for interventional procedure right now. Will monitor. Patient's overall prognosis is guarded. Intubated 12/12. Continue discussions with family RE: tracheostomy placement vs. palliative approach. Palliative care consulted for aid in goals of care planning with family. GI - Continue feedings via OGT. At goal. Appreciate nutrition insight and recommendations. Continue famotidine. RENAL/LYTES - No significant issues at this time. BUN and Cr stable. Will continue to follow electrolytes and replete as needed. -- 24 hour I&O: 2700/-3500 = -700 -- BMP stable with ongoing diuresis - Mccullough in place, monitor intake and output ENDO - ICU hyperglycemia protocol HEME - Stable H&H. Monitor. Leukocytosis noted. ID - COVID-19 pneumonia with ARDS, as noted above. On dexamethasone. Continue CFTX for presumed bacterial superinfection. INTEGUMENTARY - No acute needs. LINES/IV ACCESS - CVC, ETT, PIV, OGT, Mccullough DVT PROPHYLAXIS - Lovenox 40 q12 Thank you for allowing us to be part of this patient's care. Please refer to Dr. Hong's documentation for any further recommendations. (6) Hypoxia: (7) Pneumonia due to 2019 novel coronavirus: (8) Acute respiratory failure with hypoxia: (9) Elevated LFTs: (10) DVT prophylaxis: (11) Hyponatremia: (12) Hypokalemia: (13) Headache: (14) Sore throat: (15) Pneumothorax: Admission and Anticipated Discharge Date Admission Date: December 03, 2020 Supervising Physician Co-Signing Physician Notes Dr. Reyes was resident physician during care of patient. I separately evaluated patient for bolaños portions of the history and the exam. I was present during the critical portion of medical decision making, and I discussed the case with the resident. I generally agree with the findings and plan. Patient was discussed in multidisciplinary rounds High FiO2 table low PEEP, wean as tolerated. Tube feeding at goal, diuresis x1 continue current therapies constipation x8 days: oil 60 mL x 1 today Metolazone and Diamox diuresis x2 today creatinine still downtrending, evidence of respiratory acidosis with contraction alkalosis Small apical left pneumothorax too small to intervene upon at this time Discussed with yesterday at this time we will continue with current treatment for 5 days and then likely proceed with tracheostomy, I do not anticipate the patient will be extubated will within a reasonable timeframe for extubation and advocate for tracheostomy and also discussed comfort measures should he not have significant improvement certainly the patient is at risk for severe morbidity and disability. At this time the patient wants to talk with her congregational care pastor and continue to pray on the current issues. Patient remains critically ill Subjective No acute events overnight. Patient unable to provide meaningful history in the setting of sedation and mechanical ventilation. Review of Systems Review of Systems: Unobtainable due to endotracheal tube and Unobtainable due to reduced consciousness Physical Exam Physical Exam: General: Sedated 65-year-old gentleman who is nontoxic appearing with ETT in place and mechanical ventilation ongoing HEENT: Right side of the neck demonstrating prominence, unchanged. Trachea is midline. There is notable crepitus extending from the general region of the RIGHT anterior cervical chain down to the anterior clavicle, to about the level of the midclavicular line. Very mild extension of this crepitus towards the left. JVP appreciated at the level of the clavicle, no distention. Cardiac: Normal rate with regular rhythm. S1 and S2 are present without appreciable murmurs rubs or gallops Respiratory: ETT in place with mechanical ventilation. Diminished lung sounds throughout. No significant crackles or wheezes this morning. Abdomen: Abdomen is soft and nondistended. Extremity: Upper and lower extremities appear well perfused. There is no peripheral edema. Capillary refill is about 2 seconds in the upper and lower extremities. Radial pulses 2+. Results & Data Results & Data ([facility]) Vital Signs (Past 12 Hours) Vital Signs Temp Pulse Resp Pulse Ox 12/19/20 05:00 36.8 C 60 24 93 12/19/20 04:00 37.0 C 55 L 25 H 92 12/19/20 03:05 57 L 30 H 92 12/19/20 03:00 37.0 C 55 L 22 92 12/19/20 02:00 36.9 C 54 L 23 92 12/19/20 01:00 36.9 C 57 L 24 92 12/19/20 00:00 36.9 C 54 L 26 H 92 12/18/20 23:20 59 L 33 H 91 12/18/20 23:00 36.9 C 56 L 25 H 92 12/18/20 22:00 36.8 C 58 L 25 H 92 12/18/20 21:00 36.9 C 56 L 25 H 93 12/18/20 20:00 37.0 C 61 25 H 93 12/18/20 19:55 60 32 H 90 12/18/20 19:00 37.0 C 57 L 27 H 92 Critical Care Time 45 minutes Resident Activity Tracking Resident Involvement: Resident Care Provided Care Provided: Adult [facility]
[2020-12-19 06:00] LABS: BUN Creatinine Ratio 67.9 (10-20); Calcium 8.4 mg/dl (8.5-10.1); Creatinine Clr Calc Pharmacy 165.1 ml/min; Est GFR (African American) 139.6 ml/min; Est GFR (Non-African American) 120.5 ml/min; Phosphorus 2.5 mg/dl (2.5-4.9); Potassium 4.2 mmol/L (3.5-5.1)
[2020-12-19] MEDS: ICU ELECTROLYTE REPLACEMENT PROTOCOL SCH (06:23)
--- NOTE | 2020-12-19 07:47 | Hospitalist Progress Note ---
Date of Service December 18, 2020 Late entry Assessment & Plan (1) Pneumonia due to 2019 novel coronavirus: Plan: Severe disease declined to point of needing intubation on 12/12, up to 60L and 100% and still desaturating, working hard to breathe currently doing well on ventilator, now pursuing low PEEP and high FiO2 due to pneumomediastinum and pneumothorax which is small and is now resolved -Requiring minimal sedation and no paralytics -Continue high-dose dexamethasone now down to 10 mg IV daily x5 days -He was not a candidate for Tocilizumab at the time his respiratory status decompensated -Completed a course of azithromycin early on -Now sputum culture growing MSSA-continue ceftriaxone Was given IV Lasix (2) Acute respiratory failure with hypoxia: Plan: ventilator dependent respiratory failure Covid-19 pneumonia as well as bacterial pneumonia, intubated on 12/[address] Hernandez doing well on ventilator, as above, weaning down FiO2 minimal sedation -Continue treating for bacterial pneumonia (3) Pneumothorax: Plan: resolved on CXR now, still with subcutaneous air over neck low PEEP high FiO2 Follow chest x-ray daily (4) Headache: Plan: right eye region/right forehead with right eye tearing, right nare drainage, more intense on 12/08 CT head 12/08 - negative for ICH, stroke, etc. he had transient L hand numbness this am - now resolved could have been TIA could have been neuro symptoms 2nd to a migraine headache no triptans due to CAD Depakote 250mg BID for prophylaxis? had a 1000mg load on 12/09 Now intubated so unclear if headache remains (5) Sore throat: Plan: most pressing complaint on 12/11 tongue and throat very dry, could be thrush from steroids? started Magic Swizzle (lidocaine) and Nystatin S/S QID, gave him some relief-no longer getting this since intubation (6) CAD (coronary artery disease): Plan: h/o RCA stents remains on asa, statin was NOT taking REI or BB at home but is on his home medication list no ischemic symptoms during this illness EKG with inverted T's inferiorly however it is unchanged from EKG from several years ago (7) Benign essential hypertension: Plan: BP stable (8) Hyperlipidemia: Plan: statin (9) GERD (gastroesophageal reflux disease): Plan: PPI (10) Elevated LFTs: Plan: likely 2nd to COVID-19 infection Resolved (11) Hyponatremia: Plan: 2nd recent diarrhea, poor oral intake, etc resolved (12) Hypokalemia: Plan: replaced and resolved (13) DVT prophylaxis: Plan: lovenox 40mg BID Plan: Disposition-continued stay in the ICU Admission and Anticipated Discharge Date Admission Date: December 03, 2020 Subjective Remains mechanically ventilated sedated, FiO2 weaning down Review of Systems Review of Systems: Unobtainable due to reduced consciousness Physical Exam Constitutional: + mechanically ventilated; no acute distress Results & Data Results & Data ([facility]) Vital Signs (Past 12 Hours) Vital Signs Temp Pulse Resp Pulse Ox 12/19/20 05:00 36.8 C 60 24 93 12/19/20 04:00 37.0 C 55 L 25 H 92 12/19/20 03:05 57 L 30 H 92 12/19/20 03:00 37.0 C 55 L 22 92 12/19/20 02:00 36.9 C 54 L 23 92 12/19/20 01:00 36.9 C 57 L 24 92 12/19/20 00:00 36.9 C 54 L 26 H 92 12/18/20 23:20 59 L 33 H 91 12/18/20 23:00 36.9 C 56 L 25 H 92 12/18/20 22:00 36.8 C 58 L 25 H 92 12/18/20 21:00 36.9 C 56 L 25 H 93 12/18/20 20:00 37.0 C 61 25 H 93 12/18/20 19:55 60 32 H 90 PG Care Time/CCT Total # of Minutes Spent Total Time Spent with Patient: Total time spent is greater than 50% in coordination of care (as documented) at patient's floor/unit and/or counseling patient: Coding Level of Care Code 45777 Subseq Hosp Care Lvl 1 Diagnoses Pneumonia due to 2019 novel coronavirus U07.1; J12.82 Acute respiratory failure with hypoxia J96.01 Pneumothorax J93.9 Headache R51.9 Sore throat J02.9 CAD (coronary artery disease) I25.10 Benign essential hypertension I10 Hyperlipidemia E78.5 GERD (gastroesophageal reflux disease) K21.9 Elevated LFTs R79.89 Hyponatremia E87.1 Hypokalemia E87.6 DVT prophylaxis Z29.9
[2020-12-19] MEDS: MAGNESIUM OXIDE 400 MG TAB NG SCH ×2 (08:34→11:11)
[2020-12-19] MEDS: FAMOTIDINE 20 MG in SYRINGE 3 ML IV SCH ×2 (08:35→19:38)
[2020-12-19] MEDS: cefTRIAXone SODIUM 1,000 MG in DEXTROSE 5% 50 ML IV SCH (08:35)
[2020-12-19] MEDS: POT PHOSPHATE MONOBASIC W/ SOD TAB NG SCH ×3 (08:35→14:52)
[2020-12-19] MEDS: SENNA 8.6 MG TAB PO SCH (08:36)
[2020-12-19] MEDS ORDERED: MINERAL OIL 30 ML UDC PO ONE (08:54)
--- NOTE | 2020-12-19 09:05 | Billing Data ---
Date of Service December 19, 2020 Coding Level of Care Code Critical Care 1st - mins
--- NOTE | 2020-12-19 09:38 | XRay Report ---
XR chest 1V portable CLINICAL HISTORY: f/u TECHNIQUE: Single frontal radiograph of the chest was obtained. Comparison: Comparison is made to chest one view 12/18/2020 FINDINGS: Lines and tubes are stable. The cardiomediastinal silhouette is stable. Again there is suggestion of subcutaneous emphysema. Lungs are underinflated. There is suggestion of airspace opacity in the right upper lung and left lower and retrocardiac lung. No pleural effusion or pneumothorax. There is sugge stion of subcutaneous emphysema in the soft tissues of the neck. IMPRESSION: 1. Redemonstration of pneumomediastinum and subcutaneous emphysema. 2. Bilateral airspace opacities likely represent pneumonia with or without atelectasis/aspiration lyles perimposed. ACT 112: Negative or not required by law. Electronically signed by: Felipe Fenton M.D. 12/19/2020 9:37 AM
[2020-12-19] MEDS: acetaZOLAMIDE 250 MG TAB PO SCH ×2 (10:57→16:56)
[2020-12-19] MEDS: CHLOROTHIAZIDE SODIUM 500 MG in DEXTROSE 5% 50 ML IV SCH ×2 (10:58→19:39)
[2020-12-19] MEDS: ENOXAPARIN INJ 40 MG/0.4 ML SYR SQ SCH ×2 (11:10→22:42)
[2020-12-19] MEDS: dexAMETHasone 10 MG in SYRINGE 0 ML IV SCH (11:52)
--- NOTE | 2020-12-19 12:06 | Hospitalist Progress Note ---
Date of Service December 19, 2020 Assessment & Plan (1) Pneumonia due to 2019 novel coronavirus: Plan: Severe disease declined to point of needing intubation on 12/12, up to 60L and 100% and still desaturating, working hard to breathe Remains on ventilator, now pursuing low PEEP and high FiO2 due to pneumomediastinum and pneumothorax which is small -Requiring minimal sedation and no paralytics -completed high-dose dexamethasone course x 10 days -He was not a candidate for Tocilizumab at the time his respiratory status decompensated -Completed a course of azithromycin early on -Now sputum culture growing MSSA-continue ceftriaxone Was given IV Lasix and now started on acetazolamide and chlorothiazide (2) Acute respiratory failure with hypoxia: Plan: ventilator dependent respiratory failure Covid-19 pneumonia as well as bacterial pneumonia, intubated on 12/[address] Hernandez doing well on ventilator, as above, weaning down FiO2 minimal sedation -Continue treating for bacterial pneumonia (3) Pneumothorax: Plan: resolved on CXR now, still with subcutaneous air over neck low PEEP high FiO2 Follow chest x-ray daily (4) Headache: Plan: right eye region/right forehead with right eye tearing, right nare drainage, more intense on 12/08 CT head 12/08 - negative for ICH, stroke, etc. he had transient L hand numbness this am - then resolved could have been TIA could have been neuro symptoms 2nd to a migraine headache no triptans due to CAD Now intubated so unclear if headache remains (5) Sore throat: Plan: most pressing complaint on 12/11 tongue and throat very dry, could be thrush from steroids? started Magic Swizzle (lidocaine) and Nystatin S/S QID, gave him some relief-no longer getting this since intubation (6) CAD (coronary artery disease): Plan: h/o RCA stents remains on asa, statin was NOT taking REI or BB at home but is on his home medication list no ischemic symptoms during this illness EKG with inverted T's inferiorly however it is unchanged from EKG from several years ago (7) Benign essential hypertension: Plan: BP stable (8) Hyperlipidemia: Plan: statin (9) GERD (gastroesophageal reflux disease): Plan: PPI (10) Elevated LFTs: Plan: likely 2nd to COVID-19 infection Resolved (11) Hyponatremia: Plan: 2nd recent diarrhea, poor oral intake, etc resolved (12) Hypokalemia: Plan: replaced and resolved (13) DVT prophylaxis: Plan: lovenox 40mg BID Plan: Disposition-continued stay in the ICU Admission and Anticipated Discharge Date Admission Date: December 03, 2020 Subjective Remains mechanically ventilated sedated, FiO2 weaning down Review of Systems Review of Systems: Unobtainable due to endotracheal tube and Unobtainable due to reduced consciousness Physical Exam Constitutional: + mechanically ventilated; no acute distress Results & Data Results & Data ([facility]) Vital Signs (Past 12 Hours) Vital Signs Temp Pulse Resp Pulse Ox 12/19/20 11:00 37.2 C 62 29 H 92 12/19/20 10:46 62 30 H 93 12/19/20 10:00 37.2 C 62 28 H 92 12/19/20 09:00 37.2 C 69 28 H 91 12/19/20 08:00 37.1 C 60 25 H 93 12/19/20 07:44 62 30 H 91 12/19/20 07:00 37.0 C 58 L 25 H 91 12/19/20 05:00 36.8 C 60 24 93 12/19/20 04:00 37.0 C 55 L 25 H 92 12/19/20 03:05 57 L 30 H 92 12/19/20 03:00 37.0 C 55 L 22 92 12/19/20 02:00 36.9 C 54 L 23 92 12/19/20 01:00 36.9 C 57 L 24 92 PG Care Time/CCT Total # of Minutes Spent Total Time Spent with Patient: Total time spent is greater than 50% in c oordination of care (as documented) at patient's floor/unit and/or counseling patient: Coding Level of Care Code 19190 Subseq Hosp Care Lvl 1 Diagnoses Pneumonia due to 2019 novel coronavirus U07.1; J12.82 Acute respiratory failure with hypoxia J96.01 Pneumothorax J93.9 Headache R51.9 Sore throat J02.9 CAD (coronary artery disease) I25.10 Benign essential hypertension I10 Hyperlipidemia E78.5 GERD (gastroesophageal reflux disease) K21.9 Elevated LFTs R79.89 Hyponatremia E87.1 Hypokalemia E87.6 DVT prophylaxis Z29.9
[2020-12-19] MEDS: ASPIRIN 81 MG CHEW PO SCH (19:37)
[2020-12-19] MEDS: ATORVASTATIN 40 MG TAB PO SCH (19:38)
[2020-12-20] MEDS: INSULIN ASPART 100 UNITS/ML 3 ML PEN SC SCH ×6 (00:34→20:41)
[2020-12-20] MEDS: TUBE FEEDING WATER FLUSH OG SCH ×6 (00:35→20:16)
[2020-12-20] MEDS: propofoL 1,000 MG/100 ML VIAL IV SCH ×5 (00:36→20:42)
[2020-12-20] MEDS: ARTIFICIAL TEARS OP OINT 3.5 GM TUBE OP SCH ×6 (03:13→22:45)
[2020-12-20] MEDS: fentaNYL DRIP 1,250 MCG/250 ML BAG IV SCH ×3 (03:15→16:01)
[2020-12-20 04:10] LABS: iSTAT Art Bld Gas pCO2 Correct 61 mmHg (35-46); iSTAT Art Bld Gas pH Corrected 7.345 (7.35-7.45); iSTAT Arterial Blood Gas HCO3 33 meg/L (19-24); iSTAT Arterial Blood Gas pCO2 61 mmHg (35-46); iSTAT Arterial Blood Gas pH 7.34 (7.35-7.45); iSTAT Arterial Blood Gas pO2 80 mmHg (80-95); iSTAT Arterial Blood Gas pO2 C 80; iSTAT Carbon Dioxide 35 mmol/L (24-31); iSTAT FiO2 60 %; iSTAT Hematocrit 36 % (42-52); iSTAT Hemoglobin 12.2 g/dl (14.0-18.0); iSTAT Potassium 3.5 mmol/L (3.3-5.0); iSTAT Site Art Line; iSTAT Sodium 135 mmol/L (135-144)
[2020-12-20 05:35] LABS: Basophils # (auto) 0.01 K/uL (0-0.2); Basophils % (auto) 0.1 %; Eosinophils # (auto) 0.07 K/uL (0-0.5); Eosinophils % (auto) 0.5 %; Hematocrit (blood only) 37.4 % (42-52); Hemoglobin 12.1 g/dL (14.0-18.0); Immature Granulocytes # (auto) 0.16 K/uL (0.00-0.02); Immature Granulocytes % (auto) 1.2 %; Lymphocytes # (auto) 0.68 K/uL (1.2-3.4); Lymphocytes % (auto) 5.1 %; Mean Corpuscular Hemoglobin 30.3 pg (25-34); Mean Corpuscular Hgb Conc 32.4 g/dL (32-36); Mean Corpuscular Volume 93.7 fL (80-100); Mean Platelet Volume 10.2 fL (7.4-10.4); Monocytes # (auto) 0.68 K/uL (0.11-0.59); Monocytes % (auto) 5.1 %; Neutrophils # (auto) 11.65 K/uL (1.4-6.5); Platelet Count 194 K/uL (130-400); RDW Coefficient of Variation 15.2 % (11.5-14.5); RDW Standard Deviation 51.6 fL (36.4-46.3); Red Blood Count 3.99 M/uL (4.7-6.1); White Blood Count 13.25 K/uL (4.8-10.8)
[2020-12-20 06:12] LABS: BUN Creatinine Ratio 50.8 (10-20); Calcium 8.3 mg/dl (8.5-10.1); Creatinine Clr Calc Pharmacy 119.6 ml/min; Est GFR (African American) 122.3 ml/min; Est GFR (Non-African American) 105.5 ml/min; Magnesium 2.1 mg/dl (1.8-2.4); Potassium 3.4 mmol/L (3.5-5.1)
--- NOTE | 2020-12-20 06:40 | Critical Care Progress Note ---
Date of Service December 20, 2020 Assessment & Plan (1) CAD (coronary artery disease): (2) Benign essential hypertension: (3) Hyperlipidemia: (4) GERD (gastroesophageal reflux disease): (5) COVID-19: Plan: Reason Critically Ill: 65-year-old male here with Covid pneumonia and ARDS. He is now finished with the late phase ARDS dexamethasone protocol since 12/03. He is outside the window for Tocilizumab or baricitinib. Intubated 12/12 for respiratory demise. Unfortunately, he continues to make minimal improvement despite adjustments with his ventilator and adjunctive therapies. Neuro - Sedation: Continue propofol, Fentanyl. No need for NMB at this time. Cardiac - Maintain on dry side. I&Os at goal. No longer requiring pressor support. Respiratory - COVID-19 pneumonia with ARDS, trace PNX/pneumomediastinum. Intubated on 12/12. Noted to have small, apical left pneumothorax with subcutaneous emphysema and pneumomediastinum on CXR 12/18- -- crepitus also appreciated on physical exam. No evidence of tension or obstructive physiology at this time. We will continue low PEEP, high FiO2 strategy and attempt to limit elevations of plateau pressures and barotrauma --Dixon positive. P/F ratio @ 133 mmHg (from 112) --ABG, BMP this AM demonstrating respiratory acidosis with continued contraction alkalosis - continue rates --AC vent settings of TV 300, PEEP 5, FiO2 60, RR 28. Now minimal settings. Attempt spontaneous breathing trial today. --s/p late-phase dexamethasone x 10 days --Poor candidate for proning at this time given diffuse disease on CTA --Given small size of PNX/pneumomediastinum, no room for interventional procedure right now. Will monitor. Patient's overall prognosis is guarded. Intubated 12/12. Continue discussions with family RE: tracheostomy placement vs. palliative approach. Palliative care consulted for aid in goals of care planning with family. GI - Continue feedings via OGT. At goal. Appreciate nutrition insight and recommendations. Continue famotidine. Still no BM since arrival to ICU. Attempt 60cc mineral oil and methylnaltrexone x 1. RENAL/LYTES - No significant issues at this time. BUN and Cr stable. Will continue to follow electrolytes and replete as needed. -- 24 hour I&O: 1750/-4850= -3100 (2.8cc/kg/hr) -- BMP stable with ongoing diuresis - Mccullough in place, monitor intake and output ENDO - ICU hyperglycemia protocol HEME - Stable H&H. Monitor. Leukocytosis noted. ID - COVID-19 pneumonia with ARDS, as noted above. On dexamethasone. Continue CFTX for presumed bacterial superinfection. INTEGUMENTARY - No acute needs. LINES/IV ACCESS - CVC, ETT, PIV, OGT, Mccullough DVT PROPHYLAXIS - Lovenox 40 q12 Thank you for allowing us to be part of this patient's care. Please refer to Dr. Hong's documentation for any further recommendations. (6) Hypoxia: (7) Pneumonia due to 2019 novel coronavirus: (8) Acute respiratory failure with hypoxia: (9) Elevated LFTs: (10) DVT prophylaxis: (11) Hyponatremia: (12) Hypokalemia: (13) Headache: (14) Sore throat: (15) Pneumothorax: Admission and Anticipated Discharge Date Admission Date: December 03, 2020 Supervising Physician Co-Signing Physician Notes Dr. Reyes was resident physician during care of patient. I separately evaluated patient for bolaños portions of the history and the exam. I was present during the critical portion of medical decision making, and I discussed the case with the resident. I generally agree with the findings and plan. Patient was discussed in multidisciplinary rounds Attempt spontaneous breathing trial constipation x9 days: oil 60 mL x 1 today with a dose of Relistor No diuresis today Patient remains critically ill Subjective No meaningful history able to be obtained from patient. TV 300 / PEEP 5 / FiO2 60. Review of Systems Review of Systems: Unobtainable due to endotracheal tube and Unobtainable due to reduced consciousness Physical Exam Physical Exam: General: Sedated 65-year-old gentleman who is nontoxic appearing with ETT in place and mechanical ventilation ongoing HEENT: Right side of the neck demonstrating prominence, unchanged. Trachea is midline. There is notable crepitus extending from the general region of the RIGHT anterior cervical chain down to the anterior clavicle, to about the level of the midclavicular line. Very mild extension of this crepitus towards the left. JVP appreciated at the level of the clavicle, no distention. Cardiac: Normal rate with regular rhythm. S1 and S2 are present without appreciable murmurs rubs or gallops Respiratory: ETT in place with mechanical ventilation. Diminished lung sounds throughout. No significant crackles or wheezes this morning. Abdomen: Abdomen is soft and nondistended. Extremity: Upper and lower extremities appear well perfused. There is no peripheral edema. Capillary refill is about 2 seconds in the upper and lower extremities. Radial pulses 2+. Results & Data Results & Data ([facility]) Vital Signs (Past 12 Hours) Vital Signs Temp Pulse Resp BP Pulse Ox 12/20/20 05:00 36.9 C 66 30 H 90 12/20/20 04:00 36.9 C 67 25 H 90 12/20/20 03:00 36.9 C 68 25 H 91 12/20/20 02:41 68 33 H 90 12/20/20 02:00 37.0 C 68 25 H 92 12/20/20 01:00 37.2 C 70 25 H 91 12/20/20 00:00 37.2 C 73 28 H 91 12/19/20 23:45 72 30 H 92 12/19/20 23:00 37.3 C 71 25 H 91 12/19/20 22:00 37.3 C 73 25 H 93 12/19/20 21:00 37.3 C 74 26 H 92 12/19/20 20:00 37.4 C 72 24 117/49 L 93 12/19/20 19:55 72 30 H 91 12/19/20 19:00 37.4 C 71 25 H 94 Critical Care Time 35
--- NOTE | 2020-12-20 07:06 | XRay Report ---
XR chest 1V portable CLINICAL HISTORY: Respiratory failure. COMPARISON STUDY: Chest radiograph December 19, 2020. FINDINGS: Tip of endotracheal tube is 2.8 cm above the joey. Tip of nasogastric tube is at least wi thin the body of the stomach. Left subclavian central line remains in place. Cardiomediastinal silhou ette is stable. No pneumothorax is identified. Subcutaneous gas within the lower neck has slightly de creased. Pneumomediastinum has diminished. Bilateral airspace opacities persist. IMPRESSION: 1. Satisfactory positioning of lines and tubes. 2. Subcutaneous gas within the neck and pneumomediastinum, slightly decreased since prior exam. 3. Persistent bilateral airspace opacities. ACT 112: Negative or not required by law. Electronically signed by: Alcides Adrian M.D. 12/20/2020 7:04 AM
[2020-12-20] MEDS ORDERED: POTASSIUM PHOS 3 MMOL/1 ML INFUSION IV STA (07:32)
[2020-12-20] MEDS ORDERED: POTASSIUM PHOSPHATE 15 MMOL in SODIUM CHLORIDE 0.9% 250 ML IV ONE (08:00)
[2020-12-20] MEDS: SENNA 8.6 MG TAB PO SCH (08:15)
[2020-12-20] MEDS: acetaZOLAMIDE 250 MG TAB PO SCH (08:16)
[2020-12-20] MEDS: FAMOTIDINE 20 MG in SYRINGE 3 ML IV SCH ×2 (08:16→20:15)
[2020-12-20] MEDS: ENOXAPARIN INJ 40 MG/0.4 ML SYR SQ SCH ×2 (08:16→22:45)
[2020-12-20] MEDS: cefTRIAXone SODIUM 1,000 MG in DEXTROSE 5% 50 ML IV SCH (08:16)
[2020-12-20] MEDS: PEPTAMEN INTENSE VHP 1.0 CAL 1,000 ML BAG OG SCH (08:22)
[2020-12-20] MEDS ORDERED: MINERAL OIL 30 ML UDC PO ONE (09:32)
[2020-12-20] MEDS ORDERED: METHYLNALTREXONE BROMIDE 12 MG/0.6 ML VIAL SQ STA (09:32)
--- NOTE | 2020-12-20 10:11 | Palliative Care Consultation ---
Date of Consultation December 20, 2020 Assessment & Plan (1) Palliative care encounter: This is a 65 year old male who presented to the [facility] with shortness of breath on December 03. He was hypoxic with a SpO2 of 84% and was diagnosed with COVID-19 PNA and started on steroids. He was intubated on 12/12 and is now one week into intubation. He also sustained a small, trace pneumothorax which has been stable, but this individual is a poor proning candidate due to his extensive ARDS. He has been tolerative tube feedings and the goal is a spontaneous breathing trial today. His current ventilator settings are A/C, FiO2 50%, PEEP 5, RR 30. He is sedated with Fentanyl and Propofol. [facility] was consulted to discuss overall goals of care including tracheostomy and code status. The patient was assessed in room 105. The patient is sedated and unable to participate in any goals of care conversation. The goal is to wean sedation, attempt a neuro wake up and evaluate how well the patient can participate in an SBT. I was able to call the patient's , Kaden, at [phone] and left a voicemail, but she did return my call. I talked about the possibility for him to have a SBT and explained what that looks like with decreased sedation, etc. Depending on how he does with a SBT, if he tolerates, move forward with extubation and reintubation/trach if he fails. If he does not tolerate a weaning trial, she would like to move forward with a tracheostomy and any life prolonging measures possible. We did discuss overall code status and confirmed that he is to remain a full code at this time with full aggressive measures, including vasoactive medications, dialysis if necessary, cardioversion/defibrillation if necessary. 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 He likes to work on cars and in the garden. 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 He likes to be outdoors and loves the seasons. He has 6 adult children from two separate mothers. Some of the adult children are aware of the medical situation. Jorge is his oldest daughter and is aware of the situation. He follows Catholicism and that is important to him. They have been for 21 years. She did indicate that she has been SO appreciative of the nursing care and communication from the providers. (2) Pneumonia due to 2019 novel coronavirus: (3) Hypoxia: (4) Weakness: (5) Pneumothorax: History of Present Illness Reason for Consultation: Goals of care Requesting Physician: Byron Reyes MD Attending Physician: Nayana Singh MD History of Present Illness This is a 65 year old male who presented to the [facility] with shortness of breath on December 03. He was hypoxic with a SpO2 of 84% and was diagnosed with COVID-19 PNA and started on steroids. He was intubated on 12/12 and is now one week into intubation. He also sustained a small, trace pneumothorax which has been stable, but this individual is a poor proning candidate due to his extensive ARDS. He has been tolerative tube feedings and the goal is a spontaneous breathing trial today. His current ventilator settings are A/C, FiO2 50%, PEEP 5, RR 30. He is sedated with Fentanyl and Propofol. Palliative Medicine was consulted to discuss overall goals of care including tracheostomy and code status. Please see A/P for further details. Thanks for involving Palliative Medicine with this individual. Allergies Allergy/AdvReac Type Severity Reaction Status Date / Time latex Allergy Unknown RASH Verified 12/03/20 20:36 Penicillins Allergy Unknown RASH Verified 12/03/20 20:36 shellfish derived Allergy Unknown RASH Verified 12/03/20 20:36 Home Medications Medication Instructions Recorded Confirmed Type aspirin 81 mg tablet,delayed 81 mg PO HS tab 11/03/18 12/03/20 History release atorvastatin 80 mg tablet 0 mg PO QPM #90 tab 11/03/18 12/03/20 History lisinopril 5 mg tablet 0 mg PO DAILY #30 tab 11/03/18 12/03/20 History omeprazole 20 mg capsule,delayed 20 mg PO DAILY cap 11/03/18 12/03/20 History release ibuprofen 200 mg tablet 400 - 600 mg PO DAILY tab 11/25/18 12/03/20 History metoprolol succinate 25 mg 0 mg PO DAILY 11/25/18 12/03/20 History tablet,extended release 24 hr nitroglycerin 0.4 mg sublingual 0.4 mg SL Q5M PRN 11/25/18 12/03/20 History tablet (Nitrostat) Patient History Medical History Benign essential hypertension CAD (coronary artery disease) s/p TATI x 2 to RCA in 06/2015 GERD (gastroesophageal reflux disease) Hyperlipidemia Palliative care encounter Weakness Surgical History S/P coronary artery stent placement Social History Smoking Status: Never smoker Do You Dip or Chew Tobacco: No; Hx Alcohol Use: No Hx Substance Use: No Preferred Language: Maori Communication Ability: Effective Product Marketing Intern Required: No Beliefs That Will Affect Care: None marital status: Current Living Situation: Spouse Feels Safe at Home: Yes Assistive Devices: Oxygen - Continuous Review of Systems Review of Systems: Unobtainable due to cognitive status and Unobtainable due to endotracheal tube Physical Exam Constitutional: + frail appearing ENMT: Mouth: + dry oral mucous membranes Respiratory: Auscultation: + diminished lung sounds and + rhonchi Cardiovascular: Rate/Rhythm: regular rate and regular rhythm Heart Sounds: normal S1 and normal S2 Extremities: normal capillary refill; no edema Gastrointestinal (Abdomen): Inspection/Auscultation: abdomen normal to inspection Percussion/Palpation: abdomen soft Neurologic: + obtunded (sedated ) Results & Data ([facility]) Vital Signs (Past 12 Hours) Vital Signs Temp Pulse Pulse Resp BP BP Pulse Ox 12/20/20 08:00 61 124/45 L 12/20/20 07:35 63 30 H 90 12/20/20 07:00 36.9 C 61 25 H 121/44 L 89 L 12/20/20 05:00 36.9 C 66 30 H 90 12/20/20 04:00 36.9 C 67 25 H 90 12/20/20 03:00 36.9 C 68 25 H 91 12/20/20 02:41 68 33 H 90 12/20/20 02:00 37.0 C 68 25 H 92 12/20/20 01:00 37.2 C 70 25 H 91 12/20/20 00:00 37.2 C 73 28 H 91 12/19/20 23:45 72 30 H 92 12/19/20 23:00 37.3 C 71 25 H 91 PG Care Time/CCT Total # of Minutes Spent Total Time Spent with Patient: Total time spent is greater than 50% in coordination of care (as documented) at patient's floor/unit and/or counseling patient: 100 minutes with > 50% of that time spent assessing the patient, discussing goals of care and collaborating with IDT Coding Level of Care Code 01818 Initial Inpt Care Lvl 3 Diagnoses Palliative care encounter Z51.5 Pneumonia due to 2019 novel coronavirus U07.1; J12.82 Hypoxia R09.02 Weakness R53.1 Pneumothorax J93.9 Time Spent (min) 100
--- NOTE | 2020-12-20 13:16 | Pharmacy Report ---
Pharmacy Glycemic Short Note 2 - Date of Service December 20, 2020 - Glycemic Short BSG Results (Last 24 hours): 12/19/20 12/19/20 12/20/20 17:01 19:17 00:28 Glucose POC Glucose 180 H 172 H 125 H 12/20/20 12/20/20 12/20/20 03:13 05:08 08:23 Glucose 114 H POC Glucose 134 H 98 12/20/20 11:32 Glucose POC Glucose 112 H OUTPATIENT ANTIDIABETIC REGIMEN: * n/A * A1c pending ASSESSMENT: 12/20: * BSGs below 180 mg/dL, received 10 units of insulin yesterday * Dexamethasone discontinued, will continue current parameters for now, may need to d/c carb coverage 12/18: * Patient's BSGs yesterday were [id number] mg/dL * Patient received 5 units of bolus insulin yesterday. * TFs are running, delivering ~19g CHO per 4 hours. * Last dose of dexamethasone tomorrow 12/15/20 * Patient's BSGs yesterday were [id number] mg/dL. * Patient received 0 units of insulin. * Fasting BSG today was 108 mg/dL. Continue to hold Lantus. * Patient is on trickle feeds so no coverage for this at this time. Background * Patient currently intubated, sedated with propofol, fentanyl. Norepinephrine was started overnight but has been titrated off. Patient was also paralyzed with nimbex, this has also been weened off. * Blood sugars elevated last evening and met criteria for glycemic consult. Patient's blood sugars have trended down with 10 units of lantus and correction factor of 30. * Tube feeds to begin with trickle (no titration), will add carb coverage. * Patient is currently on dexamethasone 20 mg, last day tomorrow and will taper down to 10 mg on 12/15. Will put additional lantus dose on for this evening if BSG >160 mg/dL PLAN FOR INPATIENT GLYCEMIC CONTROL: * Basal insulin * Lantus - held * Bolus insulin * NovoLog per scale ACHS or Q6hrs while NPO * Goal Range: Low 110 mg/dL - High 140 mg/dL * Correction Factor: 30 mg/dL/unit * Nutritional / Prandial insulin per carb ratio of 1 unit per 20 grams CHO consumed PLAN FOR DISCHARGE: * Patient's HbA1C is slightly elevated at 6.6% but is at goal (goal HbA1C < 7%) * Recommend continued monitoring as an outpatient. * Patient may adopt dietary and exercise changes to help control HbA1C.
--- NOTE | 2020-12-20 17:09 | Hospitalist Progress Note ---
Date of Service December 20, 2020 Assessment & Plan (1) Pneumonia due to 2019 novel coronavirus: Plan: Severe disease declined to point of needing intubation on 12/12 Remains on ventilator, now pursuing low PEEP and high FiO2 due to pneumomediastinum and pneumothorax which is small -Requiring minimal sedation and no paralytics, attempted SBT today -completed high-dose dexamethasone course x 10 days -He was not a candidate for Tocilizumab at the time his respiratory status decompensated -Completed a course of azithromycin early on -Now sputum culture growing MSSA-continue ceftriaxone Was given IV Lasix and Amicar given acetazolamide and chlorothiazide-no further diuretics today -Palliative care consultation reviewed- is agreeable to tracheostomy if needed (2) Acute respiratory failure with hypoxia: Plan: ventilator dependent respiratory failure Covid-19 pneumonia as well as bacterial pneumonia, intubated on 12/[address] Hernandez As above (3) Pneumothorax: Plan: resolved on CXR now, still with subcutaneous air over neck low PEEP high FiO2 Follow chest x-ray daily (4) Headache: Plan: right eye region/right forehead with right eye tearing, right nare drainage, more intense on 12/08 CT head 12/08 - negative for ICH, stroke, etc. he had transient L hand numbness this am - then resolved could have been TIA could have been neuro symptoms 2nd to a migraine headache no triptans due to CAD Now intubated so unclear if headache remains (5) Sore throat: Plan: most pressing complaint on 12/11 tongue and throat very dry, could be thrush from steroids? started Magic Swizzle (lidocaine) and Nystatin S/S QID, gave him some relief-no longer getting this since intubation (6) CAD (coronary artery disease): Plan: h/o RCA stents remains on asa, statin was NOT taking REI or BB at home but is on his home medication list no ischemic symptoms during this illness EKG with inverted T's inferiorly however it is unchanged from EKG from several years ago (7) Benign essential hypertension: Plan: BP stable (8) Hyperlipidemia: Plan: statin (9) GERD (gastroesophageal reflux disease): Plan: PPI (10) Elevated LFTs: Plan: likely 2nd to COVID-19 infection Resolved (11) Hyponatremia: Plan: 2nd recent diarrhea, poor oral intake, etc resolved (12) Hypokalemia: Plan: Mild today Replaced with potassium phosphate (13) DVT prophylaxis: Plan: lovenox 40mg BID (14) Constipation: Plan: Severe, no bowel movement since 12/11 Continue senna Was given mineral oil per NG as well as 1 injection of Relistor on 12/20 Plan: Disposition-continued stay in the ICU Admission and Anticipated Discharge Date Admission Date: December 03, 2020 Subjective Pt remains intubated. Had SBT this AM and had some elevated BPs. He has not had a bowel movement in 9 days. Review of Systems Review of Systems: Unobtainable due to endotracheal tube and Unobtainable due to reduced consciousness Physical Exam Constitutional: + mechanically ventilated; no acute distress Results & Data Results & Data ([facility]) Vital Signs (Past 12 Hours) Vital Signs Temp Pulse Pulse Resp BP BP Pulse Ox 12/20/20 16:10 67 33 H 86 L 12/20/20 16:00 134/71 12/20/20 13:00 28 H 12/20/20 12:00 36.9 C 63 11 L 189/68 H 89 L 12/20/20 11:57 15 12/20/20 11:48 65 17 90 12/20/20 11:00 36.8 C 63 26 H 91 12/20/20 10:00 36.9 C 59 L 24 91 12/20/20 09:00 36.8 C 59 L 27 H 91 12/20/20 08:00 36.9 C 62 25 H 124/45 L 89 L 12/20/20 07:35 63 30 H 90 12/20/20 07:00 36.9 C 66 61 25 H 121/44 L 90 12/20/20 06:00 36.9 C 68 25 H 90 Laboratory Results 12/20/20 12/20/20 12/20/20 Range/Units 20:24 16:05 11:32 WBC (4.8-10.8) K/uL RBC (4.7-6.1) M/uL Hgb (14.0-18.0) g/dL POC Hgb (14.0-18.0) g/dl Hct (42-52) % POC Hct (42-52) % MCV (80-100) fL MCH (25-34) pg MCHC (32-36) g/dL RDW Std Deviation (36.4-46.3) fL RDW Coeff of Lu (11.5-14.5) % Plt Count (130-400) K/uL MPV (7.4-10.4) fL Immature Gran % (Auto) % Neut % (Auto) % Lymph % (Auto) % Republic % (Auto) % Eos % (Auto) % Baso % (Auto) % Neut # (Auto) (1.4-6.5) K/uL Lymph # (Auto) (1.2-3.4) K/uL [place] # (Auto) (0.11-0.59) K/uL Eos # (Auto) (0-0.5) K/uL Baso # (Auto) (0-0.2) K/uL Immature Gran # (Auto) (0.00-0.02) K/uL Sample Site POC pH (7.35-7.45) POC pCO2 (35-46) mmHg POC pO2 (80-95) mmHg POC HCO3 (19-24) bella/L POC Total CO2 (24-31) mmol/L POC Base Excess (-9-1.8) bella/L ABG pH (Temp Correct) (7.35-7.45) ABG pCO2 (Temp Corrct (35-46) mmHg POC ABG pO2 at Pt Temp POC ABG O2 Sat (90-95) % Robert Test O2 Delivery Device POC O2 Rate Minute Ventilation POC FiO2 % Tidal Volume PEEP POC Sodium (135-144) mmol/L Sodium (136-145) mmol/L POC Potassium (3.3-5.0) mmol/L Potassium (3.5-5.1) mmol/L Chloride (98-107) mmol/L Carbon Dioxide (21-32) mmol/L Anion Gap (3-11) BUN (7-18) mg/dl Creatinine (0.6-1.4) mg/dl Est Cr Clr Drug Dosing ml/min Est GFR ( Amer) ml/min Est GFR (Non-Af Amer) ml/min BUN/Creatinine Ratio (10-20) Glucose (70-99) mg/dl POC Glucose 112 H 120 H 112 H (70-99) mg/dl Calcium (8.5-10.1) mg/dl Phosphorus (2.5-4.9) mg/dl Magnesium (1.8-2.4) mg/dl 12/20/20 12/20/20 12/20/20 Range/Units 08:23 05:08 05:08 WBC 13.25 H (4.8-10.8) K/uL RBC 3.99 L (4.7-6.1) M/uL Hgb 12.1 L (14.0-18.0) g/dL POC Hgb (14.0-18.0) g/dl Hct 37.4 L (42-52) % POC Hct (42-52) % MCV 93.7 (80-100) fL MCH 30.3 (25-34) pg MCHC 32.4 (32-36) g/dL RDW Std Deviation 51.6 H (36.4-46.3) fL RDW Coeff of Lu 15.2 H (11.5-14.5) % Plt Count 194 (130-400) K/uL MPV 10.2 (7.4-10.4) fL Immature Gran % (Auto) 1.2 % Neut % (Auto) 88.0 % Lymph % (Auto) 5.1 % Republic % (Auto) 5.1 % Eos % (Auto) 0.5 % Baso % (Auto) 0.1 % Neut # (Auto) 11.65 H (1.4-6.5) K/uL Lymph # (Auto) 0.68 L (1.2-3.4) K/uL Republic # (Auto) 0.68 H (0.11-0.59) K/uL Eos # (Auto) 0.07 (0-0.5) K/uL Baso # (Auto) 0.01 (0-0.2) K/uL Immature Gran # (Auto) 0.16 H (0.00-0.02) K/uL Sample Site POC pH (7.35-7.45) POC pCO2 (35-46) mmHg POC pO2 (80-95) mmHg POC HCO3 (19-24) bella/L POC Total CO2 (24-31) mmol/L POC Base Excess (-9-1.8) bella/L ABG pH (Temp Correct) (7.35-7.45) ABG pCO2 (Temp Corrct (35-46) mmHg POC ABG pO2 at Pt Temp POC ABG O2 Sat (90-95) % Robert Test O2 Delivery Device POC O2 Rate Minute Ventilation POC FiO2 % Tidal Volume PEEP POC Sodium (135-144) mmol/L Sodium 134 L (136-145) mmol/L POC Potassium (3.3-5.0) mmol/L Potassium 3.4 L D (3.5-5.1) mmol/L Chloride 100 (98-107) mmol/L Carbon Dioxide 32 (21-32) mmol/L Anion Gap 2.0 L (3-11) BUN 29 H (7-18) mg/dl Creatinine 0.58 L (0.6-1.4) mg/dl Est Cr Clr Drug Dosing 119.6 ml/min Est GFR ( Amer) 122.3 ml/min Est GFR (Non-Af Amer) 105.5 ml/min BUN/Creatinine Ratio 50.8 H (10-20) Glucose 114 H (70-99) mg/dl POC Glucose 98 (70-99) mg/dl Calcium 8.3 L (8.5-10.1) mg/dl Phosphorus 3.0 (2.5-4.9) mg/dl Magnesium 2.1 (1.8-2.4) mg/dl 12/20/20 12/20/20 12/20/20 Range/Units 03:53 03:13 00:28 WBC (4.8-10.8) K/uL RBC (4.7-6.1) M/uL Hgb (14.0-18.0) g/dL POC Hgb 12.2 L (14.0-18.0) g/dl Hct (42-52) % POC Hct 36 L (42-52) % MCV (80-100) fL MCH (25-34) pg MCHC (32-36) g/dL RDW Std Deviation (36.4-46.3) fL RDW Coeff of Lu (11.5-14.5) % Plt Count (130-400) K/uL MPV (7.4-10.4) fL Immature Gran % (Auto) % Neut % (Auto) % Lymph % (Auto) % Republic % (Auto) % Eos % (Auto) % Baso % (Auto) % Neut # (Auto) (1.4-6.5) K/uL Lymph # (Auto) (1.2-3.4) K/uL Republic # (Auto) (0.11-0.59) K/uL Eos # (Auto) (0-0.5) K/uL Baso # (Auto) (0-0.2) K/uL Immature Gran # (Auto) (0.00-0.02) K/uL Sample Site Art Line POC pH 7.34 L (7.35-7.45) POC pCO2 61 H (35-46) mmHg POC pO2 80 (80-95) mmHg POC HCO3 33 H (19-24) bella/L POC Total CO2 35 H (24-31) mmol/L POC Base Excess 8.0 H (-9-1.8) bella/L ABG pH (Temp Correct) 7.345 L (7.35-7.45) ABG pCO2 (Temp Corrct 61 H (35-46) mmHg POC ABG pO2 at Pt Temp 80 POC ABG O2 Sat 95.0 (90-95) % Robert Test NA O2 Delivery Device Ventilator POC O2 Rate 28 Minute Ventilation 8.4 POC FiO2 60 % Tidal Volume 300 PEEP 5 POC Sodium 135 (135-144) mmol/L Sodium (136-145) mmol/L POC Potassium 3.5 (3.3-5.0) mmol/L Potassium (3.5-5.1) mmol/L Chloride (98-107) mmol/L Carbon Dioxide (21-32) mmol/L Anion Gap (3-11) BUN (7-18) mg/dl Creatinine (0.6-1.4) mg/dl Est Cr Clr Drug Dosing ml/min Est GFR ( Amer) ml/min Est GFR (Non-Af Amer) ml/min BUN/Creatinine Ratio (10-20) Glucose (70-99) mg/dl POC Glucose 134 H 125 H (70-99) mg/dl Calcium (8.5-10.1) mg/dl Phosphorus (2.5-4.9) mg/dl Magnesium (1.8-2.4) mg/dl PG Care Time/CCT Total # of Minutes Spent Total Time Spent with Patient: Total time spent is greater than 50% in coordination of care (as documented) at patient's floor/unit and/or counseling patient: Coding Level of Care Code 69678 Subseq Hosp Care Lvl 1 Diagnoses Pneumonia due to 2019 novel coronavirus U07.1; J12.82 Acute respiratory failure with hypoxia J96.01 Pneumothorax J93.9 Headache R51.9 Sore throat J02.9 CAD (coronary artery disease) I25.10 Benign essential hypertension I10 Hyperlipidemia E78.5 GERD (gastroesophageal reflux disease) K21.9 Elevated LFTs R79.89 Hyponatremia E87.1 Hypokalemia E87.6 DVT prophylaxis Z29.9 Constipation K59.00
[2020-12-20] MEDS: ASPIRIN 81 MG CHEW PO SCH (20:15)
[2020-12-20] MEDS: ATORVASTATIN 40 MG TAB PO SCH (20:16)
[2020-12-21] MEDS: INSULIN ASPART 100 UNITS/ML 3 ML PEN SC SCH ×6 (00:36→20:57)
[2020-12-21] MEDS: TUBE FEEDING WATER FLUSH OG SCH ×6 (00:37→20:43)
[2020-12-21] MEDS: propofoL 1,000 MG/100 ML VIAL IV SCH ×5 (00:38→20:41)
[2020-12-21] MEDS: PEPTAMEN INTENSE VHP 1.0 CAL 1,000 ML BAG OG SCH ×2 (01:17→18:18)
[2020-12-21] MEDS: ARTIFICIAL TEARS OP OINT 3.5 GM TUBE OP SCH ×5 (04:09→17:39)
[2020-12-21 04:19] LABS: iSTAT Art Bld Gas pCO2 Correct 57 mmHg (35-46); iSTAT Art Bld Gas pH Corrected 7.363 (7.35-7.45); iSTAT Arterial Blood Gas HCO3 32 meg/L (19-24); iSTAT Arterial Blood Gas pCO2 56 mmHg (35-46); iSTAT Arterial Blood Gas pH 7.37 (7.35-7.45); iSTAT Arterial Blood Gas pO2 61 mmHg (80-95); iSTAT Arterial Blood Gas pO2 C 63; iSTAT Carbon Dioxide 34 mmol/L (24-31); iSTAT FiO2 55 %; iSTAT Hematocrit 37 % (42-52); iSTAT Hemoglobin 12.6 g/dl (14.0-18.0); iSTAT Potassium 3.9 mmol/L (3.3-5.0); iSTAT Site Art Line; iSTAT Sodium 138 mmol/L (135-144)
[2020-12-21] MEDS: fentaNYL DRIP 1,250 MCG/250 ML BAG IV SCH ×3 (04:32→20:41)
[2020-12-21 05:35] LABS: Basophils # (auto) 0.01 K/uL (0-0.2); Basophils % (auto) 0.1 %; Eosinophils % (auto) 1.2 %; Hematocrit (blood only) 36.2 % (42-52); Hemoglobin 11.9 g/dL (14.0-18.0); Immature Granulocytes # (auto) 0.12 K/uL (0.00-0.02); Immature Granulocytes % (auto) 0.7 %; Lymphocytes # (auto) 0.83 K/uL (1.2-3.4); Lymphocytes % (auto) 5.1 %; Mean Corpuscular Hgb Conc 32.9 g/dL (32-36); Mean Corpuscular Volume 91.2 fL (80-100); Mean Platelet Volume 9.6 fL (7.4-10.4); Monocytes # (auto) 0.52 K/uL (0.11-0.59); Monocytes % (auto) 3.2 %; Neutrophils # (auto) 14.55 K/uL (1.4-6.5); Neutrophils % (auto) 89.7 %; Platelet Count 205 K/uL (130-400); RDW Coefficient of Variation 15.5 % (11.5-14.5); RDW Standard Deviation 51.3 fL (36.4-46.3); Red Blood Count 3.97 M/uL (4.7-6.1); White Blood Count 16.23 K/uL (4.8-10.8)
[2020-12-21 06:01] LABS: BUN Creatinine Ratio 60.8 (10-20); Calcium 8.7 mg/dl (8.5-10.1); Creatinine Clr Calc Pharmacy 115.6 ml/min; Est GFR (African American) 120.6 ml/min; Magnesium 2.1 mg/dl (1.8-2.4); Potassium 3.7 mmol/L (3.5-5.1)
[2020-12-21 06:09] LABS: Phosphorus 2.4 mg/dl (2.5-4.9)
[2020-12-21] MEDS: POTASSIUM CHLORIDE / WTR 10 MEQ/100 ML PLCT IV SCH ×2 (06:39→08:22)
--- NOTE | 2020-12-21 08:11 | Critical Care Progress Note ---
Date of Service December 21, 2020 Assessment & Plan (1) CAD (coronary artery disease): (2) Benign essential hypertension: (3) Hyperlipidemia: (4) GERD (gastroesophageal reflux disease): (5) COVID-19: Plan: Reason Critically Ill: 65-year-old male here with Covid pneumonia and ARDS. He is now finished with the late phase ARDS dexamethasone protocol since 12/03. He is outside the window for Tocilizumab or baricitinib. Intubated 12/12 for respiratory demise. Unfortunately, he continues to make minimal improvement despite adjustments with his ventilator and adjunctive therapies. Neuro - Sedation: Continue propofol, Fentanyl. No need for NMB at this time. Cardiac - Maintain on dry side. I&Os at goal. No longer requiring pressor support. Respiratory - COVID-19 pneumonia with ARDS, trace PNX/pneumomediastinum. Intubated on 12/12. Noted to have small, apical left pneumothorax with subcutaneous emphysema and pneumomediastinum on CXR 12/18- -- crepitus also appreciated on physical exam. No evidence of tension or obstructive physiology at this time. We will continue low PEEP, high FiO2 strategy and attempt to limit elevations of plateau pressures and barotrauma --[place] positive. P/F ratio @ 133 mmHg (from 112) --ABG, BMP this AM demonstrating respiratory acidosis with continued contraction alkalosis - continue rates, continue acetazolamide/chlorothiazide --AC vent settings of TV 300, PEEP 5, FiO2 60, RR 28 --s/p late-phase dexamethasone x 10 days --Poor candidate for proning at this time given diffuse disease on CTA --Given small size of PNX/pneumomediastinum, no room for interventional procedure right now. Will monitor. -Spontaneous breathing trial today -Intubation day number day 10 GI - Continue feedings via OGT. At goal. Appreciate nutrition insight and recommendations. Continue famotidine. Constipation: Lactulose today RENAL/LYTES - No significant issues at this time. BUN and Cr stable. Will continue to follow electrolytes and replete as needed. -- BMP stable with ongoing diuresis NED - Mccullough in place, monitor intake and output ENDO - ICU hyperglycemia protocol HEME - Stable H&H. Monitor. Leukocytosis noted. ID - COVID-19 pneumonia with ARDS, as noted above. On dexamethasone. Continue CFTX for presumed bacterial superinfection. INTEGUMENTARY - No acute needs. LINES/IV ACCESS - CVC, ETT, PIV, OGT, Mccullough DVT PROPHYLAXIS - Lovenox 40 q12 Palliative care discussed with family will proceed with full aggressive interventions including heroic measures as well as tracheostomy if patient is not extubated will within 14-day timeframe (6) Hypoxia: (7) Pneumonia due to 2019 novel coronavirus: (8) Acute respiratory failure with hypoxia: (9) Elevated LFTs: (10) DVT prophylaxis: (11) Hyponatremia: (12) Hypokalemia: (13) Headache: (14) Sore throat: (15) Pneumothorax: Admission and Anticipated Discharge Date Admission Date: December 03, 2020 Supervising Physician Co-Signing Physician Notes Patient is critically ill I have personally spent 45 minutes of critical care time in the direct management of this patient. This is a life/limb threatening event. This includes time spent evaluating patient, direct bedside care, chart review, placing orders, interpretation of diagnostic studies, discussion with consultants, patient, and/or family members regarding treatment decisions, as well as other required patient management activities. This time is exclusive of all separately billable procedures, and teaching time and separate from and in addition to any other critical care service time. Subjective No overnight events Review of Systems Review of Systems: Unobtainable due to endotracheal tube Physical Exam Physical Exam: General: Sedated. nontoxic. Skin: Warm, dry, Head: Atraumatic Ears, nose, mouth and throat: airway secured by endotracheal tube Cardiovascular: Normal peripheral perfusion Respiratory: Ventilator settings reviewed Gastrointestinal: Non distended Musculoskeletal: No deformity Results & Data Results & Data ([facility]) Vital Signs (Past 12 Hours) Vital Signs Temp Pulse Resp BP Pulse Ox 12/21/20 07:00 37.2 C 12/21/20 04:09 74 34 H 89 L 12/21/20 04:00 37.6 C H 69 21 138/43 L 88 L 12/21/20 03:00 37.6 C H 76 21 87 L 12/21/20 02:00 37.5 C 75 13 89 L 12/21/20 01:00 37.5 C 74 16 87 L 12/21/20 00:00 37.5 C 75 23 134/49 L 88 L 12/20/20 23:45 72 34 H 89 L 12/20/20 23:00 37.5 C 72 27 H 88 L 12/20/20 22:00 37.4 C 73 15 88 L 12/20/20 21:00 37.5 C 73 29 H 89 L Laboratory Results 12/21/20 12/21/20 12/21/20 Range/Units 07:40 05:16 05:16 WBC 16.23 H (4.8-10.8) K/uL RBC 3.97 L (4.7-6.1) M/uL Hgb 11.9 L (14.0-18.0) g/dL POC Hgb (14.0-18.0) g/dl Hct 36.2 L (42-52) % POC Hct (42-52) % MCV 91.2 (80-100) fL MCH 30.0 (25-34) pg MCHC 32.9 (32-36) g/dL RDW Std Deviation 51.3 H (36.4-46.3) fL RDW Coeff of Lu 15.5 H (11.5-14.5) % Plt Count 205 (130-400) K/uL MPV 9.6 (7.4-10.4) fL Immature Gran % (Auto) 0.7 % Neut % (Auto) 89.7 % Lymph % (Auto) 5.1 % [place] % (Auto) 3.2 % Eos % (Auto) 1.2 % Baso % (Auto) 0.1 % Neut # (Auto) 14.55 H (1.4-6.5) K/uL Lymph # (Auto) 0.83 L (1.2-3.4) K/uL [place] # (Auto) 0.52 (0.11-0.59) K/uL Eos # (Auto) 0.20 (0-0.5) K/uL Baso # (Auto) 0.01 (0-0.2) K/uL Immature Gran # (Auto) 0.12 H (0.00-0.02) K/uL Sample Site POC pH (7.35-7.45) POC pCO2 (35-46) mmHg POC pO2 (80-95) mmHg POC HCO3 (19-24) bella/L POC Total CO2 (24-31) mmol/L POC Base Excess (-9-1.8) bella/L ABG pH (Temp Correct) (7.35-7.45) ABG pCO2 (Temp Corrct (35-46) mmHg POC ABG pO2 at Pt Temp POC ABG O2 Sat (90-95) % Robert Test O2 Delivery Device POC O2 Rate POC FiO2 % Tidal Volume PEEP POC Sodium (135-144) mmol/L Sodium 137 (136-145) mmol/L POC Potassium (3.3-5.0) mmol/L Potassium 3.7 (3.5-5.1) mmol/L Chloride 102 (98-107) mmol/L Carbon Dioxide 29 (21-32) mmol/L Anion Gap 5.0 (3-11) BUN 37 H (7-18) mg/dl Creatinine 0.60 (0.6-1.4) mg/dl Est Cr Clr Drug Dosing 115.6 ml/min Est GFR ( Amer) 120.6 ml/min Est GFR (Non-Af Amer) 104.0 ml/min BUN/Creatinine Ratio 60.8 H (10-20) Glucose 119 H (70-99) mg/dl POC Glucose 100 H (70-99) mg/dl Calcium 8.7 (8.5-10.1) mg/dl Phosphorus 2.4 L (2.5-4.9) mg/dl Magnesium 2.1 (1.8-2.4) mg/dl 12/21/20 12/21/20 12/21/20 Range/Units 04:02 04:00 00:22 WBC (4.8-10.8) K/uL RBC (4.7-6.1) M/uL Hgb (14.0-18.0) g/dL POC Hgb 12.6 L (14.0-18.0) g/dl Hct (42-52) % POC Hct 37 L (42-52) % MCV (80-100) fL MCH (25-34) pg MCHC (32-36) g/dL RDW Std Deviation (36.4-46.3) fL RDW Coeff of Lu (11.5-14.5) % Plt Count (130-400) K/uL MPV (7.4-10.4) fL Immature Gran % (Auto) % Neut % (Auto) % Lymph % (Auto) % [place] % (Auto) % Eos % (Auto) % Baso % (Auto) % Neut # (Auto) (1.4-6.5) K/uL Lymph # (Auto) (1.2-3.4) K/uL [place] # (Auto) (0.11-0.59) K/uL Eos # (Auto) (0-0.5) K/uL Baso # (Auto) (0-0.2) K/uL Immature Gran # (Auto) (0.00-0.02) K/uL Sample Site Art Line POC pH 7.37 (7.35-7.45) POC pCO2 56 H (35-46) mmHg POC pO2 61 L (80-95) mmHg POC HCO3 32 H (19-24) bella/L POC Total CO2 34 H (24-31) mmol/L POC Base Excess 7.0 H (-9-1.8) bella/L ABG pH (Temp Correct) 7.363 (7.35-7.45) ABG pCO2 (Temp Corrct 57 H (35-46) mmHg POC ABG pO2 at Pt Temp 63 POC ABG O2 Sat 90.0 (90-95) % Robert Test NA O2 Delivery Device Ventilator POC O2 Rate 28 POC FiO2 55 % Tidal Volume 300 PEEP 5 POC Sodium 138 (135-144) mmol/L Sodium (136-145) mmol/L POC Potassium 3.9 (3.3-5.0) mmol/L Potassium (3.5-5.1) mmol/L Chloride (98-107) mmol/L Carbon Dioxide (21-32) mmol/L Anion Gap (3-11) BUN (7-18) mg/dl Creatinine (0.6-1.4) mg/dl Est Cr Clr Drug Dosing ml/min Est GFR ( Amer) ml/min Est GFR (Non-Af Amer) ml/min BUN/Creatinine Ratio (10-20) Glucose (70-99) mg/dl POC Glucose 101 H 97 (70-99) mg/dl Calcium (8.5-10.1) mg/dl Phosphorus (2.5-4.9) mg/dl Magnesium (1.8-2.4) mg/dl 12/20/20 12/20/20 12/20/20 Range/Units 20:24 16:05 11:32 WBC (4.8-10.8) K/uL RBC (4.7-6.1) M/uL Hgb (14.0-18.0) g/dL POC Hgb (14.0-18.0) g/dl Hct (42-52) % POC Hct (42-52) % MCV (80-100) fL MCH (25-34) pg MCHC (32-36) g/dL RDW Std Deviation (36.4-46.3) fL RDW Coeff of Lu (11.5-14.5) % Plt Count (130-400) K/uL MPV (7.4-10.4) fL Immature Gran % (Auto) % Neut % (Auto) % Lymph % (Auto) % [place] % (Auto) % Eos % (Auto) % Baso % (Auto) % Neut # (Auto) (1.4-6.5) K/uL Lymph # (Auto) (1.2-3.4) K/uL [place] # (Auto) (0.11-0.59) K/uL Eos # (Auto) (0-0.5) K/uL Baso # (Auto) (0-0.2) K/uL Immature Gran # (Auto) (0.00-0.02) K/uL Sample Site POC pH (7.35-7.45) POC pCO2 (35-46) mmHg POC pO2 (80-95) mmHg POC HCO3 (19-24) bella/L POC Total CO2 (24-31) mmol/L POC Base Excess (-9-1.8) bella/L ABG pH (Temp Correct) (7.35-7.45) ABG pCO2 (Temp Corrct (35-46) mmHg POC ABG pO2 at Pt Temp POC ABG O2 Sat (90-95) % Robert Test O2 Delivery Device POC O2 Rate POC FiO2 % Tidal Volume PEEP POC Sodium (135-144) mmol/L Sodium (136-145) mmol/L POC Potassium (3.3-5.0) mmol/L Potassium (3.5-5.1) mmol/L Chloride (98-107) mmol/L Carbon Dioxide (21-32) mmol/L Anion Gap (3-11) BUN (7-18) mg/dl Creatinine (0.6-1.4) mg/dl Est Cr Clr Drug Dosing ml/min Est GFR ( Amer) ml/min Est GFR (Non-Af Amer) ml/min BUN/Creatinine Ratio (10-20) Glucose (70-99) mg/dl POC Glucose 112 H 120 H 112 H (70-99) mg/dl Calcium (8.5-10.1) mg/dl Phosphorus (2.5-4.9) mg/dl Magnesium (1.8-2.4) mg/dl 12/20/20 Range/Units 08:23 WBC (4.8-10.8) K/uL RBC (4.7-6.1) M/uL Hgb (14.0-18.0) g/dL POC Hgb (14.0-18.0) g/dl Hct (42-52) % POC Hct (42-52) % MCV (80-100) fL MCH (25-34) pg MCHC (32-36) g/dL RDW Std Deviation (36.4-46.3) fL RDW Coeff of Lu (11.5-14.5) % Plt Count (130-400) K/uL MPV (7.4-10.4) fL Immature Gran % (Auto) % Neut % (Auto) % Lymph % (Auto) % [place] % (Auto) % Eos % (Auto) % Baso % (Auto) % Neut # (Auto) (1.4-6.5) K/uL Lymph # (Auto) (1.2-3.4) K/uL [place] # (Auto) (0.11-0.59) K/uL Eos # (Auto) (0-0.5) K/uL Baso # (Auto) (0-0.2) K/uL Immature Gran # (Auto) (0.00-0.02) K/uL Sample Site POC pH (7.35-7.45) POC pCO2 (35-46) mmHg POC pO2 (80-95) mmHg POC HCO3 (19-24) bella/L POC Total CO2 (24-31) mmol/L POC Base Excess (-9-1.8) bella/L ABG pH (Temp Correct) (7.35-7.45) ABG pCO2 (Temp Corrct (35-46) mmHg POC ABG pO2 at Pt Temp POC ABG O2 Sat (90-95) % Robert Test O2 Delivery Device POC O2 Rate POC FiO2 % Tidal Volume PEEP POC Sodium (135-144) mmol/L Sodium (136-145) mmol/L POC Potassium (3.3-5.0) mmol/L Potassium (3.5-5.1) mmol/L Chloride (98-107) mmol/L Carbon Dioxide (21-32) mmol/L Anion Gap (3-11) BUN (7-18) mg/dl Creatinine (0.6-1.4) mg/dl Est Cr Clr Drug Dosing ml/min Est GFR ( Amer) ml/min Est GFR (Non-Af Amer) ml/min BUN/Creatinine Ratio (10-20) Glucose (70-99) mg/dl POC Glucose 98 (70-99) mg/dl Calcium (8.5-10.1) mg/dl Phosphorus (2.5-4.9) mg/dl Magnesium (1.8-2.4) mg/dl Coding Level of Care Code Critical Care 1st 30-74 mins Diagnoses CAD (coronary artery disease) I25.10 Benign essential hypertension I10 Hyperlipidemia E78.5 GERD (gastroesophageal reflux disease) K21.9 COVID-19 U07.1 Hypoxia R09.02 Pneumonia due to 2019 novel coronavirus U07.1; J12.82 Acute respiratory failure with hypoxia J96.01 Elevated LFTs R79.89 DVT prophylaxis Z29.9 Hyponatremia E87.1 Hypokalemia E87.6 Headache R51.9 Sore throat J02.9 Pneumothorax J93.9
[2020-12-21] MEDS: FAMOTIDINE 20 MG in SYRINGE 3 ML IV SCH ×2 (08:22→20:42)
[2020-12-21] MEDS: SENNA 8.6 MG TAB PO SCH (08:22)
--- NOTE | 2020-12-21 08:23 | XRay Report ---
XR chest 1V portable CLINICAL HISTORY: Respiratory failure. COMPARISON STUDY: Chest radiograph December 20, 2020. FINDINGS: Tip of endotracheal tube is 3.6 cm above the joey. Tip of nasogastric tube is within the body of the stomach. Left subclavian central line is in place. Cardiomediastinal silhouette is stable . Persistent bilateral airspace opacities are noted. These are similar to prior exam. Subcutaneous ga s within the lower neck is again noted. Pneumomediastinum has decreased. No pneumothorax is identifie d. IMPRESSION: 1. Satisfactory positioning of lines and tubes. 2. No significant change in extensive bilateral airspace opacities. 3. Redemonstration of subcutaneous gas within the lower neck. No pneumothorax. ACT 112: Negative or not required by law. Electronically signed by: Alcides Adrian M.D. 12/21/2020 8:22 AM
[2020-12-21] MEDS: cefTRIAXone SODIUM 1,000 MG in DEXTROSE 5% 50 ML IV SCH (08:55)
[2020-12-21] MEDS: LACTULOSE SYRUP 30 GM/45 ML UDP PO SCH (08:55)
[2020-12-21] MEDS: ENOXAPARIN INJ 40 MG/0.4 ML SYR SQ SCH ×2 (11:02→20:59)
--- NOTE | 2020-12-21 15:49 | Hospitalist Progress Note ---
Date of Service December 21, 2020 Assessment & Plan (1) Pneumonia due to 2019 novel coronavirus: Plan: Severe disease declined to point of needing intubation on 12/12 Remains on ventilator, now pursuing low PEEP and high FiO2 due to pneumomediastinum and pneumothorax which is small -Requiring minimal sedation and no paralytics, failing SBT daily -completed high-dose dexamethasone course x 10 days -He was not a candidate for Tocilizumab at the time his respiratory status decompensated -Completed a course of azithromycin early on -Now sputum culture growing MSSA-continue ceftriaxone Was given IV Lasix and then given acetazolamide and chlorothiazide-no further d iuretics today -Palliative care consultation reviewed- is agreeable to tracheostomy if needed--> plan for trach on Wednesday (2) Acute respiratory failure with hypoxia: Plan: ventilator dependent respiratory failure Covid-19 pneumonia as well as bacterial pneumonia, intubated on 12/[address] Hernandez As above (3) Pneumothorax: Plan: resolved on CXR now, still with subcutaneous air over neck low PEEP high FiO2 Follow chest x-ray daily (4) Headache: Plan: right eye region/right forehead with right eye tearing, right nare drainage, more intense on 12/08 CT head 12/08 - negative for ICH, stroke, etc. he had transient L hand numbness this am - then resolved could have been TIA could have been neuro symptoms 2nd to a migraine headache no triptans due to CAD Now intubated so unclear if headache remains (5) Sore throat: Plan: most pressing complaint on 12/11 tongue and throat very dry, could be thrush from steroids? started Magic Swizzle (lidocaine) and Nystatin S/S QID, gave him some relief-no longer getting this since intubation (6) CAD (coronary artery disease): Plan: h/o RCA stents remains on asa, statin was NOT taking REI or BB at home but is on his home medication list no ischemic symptoms during this illness EKG with inverted T's inferiorly however it is unchanged from EKG from several years ago (7) Benign essential hypertension: Plan: BP stable (8) Hyperlipidemia: Plan: statin (9) GERD (gastroesophageal reflux disease): Plan: PPI (10) Elevated LFTs: Plan: likely 2nd to COVID-19 infection Resolved (11) Hyponatremia: Plan: 2nd recent diarrhea, poor oral intake, etc resolved (12) Hypokalemia: Plan: Mild today Replaced with potassium phosphate (13) DVT prophylaxis: Plan: lovenox 40mg BID (14) Constipation: Plan: Severe, no bowel movement since 12/11 Continue senna Was given mineral oil per NG as well as 1 injection of Relistor on 12/20 Lactulose started on 12/21 Plan: Disposition-continued stay in the ICU Admission and Anticipated Discharge Date Admission Date: December 03, 2020 Subjective No overnight events. Had SBT this AM x 30 min and had to be sedated again Plan for trach tomorrow Still no BM in 10 days Review of Systems Review of Systems: Unobtainable due to endotracheal tube and Unobtainable due to reduced consciousness Physical Exam Constitutional: + mechanically ventilated; no acute distress Results & Data Results & Data ([facility]) Vital Signs (Past 12 Hours) Vital Signs Temp Pulse Resp BP Pulse Ox 12/21/20 12:00 37.5 C 77 23 88 L 12/21/20 11:30 37.6 C H 78 29 H 89 L 12/21/20 11:00 37.6 C H 79 26 H 89 L 12/21/20 10:30 37.6 C H 77 24 89 L 12/21/20 10:00 37.6 C H 79 23 88 L 12/21/20 09:30 37.6 C H 75 24 87 L 12/21/20 09:00 37.5 C 80 22 88 L 12/21/20 08:33 79 18 88 L 12/21/20 08:30 37.5 C 76 34 H 88 L 12/21/20 08:00 37.6 C H 75 28 H 88 L 12/21/20 07:30 37.6 C H 78 23 91 12/21/20 07:00 37.6 C H 79 27 H 87 L 12/21/20 04:09 74 34 H 89 L 12/21/20 04:00 37.6 C H 69 21 138/43 L 88 L Laboratory Results 12/21/20 12/21/20 12/21/20 Range/Units 11:13 07:40 05:16 WBC (4.8-10.8) K/uL RBC (4.7-6.1) M/uL Hgb (14.0-18.0) g/dL POC Hgb (14.0-18.0) g/dl Hct (42-52) % POC Hct (42-52) % MCV (80-100) fL MCH (25-34) pg MCHC (32-36) g/dL RDW Std Deviation (36.4-46.3) fL RDW Coeff of Lu (11.5-14.5) % Plt Count (130-400) K/uL MPV (7.4-10.4) fL Immature Gran % (Auto) % Neut % (Auto) % Lymph % (Auto) % Morton % (Auto) % Eos % (Auto) % Baso % (Auto) % Neut # (Auto) (1.4-6.5) K/uL Lymph # (Auto) (1.2-3.4) K/uL Morton # (Auto) (0.11-0.59) K/uL Eos # (Auto) (0-0.5) K/uL Baso # (Auto) (0-0.2) K/uL Immature Gran # (Auto) (0.00-0.02) K/uL Sample Site POC pH (7.35-7.45) POC pCO2 (35-46) mmHg POC pO2 (80-95) mmHg POC HCO3 (19-24) bella/L POC Total CO2 (24-31) mmol/L POC Base Excess (-9-1.8) bella/L ABG pH (Temp Correct) (7.35-7.45) ABG pCO2 (Temp Corrct (35-46) mmHg POC ABG pO2 at Pt Temp POC ABG O2 Sat (90-95) % Robert Test O2 Delivery Device POC O2 Rate POC FiO2 % Tidal Volume PEEP POC Sodium (135-144) mmol/L Sodium 137 (136-145) mmol/L POC Potassium (3.3-5.0) mmol/L Potassium 3.7 (3.5-5.1) mmol/L Chloride 102 (98-107) mmol/L Carbon Dioxide 29 (21-32) mmol/L Anion Gap 5.0 (3-11) BUN 37 H (7-18) mg/dl Creatinine 0.60 (0.6-1.4) mg/dl Est Cr Clr Drug Dosing 115.6 ml/min Est GFR ( Amer) 120.6 ml/min Est GFR (Non-Af Amer) 104.0 ml/min BUN/Creatinine Ratio 60.8 H (10-20) Glucose 119 H (70-99) mg/dl POC Glucose 119 H 100 H (70-99) mg/dl Calcium 8.7 (8.5-10.1) mg/dl Phosphorus 2.4 L (2.5-4.9) mg/dl Magnesium 2.1 (1.8-2.4) mg/dl 12/21/20 12/21/20 12/21/20 Range/Units 05:16 04:02 04:00 WBC 16.23 H (4.8-10.8) K/uL RBC 3.97 L (4.7-6.1) M/uL Hgb 11.9 L (14.0-18.0) g/dL POC Hgb 12.6 L (14.0-18.0) g/dl Hct 36.2 L (42-52) % POC Hct 37 L (42-52) % MCV 91.2 (80-100) fL MCH 30.0 (25-34) pg MCHC 32.9 (32-36) g/dL RDW Std Deviation 51.3 H (36.4-46.3) fL RDW Coeff of Lu 15.5 H (11.5-14.5) % Plt Count 205 (130-400) K/uL MPV 9.6 (7.4-10.4) fL Immature Gran % (Auto) 0.7 % Neut % (Auto) 89.7 % Lymph % (Auto) 5.1 % Morton % (Auto) 3.2 % Eos % (Auto) 1.2 % Baso % (Auto) 0.1 % Neut # (Auto) 14.55 H (1.4-6.5) K/uL Lymph # (Auto) 0.83 L (1.2-3.4) K/uL Morton # (Auto) 0.52 (0.11-0.59) K/uL Eos # (Auto) 0.20 (0-0.5) K/uL Baso # (Auto) 0.01 (0-0.2) K/uL Immature Gran # (Auto) 0.12 H (0.00-0.02) K/uL Sample Site Art Line POC pH 7.37 (7.35-7.45) POC pCO2 56 H (35-46) mmHg POC pO2 61 L (80-95) mmHg POC HCO3 32 H (19-24) bella/L POC Total CO2 34 H (24-31) mmol/L POC Base Excess 7.0 H (-9-1.8) bella/L ABG pH (Temp Correct) 7.363 (7.35-7.45) ABG pCO2 (Temp Corrct 57 H (35-46) mmHg POC ABG pO2 at Pt Temp 63 POC ABG O2 Sat 90.0 (90-95) % Robert Test NA O2 Delivery Device Ventilator POC O2 Rate 28 POC FiO2 55 % Tidal Volume 300 PEEP 5 POC Sodium 138 (135-144) mmol/L Sodium (136-145) mmol/L POC Potassium 3.9 (3.3-5.0) mmol/L Potassium (3.5-5.1) mmol/L Chloride (98-107) mmol/L Carbon Dioxide (21-32) mmol/L Anion Gap (3-11) BUN (7-18) mg/dl Creatinine (0.6-1.4) mg/dl Est Cr Clr Drug Dosing ml/min Est GFR ( Amer) ml/min Est GFR (Non-Af Amer) ml/min BUN/Creatinine Ratio (10-20) Glucose (70-99) mg/dl POC Glucose 101 H (70-99) mg/dl Calcium (8.5-10.1) mg/dl Phosphorus (2.5-4.9) mg/dl Magnesium (1.8-2.4) mg/dl 12/21/20 12/20/20 12/20/20 Range/Units 00:22 20:24 16:05 WBC (4.8-10.8) K/uL RBC (4.7-6.1) M/uL Hgb (14.0-18.0) g/dL POC Hgb (14.0-18.0) g/dl Hct (42-52) % POC Hct (42-52) % MCV (80-100) fL MCH (25-34) pg MCHC (32-36) g/dL RDW Std Deviation (36.4-46.3) fL RDW Coeff of Lu (11.5-14.5) % Plt Count (130-400) K/uL MPV (7.4-10.4) fL Immature Gran % (Auto) % Neut % (Auto) % Lymph % (Auto) % Morton % (Auto) % Eos % (Auto) % Baso % (Auto) % Neut # (Auto) (1.4-6.5) K/uL Lymph # (Auto) (1.2-3.4) K/uL Morton # (Auto) (0.11-0.59) K/uL Eos # (Auto) (0-0.5) K/uL Baso # (Auto) (0-0.2) K/uL Immature Gran # (Auto) (0.00-0.02) K/uL Sample Site POC pH (7.35-7.45) POC pCO2 (35-46) mmHg POC pO2 (80-95) mmHg POC HCO3 (19-24) bella/L POC Total CO2 (24-31) mmol/L POC Base Excess (-9-1.8) bella/L ABG pH (Temp Correct) (7.35-7.45) ABG pCO2 (Temp Corrct (35-46) mmHg POC ABG pO2 at Pt Temp POC ABG O2 Sat (90-95) % Robert Test O2 Delivery Device POC O2 Rate POC FiO2 % Tidal Volume PEEP POC Sodium (135-144) mmol/L Sodium (136-145) mmol/L POC Potassium (3.3-5.0) mmol/L Potassium (3.5-5.1) mmol/L Chloride (98-107) mmol/L Carbon Dioxide (21-32) mmol/L Anion Gap (3-11) BUN (7-18) mg/dl Creatinine (0.6-1.4) mg/dl Est Cr Clr Drug Dosing ml/min Est GFR ( Amer) ml/min Est GFR (Non-Af Amer) ml/min BUN/Creatinine Ratio (10-20) Glucose (70-99) mg/dl POC Glucose 97 112 H 120 H (70-99) mg/dl Calcium (8.5-10.1) mg/dl Phosphorus (2.5-4.9) mg/dl Magnesium (1.8-2.4) mg/dl PG Care Time/CCT Total # of Minutes Spent Total Time Spent with Patient: Total time spent is greater than 50% in coordin ation of care (as documented) at patient's floor/unit and/or counseling patient: Coding Level of Care Code 04720 Subseq Hosp Care Lvl 1 Diagnoses Pneumonia due to 2019 novel coronavirus U07.1; J12.82 Acute respiratory failure with hypoxia J96.01 Pneumothorax J93.9 Headache R51.9 Sore throat J02.9 CAD (coronary artery disease) I25.10 Benign essential hypertension I10 Hyperlipidemia E78.5 GERD (gastroesophageal reflux disease) K21.9 Elevated LFTs R79.89 Hyponatremia E87.1 Hypokalemia E87.6 DVT prophylaxis Z29.9 Constipation K59.00
[2020-12-21] MEDS ORDERED: STAT IV Infusion **Titration per Protocol STA (19:15)
[2020-12-21] MEDS: ASPIRIN 81 MG CHEW PO SCH (20:42)
[2020-12-21] MEDS: ATORVASTATIN 40 MG TAB PO SCH (20:42)
[2020-12-22] MEDS: INSULIN ASPART 100 UNITS/ML 3 ML PEN SC SCH ×6 (02:09→20:53)
[2020-12-22] MEDS: propofoL 1,000 MG/100 ML VIAL IV SCH ×7 (02:10→22:42)
[2020-12-22] MEDS: ARTIFICIAL TEARS OP OINT 3.5 GM TUBE OP SCH ×6 (02:11→23:44)
[2020-12-22] MEDS: TUBE FEEDING WATER FLUSH OG SCH ×7 (02:11→23:46)
[2020-12-22] MEDS: fentaNYL DRIP 1,250 MCG/250 ML BAG IV SCH ×4 (03:36→22:42)
[2020-12-22 03:54] LABS: iSTAT Art Bld Gas pCO2 Correct 64 mmHg (35-46); iSTAT Art Bld Gas pH Corrected 7.343 (7.35-7.45); iSTAT Arterial Blood Gas HCO3 35 meg/L (19-24); iSTAT Arterial Blood Gas pCO2 63 mmHg (35-46); iSTAT Arterial Blood Gas pH 7.35 (7.35-7.45); iSTAT Arterial Blood Gas pO2 62 mmHg (80-95); iSTAT Arterial Blood Gas pO2 C 64; iSTAT Carbon Dioxide 36 mmol/L (24-31); iSTAT FiO2 65 %; iSTAT Hematocrit 36 % (42-52); iSTAT Hemoglobin 12.2 g/dl (14.0-18.0); iSTAT Potassium 4.4 mmol/L (3.3-5.0); iSTAT Site Art Line; iSTAT Sodium 138 mmol/L (135-144)
[2020-12-22 05:12] LABS: Basophils # (auto) 0.01 K/uL (0-0.2); Basophils % (auto) 0.1 %; Eosinophils # (auto) 0.23 K/uL (0-0.5); Eosinophils % (auto) 1.4 %; Hematocrit (blood only) 36.3 % (42-52); Hemoglobin 11.6 g/dL (14.0-18.0); Immature Granulocytes % (auto) 0.6 %; Lymphocytes # (auto) 0.63 K/uL (1.2-3.4); Lymphocytes % (auto) 3.8 %; Mean Corpuscular Hemoglobin 29.8 pg (25-34); Mean Corpuscular Volume 93.3 fL (80-100); Mean Platelet Volume 9.9 fL (7.4-10.4); Monocytes # (auto) 0.56 K/uL (0.11-0.59); Monocytes % (auto) 3.4 %; Neutrophils # (auto) 15.05 K/uL (1.4-6.5); Neutrophils % (auto) 90.7 %; Platelet Count 184 K/uL (130-400); RDW Standard Deviation 54.3 fL (36.4-46.3); Red Blood Count 3.89 M/uL (4.7-6.1); White Blood Count 16.58 K/uL (4.8-10.8)
[2020-12-22] MEDS: PROPOFOL BOLUS FROM BAG IV PRN ×4 (05:23→16:07)
[2020-12-22 05:33] LABS: BUN Creatinine Ratio 62.7 (10-20); Calcium 8.7 mg/dl (8.5-10.1); Creatinine Clr Calc Pharmacy 130.8 ml/min; Est GFR (African American) 126.9 ml/min; Est GFR (Non-African American) 109.5 ml/min; Magnesium 2.1 mg/dl (1.8-2.4); Phosphorus 2.7 mg/dl (2.5-4.9); Potassium 4.4 mmol/L (3.5-5.1)
[2020-12-22] MEDS ORDERED: LIDOCAINE 1%/EPINEPHRINE 1:100,000 50 ML VIAL INFIL ONE (07:26)
--- NOTE | 2020-12-22 07:49 | Procedure Note ---
Procedure Note Date of Service December 22, 2020 Note BRONCHOSCOPY - Procedure: Flexible Bronchoscopy Attending/Drama Critic: Dr. Samy Hong, NURIS [place]a Anesthetic/Sedation: Fentanyl/propofol Indication: Assistance with percutaneous tracheostomy procedure Consent was signed and placed on the chart prior to procedure. Indication, risks, and benefits were explained at length. A time-out was completed verifying correct patient, procedure, site, positioning, and implant(s) or special equipment if applicable. Bronchoscope was inserted into the endotracheal tube and the endotracheal tube was pulled back so that the trachea was visualized throughout the procedure. Insertion of the guide needle was visualized along with insertion of the guidewire and dilators. Insertion of the percutaneous trach was visualized via the bronchoscope. The bronchoscope was removed from the ET tube and inserted into the percutaneous trach and correct placement with visualization of the joey was observed. Complications: NONE Impression: Bronchoscope was utilized to visualize correct placement of percutaneous trach throughout the procedure. Coding CPT Codes Pulmonary/Thoracic - Pulmonary and Thoracic: 65706 Dx bronchoscopy/wash ([id number]) [facility] [place] Procedure Codes (Charges) Pulmonary/Thoracic Procedure 1: Pulmonary and Thoracic: 40127 Dx bronchoscopy/wash
--- NOTE | 2020-12-22 07:54 | Procedure Note ---
Procedure Note Date of Service December 22, 2020 Note Procedure Date: Noted Above Procedure: Percutaneous Dilatational Tracheotomy with Bronchoscopic Guidance Pre-procedure Diagnosis & Indication: Chronic respiratory failure and need for ongoing mechanical ventilation Post-procedure Diagnosis: same as above Prior to Procedure: Informed Consent: The risks, benefits, indications, potential complications, and alternatives were explained to the patient's via telephone and informed consent was obtained. Performed by: Felipe Hong DO Bronchoscopy Milk Pickup Driver: Agnes LAWLER Preprocedure: The identity of the patient was confirmed and a bedside time out was performed. [place] protocol was followed for this procedure. Prior to the initiation of sedation or the procedure, a timeout was performed. The patients identity was verified by confirming the patients wrist band for name, date of , and medical record number. Everyone in the room was in agreement with the patient identify, the procedure to be performed, consent was in place and matched the planned procedure, and the procedure site. The area was cleaned with a CHG scrub and draped with large sterile barrier. Hand hygiene was performed, and cap, mask, sterile gown, and sterile gloves were worn. The patient was covered by a large sterile drape. Sterile technique was maintained for the entire procedure. Anesthesia: The patient was intubated and sedated prior to the procedure. Additional midazolam and fentanyl was given for deep sedation. Please refer to the accompanying procedural sedation form for additional details. Once the patient was adequately sedated and with, vecuronium was administered for pa ralysis. Description of Procedure: The patient was placed in the supine position. The anterior neck was prepped and draped in usual sterile fashion. 1% lidocaine was administered approximately 2 fingerbreadths above the sternal notch for local anesthesia. The bronchoscope was introduced through the endotracheal tube and the trachea was properly visualized. The endotracheal tube was then gradually withdrawn within the trachea under direct bronchoscopic visualization. The area of the surgical site was initially transilluminated, and proper midline position was confirmed by bouncing the needle from the tracheostomy tray over the trachea with bronchoscopic examination. The needle was advanced into the trachea and proper positioning was confirmed with direct visualization. The needle was then removed leaving a white outer cannula in position. The wire from the tracheostomy tray was then advanced through the white outer cannula. The cannula was then removed. The initial small, blue dilator was then advanced over the wire into the trachea for initial dilation. The large, tapered dilator was then advanced over the wire into the trachea. The dilator was removed leaving the wire and white inner cannula in position. A number 6 percutaneous Shiley tracheostomy tube with appropriate inner cannula was then advanced over the wire and white inner cannula into the trachea. Proper positioning was confirmed with bronchoscopic visualization. The tracheostomy tube was then sutured in place with four nylon sutures. It was further secured with a tracheostomy tie. Estimated blood loss: Less than 5 mL. Complications: None immediate. Coding CPT Codes ENT - ENT: 01562 Incision of windpipe ([id number]) [facility] [place] Procedure Codes (Charges) ENT ENT: 18845 Incision of windpipe
--- NOTE | 2020-12-22 07:56 | Critical Care Progress Note ---
Date of Service December 22, 2020 Assessment & Plan (1) CAD (coronary artery disease): (2) Benign essential hypertension: (3) Hyperlipidemia: (4) GERD (gastroesophageal reflux disease): (5) COVID-19: Plan: Reason Critically Ill: 65-year-old male here with Covid pneumonia and ARDS. He is now finished with the late phase ARDS dexamethasone protocol since 12/03. He is outside the window for Tocilizumab or baricitinib. Intubated 12/12 for respiratory insufficiency. Neuro - Sedation: Wean sedation as tracheostomy has been placed Cardiac - Maintain net negative Respiratory - COVID-19 pneumonia with ARDS, trace PNX/pneumomediastinum. Intubated on 12/12. Noted to have small, apical left pneumothorax with subcutaneous emphysema and pneumomediastinum on CXR 12/18- -- crepitus also appreciated on physical exam. No evidence of tension or obstructive physiology at this time. We will continue low PEEP, high FiO2 strategy and attempt to limit elevations of plateau pressures and barotrauma --s/p late-phase dexamethasone x 10 days --Given small size of PNX/pneumomediastinum, no room for interventional procedure right now. Will monitor. --Postop day 0 percutaneous tracheostomy -Spontaneous breathing trial today GI -Place core safe and then continue tube feedings. Appreciate nutrition insight and recommendations. Continue famotidine. Constipation: Lactulose today RENAL/LYTES - No significant issues at this time. BUN and Cr stable. Will continue to follow electrolytes and replete as needed. - Mccullough in place, monitor intake and output ENDO - ICU hyperglycemia protocol HEME - Stable H&H. Monitor. Leukocytosis noted. ID - COVID-19 pneumonia with ARDS, as noted above. On dexamethasone. -Completed course of ceftriaxone INTEGUMENTARY - No acute needs. LINES/IV ACCESS - CVC, ETT, PIV, OGT, Mccullough DVT PROPHYLAXIS - Lovenox 40 q12 LTAC placement (6) Hypoxia: (7) Pneumonia due to 2019 novel coronavirus: (8) Acute respiratory failure with hypoxia: (9) Elevated LFTs: (10) DVT prophylaxis: (11) Hyponatremia: (12) Hypokalemia: (13) Headache: (14) Sore throat: (15) Pneumothorax: Admission and Anticipated Discharge Date Admission Date: December 03, 2020 Subjective No overnight events Review of Systems Review of Systems: Unobtainable due to endotracheal tube Physical Exam Physical Exam: General: Sedated. nontoxic. Skin: Warm, dry, Head: Atraumatic Ears, nose, mouth and throat: airway secured by endotracheal tube Cardiovascular: Normal peripheral perfusion Respiratory: Ventilator settings reviewed Gastrointestinal: Non distended Musculoskeletal: No deformity Results & Data Results & Data ([facility]) Vital Signs (Past 12 Hours) Vital Signs Temp Pulse Resp BP Pulse Ox 12/22/20 04:00 37.4 C 84 24 90 12/22/20 03:40 84 31 H 89 L 12/22/20 03:00 37.4 C 82 26 H 88 L 12/22/20 02:27 85 12/22/20 02:00 37.4 C 85 23 89 L 12/22/20 01:00 37.7 C H 85 27 H 89 L 12/22/20 00:00 37.7 C H 84 27 H 87 L 12/21/20 23:25 85 30 H 89 L 12/21/20 23:00 37.6 C H 84 25 H 89 L 12/21/20 22:00 37.5 C 81 27 H 88 L 12/21/20 21:00 37.5 C 82 25 H 158/73 H 88 L 12/21/20 20:00 37.4 C 83 23 138/56 L 88 L Laboratory Results 12/22/20 12/22/20 12/22/20 Range/Units 04:54 04:54 03:42 WBC 16.58 H (4.8-10.8) K/uL RBC 3.89 L (4.7-6.1) M/uL Hgb 11.6 L (14.0-18.0) g/dL POC Hgb 12.2 L (14.0-18.0) g/dl Hct 36.3 L (42-52) % POC Hct 36 L (42-52) % MCV 93.3 (80-100) fL MCH 29.8 (25-34) pg MCHC 32.0 (32-36) g/dL RDW Std Deviation 54.3 H (36.4-46.3) fL RDW Coeff of Lu 16.0 H (11.5-14.5) % Plt Count 184 (130-400) K/uL MPV 9.9 (7.4-10.4) fL Immature Gran % (Auto) 0.6 % Neut % (Auto) 90.7 % Lymph % (Auto) 3.8 % Sterling % (Auto) 3.4 % Eos % (Auto) 1.4 % Baso % (Auto) 0.1 % Neut # (Auto) 15.05 H (1.4-6.5) K/uL Lymph # (Auto) 0.63 L (1.2-3.4) K/uL Sterling # (Auto) 0.56 (0.11-0.59) K/uL Eos # (Auto) 0.23 (0-0.5) K/uL Baso # (Auto) 0.01 (0-0.2) K/uL Immature Gran # (Auto) 0.10 H (0.00-0.02) K/uL Sample Site Art Line POC pH 7.35 (7.35-7.45) POC pCO2 63 H (35-46) mmHg POC pO2 62 L (80-95) mmHg POC HCO3 35 H (19-24) bella/L POC Total CO2 36 H (24-31) mmol/L POC Base Excess 9.0 H (-9-1.8) bella/L ABG pH (Temp Correct) 7.343 L (7.35-7.45) ABG pCO2 (Temp Corrct 64 H (35-46) mmHg POC ABG pO2 at Pt Temp 64 POC ABG O2 Sat 89.0 L (90-95) % Robert Test NA O2 Delivery Device Ventilator POC O2 Rate 28 POC FiO2 65 % Tidal Volume 300 PEEP 5 POC Sodium 138 (135-144) mmol/L Sodium 136 (136-145) mmol/L POC Potassium 4.4 (3.3-5.0) mmol/L Potassium 4.4 D (3.5-5.1) mmol/L Chloride 102 (98-107) mmol/L Carbon Dioxide 33 H (21-32) mmol/L Anion Gap 1.0 L (3-11) BUN 33 H (7-18) mg/dl Creatinine 0.53 L (0.6-1.4) mg/dl Est Cr Clr Drug Dosing 130.8 ml/min Est GFR ( Amer) 126.9 ml/min Est GFR (Non-Af Amer) 109.5 ml/min BUN/Creatinine Ratio 62.7 H (10-20) Glucose 129 H (70-99) mg/dl POC Glucose (70-99) mg/dl Calcium 8.7 (8.5-10.1) mg/dl Phosphorus 2.7 (2.5-4.9) mg/dl Magnesium 2.1 (1.8-2.4) mg/dl 12/22/20 12/22/20 12/21/20 Range/Units 03:39 00:34 20:45 WBC (4.8-10.8) K/uL RBC (4.7-6.1) M/uL Hgb (14.0-18.0) g/dL POC Hgb (14.0-18.0) g/dl Hct (42-52) % POC Hct (42-52) % MCV (80-100) fL MCH (25-34) pg MCHC (32-36) g/dL RDW Std Deviation (36.4-46.3) fL RDW Coeff of Lu (11.5-14.5) % Plt Count (130-400) K/uL MPV (7.4-10.4) fL Immature Gran % (Auto) % Neut % (Auto) % Lymph % (Auto) % Sterling % (Auto) % Eos % (Auto) % Baso % (Auto) % Neut # (Auto) (1.4-6.5) K/uL Lymph # (Auto) (1.2-3.4) K/uL Sterling # (Auto) (0.11-0.59) K/uL Eos # (Auto) (0-0.5) K/uL Baso # (Auto) (0-0.2) K/uL Immature Gran # (Auto) (0.00-0.02) K/uL Sample Site POC pH (7.35-7.45) POC pCO2 (35-46) mmHg POC pO2 (80-95) mmHg POC HCO3 (19-24) bella/L POC Total CO2 (24-31) mmol/L POC Base Excess (-9-1.8) bella/L ABG pH (Temp Correct) (7.35-7.45) ABG pCO2 (Temp Corrct (35-46) mmHg POC ABG pO2 at Pt Temp POC ABG O2 Sat (90-95) % Robert Test O2 Delivery Device POC O2 Rate POC FiO2 % Tidal Volume PEEP POC Sodium (135-144) mmol/L Sodium (136-145) mmol/L POC Potassium (3.3-5.0) mmol/L Potassium (3.5-5.1) mmol/L Chloride (98-107) mmol/L Carbon Dioxide (21-32) mmol/L Anion Gap (3-11) BUN (7-18) mg/dl Creatinine (0.6-1.4) mg/dl Est Cr Clr Drug Dosing ml/min Est GFR ( Amer) ml/min Est GFR (Non-Af Amer) ml/min BUN/Creatinine Ratio (10-20) Glucose (70-99) mg/dl POC Glucose 115 H 123 H 124 H (70-99) mg/dl Calcium (8.5-10.1) mg/dl Phosphorus (2.5-4.9) mg/dl Magnesium (1.8-2.4) mg/dl 12/21/20 12/21/20 Range/Units 16:14 11:13 WBC (4.8-10.8) K/uL RBC (4.7-6.1) M/uL Hgb (14.0-18.0) g/dL POC Hgb (14.0-18.0) g/dl Hct (42-52) % POC Hct (42-52) % MCV (80-100) fL MCH (25-34) pg MCHC (32-36) g/dL RDW Std Deviation (36.4-46.3) fL RDW Coeff of Lu (11.5-14.5) % Plt Count (130-400) K/uL MPV (7.4-10.4) fL Immature Gran % (Auto) % Neut % (Auto) % Lymph % (Auto) % Sterling % (Auto) % Eos % (Auto) % Baso % (Auto) % Neut # (Auto) (1.4-6.5) K/uL Lymph # (Auto) (1.2-3.4) K/uL Sterling # (Auto) (0.11-0.59) K/uL Eos # (Auto) (0-0.5) K/uL Baso # (Auto) (0-0.2) K/uL Immature Gran # (Auto) (0.00-0.02) K/uL Sample Site POC pH (7.35-7.45) POC pCO2 (35-46) mmHg POC pO2 (80-95) mmHg POC HCO3 (19-24) bella/L POC Total CO2 (24-31) mmol/L POC Base Excess (-9-1.8) bella/L ABG pH (Temp Correct) (7.35-7.45) ABG pCO2 (Temp Corrct (35-46) mmHg POC ABG pO2 at Pt Temp POC ABG O2 Sat (90-95) % Robert Test O2 Delivery Device POC O2 Rate POC FiO2 % Tidal Volume PEEP POC Sodium (135-144) mmol/L Sodium (136-145) mmol/L POC Potassium (3.3-5.0) mmol/L Potassium (3.5-5.1) mmol/L Chloride (98-107) mmol/L Carbon Dioxide (21-32) mmol/L Anion Gap (3-11) BUN (7-18) mg/dl Creatinine (0.6-1.4) mg/dl Est Cr Clr Drug Dosing ml/min Est GFR ( Amer) ml/min Est GFR (Non-Af Amer) ml/min BUN/Creatinine Ratio (10-20) Glucose (70-99) mg/dl POC Glucose 129 H 119 H (70-99) mg/dl Calcium (8.5-10.1) mg/dl Phosphorus (2.5-4.9) mg/dl Magnesium (1.8-2.4) mg/dl Coding Level of Care Code Critical Care 1st 30-74 mins Diagnoses CAD (coronary artery disease) I25.10 Benign essential hypertension I10 Hyperlipidemia E78.5 GERD (gastroesophageal reflux disease) K21.9 COVID-19 U07.1 Hypoxia R09.02 Pneumonia due to 2019 novel coronavirus U07.1; J12.82 Acute respiratory failure with hypoxia J96.01 Elevated LFTs R79.89 DVT prophylaxis Z29.9 Hyponatremia E87.1 Hypokalemia E87.6 Headache R51.9 Sore throat J02.9 Pneumothorax J93.9
[2020-12-22] MEDS ORDERED: LACTULOSE SYRUP 30 GM/45 ML UDP PO STA (08:04)
--- NOTE | 2020-12-22 08:45 | XRay Report ---
XR chest 1V portable CLINICAL HISTORY: lines TECHNIQUE: Single frontal radiograph of the chest was obtained. Comparison: Comparison is made to chest one view 12/21/2020 FINDINGS: An enteric tube terminates in the stomach. Endotracheal tube has been removed in the interval. A left subclavian catheter terminates in the mid SVC. The cardiomediastinal silhouette is normal. Multifoca l airspace opacities are seen bilaterally. No evidence of pleural effusion or pneumothorax. Pneumomed iastinum and subcutaneous emphysema are again seen. IMPRESSION: Interval removal of endotracheal tube. Remaining lines are in satisfactory position. Bilateral airspa ce opacities are unchanged from the prior exam. Pneumomediastinum and subcutaneous emphysema are agai n seen. ACT 112: Negative or not required by law. Electronically signed by: Felipe Fenton M.D. 12/22/2020 8:43 AM
--- NOTE | 2020-12-22 08:45 | XRay Report ---
XR KUB/Abdomen 1 view CLINICAL HISTORY: Feeding tube placement. TECHNIQUE: 1 view of the abdomen was obtained. Comparison: None available at the time of this dictation. FINDINGS: Enteric tube tip projects over the stomach. The osseous structures are grossly unremarkable. The curtis l gas pattern is nonobstructive. A moderate amount of stool is noted within the large bowel. IMPRESSION: Satisfactory position of enteric tube. ACT 112: Negative or not required by law. Electronically signed by: Felipe Fenton M.D. 12/22/2020 8:43 AM
[2020-12-22] MEDS: SENNA 8.6 MG TAB PO SCH (08:51)
[2020-12-22] MEDS: FAMOTIDINE 20 MG in SYRINGE 3 ML IV SCH ×2 (08:52→19:55)
[2020-12-22] MEDS: LACTULOSE SYRUP 30 GM/45 ML UDP PO SCH (09:02)
[2020-12-22] MEDS: ENOXAPARIN INJ 40 MG/0.4 ML SYR SQ SCH ×2 (11:09→23:45)
[2020-12-22] MEDS ORDERED: VECURONIUM BROMIDE 10 MG VIAL IV STA (11:35)
[2020-12-22] MEDS ORDERED: VECURONIUM BROMIDE 10 MG VIAL IV ONE (11:38)
--- NOTE | 2020-12-22 12:05 | Hospitalist Progress Note ---
Date of Service December 22, 2020 Assessment & Plan (1) Pneumonia due to 2019 novel coronavirus: Plan: Severe disease declined to point of needing intubation on 12/12 Remains on ventilator, now pursuing low PEEP and high FiO2 due to pneumomediastinum and pneumothorax which is small -Requiring minimal sedation and no paralytics, failing SBT daily -completed high-dose dexamethasone course x 10 days -He was not a candidate for Tocilizumab at the time his respiratory status decompensated -Completed a course of azithromycin early on and now completed course of ceftriaxone for MSSA PNA Was given IV Lasix and then given acetazolamide and chlorothiazide-no further di uretics today -Palliative care consultation reviewed- is agreeable to tracheostomy if needed now s/p trach on 12/22 management as per ICU (2) Acute respiratory failure with hypoxia: Plan: ventilator dependent respiratory failure Covid-19 pneumonia as well as bacterial pneumonia, intubated on 12/[address] Hernandez As above (3) Pneumothorax: Plan: resolved on CXR now, still with subcutaneous air over neck low PEEP high FiO2 Follow chest x-ray daily (4) Headache: Plan: right eye region/right forehead with right eye tearing, right nare drainage, more intense on 12/08 CT head 12/08 - negative for ICH, stroke, etc. he had transient L hand numbness this am - then resolved could have been TIA could have been neuro symptoms 2nd to a migraine headache no triptans due to CAD Now intubated so unclear if headache remains (5) Sore throat: Plan: most pressing complaint on 12/11 tongue and throat very dry, could be thrush from steroids? started Magic Swizzle (lidocaine) and Nystatin S/S QID, gave him some relief-no longer getting this since intubation (6) CAD (coronary artery disease): Plan: h/o RCA stents remains on asa, statin was NOT taking REI or BB at home but is on his home medication list no ischemic symptoms during this illness EKG with inverted T's inferiorly however it is unchanged from EKG from several years ago (7) Benign essential hypertension: Plan: BP stable (8) Hyperlipidemia: Plan: statin (9) GERD (gastroesophageal reflux disease): Plan: PPI (10) Elevated LFTs: Plan: likely 2nd to COVID-19 infection Resolved (11) Hyponatremia: Plan: 2nd recent diarrhea, poor oral intake, etc resolved (12) Hypokalemia: Plan: replace as needed (13) DVT prophylaxis: Plan: lovenox 40mg BID (14) Constipation: Plan: Severe, no bowel movement since 12/11 Continue senna Was given mineral oil per NG as well as 1 injection of Relistor on 12/20 Lactulose started on 12/21 had smear overnight Plan: Disposition-continued stay in the ICU Admission and Anticipated Discharge Date Admission Date: December 03, 2020 Subjective Pt had trach today, having dyssynchrony on monitor, requiring increased sedation and Vec Review of Systems Review of Systems: Unobtainable due to reduced consciousness Physical Exam Constitutional: + mechanically ventilated; no acute distress Neck: trach in place Results & Data Results & Data ([facility]) Vital Signs (Past 12 Hours) Vital Signs Temp Pulse Resp Pulse Ox 12/22/20 09:30 37.0 C 92 H 30 H 93 12/22/20 09:00 37.1 C 81 28 H 94 12/22/20 08:36 70 29 H 91 12/22/20 08:30 37.2 C 77 29 H 94 12/22/20 08:00 37.3 C 92 H 28 H 93 12/22/20 07:50 37.4 C 76 28 H 91 12/22/20 07:40 37.4 C 83 18 88 L 12/22/20 07:30 37.4 C 79 18 88 L 12/22/20 07:20 37.5 C 87 18 95 12/22/20 07:15 37.5 C 89 16 92 12/22/20 04:00 37.4 C 84 24 90 12/22/20 03:40 84 31 H 89 L 12/22/20 03:00 37.4 C 82 26 H 88 L 12/22/20 02:27 85 12/22/20 02:00 37.4 C 85 23 89 L 12/22/20 01:00 37.7 C H 85 27 H 89 L Laboratory Results 12/22/20 12/22/20 12/22/20 Range/Units 11:16 08:07 04:54 WBC 16.58 H (4.8-10.8) K/uL RBC 3.89 L (4.7-6.1) M/uL Hgb 11.6 L (14.0-18.0) g/dL POC Hgb (14.0-18.0) g/dl Hct 36.3 L (42-52) % POC Hct (42-52) % MCV 93.3 (80-100) fL MCH 29.8 (25-34) pg MCHC 32.0 (32-36) g/dL RDW Std Deviation 54.3 H (36.4-46.3) fL RDW Coeff of Lu 16.0 H (11.5-14.5) % Plt Count 184 (130-400) K/uL MPV 9.9 (7.4-10.4) fL Immature Gran % (Auto) 0.6 % Neut % (Auto) 90.7 % Lymph % (Auto) 3.8 % [place] % (Auto) 3.4 % Eos % (Auto) 1.4 % Baso % (Auto) 0.1 % Neut # (Auto) 15.05 H (1.4-6.5) K/uL Lymph # (Auto) 0.63 L (1.2-3.4) K/uL [place] # (Auto) 0.56 (0.11-0.59) K/uL Eos # (Auto) 0.23 (0-0.5) K/uL Baso # (Auto) 0.01 (0-0.2) K/uL Immature Gran # (Auto) 0.10 H (0.00-0.02) K/uL Sample Site POC pH (7.35-7.45) POC pCO2 (35-46) mmHg POC pO2 (80-95) mmHg POC HCO3 (19-24) bella/L POC Total CO2 (24-31) mmol/L POC Base Excess (-9-1.8) bella/L ABG pH (Temp Correct) (7.35-7.45) ABG pCO2 (Temp Corrct (35-46) mmHg POC ABG pO2 at Pt Temp POC ABG O2 Sat (90-95) % Robert Test O2 Delivery Device POC O2 Rate POC FiO2 % Tidal Volume PEEP POC Sodium (135-144) mmol/L Sodium (136-145) mmol/L POC Potassium (3.3-5.0) mmol/L Potassium (3.5-5.1) mmol/L Chloride (98-107) mmol/L Carbon Dioxide (21-32) mmol/L Anion Gap (3-11) BUN (7-18) mg/dl Creatinine (0.6-1.4) mg/dl Est Cr Clr Drug Dosing ml/min Est GFR ( Amer) ml/min Est GFR (Non-Af Amer) ml/min BUN/Creatinine Ratio (10-20) Glucose (70-99) mg/dl POC Glucose 155 H 106 H (70-99) mg/dl Calcium (8.5-10.1) mg/dl Phosphorus (2.5-4.9) mg/dl Magnesium (1.8-2.4) mg/dl 12/22/20 12/22/20 12/22/20 Range/Units 04:54 03:42 03:39 WBC (4.8-10.8) K/uL RBC (4.7-6.1) M/uL Hgb (14.0-18.0) g/dL POC Hgb 12.2 L (14.0-18.0) g/dl Hct (42-52) % POC Hct 36 L (42-52) % MCV (80-100) fL MCH (25-34) pg MCHC (32-36) g/dL RDW Std Deviation (36.4-46.3) fL RDW Coeff of Lu (11.5-14.5) % Plt Count (130-400) K/uL MPV (7.4-10.4) fL Immature Gran % (Auto) % Neut % (Auto) % Lymph % (Auto) % [place] % (Auto) % Eos % (Auto) % Baso % (Auto) % Neut # (Auto) (1.4-6.5) K/uL Lymph # (Auto) (1.2-3.4) K/uL [place] # (Auto) (0.11-0.59) K/uL Eos # (Auto) (0-0.5) K/uL Baso # (Auto) (0-0.2) K/uL Immature Gran # (Auto) (0.00-0.02) K/uL Sample Site Art Line POC pH 7.35 (7.35-7.45) POC pCO2 63 H (35-46) mmHg POC pO2 62 L (80-95) mmHg POC HCO3 35 H (19-24) bella/L POC Total CO2 36 H (24-31) mmol/L POC Base Excess 9.0 H (-9-1.8) bella/L ABG pH (Temp Correct) 7.343 L (7.35-7.45) ABG pCO2 (Temp Corrct 64 H (35-46) mmHg POC ABG pO2 at Pt Temp 64 POC ABG O2 Sat 89.0 L (90-95) % Robert Test NA O2 Delivery Device Ventilator POC O2 Rate 28 POC FiO2 65 % Tidal Volume 300 PEEP 5 POC Sodium 138 (135-144) mmol/L Sodium 136 (136-145) mmol/L POC Potassium 4.4 (3.3-5.0) mmol/L Potassium 4.4 D (3.5-5.1) mmol/L Chloride 102 (98-107) mmol/L Carbon Dioxide 33 H (21-32) mmol/L Anion Gap 1.0 L (3-11) BUN 33 H (7-18) mg/dl Creatinine 0.53 L (0.6-1.4) mg/dl Est Cr Clr Drug Dosing 130.8 ml/min Est GFR ( Amer) 126.9 ml/min Est GFR (Non-Af Amer) 109.5 ml/min BUN/Creatinine Ratio 62.7 H (10-20) Glucose 129 H (70-99) mg/dl POC Glucose 115 H (70-99) mg/dl Calcium 8.7 (8.5-10.1) mg/dl Phosphorus 2.7 (2.5-4.9) mg/dl Magnesium 2.1 (1.8-2.4) mg/dl 12/22/20 12/21/20 12/21/20 Range/Units 00:34 20:45 16:14 WBC (4.8-10.8) K/uL RBC (4.7-6.1) M/uL Hgb (14.0-18.0) g/dL POC Hgb (14.0-18.0) g/dl Hct (42-52) % POC Hct (42-52) % MCV (80-100) fL MCH (25-34) pg MCHC (32-36) g/dL RDW Std Deviation (36.4-46.3) fL RDW Coeff of Lu (11.5-14.5) % Plt Count (130-400) K/uL MPV (7.4-10.4) fL Immature Gran % (Auto) % Neut % (Auto) % Lymph % (Auto) % [place] % (Auto) % Eos % (Auto) % Baso % (Auto) % Neut # (Auto) (1.4-6.5) K/uL Lymph # (Auto) (1.2-3.4) K/uL [place] # (Auto) (0.11-0.59) K/uL Eos # (Auto) (0-0.5) K/uL Baso # (Auto) (0-0.2) K/uL Immature Gran # (Auto) (0.00-0.02) K/uL Sample Site POC pH (7.35-7.45) POC pCO2 (35-46) mmHg POC pO2 (80-95) mmHg POC HCO3 (19-24) bella/L POC Total CO2 (24-31) mmol/L POC Base Excess (-9-1.8) bella/L ABG pH (Temp Correct) (7.35-7.45) ABG pCO2 (Temp Corrct (35-46) mmHg POC ABG pO2 at Pt Temp POC ABG O2 Sat (90-95) % Robert Test O2 Delivery Device POC O2 Rate POC FiO2 % Tidal Volume PEEP POC Sodium (135-144) mmol/L Sodium (136-145) mmol/L POC Potassium (3.3-5.0) mmol/L Potassium (3.5-5.1) mmol/L Chloride (98-107) mmol/L Carbon Dioxide (21-32) mmol/L Anion Gap (3-11) BUN (7-18) mg/dl Creatinine (0.6-1.4) mg/dl Est Cr Clr Drug Dosing ml/min Est GFR ( Amer) ml/min Est GFR (Non-Af Amer) ml/min BUN/Creatinine Ratio (10-20) Glucose (70-99) mg/dl POC Glucose 123 H 124 H 129 H (70-99) mg/dl Calcium (8.5-10.1) mg/dl Phosphorus (2.5-4.9) mg/dl Magnesium (1.8-2.4) mg/dl PG Care Time/CCT Total # of Minutes Spent Total Time Spent with Patient: Total time spent is greater than 50% in coordination of care (as documented) at patient's floor/unit and/or counseling patient: Coding Level of Care Code 04550 Subseq Hosp Care Lvl 1 Diagnoses Pneumonia due to 2019 novel coronavirus U07.1; J12.82 Acute respiratory failure with hypoxia J96.01 Pneumothorax J93.9 Headache R51.9 Sore throat J02.9 CAD (coronary artery disease) I25.10 Benign essential hypertension I10 Hyperlipidemia E78.5 GERD (gastroesophageal reflux disease) K21.9 Elevated LFTs R79.89 Hyponatremia E87.1 Hypokalemia E87.6 DVT prophylaxis Z29.9 Constipation K59.00
[2020-12-22 16:05] LABS: iSTAT Art Bld Gas pCO2 Correct 115 mmHg (35-46); iSTAT Art Bld Gas pH Corrected 7.115 (7.35-7.45); iSTAT Arterial Blood Gas HCO3 37 meg/L (19-24); iSTAT Arterial Blood Gas pCO2 > 115 mmHg (35-46); iSTAT Arterial Blood Gas pH 7.12 (7.35-7.45); iSTAT Arterial Blood Gas pO2 88 mmHg (80-95); iSTAT Arterial Blood Gas pO2 C 88; iSTAT Carbon Dioxide > 40 mmol/L (24-31); iSTAT FiO2 100 %; iSTAT Hematocrit 40 % (42-52); iSTAT Hemoglobin 13.6 g/dl (14.0-18.0); iSTAT Potassium 5.3 mmol/L (3.3-5.0); iSTAT Site Art Line; iSTAT Sodium 139 mmol/L (135-144)
--- NOTE | 2020-12-22 16:17 | XRay Report ---
XR chest 1V portable CLINICAL HISTORY: Low Sao2. High fio2 requirement TECHNIQUE: Single frontal radiograph of the chest was obtained. Comparison: None available at the time of this dictation. FINDINGS: Stable position of enteric tube. The cardiomediastinal silhouette is normal. Multifocal airspace opac ities are seen. No evidence of pleural effusion or pneumothorax. IMPRESSION: Multifocal airspace opacities are seen, similar in extent to prior exam. ACT 112: Negative or not required by law. Electronically signed by: Felipe Fenton M.D. 12/22/2020 4:15 PM
[2020-12-22] MEDS ORDERED: NOREPINEPHRINE/D5W 8 MG/508 ML IV ONE (16:45)
--- NOTE | 2020-12-22 16:58 | Procedure Note ---
Procedure Note Date of Service December 22, 2020 Note Procedure date: Noted above Procedure: fiberoptic bronchoscopy Pre-procedure indication: Acute hypoxic respiratory failure with hypercapnia Post-procedure Diagnosis: same as above Prior to Procedure: Informed Consent: Emergent consent implied Attending Staff: Felipe Hong DO Resident/APC: Not applicable Skin Prep: Not applicable Anesthesia: Continuous infusion The identity of the patient was confirmed and a bedside time out was performed. Description of Procedure: Fiberoptic bronchoscopy was performed via endotracheal tube. Bronchioalveolar lavage was not performed. Findings included: Scant mucus, no evidence to explain hypoxia VQ mismatch. Complications: None Specimens: Not applicable Estimated blood loss: Zero Coding CPT Codes Pulmonary/Thoracic - Pulmonary and Thoracic: 02155 Dx bronchoscopy/wash ([id number]) [facility] Procedure Codes (Charges) Pulmonary/Thoracic Procedure 1: Pulmonary and Thoracic: 51724 Dx bronchoscopy/wash (Repeat procedure on same date of service, different indication)
[2020-12-22] MEDS ORDERED: STAT IV Infusion **Titration per Protocol STA (17:01)
[2020-12-22] MEDS: NOREPINEPHRINE/D5W 8 MG/508 ML BAG IV SCH (17:21)
[2020-12-22] MEDS ORDERED: OPTIRAY 320 125ml IV ONE (17:29)
--- NOTE | 2020-12-22 17:43 | CT Scan Report ---
CT angio chest PE protocol CLINICAL HISTORY: PE TECHNIQUE: Multidetector row helical CT of the chest was performed. Coronal and sagittal reformations were obtained. Automated dose lowering techniques and/or adjustment according to patient size were u tilized for this exam. Comparison: Comparison is made to CT chest 12/09/2020 FINDINGS: Lungs and pleura: Multifocal consolidative and groundglass opacities are seen, worsened compared to p rior exam. Heart and pericardium: Heart size is normal. No pericardial effusion. Vessels: No evidence of pulmonary embolism. Mediastinum and louise: Unremarkable. Chest wall and lower neck: Unremarkable. Abdomen: A lobular contour of the liver is seen compatible with cirrhosis. The gallbladder is distend ed without evidence of acute cholecystitis. Bones: Degenerative changes in the thoracic spine. IMPRESSION: 1. No evidence of pulmonary embolism. 2. Diffuse airspace and groundglass opacities compatible with worsening of viral pneumonia. 3. Cirrhosis. ACT 112: Negative or not required by law. Electronically signed by: Felipe Fenton M.D. 12/22/2020 5:42 PM
[2020-12-22] MEDS: ASPIRIN 81 MG CHEW PO SCH (19:55)
[2020-12-22] MEDS: ATORVASTATIN 40 MG TAB PO SCH (19:58)
[2020-12-22 20:57] LABS: iSTAT Art Bld Gas pCO2 Correct 74 mmHg (35-46); iSTAT Art Bld Gas pH Corrected 7.279 (7.35-7.45); iSTAT Arterial Blood Gas HCO3 35 meg/L (19-24); iSTAT Arterial Blood Gas pCO2 74 mmHg (35-46); iSTAT Arterial Blood Gas pH 7.28 (7.35-7.45); iSTAT Arterial Blood Gas pO2 73 mmHg (80-95); iSTAT Arterial Blood Gas pO2 C 72; iSTAT Carbon Dioxide 37 mmol/L (24-31); iSTAT FiO2 60 %; iSTAT Hematocrit 35 % (42-52); iSTAT Hemoglobin 11.9 g/dl (14.0-18.0); iSTAT Site Art Line; iSTAT Sodium 138 mmol/L (135-144)
[2020-12-23] MEDS: INSULIN ASPART 100 UNITS/ML 3 ML PEN SC SCH ×6 (00:10→20:46)
[2020-12-23] MEDS: propofoL 1,000 MG/100 ML VIAL IV SCH ×7 (03:01→20:12)
[2020-12-23] MEDS: TUBE FEEDING WATER FLUSH OG SCH ×4 (04:07→15:34)
[2020-12-23] MEDS: ARTIFICIAL TEARS OP OINT 3.5 GM TUBE OP SCH ×5 (04:07→18:20)
[2020-12-23] MEDS: fentaNYL DRIP 1,250 MCG/250 ML BAG IV SCH ×10 (04:43→18:32)
[2020-12-23 04:47] LABS: Basophils # (auto) 0.01 K/uL (0-0.2); Basophils % (auto) 0.1 %; Eosinophils # (auto) 0.18 K/uL (0-0.5); Eosinophils % (auto) 1.2 %; Hematocrit (blood only) 36.2 % (42-52); Hemoglobin 11.4 g/dL (14.0-18.0); Immature Granulocytes # (auto) 0.06 K/uL (0.00-0.02); Immature Granulocytes % (auto) 0.4 %; Lymphocytes # (auto) 0.51 K/uL (1.2-3.4); Lymphocytes % (auto) 3.3 %; Mean Corpuscular Hgb Conc 31.5 g/dL (32-36); Mean Corpuscular Volume 95.3 fL (80-100); Mean Platelet Volume 9.7 fL (7.4-10.4); Monocytes # (auto) 0.55 K/uL (0.11-0.59); Monocytes % (auto) 3.6 %; Neutrophils # (auto) 13.92 K/uL (1.4-6.5); Neutrophils % (auto) 91.4 %; Nucleated RBC # (auto) 0.02 K/uL (0-0); Nucleated RBC % (auto) 0.1 %; Platelet Count 190 K/uL (130-400); RDW Coefficient of Variation 16.2 % (11.5-14.5); RDW Standard Deviation 56.4 fL (36.4-46.3); White Blood Count 15.23 K/uL (4.8-10.8)
[2020-12-23 04:59] LABS: iSTAT Art Bld Gas pCO2 Correct 65 mmHg (35-46); iSTAT Arterial Blood Gas HCO3 36 meg/L (19-24); iSTAT Arterial Blood Gas pCO2 66 mmHg (35-46); iSTAT Arterial Blood Gas pH 7.35 (7.35-7.45); iSTAT Arterial Blood Gas pO2 54 mmHg (80-95); iSTAT Arterial Blood Gas pO2 C 53; iSTAT Carbon Dioxide 38 mmol/L (24-31); iSTAT FiO2 55 %; iSTAT Hematocrit 34 % (42-52); iSTAT Hemoglobin 11.6 g/dl (14.0-18.0); iSTAT Potassium 4.9 mmol/L (3.3-5.0); iSTAT Site Art Line; iSTAT Sodium 139 mmol/L (135-144)
[2020-12-23 05:04] LABS: BUN Creatinine Ratio 68.6 (10-20); Calcium 8.9 mg/dl (8.5-10.1); Creatinine Clr Calc Pharmacy 121.7 ml/min; Est GFR (African American) 123.2 ml/min; Est GFR (Non-African American) 106.3 ml/min; Magnesium 2.5 mg/dl (1.8-2.4); Phosphorus 2.9 mg/dl (2.5-4.9); Potassium 4.9 mmol/L (3.5-5.1)
[2020-12-23] MEDS: PROPOFOL BOLUS FROM BAG IV PRN (06:22)
[2020-12-23] MEDS: SENNA 8.6 MG TAB PO SCH (07:49)
[2020-12-23] MEDS: FAMOTIDINE 20 MG in SYRINGE 3 ML IV SCH ×2 (07:49→20:16)
[2020-12-23] MEDS: LACTULOSE SYRUP 30 GM/45 ML UDP PO SCH (07:49)
[2020-12-23] MEDS ORDERED: oxyCODONE HCL IR 5 MG TAB (IMMEDIATE RELEASE) PO PRN (09:21)
--- NOTE | 2020-12-23 09:26 | Critical Care Progress Note ---
Date of Service December 23, 2020 Assessment & Plan (1) Acute respiratory failure with hypoxia: (2) Pneumonia due to 2019 novel coronavirus: (3) Acute delirium: (4) Cirrhosis: Plan: Impression: 65-year-old male with Covid pneumonia and ARDS. He has been admitted since 12/03 and has been on dexamethasone. He has been hospitalized long enough that was outside the window for Tocilizumab or Baricitinib. He was intubated 12/12 for progressive respiratory distress and increased work of breathing. Recommendations: 1. Neurologic: We will continue to wean sedation as possible. Will obtain EKG to consider the start of atypical antipsychotics. We will start oxycodone 15 mg every 6 hours to help wean fentanyl. Klonopin 0.5 mg twice daily started. 2. Pulmonary: ARDS secondary to Covid pneumonia. Tracheostomy placed . On ventilator since 12/12/2020. Chest CTA completed 12/22/2020 with diffuse airspace opacities and dense bibasilar consolidations. Currently off steroids. Completed a course of increased dexamethasone for the fibroproliferative phase of ARDS. Continue lung protective ventilation strategy. ABG from this morning demonstrates mild respiratory acidosis with compensatory metabolic alkalosis. Hypoxia seen with a PO2 of 54. Previously had pneumomediastinum with a small apical pneumothorax. These were not seen on the most recent CTA from 12/22/2020. Continue lung protective ventilation strategy. We will start metanebs due to dense consolidations and thick secretions. Will be able to come off isolation tomorrow as he will be 21 days since his last Covid positive test. Symptoms began approximately 10 days prior to hospitalization. Mild hemoptysis since undergoing tracheostomy. Lovenox on hold. 3. Cardiovascular: Now off norepinephrine. Would like to maintain on the dry side. 4. Renal: No current issues. Electrolyte replacement protocol. 5. GI: Tube feeding per nutritional services. PPI in place. Continue bowel regimen. 6. ID: Covid pneumonitis with ARDS physiology. Decadron complete. Prior sputum cultures with staph. Completed therapy. No indication for antibiotics at this time. 7. Endocrine: No prior issues. Glycemic control per ICU protocol. 8. Heme-onc: Leukocytosis as noted above. Continue to trend over time. 9. Lovenox on hold due to hemoptysis. Continue SCDs. Continue PPI prophylaxis. CRITICAL CARE TIME - I have personally spent 41 minutes of critical care time in the direct management of this patient. This is a life/limb threatening event. This includes time spent evaluating patient, direct bedside care, chart review, placing orders, interpretation of diagnostic studies, discussion with consultants, patient, and family members, as well as other required patient management activities. This time is exclusive of all separately billable procedures, and teaching time and separate from and in addition to any other critical care service time. Admission and Anticipated Discharge Date Admission Date: December 03, 2020 Subjective Patient seen and examined at bedside with the nurse. Patient with high respiratory rate. Currently requiring high amounts of fentanyl and propofol for sedation. Unable to obtain review of systems due to the patient's mental status and tracheostomy status. Review of Systems Review of Systems: Unobtainable due to endotracheal tube and Unobtainable due to reduced consciousness Physical Exam Physical Exam: Constitutional: Tracheostomy in place. Mild distress. Eyes: Pupils are equal round and reactive to light. Conjunctivae are normal. Anicteric sclera. Ears nose, mouth and throat: Tracheostomy in place. Neck: Trachea is midline. Visual inspection is normal. Respiratory: Tachypnea. Coarse lung sounds on the ventilator. Cardiovascular: Regular rate and rhythm. No murmurs. Trace lower extremity edema. Gastrointestinal: Normal bowel sounds, soft, nontender and nondistended. Musculoskeletal: No cyanosis. Patient is able to move all extremities. Skin: No rashes, warm dry and intact. Neurologic: Heavily sedated. No obvious focal deficits. Difficult to assess given tracheostomy status. Results & Data Results & Data ([facility]) Vital Signs (Past 12 Hours) Vital Signs Temp Pulse Resp BP Pulse Ox 12/23/20 08:00 98.8 F 96 H 28 H 141/66 H 89 L 12/23/20 07:50 88 30 H 89 L 12/23/20 07:00 98.6 F 87 26 H 89 L 12/23/20 06:00 98.4 F 89 19 90 12/23/20 05:00 98.4 F 83 28 H 90 12/23/20 04:00 98.2 F 85 30 H 119/57 L 90 12/23/20 03:00 98.4 F 85 27 H 88 L 12/23/20 02:00 98.4 F 85 28 H 88 L 12/23/20 01:00 98.4 F 86 28 H 90 12/23/20 00:00 98.4 F 84 28 H 119/57 L 91 12/22/20 23:40 100 H 18 91 12/22/20 23:18 86 12/22/20 23:00 98.4 F 88 28 H 91 12/22/20 22:00 98.2 F 91 H 28 H 119/66 92 Vital signs, labs and imaging personally reviewed Coding Level of Care Code Critical Care 1st 30-74 mins Diagnoses Acute respiratory failure with hypoxia J96.01 Pneumonia due to 2019 novel coronavirus U07.1; J12.82 Acute delirium R41.0 Cirrhosis K74.60 Time Spent (min) 41
--- NOTE | 2020-12-23 09:48 | XRay Report ---
XR chest 1V portable CLINICAL HISTORY: PNA TECHNIQUE: Single frontal radiograph of the chest was obtained. Comparison: Comparison is made to chest one view 12/22/2020 FINDINGS: Lines and tubes are stable. The cardiomediastinal silhouette is normal. Multifocal airspace opacities are essentially unchanged from prior exam. No evidence of pleural effusion or pneumothorax. IMPRESSION: Stable appearance of multifocal airspace opacities. ACT 112: Negative or not required by law. Electronically signed by: Felipe Fenton M.D. 12/23/2020 9:46 AM
[2020-12-23] MEDS: clonazePAM 0.5 MG TAB PO SCH ×2 (10:48→20:15)
[2020-12-23] MEDS: oxyCODONE HCL IR 5 MG TAB (IMMEDIATE RELEASE) PO SCH ×2 (11:03→17:32)
[2020-12-23] MEDS: POLYETHYLENE (MIRALAX) 17 GM PACK PO SCH (11:03)
[2020-12-23] MEDS: ALBUTEROL 0.083% NEBU SOLN 3 ML VIAL NEB SCH ×2 (11:21→19:45)
--- NOTE | 2020-12-23 11:47 | Pharmacy Report ---
Pharmacy Glycemic Short Note 2 - Date of Service December 23, 2020 - Glycemic Short BSG Results (Last 24 hours): 12/22/20 12/22/20 12/22/20 15:51 20:09 23:42 Glucose POC Glucose 177 H 123 H 107 H 12/23/20 12/23/20 12/23/20 04:05 04:24 07:57 Glucose 132 H POC Glucose 145 H 155 H 12/23/20 11:08 Glucose POC Glucose 169 H OUTPATIENT ANTIDIABETIC REGIMEN: * n/A * A1c pending ASSESSMENT: 12/23: * BSGs well controlled. Patient received 4 units of bolus insulin yesterday. TFs continue. 12/20: * BSGs below 180 mg/dL, received 10 units of insulin yesterday * Dexamethasone discontinued, will continue current parameters for now, may need to d/c carb coverage 12/18: * Patient's BSGs yesterday were [phone] mg/dL * Patient received 5 units of bolus insulin yesterday. * TFs are running, delivering ~19g CHO per 4 hours. * Last dose of dexamethasone tomorrow 12/15/20 * Patient's BSGs yesterday were [phone] mg/dL. * Patient received 0 units of insulin. * Fasting BSG today was 108 mg/dL. Continue to hold Lantus. * Patient is on trickle feeds so no coverage for this at this time. Background * Patient currently intubated, sedated with propofol, fentanyl. Norepinephrine was started overnight but has been titrated off. Patient was also paralyzed with nimbex, this has also been weened off. * Blood sugars elevated last evening and met criteria for glycemic consult. Patient's blood sugars have trended down with 10 units of lantus and correction factor of 30. * Tube feeds to begin with trickle (no titration), will add carb coverage. * Patient is currently on dexamethasone 20 mg, last day tomorrow and will taper down to 10 mg on 12/15. Will put additional lantus dose on for this evening if BSG >160 mg/dL PLAN FOR INPATIENT GLYCEMIC CONTROL: * Basal insulin * Lantus - held * Bolus insulin * NovoLog per scale ACHS or Q6hrs while NPO * Goal Range: Low 110 mg/dL - High 140 mg/dL * Correction Factor: 30 mg/dL/unit * Nutritional / Prandial insulin per carb ratio of 1 unit per 20 grams CHO consumed PLAN FOR DISCHARGE: * Patient's HbA1C is slightly elevated at 6.6% but is at goal (goal HbA1C < 7%) * Recommend continued monitoring as an outpatient. * Patient may adopt dietary and exercise changes to help control HbA1C.
[2020-12-23] MEDS ORDERED: STAT IV Infusion **Titration per Protocol STA (14:34)
[2020-12-23] MEDS: DEXMEDETOMIDINE HCL 200 MCG in SODIUM CHLORIDE 0.9% 48 ML IV SCH ×3 (15:04→22:27)
--- NOTE | 2020-12-23 16:10 | Hospitalist Progress Note ---
Date of Service December 23, 2020 Assessment & Plan (1) Pneumonia due to 2019 novel coronavirus: Plan: Severe disease declined to point of needing intubation on 12/12 tracheostomy performed on 12/22 Remains on ventilator, PEEP 10 FiO2 70% -Requiring Precedex, Fentanyl, started Oxycodone and Klonopin -completed high-dose dexamethasone course x 10 days -He was not a candidate for Tocilizumab at the time his respiratory status decompensated -Completed a course of azithromycin early on and now completed course of ceftriaxone for MSSA PNA diuretics PRN to keep lungs dry -Palliative care consultation reviewed- is agreeable to tracheostomy, wants all aggressive measures management as per ICU (2) Acute respiratory failure with hypoxia: Plan: ventilator dependent respiratory failure Covid-19 pneumonia as well as bacterial pneumonia, intubated on 12/[address] Hernandez s/p tracheostomy on 12/22 (3) Pneumothorax: Plan: resolved on CXR now low PEEP high FiO2 Follow chest x-ray daily (4) Headache: Plan: right eye region/right forehead with right eye tearing, right nare drainage, more intense on 12/08 CT head 12/08 - negative for ICH, stroke, etc. he had transient L hand numbness this am - then resolved could have been TIA could have been neuro symptoms 2nd to a migraine headache no triptans due to CAD Now intubated so unclear if headache remains (5) CAD (coronary artery disease): Plan: h/o RCA stents remains on asa, statin was NOT taking REI or BB at home but is on his home medication list no ischemic symptoms during this illness EKG with inverted T's inferiorly however it is unchanged from EKG from several years ago (6) Benign essential hypertension: Plan: BP stable (7) Hyperlipidemia: Plan: statin (8) GERD (gastroesophageal reflux disease): Plan: PPI (9) Elevated LFTs: Plan: likely 2nd to COVID-19 infection Resolved (10) Hyponatremia: Plan: 2nd recent diarrhea, poor oral intake, etc resolved (11) Hypokalemia: Plan: replace as needed (12) DVT prophylaxis: Plan: lovenox 40mg BID (13) Constipation: Plan: bowel regimen Plan: Disposition-continued stay in the ICU Admission and Anticipated Discharge Date Admission Date: December 03, 2020 Subjective patient remains sedated, started on Precedex, try to wean off Versed started Klonopin, Oxycodone in effort to titrate off IV pain control and sedation still on ventilator, PEEP 10 and FiO2 of 70% reviewed chart, had tracheostomy on 12/22 as he was not showing signs of re covery, was failing SBT Review of Systems Review of Systems: Unobtainable due to endotracheal tube and Unobtainable due to reduced consciousness Physical Exam Physical Exam: General: well developed, well nourished, sedated, mechanically ventilated Neck: supple, tracheostomy present Lungs: no wheezing, symmetric chest movement on ventilator chest wall - subcutaneous air over neck Heart: regular S1 and S2, no murmur, peripheral pulses normal, capillary refill normal, no edema Abdomen: soft, NT, ND, + BS, no hepatomegaly, normal to percussion Extremities: normal in appearance, mildly cyanotic, no petechiae, strength is 5/5 bilaterally Neuro: sedated, no focal motor deficits, CN II-XII intact Skin: warm, dry, no rash, normal turgor Psych: sedated on ventilator Results & Data Results & Data ([facility]) Vital Signs (Past 12 Hours) Vital Signs Temp Pulse Pulse Resp BP Pulse Ox 12/23/20 15:08 114 H 29 H 89 L 12/23/20 12:00 37.2 C 106 H 29 H 133/63 87 L 12/23/20 11:17 107 H 107 H 28 H 91 12/23/20 11:00 37.2 C 103 H 27 H 87 L 12/23/20 10:00 37.2 C 100 H 28 H 88 L 12/23/20 09:00 37.1 C 95 H 26 H 87 L 12/23/20 08:00 37.1 C 85 28 H 141/66 H 89 L 12/23/20 07:50 88 30 H 89 L 12/23/20 07:00 37.0 C 87 26 H 89 L 12/23/20 06:00 36.9 C 89 19 90 12/23/20 05:00 36.9 C 83 28 H 90 Laboratory Results Laboratory Results - last 24 hr 12/22/20 12/22/20 12/22/20 20:09 20:44 23:42 WBC RBC Hgb POC Hgb 11.9 L Hct POC Hct 35 L MCV MCH MCHC RDW Std Deviation RDW Coeff of Lu Plt Count MPV Immature Gran % (Auto) Neut % (Auto) Lymph % (Auto) Pope % (Auto) Eos % (Auto) Baso % (Auto) Neut # (Auto) Lymph # (Auto) Pope # (Auto) Eos # (Auto) Baso # (Auto) Immature Gran # (Auto) Absolute Nucleated RBC Nucleated RBC % (auto) Sample Site Art Line POC pH 7.28 L POC pCO2 74 H POC pO2 73 L POC HCO3 35 H POC Total CO2 37 H POC Base Excess 8.0 H ABG pH (Temp Correct) 7.279 L ABG pCO2 (Temp Corrct 74 H POC ABG pO2 at Pt Temp 72 POC ABG O2 Sat 91.0 Robert Test NA O2 Delivery Device Ventilator POC O2 Rate 28 POC FiO2 60 Tidal Volume 375 PEEP 8 POC Sodium 138 Sodium POC Potassium 5.0 Potassium Chloride Carbon Dioxide Anion Gap BUN Creatinine Est Cr Clr Drug Dosing Est GFR ( Amer) Est GFR (Non-Af Amer) BUN/Creatinine Ratio Glucose POC Glucose 123 H 107 H Calcium Phosphorus Magnesium Triglycerides 12/23/20 12/23/20 12/23/20 04:05 04:24 04:24 WBC 15.23 H RBC 3.80 L Hgb 11.4 L POC Hgb Hct 36.2 L POC Hct MCV 95.3 MCH 30.0 MCHC 31.5 L RDW Std Deviation 56.4 H RDW Coeff of Lu 16.2 H Plt Count 190 MPV 9.7 Immature Gran % (Auto) 0.4 Neut % (Auto) 91.4 Lymph % (Auto) 3.3 Pope % (Auto) 3.6 Eos % (Auto) 1.2 Baso % (Auto) 0.1 Neut # (Auto) 13.92 H Lymph # (Auto) 0.51 L Pope # (Auto) 0.55 Eos # (Auto) 0.18 Baso # (Auto) 0.01 Immature Gran # (Auto) 0.06 H Absolute Nucleated RBC 0.02 H Nucleated RBC % (auto) 0.1 Sample Site POC pH POC pCO2 POC pO2 POC HCO3 POC Total CO2 POC Base Excess ABG pH (Temp Correct) ABG pCO2 (Temp Corrct POC ABG pO2 at Pt Temp POC ABG O2 Sat Robert Test O2 Delivery Device POC O2 Rate POC FiO2 Tidal Volume PEEP POC Sodium Sodium 137 POC Potassium Potassium 4.9 Chloride 104 Carbon Dioxide 33 H Anion Gap 0 L BUN 39 H Creatinine 0.57 L Est Cr Clr Drug Dosing 121.7 Est GFR ( Amer) 123.2 Est GFR (Non-Af Amer) 106.3 BUN/Creatinine Ratio 68.6 H Glucose 132 H POC Glucose 145 H Calcium 8.9 Phosphorus 2.9 Magnesium 2.5 H Triglycerides 165 H 12/23/20 12/23/20 12/23/20 04:33 07:57 11:08 WBC RBC Hgb POC Hgb 11.6 L Hct POC Hct 34 L MCV MCH MCHC RDW Std Deviation RDW Coeff of Lu Plt Count MPV Immature Gran % (Auto) Neut % (Auto) Lymph % (Auto) Pope % (Auto) Eos % (Auto) Baso % (Auto) Neut # (Auto) Lymph # (Auto) Pope # (Auto) Eos # (Auto) Baso # (Auto) Immature Gran # (Auto) Absolute Nucleated RBC Nucleated RBC % (auto) Sample Site Art Line POC pH 7.35 POC pCO2 66 H POC pO2 54 L POC HCO3 36 H POC Total CO2 38 H POC Base Excess 10.0 H ABG pH (Temp Correct) 7.350 ABG pCO2 (Temp Corrct 65 H POC ABG pO2 at Pt Temp 53 POC ABG O2 Sat 84.0 L Robert Test NA O2 Delivery Device Ventilator POC O2 Rate 28 POC FiO2 55 Tidal Volume 375 PEEP 8 POC Sodium 139 Sodium POC Potassium 4.9 Potassium Chloride Carbon Dioxide Anion Gap BUN Creatinine Est Cr Clr Drug Dosing Est GFR ( Amer) Est GFR (Non-Af Amer) BUN/Creatinine Ratio Glucose POC Glucose 155 H 169 H Calcium Phosphorus Magnesium Triglycerides 12/23/20 15:17 WBC RBC Hgb POC Hgb Hct POC Hct MCV MCH MCHC RDW Std Deviation RDW Coeff of Lu Plt Count MPV Immature Gran % (Auto) Neut % (Auto) Lymph % (Auto) Pope % (Auto) Eos % (Auto) Baso % (Auto) Neut # (Auto) Lymph # (Auto) Pope # (Auto) Eos # (Auto) Baso # (Auto) Immature Gran # (Auto) Absolute Nucleated RBC Nucleated RBC % (auto) Sample Site POC pH POC pCO2 POC pO2 POC HCO3 POC Total CO2 POC Base Excess ABG pH (Temp Correct) ABG pCO2 (Temp Corrct POC ABG pO2 at Pt Temp POC ABG O2 Sat Robert Test O2 Delivery Device POC O2 Rate POC FiO2 Tidal Volume PEEP POC Sodium Sodium POC Potassium Potassium Chloride Carbon Dioxide Anion Gap BUN Creatinine Est Cr Clr Drug Dosing Est GFR ( Amer) Est GFR (Non-Af Amer) BUN/Creatinine Ratio Glucose POC Glucose 151 H Calcium Phosphorus Magnesium Triglycerides Medications Administered Current Inpatient Medications Acetaminophen (Acetaminophen 325 Mg Tab) 650 mg PO Q4H PRN PRN Reason: pain/fever Stop: 01/02/21 22:22 Last Admin: 12/10/20 09:53 Dose: 650 mg Documented by: Albuterol (Albuterol 0.083% Nebu Soln 3 Ml Vial) 2.5 mg NEB BIDR TONY Stop: 01/22/21 10:57 Last Admin: 12/23/20 11:21 Dose: 2.5 mg Documented by: Aspirin (Aspirin 81 Mg Chew) 81 mg PO HS TONY Stop: 01/15/21 20:59 Last Admin: 12/22/20 19:55 Dose: 81 mg Documented by: Atorvastatin Calcium (Atorvastatin 40 Mg Tab) 80 mg PO QPM TONY Stop: 01/15/21 20:59 Last Admin: 12/22/20 19:58 Dose: 80 mg Documented by: Clonazepam (Clonazepam 0.5 Mg Tab) 0.5 mg PO BID TONY Stop: 01/22/21 10:14 Last Admin: 12/23/20 10:48 Dose: 0.5 mg Documented by: Dextrose (Dextrose 50% 50 Ml Syringe) 25 - 50 ml IV UD PRN; Protocol PRN Reason: Hypoglycemia Protocol Stop: 01/12/21 01:29 Enoxaparin Sodium (Enoxaparin Inj 40 Mg/0.4 Ml Syr) 40 mg SQ Q12H TONY Stop: 01/02/21 22:59 Last Admin: 12/22/20 23:45 Dose: Not Given Documented by: Fentanyl Citrate (Fentanyl Bolus From Bag) 50 mcg IV Q60M PRN PRN Reason: Pain or Agitation Stop: 12/26/20 13:44 Last Admin: 12/22/20 16:07 Dose: 50 mcg Documented by: Glucagon (Glucagon For Inj 1 Mg Vial) 1 mg SQ UD PRN; Protocol PRN Reason: Hypoglycemia Protocol Stop: 01/12/21 01:29 Glucose (Glucose 40% Gel 15 Gm Tube) 15 - 30 gm PO UD PRN; Protocol PRN Reason: Hypoglycemia Protocol Stop: 01/12/21 01:29 Glucose (Glucose 10 Tabs/Tube) 4 - 8 tabs PO UD PRN; Protocol PRN Reason: Hypoglycemia Protocol Stop: 01/12/21 01:29 Famotidine 20 mg/ Syringe 5 mls @ 2.5 mls/min IV Q12H TONY Stop: 01/11/21 20:59 Last Admin: 12/23/20 07:49 Dose: 2.5 mls/min Documented by: Fentanyl Citrate (Fentanyl Drip) 1,250 mcg in 250 mls @ 40 mls/hr IV .Q6H15M TONY; Protocol Stop: 12/26/20 13:44 Last Admin: 12/23/20 10:48 Dose: 200 mcg/hr, 40 mls/hr Documented by: Propofol (Diprivan) 1,000 mg in 100 mls @ 19.17 mls/hr IV .Q5H13M TONY; Protocol Stop: 12/24/20 19:14 Last Admin: 12/23/20 15:04 Dose: 45 mcg/kg/min, 19.2 mls/hr Documented by: Norepinephrine Bitartrate (Levophed/D5w) 8 mg in 508 mls @ 5.532 mls/hr IV .Q24H TONY; Protocol Stop: 01/21/21 17:14 Last Titration: 12/22/20 18:56 Dose: 0.02 mcg/kg/min, 5.5 mls/hr Documented by: Dexmedetomidine HCl 200 mcg/ (Sodium Chloride) 50 mls @ 7.23 mls/hr IV .Q6H55M TONY; Protocol Stop: 12/27/20 14:29 Last Admin: 12/23/20 15:04 Dose: 0.4 mcg/kg/hr, 7.2 mls/hr Documented by: Insulin Aspart (Insulin Aspart 100 Units/Ml 3 Ml Pen) 0 units SC Q4 TONY; Protocol Stop: 01/12/21 01:29 Last Admin: 12/23/20 15:33 Dose: 2 units Documented by: Miscellaneous (Carbohydrates For Hypoglycemia ) 15 - 30 gm PO UD PRN PRN Reason: Hypoglycemia Treatment Stop: 01/12/21 01:29 Miscellaneous Information (Pharmacy Glycemic Mgmt Consult) 1 ea N/A UD PRN PRN Reason: Consult Stop: 01/12/21 00:30 Multi-Ingredient Cream (Artificial Tears Op Oint 3.5 Gm Tube) 1 appln OP Q4H TONY Stop: 01/11/21 14:44 Last Admin: 12/23/20 15:04 Dose: 1 appln Documented by: Nutritional Formula (Peptamen Intense Vhp 1.0 Yoandy 1,000 Ml Bag) 1,000 ml OG UD TONY; Protocol Stop: 01/12/21 10:14 Last Admin: 12/21/20 18:18 Dose: 1,000 ml Documented by: Ondansetron HCl (Ondansetron Inj 2 Mg/Ml 2 Ml Vial) 4 mg IV Q6H PRN PRN Reason: Nausea Stop: 01/02/21 22:22 Last Admin: 12/08/20 23:37 Dose: 4 mg Documented by: Oxycodone HCl (Oxycodone Hcl Ir 5 Mg Tab (Immediate Release)) 15 mg PO Q6 TONY Stop: 01/06/21 11:59 Last Admin: 12/23/20 11:03 Dose: 15 mg Documented by: Polyethylene Glycol (Polyethylene (Miralax) 17 Gm Pack) 17 gm PO QAM TONY Stop: 01/22/21 10:59 Last Admin: 12/23/20 11:03 Dose: 17 gm Documented by: Propofol (Propofol Bolus From Bag) 20 mg IV Q5M PRN PRN Reason: Sedation Stop: 12/24/20 19:14 Last Admin: 12/23/20 06:22 Dose: 20 mg Documented by: Sennosides (Senna 8.6 Mg Tab) 8.6 mg PO QAM TONY Stop: 01/17/21 10:29 Last Admin: 12/23/20 07:49 Dose: 8.6 mg Documented by: Sterile Water (Tube Feeding Water Flush) 30 ml OG Q4 TONY Stop: 01/12/21 11:59 Last Admin: 12/23/20 15:34 Dose: 30 ml Documented by: PG Care Time/CCT Total # of Minutes Spent Total Time Spent with Patient: Total time spent is greater than 50% in coordination of care (as documented) at patient's floor/unit and/or counseling patient: Coding Level of Care Code 11111 Subseq Hosp Care Lvl 2 Diagnoses Pneumonia due to 2019 novel coronavirus U07.1; J12.82 Acute respiratory failure with hypoxia J96.01 Pneumothorax J93.9 Headache R51.9 CAD (coronary artery disease) I25.10 Benign essential hypertension I10 Hyperlipidemia E78.5 GERD (gastroesophageal reflux disease) K21.9 Elevated LFTs R79.89 Hyponatremia E87.1 Hypokalemia E87.6 DVT prophylaxis Z29.9 Constipation K59.00
[2020-12-23] MEDS: NOREPINEPHRINE/D5W 8 MG/508 ML BAG IV SCH (17:32)
[2020-12-23] MEDS: ACETAMINOPHEN 325 MG TAB PO PRN (17:33)
[2020-12-23] MEDS: ASPIRIN 81 MG CHEW PO SCH (20:15)
[2020-12-23] MEDS: ATORVASTATIN 40 MG TAB PO SCH (20:19)
[2020-12-23] MEDS ORDERED: DEXMEDETOMIDINE HCL 400 MCG in SODIUM CHLORIDE 0.9% 96 ML IV SCH (22:00)
[2020-12-23] MEDS: PEPTAMEN INTENSE VHP 1.0 CAL 1,000 ML BAG OG SCH (22:31)
[2020-12-24] MEDS: oxyCODONE HCL IR 5 MG TAB (IMMEDIATE RELEASE) PO SCH ×5 (00:20→23:43)
[2020-12-24] MEDS: ACETAMINOPHEN SUSP 325 MG/10.15 ML UDC PO PRN ×3 (00:21→15:18)
[2020-12-24] MEDS: INSULIN ASPART 100 UNITS/ML 3 ML PEN SC SCH ×7 (00:22→23:37)
[2020-12-24] MEDS: TUBE FEEDING WATER FLUSH OG SCH ×7 (00:36→20:23)
[2020-12-24] MEDS: ARTIFICIAL TEARS OP OINT 3.5 GM TUBE OP SCH ×9 (00:36→23:40)
[2020-12-24] MEDS: fentaNYL DRIP 1,250 MCG/250 ML BAG IV SCH ×4 (01:48→14:48)
[2020-12-24] MEDS: DEXMEDETOMIDINE HCL 200 MCG in SODIUM CHLORIDE 0.9% 48 ML IV SCH ×2 (03:05→07:23)
[2020-12-24 04:52] LABS: iSTAT Arterial Blood Gas HCO3 34 meg/L (19-24); iSTAT Arterial Blood Gas pCO2 79 mmHg (35-46); iSTAT Arterial Blood Gas pH 7.24 (7.35-7.45); iSTAT Arterial Blood Gas pO2 61 mmHg (80-95); iSTAT Carbon Dioxide 36 mmol/L (24-31); iSTAT FiO2 75 %; iSTAT Site Art Line
[2020-12-24] MEDS: propofoL 1,000 MG/100 ML VIAL IV SCH ×3 (04:58→13:40)
[2020-12-24 05:26] LABS: Magnesium 2.7 mg/dl (1.8-2.4); Phosphorus 3.2 mg/dl (2.5-4.9)
--- NOTE | 2020-12-24 05:38 | Electrocardiogram Report ---
Test Reason : Blood Pressure : / mmHG Vent. Rate : 115 BPM Atrial Rate : 115 BPM P-R Int : 180 ms QRS Dur : 106 ms QT Int : 322 ms P-R-T Axes : 027 -34 073 degrees QTc Int : 445 ms Poor data quality, interpretation may be adversely affected Sinus tachycardia Left axis deviation Left ventricular hypertrophy with repolarization abnormality Abnormal ECG When compared with ECG of 03-DEC-2020 22:41, T wave inversion no longer evident in Inferior leads HR has increased by 41 bpm Confirmed by Nguyễn Friend ([id number]) on 12/24/2020 5:37:30 AM Referred By: REFERRED SELF Confirmed By:Nguyễn Friend
[2020-12-24 05:53] LABS: BUN Creatinine Ratio 64.1 (10-20); Calcium 9.1 mg/dl (8.5-10.1); Creatinine Clr Calc Pharmacy 84.6 ml/min; Est GFR (African American) 106.1 ml/min; Est GFR (Non-African American) 91.5 ml/min; Potassium 5.4 mmol/L (3.5-5.1)
[2020-12-24] MEDS ORDERED: DEXMEDETOMIDINE HCL 400 MCG in SODIUM CHLORIDE 0.9% 96 ML IV SCH (06:00)
[2020-12-24] MEDS: DEXMEDETOMIDINE HCL 400 MCG in 0.9 % SODIUM CHLORIDE 96 ML IV SCH ×3 (06:31→22:23)
[2020-12-24] MEDS: ALBUTEROL 0.083% NEBU SOLN 3 ML VIAL NEB SCH ×2 (07:56→19:58)
[2020-12-24] MEDS: FAMOTIDINE 20 MG in SYRINGE 3 ML IV SCH ×2 (08:11→20:19)
[2020-12-24] MEDS: SENNA 8.6 MG TAB PO SCH (08:11)
[2020-12-24] MEDS: clonazePAM 0.5 MG TAB PO SCH ×2 (08:11→20:18)
[2020-12-24] MEDS: POLYETHYLENE (MIRALAX) 17 GM PACK PO SCH (08:11)
[2020-12-24] MEDS ORDERED: CEFEPIME 2,000 MG in SYRINGE 0 ML IV STA (08:22)
--- NOTE | 2020-12-24 08:47 | Critical Care Progress Note ---
Date of Service December 24, 2020 Assessment & Plan (1) Acute respiratory failure with hypoxia: (2) Pneumonia due to 2019 novel coronavirus: (3) Acute delirium: (4) Cirrhosis: Plan: Impression: 65-year-old male with Covid pneumonia and ARDS. He has been admitted since 12/03 and has been on dexamethasone. He has been hospitalized long enough that was outside the window for Tocilizumab or Baricitinib. He was intubated 12/12 for progressive respiratory distress and increased work of breathing. Recommendations: 1. Neurologic: Currently on propofol, fentanyl, Precedex, oxycodone 15 mg every 6 hours and Klonopin 0.5 mg twice daily. Continue to wean continue sedation much as possible to maintain RASS of 0 to -1. 2. Pulmonary: ARDS secondary to Covid pneumonia. Tracheostomy placed 12/22/2020. On ventilator since 12/12/2020. Chest CTA completed 12/22/2020 with diffuse airspace opacities and dense bibasilar consolidations. Currently off steroids. Completed a course of increased dexamethasone for the fibropro liferative phase of ARDS. Continue lung protective ventilation strategy. Previously had pneumomediastinum with a small apical pneumothorax. These were not seen on the most recent CTA from 12/22/2020. Continue lung protective ventilation strategy. Continue MetaNeb. Consider coming off Covid isolation as she is 21 days out since his positive test. Symptoms began approximately 10 days prior to hospitalization. No further hemoptysis. 3. Cardiovascular: Now off norepinephrine. Would like to maintain on the dry side. 4. Renal: No current issues. Electrolyte replacement protocol. 5. GI: Tube feeding per nutritional services. PPI in place. Continue bowel regimen. 6. ID: Covid pneumonitis with ARDS physiology. Decadron complete. Prior sputum cultures with staph. Patient spiking fevers today. Repeat sputum cultures and procalcitonin sent. Empirically started on cefepime. 7. Endocrine: No prior issues. Glycemic control per ICU protocol. 8. Heme-onc: Hemoglobin and platelet counts stable. 9. Restart Lovenox today. Continue SCDs. Continue PPI prophylaxis. CRITICAL CARE TIME - I have personally spent 38 minutes of critical care time in the direct management of this patient. This is a life/limb threatening event. This includes time spent evaluating patient, direct bedside care, chart review, placing orders, interpretation of diagnostic studies, discussion with consultants, patient, and family members, as well as other required patient management activities. This time is exclusive of all separately billable procedures, and teaching time and separate from and in addition to any other critical care service time. Admission and Anticipated Discharge Date Admission Date: December 03, 2020 Subjective Patient seen and examined this morning. Continues on multiple continuous sedatives. No significant events overnight. Currently requiring 75% FiO2 and a PEEP of 8. Saturations in the low 90s. Respiratory therapy notes purulent drainage from around the tracheostomy site. Review of Systems Review of Systems: Unobtainable due to endotracheal tube and Unobtainable due to reduced consciousness Physical Exam 2 Physical Exam: Constitutional: Tracheostomy in place. Mild distress. Eyes: Pupils are equal round and reactive to light. Conjunctivae are normal. Anicteric sclera. Ears nose, mouth and throat: Tracheostomy in place. Neck: Trachea is midline. Visual inspection is normal. Respiratory: Tachypnea. Coarse lung sounds on the ventilator. Cardiovascular: Regular rate and rhythm. No murmurs. Trace lower extremity edema. Gastrointestinal: Normal bowel sounds, soft, nontender and nondistended. Musculoskeletal: No cyanosis. Patient is able to move all extremities. Skin: No rashes, warm dry and intact. Neurologic: Heavily sedated. No obvious focal deficits. Difficult to assess given tracheostomy status. Results & Data Results & Data ([facility]) Vital Signs (Past 12 Hours) Vital Signs Temp Pulse Resp BP Pulse Ox 12/24/20 07:50 96 H 32 H 93 12/24/20 07:00 101.5 F H 96 H 24 91 12/24/20 06:00 101.3 F H 96 H 26 H 91 12/24/20 05:00 101.1 F H 98 H 25 H 90 12/24/20 04:00 101.1 F H 102 H 25 H 129/60 88 L 12/24/20 03:55 102 H 30 H 89 L 12/24/20 03:00 101.3 F H 98 H 24 83 L 12/24/20 02:00 101.3 F H 100 H 24 87 L 12/24/20 01:00 101.1 F H 102 H 22 89 L 12/24/20 00:00 101.1 F H 103 H 26 H 103/55 L 90 12/23/20 23:48 105 H 12/23/20 23:00 101.3 F H 106 H 24 92 12/23/20 22:49 105 H 28 H 92 12/23/20 22:00 101.1 F H 111 H 25 H 93 12/23/20 21:00 100.9 F H 111 H 21 94 vital signs, labs and imaging personally reviewed. Coding Level of Care Code Critical Care 1st 30-74 mins Diagnoses Acute respiratory failure with hypoxia J96.01 Pneumonia due to 2019 novel coronavirus U07.1; J12.82 Acute delirium R41.0 Cirrhosis K74.60 Time Spent (min) 38
--- NOTE | 2020-12-24 08:57 | XRay Report ---
XR chest 1V portable HISTORY: Resp failure COMPARISON: Chest 12/23/2020. FINDINGS: Lines and tubes remain unchanged in position. Patchy bilateral airspace opacities and inter stitial thickening persists. The heart remains mildly enlarged. No pneumothorax. Trace bilateral pleu ral effusions, unchanged. IMPRESSION: 1. Satisfactory support line placement. 2. No change in the multifocal airspace opacities. ACT 112: Negative or not required by law. Electronically signed by: Pradeep Falcon M.D. 12/24/2020 8:55 AM
[2020-12-24] MEDS ORDERED: STAT IV Infusion **Titration per Protocol STA ×4 (09:52→14:44)
[2020-12-24] MEDS: ENOXAPARIN INJ 40 MG/0.4 ML SYR SQ SCH ×2 (10:31→23:40)
[2020-12-24] MEDS: CISATRACURIUM BESYLATE 40 MG in 0.9 % SODIUM CHLORIDE 80 ML IV SCH ×2 (10:31→19:54)
[2020-12-24] MEDS ORDERED: LACTATED RINGER'S 500 ML IV ONE (14:12)
[2020-12-24] MEDS ORDERED: NOREPINEPHRINE/D5W 8 MG/508 ML BAG IV SCH (14:15)
--- NOTE | 2020-12-24 14:15 | Communication Note ---
Date of Service: December 24, 2020 Patient becoming more septic throughout the day with high-grade fevers. He is currently hypotensive. He is also tachycardic. Will discontinue norepinephrine and initiate phenylephrine. Blood cultures, urine cultures and sputum cultures ordered. Procalcitonin elevated. MRSA screen negative. Continue cefepime that was started today. Chest x-ray will be ordered to evaluate for new infiltrates or pneumothorax. We will give a 500 cc bolus of lactated Ringer's. Discussed with bedside nurse. Coding Level of Care Code Critical Care ea addt'l 30 min Time Spent (min) 32
--- NOTE | 2020-12-24 14:31 | XRay Report ---
XR chest 1V portable CLINICAL HISTORY: decrease o2 sats TECHNIQUE: Single frontal radiograph of the chest was obtained. Comparison: Comparison is made to chest one view 12/24/2020 FINDINGS: Lines and tubes are stable. The cardiomediastinal silhouette is stable. No focal airspace opacities a re again seen. No evidence of pleural effusion or pneumothorax. IMPRESSION: Interval stability of multifocal airspace opacities. ACT 112: Negative or not required by law. Electronically signed by: Felipe Fenton M.D. 12/24/2020 2:29 PM
[2020-12-24] MEDS ORDERED: PHENYLEPHRINE HCL 20 MG in DEXTROSE 5% 500 ML IV SCH (14:45)
[2020-12-24 14:54] LABS: Appearance Urine Cloudy (Clear); Bacteria Urine Automated Negative (Negative); Bilirubin Urine Negative (Negative); Blood Urine 1+ (Negative); Color Urine Dark Yellow; Epithelial Cell Urine Auto >30 /lpf (0-5); Glucose Urine UA Negative (Negative); Ketones Urine Trace (Negative); Leukocyte Esterase Urine Trace (Negative); Nitrite Urine Negative (Negative); Protein Urine 1+ (Negative); Specific Gravity Urine 1.025 (1.000-1.030); Urobilinogen Urine Negative (Negative)
[2020-12-24] MEDS: PHENYLEPHRINE HCL 20 MG in DEXTROSE 5% 500 ML IV SCH ×3 (15:15→20:37)
[2020-12-24 15:42] LABS: RBC Urine Automated 0-4 /hpf (0-4)
--- NOTE | 2020-12-24 17:27 | Hospitalist Progress Note ---
Date of Service December 24, 2020 Assessment & Plan (1) Septic shock: Plan: hypotensive, initially on Levophed, changed to Neosynephrine due to tachycardia blood and urine cultures taken A line in place for monitoring BP continue Cefepime empirically called to discuss decline in status, she will come in tomorrow to discuss at the bedside remain level 1 tonight (2) Pneumonia due to 2019 novel coronavirus: Plan: Severe disease declined to point of needing intubation on 12/12 tracheostomy performed on 12/22 Remains on ventilator, PEEP 10 FiO2 70% now requiring paralytics -Requiring Precedex, Fentanyl, started Oxycodone and Klonopin -completed high-dose dexamethasone course x 10 days -He was not a candidate for Tocilizumab at the time his respiratory status decompensated -Completed a course of azithromycin early on and now completed course of ceftriaxone for MSSA PNA diuretics PRN to keep lungs dry prognosis is getting worse by the day, plan for goals of care discussion tomorrow with Kaden (3) Acute respiratory failure with hypoxia: Plan: ventilator dependent respiratory failure Covid-19 pneumonia as well as bacterial pneumonia, intubated on 12/[address] Hernandez s/p tracheostomy on 12/22 requiring high levels of sedation and paralytics today CXR without pneumothorax today (4) Fever: Plan: ongoing, won't come down continue Cefepime empirically now with shock (5) Pneumothorax: Plan: resolved on CXR now low PEEP high FiO2 Follow chest x-ray daily (6) Headache: Plan: right eye region/right forehead with right eye tearing, right nare drainage, more intense on 12/08 CT head 12/08 - negative for ICH, stroke, etc. he had transient L hand numbness this am - then resolved could have been TIA could have been neuro symptoms 2nd to a migraine headache no triptans due to CAD Now intubated so unclear if headache remains (7) CAD (coronary artery disease): Plan: h/o RCA stents remains on asa, statin was NOT taking REI or BB at home but is on his home medication list no ischemic symptoms during this illness EKG with inverted T's inferiorly however it is unchanged from EKG from several years ago (8) Benign essential hypertension: Plan: BP stable (9) Hyperlipidemia: Plan: statin (10) GERD (gastroesophageal reflux disease): Plan: PPI (11) Elevated LFTs: Plan: likely 2nd to COVID-19 infection Resolved (12) Hyponatremia: Plan: 2nd recent diarrhea, poor oral intake, etc resolved (13) Hypokalemia: Plan: replace as needed (14) DVT prophylaxis: Plan: lovenox 40mg BID (15) Constipation: Plan: bowel regimen Plan: Disposition-continued stay in the ICU remain level 1 tonight, d/w his Kaden will meet with her for goals of care discussion tomorrow, anticipate changing to DNR, possible comfort measures Admission and Anticipated Discharge Date Admission Date: December 03, 2020 Subjective patient not doing well today, he continues to spike fevers, unclear source blood pressure dropped, now requiring pressors was on Levophed but became tachycardic, changed to Neosynephrine trying to minimize sedation but he was becoming hypoxic, needed to be paralyzed again still on PEEP 10 and FiO2 70% CXR with no pneumothorax, possible left lower lobe infiltrate he is on Cefepime empirically, blood and urine cultures sent I had a long discussion with his , Kaden, on the phone discussed that he is getting worse, unlikely to survive, especially now with septic shock asked her to come to the bedside, she said she can come in tomorrow, will be here prior to 3pm she is more accepting that he is dying, started to discuss donating his body to science to learn from COVID I asked her given his decline would she still want him to be full code, she wants him to remain level 1 for now will discuss further tomorrow at the bedside Review of Systems Review of Systems: Unobtainable due to endotracheal tube and Unobtainable due to reduced consciousness Physical Exam Physical Exam: General: well developed, well nourished, sedated, mechanically ventilated, ill appearing Neck: supple, tracheostomy present Lungs: no wheezing, symmetric chest movement on ventilator Heart: tachycardic, S1 and S2, no murmur, weak peripheral pulses, delayed capillary refill, extremities cool Abdomen: soft, NT, ND, + BS, no hepatomegaly, normal to percussion Extremities: normal in appearance, mildly cyanotic, no petechiae, paralyzed Neuro: sedated, no focal motor deficits, CN II-XII intact Skin: warm, dry, no rash, normal turgor Psych: sedated on ventilator Results & Data Results & Data ([place]) Vital Signs (Past 12 Hours) Vital Signs Temp Pulse Resp BP Pulse Ox 12/24/20 15:12 111 H 29 H 92 12/24/20 11:31 105 H 30 H 88 L 12/24/20 11:00 38.7 C H 109 H 24 132/70 89 L 12/24/20 10:00 38.6 C H 110 H 26 H 89 L 12/24/20 09:00 38.6 C H 108 H 29 H 88 L 12/24/20 08:00 38.7 C H 99 H 28 H 124/60 92 12/24/20 07:50 96 H 32 H 93 12/24/20 07:00 38.6 C H 96 H 24 91 12/24/20 06:00 38.5 C H 96 H 26 H 91 Laboratory Results Laboratory Results - last 24 hr 12/23/20 12/24/20 12/24/20 20:38 00:21 04:17 Sample Site Art Line POC pH 7.24 L POC pCO2 79 H POC pO2 61 L POC HCO3 34 H POC Total CO2 36 H POC Base Excess 6.0 H POC ABG O2 Sat 85.0 L Robert Test NA O2 Delivery Device Ventilator POC O2 Rate 28 Minute Ventilation 8.5 POC FiO2 75 Tidal Volume 350 PEEP 8 Sodium Potassium Chloride Carbon Dioxide Anion Gap BUN Creatinine Est Cr Clr Drug Dosing Est GFR ( Amer) Est GFR (Non-Af Amer) BUN/Creatinine Ratio Glucose POC Glucose (other) 129 H 121 H Lactate Calcium Phosphorus Magnesium Procalcitonin Urine Color Urine Appearance Urine pH Ur Specific [place] Urine Protein Urine Glucose (UA) Urine Ketones Urine Blood Urine Nitrite Urine Bilirubin Urine Urobilinogen Ur Leukocyte Esterase Urine WBC (Auto) Urine RBC (Auto) U Hyaline Cast (Auto) U Epithel Cells (Auto) Urine Bacteria (Auto) Urine Yeast Nasal Screen MRSA (PCR) 12/24/20 12/24/20 12/24/20 04:30 04:31 04:31 Sample Site POC pH POC pCO2 POC pO2 POC HCO3 POC Total CO2 POC Base Excess POC ABG O2 Sat Robert Test O2 Delivery Device POC O2 Rate Minute Ventilation POC FiO2 Tidal Volume PEEP Sodium 136 Potassium 5.4 H Chloride 104 Carbon Dioxide 34 H Anion Gap -2.0 L BUN 53 H Creatinine 0.82 Est Cr Clr Drug Dosing 84.6 Est GFR ( Amer) 106.1 Est GFR (Non-Af Amer) 91.5 BUN/Creatinine Ratio 64.1 H Glucose 146 H POC Glucose (other) 145 H Lactate Calcium 9.1 Phosphorus 3.2 Magnesium 2.7 H Procalcitonin Urine Color Urine Appearance Urine pH Ur Specific [place] Urine Protein Urine Glucose (UA) Urine Ketones Urine Blood Urine Nitrite Urine Bilirubin Urine Urobilinogen Ur Leukocyte Esterase Urine WBC (Auto) Urine RBC (Auto) U Hyaline Cast (Auto) U Epithel Cells (Auto) Urine Bacteria (Auto) Urine Yeast Nasal Screen MRSA (PCR) 12/24/20 12/24/20 12/24/20 08:20 11:01 11:17 Sample Site POC pH POC pCO2 POC pO2 POC HCO3 POC Total CO2 POC Base Excess POC ABG O2 Sat Robert Test O2 Delivery Device POC O2 Rate Minute Ventilation POC FiO2 Tidal Volume PEEP Sodium Potassium Chloride Carbon Dioxide Anion Gap BUN Creatinine Est Cr Clr Drug Dosing Est GFR ( Amer) Est GFR (Non-Af Amer) BUN/Creatinine Ratio Glucose POC Glucose (other) 147 H Lactate Calcium Phosphorus Magnesium Procalcitonin 1.32 H Urine Color Urine Appearance Urine pH Ur Specific [place] Urine Protein Urine Glucose (UA) Urine Ketones Urine Blood Urine Nitrite Urine Bilirubin Urine Urobilinogen Ur Leukocyte Esterase Urine WBC (Auto) Urine RBC (Auto) U Hyaline Cast (Auto) U Epithel Cells (Auto) Urine Bacteria (Auto) Urine Yeast Nasal Screen MRSA (PCR) Negative 12/24/20 12/24/20 12/24/20 11:39 14:20 14:26 Sample Site POC pH POC pCO2 POC pO2 POC HCO3 POC Total CO2 POC Base Excess POC ABG O2 Sat Robert Test O2 Delivery Device POC O2 Rate Minute Ventilation POC FiO2 Tidal Volume PEEP Sodium Potassium Chloride Carbon Dioxide Anion Gap BUN Creatinine Est Cr Clr Drug Dosing Est GFR ( Amer) Est GFR (Non-Af Amer) BUN/Creatinine Ratio Glucose POC Glucose (other) 155 H Lactate 1.4 Calcium Phosphorus Magnesium Procalcitonin Urine Color Dark Yellow Urine Appearance Cloudy A Urine pH 5.0 Ur Specific [place] 1.025 Urine Protein 1+ H Urine Glucose (UA) Negative Urine Ketones Trace H Urine Blood 1+ H Urine Nitrite Negative Urine Bilirubin Negative Urine Urobilinogen Negative Ur Leukocyte Esterase Trace H Urine WBC (Auto) 1-5 Urine RBC (Auto) 0-4 U Hyaline Cast (Auto) 1-5 U Epithel Cells (Auto) >30 H Urine Bacteria (Auto) Negative Urine Yeast Not Reportable Nasal Screen MRSA (PCR) 12/24/20 15:33 Sample Site POC pH POC pCO2 POC pO2 POC HCO3 POC Total CO2 POC Base Excess POC ABG O2 Sat Robert Test O2 Delivery Device POC O2 Rate Minute Ventilation POC FiO2 Tidal Volume PEEP Sodium Potassium Chloride Carbon Dioxide Anion Gap BUN Creatinine Est Cr Clr Drug Dosing Est GFR ( Amer) Est GFR (Non-Af Amer) BUN/Creatinine Ratio Glucose POC Glucose (other) 164 H Lactate Calcium Phosphorus Magnesium Procalcitonin Urine Color Urine Appearance Urine pH Ur Specific [place] Urine Protein Urine Glucose (UA) Urine Ketones Urine Blood Urine Nitrite Urine Bilirubin Urine Urobilinogen Ur Leukocyte Esterase Urine WBC (Auto) Urine RBC (Auto) U Hyaline Cast (Auto) U Epithel Cells (Auto) Urine Bacteria (Auto) Urine Yeast Nasal Screen MRSA (PCR) Medications Administered Current Inpatient Medications Acetaminophen (Acetaminophen Susp 325 Mg/10.15 Ml Udc) 650 mg PO Q6H PRN PRN Reason: Fever Stop: 01/22/21 23:00 Last Admin: 12/24/20 15:18 Dose: 650 mg Documented by: Albuterol (Albuterol 0.083% Nebu Soln 3 Ml Vial) 2.5 mg NEB BIDR TONY Stop: 01/22/21 10:57 Last Admin: 12/24/20 07:56 Dose: 2.5 mg Documented by: Aspirin (Aspirin 81 Mg Chew) 81 mg PO HS TONY Stop: 01/15/21 20:59 Last Admin: 12/23/20 20:15 Dose: 81 mg Documented by: Atorvastatin Calcium (Atorvastatin 40 Mg Tab) 80 mg PO QPM TONY Stop: 01/15/21 20:59 Last Admin: 12/23/20 20:19 Dose: 80 mg Documented by: Clonazepam (Clonazepam 0.5 Mg Tab) 0.5 mg PO BID TONY Stop: 01/22/21 10:14 Last Admin: 12/24/20 08:11 Dose: 0.5 mg Documented by: Dextrose (Dextrose 50% 50 Ml Syringe) 25 - 50 ml IV UD PRN; Protocol PRN Reason: Hypoglycemia Protocol Stop: 01/12/21 01:29 Enoxaparin Sodium (Enoxaparin Inj 40 Mg/0.4 Ml Syr) 40 mg SQ Q12H TONY Stop: 01/02/21 22:59 Last Admin: 12/24/20 10:31 Dose: 40 mg Documented by: Fentanyl Citrate (Fentanyl Bolus From Bag) 50 mcg IV Q60M PRN PRN Reason: Pain or Agitation Stop: 12/26/20 13:44 Last Admin: 12/22/20 16:07 Dose: 50 mcg Documented by: Glucagon (Glucagon For Inj 1 Mg Vial) 1 mg SQ UD PRN; Protocol PRN Reason: Hypoglycemia Protocol Stop: 01/12/21 01:29 Glucose (Glucose 40% Gel 15 Gm Tube) 15 - 30 gm PO UD PRN; Protocol PRN Reason: Hypoglycemia Protocol Stop: 01/12/21 01:29 Glucose (Glucose 10 Tabs/Tube) 4 - 8 tabs PO UD PRN; Protocol PRN Reason: Hypoglycemia Protocol Stop: 01/12/21 01:29 Famotidine 20 mg/ Syringe 5 mls @ 2.5 mls/min IV Q12H TONY Stop: 01/11/21 20:59 Last Admin: 12/24/20 08:11 Dose: 2.5 mls/min Documented by: Fentanyl Citrate (Fentanyl Drip) 1,250 mcg in 250 mls @ 20 mls/hr IV .[id number] TONY; Protocol Stop: 12/26/20 13:44 Last Admin: 12/24/20 14:48 Dose: 100 mcg/hr, 20 mls/hr Documented by: Propofol (Diprivan) 1,000 mg in 100 mls @ 0 mls/hr IV .Q0M TONY; Protocol Stop: 12/24/20 19:14 Last Titration: 12/24/20 16:45 Dose: 0 mcg/kg/min, 0 mls/hr Documented by: Dexmedetomidine HCl 400 mcg/ (Sodium Chloride) 100 mls @ 10.845 mls/hr IV .Q9H14M TONY; Protocol Stop: 12/28/20 05:59 Last Admin: 12/24/20 13:39 Dose: 0.6 mcg/kg/hr, 10.8 mls/hr Documented by: Cisatracurium Besylate 40 mg/ (Sodium Chloride) 100 mls @ 10.26 mls/hr IV .Q9H45M TONY; Protocol Stop: 01/23/21 09:59 Last Admin: 12/24/20 10:31 Dose: 1 mcg/kg/min, 10.3 mls/hr Documented by: Phenylephrine HCl 20 mg/ (Dextrose) 502 mls @ 213.852 mls/hr IV .Q2H21M [facility]; Protocol Stop: 01/23/21 14:44 Last Titration: 12/24/20 16:44 Dose: 2 mcg/kg/min, 213.9 mls/hr Documented by: Insulin Aspart (Insulin Aspart 100 Units/Ml 3 Ml Pen) 0 units SC Q4 [facility]; Protocol Stop: 01/12/21 01:29 Last Admin: 12/24/20 15:39 Dose: 1 units Documented by: Miscellaneous (Carbohydrates For Hypoglycemia ) 15 - 30 gm PO UD PRN PRN Reason: Hypoglycemia Treatment Stop: 01/12/21 01:29 Miscellaneous Information (Pharmacy Glycemic Mgmt Consult) 1 ea N/A UD PRN PRN Reason: Consult Stop: 01/12/21 00:30 Multi-Ingredient Cream (Artificial Tears Op Oint 3.5 Gm Tube) 1 appln OP Q4H [facility] Stop: 01/23/21 09:59 Last Admin: 12/24/20 13:47 Dose: 1 appln Documented by: Nutritional Formula (Peptamen Intense Vhp 1.0 Yoandy 1,000 Ml Bag) 1,000 ml OG UD [facility]; Protocol Stop: 01/12/21 10:14 Last Admin: 12/23/20 22:31 Dose: 1,000 ml Documented by: Ondansetron HCl (Ondansetron Inj 2 Mg/Ml 2 Ml Vial) 4 mg IV Q6H PRN PRN Reason: Nausea Stop: 01/02/21 22:22 Last Admin: 12/08/20 23:37 Dose: 4 mg Documented by: Oxycodone HCl (Oxycodone Hcl Ir 5 Mg Tab (Immediate Release)) 15 mg PO Q6 [facility] Stop: 01/06/21 11:59 Last Admin: 12/24/20 11:58 Dose: 15 mg Documented by: Polyethylene Glycol (Polyethylene (Miralax) 17 Gm Pack) 17 gm PO QAM [facility] Stop: 01/22/21 10:59 Last Admin: 12/24/20 08:11 Dose: 17 gm Documented by: Propofol (Propofol Bolus From Bag) 20 mg IV Q5M PRN PRN Reason: Sedation Stop: 12/24/20 19:14 Last Admin: 12/23/20 06:22 Dose: 20 mg Documented by: Sennosides (Senna 8.6 Mg Tab) 8.6 mg PO QAM [facility] Stop: 01/17/21 10:29 Last Admin: 12/24/20 08:11 Dose: 8.6 mg Documented by: Sterile Water (Tube Feeding Water Flush) 30 ml OG Q4 [facility] Stop: 01/12/21 11:59 Last Admin: 12/24/20 15:39 Dose: 30 ml Documented by: PG Care Time/CCT Total # of Minutes Spent Total Time Spent: 34 Total Time Spent with Patient: Total time spent is greater than 50% in coordination of care (as documented) at patient's floor/unit and/or counseling patient: spoke with over the phone spoke at length with Dr. Koenig spoke with patient's nurse at the bedside examination, chart review, documentation Coding Level of Care Code 23851 Subseq Hosp Care Lvl 3 (25 - SIGNIFICANT, SEPARATELY IDENTIFIABLE ) Diagnoses Pneumonia due to 2019 novel coronavirus U07.1; J12.82 Acute respiratory failure with hypoxia J96.01 Pneumothorax J93.9 Headache R51.9 CAD (coronary artery disease) I25.10 Benign essential hypertension I10 Hyperlipidemia E78.5 GERD (gastroesophageal reflux disease) K21.9 Elevated LFTs R79.89 Hyponatremia E87.1 Hypokalemia E87.6 DVT prophylaxis Z29.9 Constipation K59.00 Septic shock A41.9; R65.21 Fever R50.9
[2020-12-24] MEDS: ASPIRIN 81 MG CHEW PO SCH (20:18)
[2020-12-24] MEDS: ATORVASTATIN 40 MG TAB PO SCH (20:20)
[2020-12-24 20:28] LABS: iSTAT Arterial Blood Gas HCO3 32 meg/L (19-24); iSTAT Arterial Blood Gas pCO2 83 mmHg (35-46); iSTAT Arterial Blood Gas pH 7.19 (7.35-7.45); iSTAT Arterial Blood Gas pO2 71 mmHg (80-95); iSTAT Carbon Dioxide 34 mmol/L (24-31); iSTAT FiO2 60 %; iSTAT Site Art Line
[2020-12-24 20:41] LABS: Calcium 9.2 mg/dl (8.5-10.1); Creatinine Clr Calc Pharmacy 52.5 ml/min; Est GFR (African American) 64.2 ml/min; Est GFR (Non-African American) 55.4 ml/min; Potassium 6.1 mmol/L (3.5-5.1)
[2020-12-24] MEDS ORDERED: SODIUM BICARB 8.4% INJ 50 MEQ/50 ML SYR IV STA (20:43)
[2020-12-24] MEDS ORDERED: LANTUS PER UNIT CHARGE SQ STA (20:43)
[2020-12-24] MEDS ORDERED: DEXTROSE 50% 50 ML SYRINGE IV STA (20:43)
[2020-12-24 22:17] LABS: iSTAT Art Bld Gas pCO2 Correct 79 mmHg (35-46); iSTAT Art Bld Gas pH Corrected 7.231 (7.35-7.45); iSTAT Arterial Blood Gas HCO3 32 meg/L (19-24); iSTAT Arterial Blood Gas pCO2 72 mmHg (35-46); iSTAT Arterial Blood Gas pH 7.26 (7.35-7.45); iSTAT Arterial Blood Gas pO2 65 mmHg (80-95); iSTAT Arterial Blood Gas pO2 C 76; iSTAT Carbon Dioxide 34 mmol/L (24-31); iSTAT FiO2 60 %; iSTAT Hematocrit 35 % (42-52); iSTAT Hemoglobin 11.9 g/dl (14.0-18.0); iSTAT Potassium 5.7 mmol/L (3.3-5.0); iSTAT Site Art Line; iSTAT Sodium 130 mmol/L (135-144)
[2020-12-24] MEDS: PEPTAMEN INTENSE VHP 1.0 CAL 1,000 ML BAG OG SCH (22:53)
[2020-12-24] MEDS: PHENYLEPHRINE HCL 40 MG in DEXTROSE 5% 500 ML IV SCH (22:55)
[2020-12-25] MEDS: ALBUTEROL 0.083% NEBU SOLN 3 ML VIAL NEB SCH ×4 (00:15→20:10)
[2020-12-25 00:26] LABS: BUN Creatinine Ratio 57.5 (10-20); Calcium 8.8 mg/dl (8.5-10.1); Creatinine Clr Calc Pharmacy 53.3 ml/min; Est GFR (African American) 65.4 ml/min; Est GFR (Non-African American) 56.5 ml/min; Potassium 5.7 mmol/L (3.5-5.1)
[2020-12-25] MEDS ORDERED: ALBUTEROL 0.5% NEB SOLN 2.5 MG/0.5 ML VIAL NEB SCH (01:00)
[2020-12-25] MEDS: PHENYLEPHRINE HCL 40 MG in DEXTROSE 5% 500 ML IV SCH ×4 (03:09→17:32)
[2020-12-25] MEDS: fentaNYL DRIP 1,250 MCG/250 ML BAG IV SCH ×2 (03:16→14:50)
[2020-12-25] MEDS: ACETAMINOPHEN SUSP 325 MG/10.15 ML UDC PO PRN (03:16)
[2020-12-25 03:26] LABS: iSTAT Art Bld Gas pCO2 Correct 85 mmHg (35-46); iSTAT Art Bld Gas pH Corrected 7.199 (7.35-7.45); iSTAT Arterial Blood Gas HCO3 32 meg/L (19-24); iSTAT Arterial Blood Gas pCO2 78 mmHg (35-46); iSTAT Arterial Blood Gas pH 7.23 (7.35-7.45); iSTAT Arterial Blood Gas pO2 56 mmHg (80-95); iSTAT Arterial Blood Gas pO2 C 64; iSTAT Carbon Dioxide 35 mmol/L (24-31); iSTAT FiO2 70 %; iSTAT Hematocrit 39 % (42-52); iSTAT Hemoglobin 13.3 g/dl (14.0-18.0); iSTAT Potassium 5.7 mmol/L (3.3-5.0); iSTAT Site Art Line; iSTAT Sodium 131 mmol/L (135-144)
[2020-12-25] MEDS: INSULIN ASPART 100 UNITS/ML 3 ML PEN SC SCH ×5 (03:43→20:17)
[2020-12-25 03:46] LABS: iSTAT Arterial Blood Gas HCO3 32 meg/L (19-24); iSTAT Arterial Blood Gas pCO2 84 mmHg (35-46); iSTAT Arterial Blood Gas pH 7.19 (7.35-7.45); iSTAT Arterial Blood Gas pO2 57 mmHg (80-95); iSTAT Carbon Dioxide 34 mmol/L (24-31); iSTAT FiO2 70 %; iSTAT Site Art Line
[2020-12-25] MEDS: TUBE FEEDING WATER FLUSH OG SCH ×6 (04:04→20:11)
[2020-12-25] MEDS: ARTIFICIAL TEARS OP OINT 3.5 GM TUBE OP SCH ×6 (04:04→20:25)
[2020-12-25 04:23] LABS: Hematocrit (blood only) 37.5 % (42-52); Hemoglobin 11.5 g/dL (14.0-18.0); Mean Corpuscular Hemoglobin 29.6 pg (25-34); Mean Corpuscular Hgb Conc 30.7 g/dL (32-36); Mean Corpuscular Volume 96.4 fL (80-100); Mean Platelet Volume 9.9 fL (7.4-10.4); Nucleated RBC # (auto) 0.09 K/uL (0-0); Nucleated RBC % (auto) 0.4 %; Platelet Count 255 K/uL (130-400); RDW Coefficient of Variation 16.4 % (11.5-14.5); RDW Standard Deviation 57.6 fL (36.4-46.3); Red Blood Count 3.89 M/uL (4.7-6.1); White Blood Count 20.39 K/uL (4.8-10.8)
[2020-12-25 04:53] LABS: BUN Creatinine Ratio 54.9 (10-20); Calcium 8.9 mg/dl (8.5-10.1); Creatinine Clr Calc Pharmacy 49.9 ml/min; Est GFR (African American) 60.4 ml/min; Est GFR (Non-African American) 52.1 ml/min; Magnesium 2.9 mg/dl (1.8-2.4); Potassium 5.9 mmol/L (3.5-5.1)
[2020-12-25 04:58] LABS: Phosphorus 4.5 mg/dl (2.5-4.9)
[2020-12-25] MEDS ORDERED: DEXTROSE 50% 50 ML SYRINGE IV ONE ×2 (05:06→16:15)
[2020-12-25] MEDS ORDERED: SODIUM BICARB 8.4% INJ 50 MEQ/50 ML SYR IV STA ×2 (05:06→12:55)
[2020-12-25] MEDS ORDERED: INSULIN HUMAN REGULAR PER UNIT 10 UNITS in SYRINGE 0 ML IV STA (05:13)
[2020-12-25] MEDS: CISATRACURIUM BESYLATE 40 MG in 0.9 % SODIUM CHLORIDE 80 ML IV SCH ×3 (05:13→14:47)
[2020-12-25] MEDS: oxyCODONE HCL IR 5 MG TAB (IMMEDIATE RELEASE) PO SCH ×3 (05:27→17:12)
--- NOTE | 2020-12-25 05:30 | Electrocardiogram Report ---
Test Reason : Blood Pressure : / mmHG Vent. Rate : 111 BPM Atrial Rate : 111 BPM P-R Int : 140 ms QRS Dur : 140 ms QT Int : 366 ms P-R-T Axes : 024 -47 002 degrees QTc Int : 497 ms Poor data quality, interpretation may be adversely affected Sinus tachycardia with frequent Premature ventricular complexes Left axis deviation Right bundle branch block T wave abnormality, consider anterior ischemia Abnormal ECG When compared with ECG of 23-DEC-2020 15:24, Premature ventricular complexes are now Present Right bundle branch block is now Present Confirmed by Nguyễn Friend ([id number]) on 12/25/2020 5:29:54 AM Referred By: REFERRED SELF Confirmed By:Nguyễn Friend
[2020-12-25 05:53] LABS: Basophils # (auto) 0.04 K/uL (0-0.2); Basophils % (auto) 0.2 %; Eosinophils % (auto) 0.5 %; Immature Granulocytes # (auto) 0.13 K/uL (0.00-0.02); Immature Granulocytes % (auto) 0.6 %; Lymphocytes # (auto) 1.56 K/uL (1.2-3.4); Lymphocytes % (auto) 7.7 %; Monocytes # (auto) 1.47 K/uL (0.11-0.59); Monocytes % (auto) 7.2 %; Neutrophils # (auto) 17.09 K/uL (1.4-6.5); Neutrophils % (auto) 83.8 %
[2020-12-25] MEDS: DEXMEDETOMIDINE HCL 400 MCG in 0.9 % SODIUM CHLORIDE 96 ML IV SCH ×3 (07:16→22:16)
[2020-12-25] MEDS: propofoL 1,000 MG/100 ML VIAL IV SCH (07:25)
[2020-12-25] MEDS: POLYETHYLENE (MIRALAX) 17 GM PACK PO SCH (07:26)
[2020-12-25] MEDS: SENNA 8.6 MG TAB PO SCH (07:26)
[2020-12-25] MEDS: clonazePAM 0.5 MG TAB PO SCH ×2 (07:28→20:19)
[2020-12-25] MEDS: FAMOTIDINE 20 MG in SYRINGE 3 ML IV SCH ×2 (07:28→20:12)
--- NOTE | 2020-12-25 07:36 | XRay Report ---
XR chest 1V portable CLINICAL HISTORY: Respiratory failure. COMPARISON STUDY: Chest radiograph December 24, 2020. Chest CT December 22, 2020. FINDINGS: Tracheostomy tube is in place. There is a left subclavian central line. Tip of feeding tube is within the gastric fundus. There is no pneumothorax or pleural effusion. Extensive bilateral airs pace opacities persist. Cardiomediastinal silhouette is stable. IMPRESSION: No significant change in extensive bilateral airspace opacities. ACT 112: Negative or not required by law. Electronically signed by: Alcides Adrian M.D. 12/25/2020 7:34 AM
[2020-12-25] MEDS ORDERED: FUROSEMIDE 40 MG/4 ML VIAL IV ONE (07:49)
[2020-12-25] MEDS: CEFEPIME 2,000 MG in SYRINGE 0 ML IV SCH ×2 (08:52→20:10)
[2020-12-25 09:07] LABS: Calcium 9.1 mg/dl (8.5-10.1); Est GFR (Non-African American) 58.6 ml/min; Potassium 5.6 mmol/L (3.5-5.1)
[2020-12-25] MEDS ORDERED: STAT IV Infusion **Titration per Protocol STA ×3 (09:55→21:59)
[2020-12-25] MEDS: VASOPRESSIN 20 UNITS in 0.9 % SODIUM CHLORIDE 100 ML IV SCH ×2 (10:21→17:09)
[2020-12-25] MEDS: HYDROCORTISONE SOD 50 MG in SYRINGE 0 ML IV SCH ×3 (10:21→22:06)
[2020-12-25] MEDS: ENOXAPARIN INJ 40 MG/0.4 ML SYR SQ SCH ×2 (10:22→22:06)
[2020-12-25 11:28] LABS: iSTAT Art Bld Gas pCO2 Correct 80 mmHg (35-46); iSTAT Art Bld Gas pH Corrected 7.212 (7.35-7.45); iSTAT Arterial Blood Gas HCO3 32 meg/L (19-24); iSTAT Arterial Blood Gas pCO2 80 mmHg (35-46); iSTAT Arterial Blood Gas pH 7.21 (7.35-7.45); iSTAT Arterial Blood Gas pO2 74 mmHg (80-95); iSTAT Arterial Blood Gas pO2 C 74; iSTAT Carbon Dioxide 35 mmol/L (24-31); iSTAT FiO2 80 %; iSTAT Hematocrit 38 % (42-52); iSTAT Hemoglobin 12.9 g/dl (14.0-18.0); iSTAT Potassium 6.1 mmol/L (3.3-5.0); iSTAT Site Art Line; iSTAT Sodium 129 mmol/L (135-144)
--- NOTE | 2020-12-25 11:56 | Critical Care Progress Note ---
Date of Service December 25, 2020 Assessment & Plan (1) Acute respiratory failure with hypoxia: (2) Pneumonia due to 2019 novel coronavirus: (3) Acute delirium: (4) Cirrhosis: Plan: Impression: 65-year-old male with Covid pneumonia and ARDS. He has been admitted since 12/03 and has been on dexamethasone. He has been hospitalized long enough that was outside the window for Tocilizumab or Baricitinib. He was intubated 12/12 for progressive respiratory distress and increased work of breathing. Recommendations: 1. Neurologic: Currently on propofol, fentanyl, Precedex, Nimbex, oxycodone 15 mg every 6 hours and Klonopin 0.5 mg twice daily. Continue to wean sedation much as possible to maintain RASS of 0 to -1. 2. Pulmonary: ARDS secondary to Covid pneumonia. Tracheostomy placed 12/22/2020. On ventilator since 12/12/2020. Chest CTA completed 12/22/2020 with diffuse airspace opacities and dense bibasilar consolidations. Currently off steroids. Completed a course of increased dexamethasone for the fibroprol iferative phase of ARDS. Continue lung protective ventilation strategy. Previously had pneumomediastinum with a small apical pneumothorax. These were not seen on the most recent CTA from 12/22/2020. Continue lung protective ventilation strategy. Continue MetaNeb. ABG at 11 AM 7.2 on 375//80/8 3. Cardiovascular: Currently on phenylephrine and vasopressin due to septic shock. Stress dose steroids added 12/25/2020. 4. Renal: Patient with hyperkalemia today. Treating with insulin and dextrose. Nephrology consult placed. 40 mg of IV Lasix given this morning. 1 g calcium gluconate given. Etiology of hyperkalemia is unclear although the patient did have an increase in creatinine over the past 2 days. We will give 2 A of bicarb. Will check CK level to evaluate for rhabdomyolysis. Lactic acid level ordered as well. 5. GI: Tube feeding per nutritional services. PPI in place. Continue bowel regimen. 6. ID: Covid pneumonitis with ARDS physiology. Repeat sputum cultures growing Staphylococcus species and group B strep. Patient is currently on cefepime. Blood cultures unremarkable. Urine culture with less than 1000 colonies. 7. Endocrine: Stress dose steroids started due to ongoing septic shock. 8. Heme-onc: Hemoglobin and platelet counts stable. 9. Continue Lovenox 40 mg twice daily. Continue SCDs. Continue PPI prophylaxis. CRITICAL CARE TIME - I have personally spent 39 minutes of critical care time in the direct management of this patient. This is a life/limb threatening event. This includes time spent evaluating patient, direct bedside care, chart review, placing orders, interpretation of diagnostic studies, discussion with consultants, patient, and family members, as well as other required patient management activities. This time is exclusive of all separately billable procedures, and teaching time and separate from and in addition to any other critical care service time. Admission and Anticipated Discharge Date Admission Date: December 03, 2020 Subjective Patient seen and examined this morning. Patient increasingly hypoxic and febrile. Continues on neuromuscular blockade with Nimbex. Review of Systems Review of Systems: Unobtainable due to cognitive status and Unobtainable due to endotracheal tube Physical Exam Physical Exam: Constitutional: Tracheostomy in place. Mild distress. Eyes: Pupils are equal round and reactive to light. Conjunctivae are normal. Anicteric sclera. Ears nose, mouth and throat: Tracheostomy in place. Neck: Trachea is midline. Visual inspection is normal. Respiratory: Tachypnea. Coarse lung sounds on the ventilator. Cardiovascular: Regular rate and rhythm. No murmurs. Trace lower extremity edema. Gastrointestinal: Normal bowel sounds, soft, nontender and nondistended. Musculoskeletal: No cyanosis. Patient is able to move all extremities. Skin: No rashes, warm dry and intact. Neurologic: Heavily sedated. No obvious focal deficits. Difficult to assess given tracheostomy status. Results & Data Results & Data ([facility]) Vital Signs (Past 12 Hours) Vital Signs Temp Pulse Pulse Resp BP Pulse Ox 12/25/20 11:36 88 33 H 96 12/25/20 10:00 93 H 32 H 104/67 93 12/25/20 09:00 90 32 H 94 12/25/20 08:00 100 H 32 H 95 12/25/20 07:49 97 H 97 H 33 H 93 12/25/20 07:00 101.1 F H 98 H 32 H 88 L 12/25/20 06:00 101.1 F H 97 H 32 H 95 12/25/20 05:00 101.5 F H 101 H 32 H 90 12/25/20 04:00 103 H 32 H 92 12/25/20 03:40 96 H 32 H 89 L 12/25/20 03:00 97 H 32 H 89 L 12/25/20 02:00 95 H 32 H 90 12/25/20 01:05 98 H 32 H 90 12/25/20 01:00 98 H 32 H 84 L 12/25/20 00:00 102.6 F H 99 H 32 H 133/56 L 92 Vital signs, labs and imaging reviewed Coding Level of Care Code Critical Care 1st 30-74 mins Diagnoses Acute respiratory failure with hypoxia J96.01 Pneumonia due to 2019 novel coronavirus U07.1; J12.82 Acute delirium R41.0 Cirrhosis K74.60 Time Spent (min) 39
[2020-12-25] MEDS ORDERED: SODIUM POLYSTYRENE SULFONATE 15G/60ML SUSP PO STA (12:47)
[2020-12-25] MEDS ORDERED: CALCIUM GLUCONATE 10% 1,000 MG in SODIUM CHLORIDE 0.9% 50 ML IV STA (12:54)
[2020-12-25] MEDS ORDERED: INSULIN HUMAN REGULAR PER UNIT 10 UNITS in SYRINGE 9.9 ML IV ONE (12:55)
[2020-12-25 15:10] LABS: iSTAT Art Bld Gas pCO2 Correct 86 mmHg (35-46); iSTAT Art Bld Gas pH Corrected 7.237 (7.35-7.45); iSTAT Arterial Blood Gas HCO3 36 meg/L (19-24); iSTAT Arterial Blood Gas pCO2 80 mmHg (35-46); iSTAT Arterial Blood Gas pH 7.26 (7.35-7.45); iSTAT Arterial Blood Gas pO2 57 mmHg (80-95); iSTAT Arterial Blood Gas pO2 C 64; iSTAT Carbon Dioxide 38 mmol/L (24-31); iSTAT FiO2 100 %; iSTAT Hematocrit 35 % (42-52); iSTAT Hemoglobin 11.9 g/dl (14.0-18.0); iSTAT Potassium 6.3 mmol/L (3.3-5.0); iSTAT Site Art Line; iSTAT Sodium 131 mmol/L (135-144)
--- NOTE | 2020-12-25 15:40 | XCELERA ---
[id number]
[2020-12-25 15:51] LABS: BUN Creatinine Ratio 63.7 (10-20); Calcium 9.1 mg/dl (8.5-10.1); Creatinine Clr Calc Pharmacy 55.9 ml/min; Est GFR (African American) 69.3 ml/min; Est GFR (Non-African American) 59.8 ml/min; Potassium 6.1 mmol/L (3.5-5.1)
--- NOTE | 2020-12-25 15:55 | Hospitalist Progress Note ---
Date of Service December 25, 2020 Assessment & Plan (1) Septic shock: Plan: hypotensive, initially on Levophed, changed to Neosynephrine due to tachycardia blood and urine cultures taken - no growth at this time A line in place for monitoring BP continue Cefepime empirically, still spiking fevers met with Kaden at the bedside today, changed to DNR, she understands he is dying she is not quite read for withdrawal of care, will speak tomorrow morning to give update she understands he could at any time, status is very tenuous (2) Pneumonia due to 2019 novel coronavirus: Plan: Severe disease declined to point of needing intubation on 12/12 tracheostomy performed on 12/22 Remains on ventilator, PEEP 10 FiO2 100% now requiring paralytics CO2 is up to 80 this morning, pH is 7.1, now not ventilating well -Requiring Precedex, Fentanyl, started Oxycodone and Klonopin -completed high-dose dexamethasone course x 10 days -He was not a candidate for Tocilizumab at the time his respiratory status decompensated -Completed a course of azithromycin early on and now completed course of ceftriaxone for MSSA PNA diuretics PRN to keep lungs dry DNR, plans to withdrawal care, not quite ready today will call her tomorrow to discuss further (3) Acute respiratory failure with hypoxia: Plan: ventilator dependent respiratory failure Covid-19 pneumonia as well as bacterial pneumonia, intubated on 12/[address] Hernandez s/p tracheostomy on 12/22 requiring high levels of sedation and paralytics today CXR without pneumothorax on 12/24 now having ventilatory failure, CO2 up to 80, pH 7.1 (4) Acute kidney failure: Plan: Cr doubled, BUN up > 70 giving Lasix to make more urine and lower potassium (5) Hyperkalemia: Plan: >6 today giving bicarb, Lasix and insulin due to worsening renal function could be driven up by acidosis as well (6) Fever: Plan: ongoing, won't come down continue Cefepime empirically now with shock (7) Pneumothorax: Plan: resolved on CXR now low PEEP high FiO2 Follow chest x-ray daily (8) CAD (coronary artery disease): Plan: h/o RCA stents remains on asa, statin was NOT taking REI or BB at home but is on his home medication list no ischemic symptoms during this illness EKG with inverted T's inferiorly however it is unchanged from EKG from several years ago (9) Benign essential hypertension: Plan: BP stable (10) Hyperlipidemia: Plan: statin (11) GERD (gastroesophageal reflux disease): Plan: PPI (12) Elevated LFTs: Plan: likely 2nd to COVID-19 infection Resolved (13) Hyponatremia: Plan: 2nd recent diarrhea, poor oral intake, etc resolved (14) DVT prophylaxis: Plan: lovenox 40mg BID (15) Constipation: Plan: bowel regimen Plan: Disposition-continued stay in the ICU no further escalation of care changed to DNR per his Kaden after discussion at the bedside possible withdrawal of care tomorrow, will call Kaden in the morning Admission and Anticipated Discharge Date Admission Date: December 03, 2020 Subjective patient doing worse today, renal function worse, still on pressor support, up to PEEP 10 and FiO2 100% ABG this morning: pH 7.1 and CO2 80's K is elevated at 6, WBC is 20k blood and urine cultures with no growth, sputum culture with Staph and group B strep continues to spike fevers, tachycardic, tachypneic met with his Kaden at the bedside at 3pm, she is very tearful but calm she understands that he is dying, at this point if there was hope of survival would expect things to be improving he has only gotten worse since tracheostomy she now agrees that he should be a DNR if his heart stops she says that the patient's mother on December 29, she fears he won't make it until that time I agree that he may not have 24 hours, very tenuous, could code at any time agreed to call her in the morning, she would like to be here for transition to comfort measures, she is not ready to do that today she will call other family members, she says that his children don't have a relationship with him I updated Dr. Koenig as well as his nurse about my discussion with Kaden, change to DNR, might be ready for withdrawal of care tomorrow Review of Systems Review of Systems: Unobtainable due to endotracheal tube and Unobtainable due to reduced consciousness Physical Exam Physical Exam: General: thin, frail appearing, sedated, mechanically ventilated, ill appearing Neck: supple, tracheostomy present Lungs: no wheezing, symmetric chest movement on ventilator Heart: tachycardic, S1 and S2, no murmur, weak peripheral pulses, delayed capillary refill, extremities cool Abdomen: soft, NT, ND, + BS, no hepatomegaly, normal to percussion Extremities: normal in appearance, mildly cyanotic, no petechiae, paralyzed Neuro: sedated, no focal motor deficits, CN II-XII intact Skin: warm, dry, no rash, normal turgor Psych: sedated on ventilator Results & Data Results & Data ([facility]) Vital Signs (Past 12 Hours) Vital Signs Temp Pulse Pulse Resp BP Pulse Ox 12/25/20 14:55 85 32 H 98 12/25/20 14:10 85 32 H 98 12/25/20 12:38 38.7 C H 12/25/20 12:00 87 28 H 97/62 L 96 12/25/20 11:36 88 33 H 96 12/25/20 11:00 93 H 28 H 94 12/25/20 10:00 93 H 32 H 104/67 93 12/25/20 09:00 90 32 H 94 12/25/20 08:00 100 H 32 H 95 12/25/20 07:49 97 H 97 H 33 H 93 12/25/20 07:00 38.4 C H 98 H 32 H 88 L 12/25/20 06:00 38.4 C H 97 H 32 H 95 12/25/20 05:00 38.6 C H 101 H 32 H 90 12/25/20 04:00 103 H 32 H 92 12/25/20 03:40 96 H 32 H 89 L Laboratory Results Laboratory Results - last 24 hr 12/24/20 12/24/20 12/24/20 14:20 15:33 20:08 WBC RBC Hgb POC Hgb Hct POC Hct MCV MCH MCHC RDW Std Deviation RDW Coeff of Lu Plt Count MPV Immature Gran % (Auto) Neut % (Auto) Lymph % (Auto) [place] % (Auto) Eos % (Auto) Baso % (Auto) Neut # (Auto) Lymph # (Auto) [place] # (Auto) Eos # (Auto) Baso # (Auto) Immature Gran # (Auto) Absolute Nucleated RBC Nucleated RBC % (auto) Sample Site POC pH POC pCO2 POC pO2 POC HCO3 POC Total CO2 POC Base Excess ABG pH (Temp Correct) ABG pCO2 (Temp Corrct POC ABG pO2 at Pt Temp POC ABG O2 Sat Robert Test O2 Delivery Device POC O2 Rate POC FiO2 Tidal Volume PEEP POC Sodium Sodium 130 L POC Potassium Potassium 6.1 H* Chloride 99 Carbon Dioxide 26 Anion Gap 4.0 BUN 69 H Creatinine 1.32 D Est Cr Clr Drug Dosing 52.5 Est GFR ( Amer) 64.2 Est GFR (Non-Af Amer) 55.4 BUN/Creatinine Ratio 52.0 H Glucose 186 H POC Glucose (other) 164 H Lactate Calcium 9.2 Phosphorus Magnesium Total Creatine Kinase Urine WBC (Auto) 1-5 Urine RBC (Auto) 0-4 U Hyaline Cast (Auto) 1-5 U Epithel Cells (Auto) >30 H Urine Bacteria (Auto) Negative Urine Yeast Not Reportable 12/24/20 12/24/20 12/24/20 20:11 20:14 22:03 WBC RBC Hgb POC Hgb 11.9 L Hct POC Hct 35 L MCV MCH MCHC RDW Std Deviation RDW Coeff of Lu Plt Count MPV Immature Gran % (Auto) Neut % (Auto) Lymph % (Auto) [place] % (Auto) Eos % (Auto) Baso % (Auto) Neut # (Auto) Lymph # (Auto) [place] # (Auto) Eos # (Auto) Baso # (Auto) Immature Gran # (Auto) Absolute Nucleated RBC Nucleated RBC % (auto) Sample Site Art Line Art Line POC pH 7.19 L* 7.26 L POC pCO2 83 H 72 H POC pO2 71 L 65 L POC HCO3 32 H 32 H POC Total CO2 34 H 34 H POC Base Excess 4.0 H 5.0 H ABG pH (Temp Correct) 7.231 L ABG pCO2 (Temp Corrct 79 H POC ABG pO2 at Pt Temp 76 POC ABG O2 Sat 88.0 L 88.0 L Robert Test NA NA O2 Delivery Device Ventilator Ventilator POC O2 Rate 28 32 POC FiO2 60 60 Tidal Volume 375 375 PEEP 8 7 POC Sodium 130 L Sodium POC Potassium 5.7 H Potassium Chloride Carbon Dioxide Anion Gap BUN Creatinine Est Cr Clr Drug Dosing Est GFR ( Amer) Est GFR (Non-Af Amer) BUN/Creatinine Ratio Glucose POC Glucose (other) 182 H Lactate Calcium Phosphorus Magnesium Total Creatine Kinase Urine WBC (Auto) Urine RBC (Auto) U Hyaline Cast (Auto) U Epithel Cells (Auto) Urine Bacteria (Auto) Urine Yeast 12/24/20 12/24/20 12/25/20 23:26 23:43 03:09 WBC RBC Hgb POC Hgb Hct POC Hct MCV MCH MCHC RDW Std Deviation RDW Coeff of Lu Plt Count MPV Immature Gran % (Auto) Neut % (Auto) Lymph % (Auto) [place] % (Auto) Eos % (Auto) Baso % (Auto) Neut # (Auto) Lymph # (Auto) [place] # (Auto) Eos # (Auto) Baso # (Auto) Immature Gran # (Auto) Absolute Nucleated RBC Nucleated RBC % (auto) Sample Site POC pH POC pCO2 POC pO2 POC HCO3 POC Total CO2 POC Base Excess ABG pH (Temp Correct) ABG pCO2 (Temp Corrct POC ABG pO2 at Pt Temp POC ABG O2 Sat Robert Test O2 Delivery Device POC O2 Rate POC FiO2 Tidal Volume PEEP POC Sodium Sodium 130 L POC Potassium Potassium 5.7 H Chloride 98 Carbon Dioxide 28 Anion Gap 5.0 BUN 75 H Creatinine 1.30 Est Cr Clr Drug Dosing 53.3 Est GFR ( Amer) 65.4 Est GFR (Non-Af Amer) 56.5 BUN/Creatinine Ratio 57.5 H Glucose 154 H POC Glucose (other) 173 H 107 H Lactate Calcium 8.8 Phosphorus Magnesium Total Creatine Kinase Urine WBC (Auto) Urine RBC (Auto) U Hyaline Cast (Auto) U Epithel Cells (Auto) Urine Bacteria (Auto) Urine Yeast 12/25/20 12/25/20 12/25/20 03:12 03:20 04:05 WBC RBC Hgb POC Hgb 13.3 L Hct POC Hct 39 L MCV MCH MCHC RDW Std Deviation RDW Coeff of Lu Plt Count MPV Immature Gran % (Auto) Neut % (Auto) Lymph % (Auto) [place] % (Auto) Eos % (Auto) Baso % (Auto) Neut # (Auto) Lymph # (Auto) [place] # (Auto) Eos # (Auto) Baso # (Auto) Immature Gran # (Auto) Absolute Nucleated RBC Nucleated RBC % (auto) Sample Site Art Line Art Line POC pH 7.23 L 7.19 L* POC pCO2 78 H 84 H POC pO2 56 L 57 L POC HCO3 32 H 32 H POC Total CO2 35 H 34 H POC Base Excess 5.0 H 4.0 H ABG pH (Temp Correct) 7.199 L* ABG pCO2 (Temp Corrct 85 H POC ABG pO2 at Pt Temp 64 POC ABG O2 Sat 81.0 L 80.0 L Robert Test NA NA O2 Delivery Device Ventilator Ventilator POC O2 Rate 32 32 POC FiO2 70 70 Tidal Volume 375 375 PEEP 8 8 POC Sodium 131 L Sodium 129 L POC Potassium 5.7 H Potassium 5.9 H Chloride 96 L Carbon Dioxide 30 Anion Gap 3.0 BUN 76 H Creatinine 1.39 Est Cr Clr Drug Dosing 49.9 Est GFR ( Amer) 60.4 Est GFR (Non-Af Amer) 52.1 BUN/Creatinine Ratio 54.9 H Glucose 130 H POC Glucose (other) Lactate Calcium 8.9 Phosphorus 4.5 D Magnesium 2.9 H Total Creatine Kinase Urine WBC (Auto) Urine RBC (Auto) U Hyaline Cast (Auto) U Epithel Cells (Auto) Urine Bacteria (Auto) Urine Yeast 12/25/20 12/25/20 12/25/20 04:05 07:38 08:09 WBC 20.39 H RBC 3.89 L Hgb 11.5 L POC Hgb Hct 37.5 L POC Hct MCV 96.4 MCH 29.6 MCHC 30.7 L RDW Std Deviation 57.6 H RDW Coeff of Lu 16.4 H Plt Count 255 MPV 9.9 Immature Gran % (Auto) 0.6 Neut % (Auto) 83.8 Lymph % (Auto) 7.7 [place] % (Auto) 7.2 Eos % (Auto) 0.5 Baso % (Auto) 0.2 Neut # (Auto) 17.09 H Lymph # (Auto) 1.56 [place] # (Auto) 1.47 H Eos # (Auto) 0.10 Baso # (Auto) 0.04 Immature Gran # (Auto) 0.13 H Absolute Nucleated RBC 0.09 H Nucleated RBC % (auto) 0.4 Sample Site POC pH POC pCO2 POC pO2 POC HCO3 POC Total CO2 POC Base Excess ABG pH (Temp Correct) ABG pCO2 (Temp Corrct POC ABG pO2 at Pt Temp POC ABG O2 Sat Robert Test O2 Delivery Device POC O2 Rate POC FiO2 Tidal Volume PEEP POC Sodium Sodium 128 L POC Potassium Potassium 5.6 H Chloride 95 L Carbon Dioxide 29 Anion Gap 4.0 BUN 77 H Creatinine 1.26 Est Cr Clr Drug Dosing 55.0 Est GFR ( Amer) 68.0 Est GFR (Non-Af Amer) 58.6 BUN/Creatinine Ratio 61.0 H Glucose 153 H POC Glucose (other) 155 H Lactate Calcium 9.1 Phosphorus Magnesium Total Creatine Kinase Urine WBC (Auto) Urine RBC (Auto) U Hyaline Cast (Auto) U Epithel Cells (Auto) Urine Bacteria (Auto) Urine Yeast 12/25/20 12/25/20 12/25/20 11:13 11:37 13:58 WBC RBC Hgb POC Hgb 12.9 L Hct POC Hct 38 L MCV MCH MCHC RDW Std Deviation RDW Coeff of Lu Plt Count MPV Immature Gran % (Auto) Neut % (Auto) Lymph % (Auto) [place] % (Auto) Eos % (Auto) Baso % (Auto) Neut # (Auto) Lymph # (Auto) [place] # (Auto) Eos # (Auto) Baso # (Auto) Immature Gran # (Auto) Absolute Nucleated RBC Nucleated RBC % (auto) Sample Site Art Line POC pH 7.21 L POC pCO2 80 H POC pO2 74 L POC HCO3 32 H POC Total CO2 35 H POC Base Excess 4.0 H ABG pH (Temp Correct) 7.212 L ABG pCO2 (Temp Corrct 80 H POC ABG pO2 at Pt Temp 74 POC ABG O2 Sat 90.0 Robert Test NA O2 Delivery Device Ventilator POC O2 Rate 32 POC FiO2 80 Tidal Volume 375 PEEP 8 POC Sodium 129 L Sodium POC Potassium 6.1 H* Potassium Chloride Carbon Dioxide Anion Gap BUN Creatinine Est Cr Clr Drug Dosing Est GFR ( Amer) Est GFR (Non-Af Amer) BUN/Creatinine Ratio Glucose POC Glucose (other) 153 H Lactate 1.3 Calcium Phosphorus Magnesium Total Creatine Kinase Urine WBC (Auto) Urine RBC (Auto) U Hyaline Cast (Auto) U Epithel Cells (Auto) Urine Bacteria (Auto) Urine Yeast 12/25/20 12/25/20 12/25/20 13:58 14:56 14:58 WBC RBC Hgb POC Hgb 11.9 L Hct POC Hct 35 L MCV MCH MCHC RDW Std Deviation RDW Coeff of Lu Plt Count MPV Immature Gran % (Auto) Neut % (Auto) Lymph % (Auto) [place] % (Auto) Eos % (Auto) Baso % (Auto) Neut # (Auto) Lymph # (Auto) [place] # (Auto) Eos # (Auto) Baso # (Auto) Immature Gran # (Auto) Absolute Nucleated RBC Nucleated RBC % (auto) Sample Site Art Line POC pH 7.26 L POC pCO2 80 H POC pO2 57 L POC HCO3 36 H POC Total CO2 38 H POC Base Excess 9.0 H ABG pH (Temp Correct) 7.237 L ABG pCO2 (Temp Corrct 86 H POC ABG pO2 at Pt Temp 64 POC ABG O2 Sat 83.0 L Robert Test NA O2 Delivery Device Ventilator POC O2 Rate 32 POC FiO2 100 Tidal Volume 375 PEEP 10 POC Sodium 131 L Sodium Pending POC Potassium 6.3 H* Potassium Pending Chloride Pending Carbon Dioxide Pending Anion Gap Pending BUN Pending Creatinine Pending Est Cr Clr Drug Dosing Pending Est GFR ( Amer) Pending Est GFR (Non-Af Amer) Pending BUN/Creatinine Ratio Pending Glucose Pending POC Glucose (other) Lactate Calcium Pending Phosphorus Magnesium Total Creatine Kinase 99 Urine WBC (Auto) Urine RBC (Auto) U Hyaline Cast (Auto) U Epithel Cells (Auto) Urine Bacteria (Auto) Urine Yeast 12/25/20 14:58 WBC RBC Hgb POC Hgb Hct POC Hct MCV MCH MCHC RDW Std Deviation RDW Coeff of Lu Plt Count MPV Immature Gran % (Auto) Neut % (Auto) Lymph % (Auto) [place] % (Auto) Eos % (Auto) Baso % (Auto) Neut # (Auto) Lymph # (Auto) [place] # (Auto) Eos # (Auto) Baso # (Auto) Immature Gran # (Auto) Absolute Nucleated RBC Nucleated RBC % (auto) Sample Site POC pH POC pCO2 POC pO2 POC HCO3 POC Total CO2 POC Base Excess ABG pH (Temp Correct) ABG pCO2 (Temp Corrct POC ABG pO2 at Pt Temp POC ABG O2 Sat Robert Test O2 Delivery Device POC O2 Rate POC FiO2 Tidal Volume PEEP POC Sodium Sodium POC Potassium Potassium Chloride Carbon Dioxide Anion Gap BUN Creatinine Est Cr Clr Drug Dosing Est GFR ( Amer) Est GFR (Non-Af Amer) BUN/Creatinine Ratio Glucose POC Glucose (other) Lactate 1.7 Calcium Phosphorus Magnesium Total Creatine Kinase Urine WBC (Auto) Urine RBC (Auto) U Hyaline Cast (Auto) U Epithel Cells (Auto) Urine Bacteria (Auto) Urine Yeast Microbiology 12/24/20 14:26 Blood Aerobic Blood Culture - Preliminary No growth in Aerobic bottle after 24 hours. 12/24/20 14:26 Blood Anaerobic Blood Culture - Preliminary No growth in Anaerobic bottle after 24 hours. 12/24/20 14:26 Blood Aerobic Blood Culture - Preliminary No growth in Aerobic bottle after 24 hours. 12/24/20 14:26 Blood Anaerobic Blood Culture - Preliminary No growth in Anaerobic bottle after 24 hours. 12/24/20 14:20 Urine,Straight Cath Urine Culture - Preliminary No growth - Less than 1,000 colonies/mL, Final report to follow. 12/24/20 08:45 Sputum,Vent Suction Gram Stain - Final 12/24/20 08:45 Sputum,Vent Suction Sputum Culture - Preliminary Staphylococcus species Group B Beta Strep 12/12/20 18:00 Sputum, Expectorated Gram Stain - Final 12/12/20 18:00 Sputum, Expectorated Sputum Culture - Final Staphylococcus aureus 12/03/20 20:41 Blood Aerobic Blood Culture - Final No growth in Aerobic bottle after 5 days. 12/03/20 20:41 Blood Anaerobic Blood Culture - Final No growth in Anaerobic bottle after 5 days. 12/03/20 20:41 Blood Aerobic Blood Culture - Final No growth in Aerobic bottle after 5 days. 12/03/20 20:41 Blood Anaerobic Blood Culture - Final No growth in Anaerobic bottle after 5 days. 12/05/20 14:47 Sputum, Expectorated Gram Stain - Final 12/05/20 14:47 Sputum, Expectorated Sputum Culture - Final Heavy normal jo. Medications Administered Current Inpatient Medications Acetaminophen (Acetaminophen Susp 325 Mg/10.15 Ml Udc) 650 mg PO Q6H PRN PRN Reason: Fever Stop: 01/22/21 23:00 Last Admin: 12/25/20 03:16 Dose: 650 mg Documented by: Albuterol (Albuterol 0.083% Nebu Soln 3 Ml Vial) 2.5 mg NEB Q6R TONY Stop: 01/24/21 00:59 Last Admin: 12/25/20 14:10 Dose: 2.5 mg Documented by: Aspirin (Aspirin 81 Mg Chew) 81 mg PO HS TONY Stop: 01/15/21 20:59 Last Admin: 12/24/20 20:18 Dose: 81 mg Documented by: Atorvastatin Calcium (Atorvastatin 40 Mg Tab) 80 mg PO QPM TONY Stop: 01/15/21 20:59 Last Admin: 12/24/20 20:20 Dose: 80 mg Documented by: Clonazepam (Clonazepam 0.5 Mg Tab) 0.5 mg PO BID [facility] Stop: 01/22/21 10:14 Last Admin: 12/25/20 07:28 Dose: 0.5 mg Documented by: Dextrose (Dextrose 50% 50 Ml Syringe) 25 - 50 ml IV UD PRN; Protocol PRN Reason: Hypoglycemia Protocol Stop: 01/12/21 01:29 Enoxaparin Sodium (Enoxaparin Inj 40 Mg/0.4 Ml Syr) 40 mg SQ Q12H [facility] Stop: 01/02/21 22:59 Last Admin: 12/25/20 10:22 Dose: 40 mg Documented by: Fentanyl Citrate (Fentanyl Bolus From Bag) 50 mcg IV Q60M PRN PRN Reason: Pain or Agitation Stop: 12/26/20 13:44 Last Admin: 12/22/20 16:07 Dose: 50 mcg Documented by: Glucagon (Glucagon For Inj 1 Mg Vial) 1 mg SQ UD PRN; Protocol PRN Reason: Hypoglycemia Protocol Stop: 01/12/21 01:29 Glucose (Glucose 40% Gel 15 Gm Tube) 15 - 30 gm PO UD PRN; Protocol PRN Reason: Hypoglycemia Protocol Stop: 01/12/21 01:29 Glucose (Glucose 10 Tabs/Tube) 4 - 8 tabs PO UD PRN; Protocol PRN Reason: Hypoglycemia Protocol Stop: 01/12/21 01:29 Famotidine 20 mg/ Syringe 5 mls @ 2.5 mls/min IV Q12H [facility] Stop: 01/11/21 20:59 Last Admin: 12/25/20 07:28 Dose: 2.5 mls/min Documented by: Fentanyl Citrate (Fentanyl Drip) 1,250 mcg in 250 mls @ 20 mls/hr IV .[id number] [facility]; Protocol Stop: 12/26/20 13:44 Last Admin: 12/25/20 14:50 Dose: 100 mcg/hr, 20 mls/hr Documented by: Dexmedetomidine HCl 400 mcg/ (Sodium Chloride) 100 mls @ 10.845 mls/hr IV .Q9H14M [facility]; Protocol Stop: 12/28/20 05:59 Last Admin: 12/25/20 14:48 Dose: 0.6 mcg/kg/hr, 10.8 mls/hr Documented by: Cisatracurium Besylate 40 mg/ (Sodium Chloride) 100 mls @ 10.26 mls/hr IV .Q9H45M TONY; Protocol Stop: 01/23/21 09:59 Last Admin: 12/25/20 14:47 Dose: 1 mcg/kg/min, 10.3 mls/hr Documented by: Phenylephrine HCl 40 mg/ (Dextrose) 504 mls @ 75.146 mls/hr IV .Q6H43M TONY; Protocol Stop: 01/23/21 20:59 Last Titration: 12/25/20 15:04 Dose: 1.4 mcg/kg/min, 75.1 mls/hr Documented by: Cefepime HCl 2,000 mg/ Syringe 20 mls @ 5 mls/min IV Q12H TONY; Protocol Stop: 01/01/21 07:59 Last Admin: 12/25/20 08:52 Dose: 5 mls/min Documented by: Hydrocortisone Sodium (Succinate 50 mg/ Syringe) 1 mls @ 4 mls/min IV Q6H TONY Stop: 01/24/21 09:59 Last Admin: 12/25/20 15:31 Dose: 4 mls/min Documented by: Vasopressin 20 units/ Sodium (Chloride) 101 mls @ 9.09 mls/hr IV .Q11H7M TONY; Protocol Stop: 01/24/21 09:59 Last Admin: 12/25/20 10:21 Dose: 0.04 unit/min, 12.1 mls/hr Documented by: Insulin Aspart (Insulin Aspart 100 Units/Ml 3 Ml Pen) 0 units SC Q4 TONY; Protocol Stop: 01/12/21 01:29 Last Admin: 12/25/20 11:38 Dose: 1 units Documented by: Miscellaneous (Carbohydrates For Hypoglycemia ) 15 - 30 gm PO UD PRN PRN Reason: Hypoglycemia Treatment Stop: 01/12/21 01:29 Miscellaneous Information (Pharmacy Glycemic Mgmt Consult) 1 ea N/A UD PRN PRN Reason: Consult Stop: 01/12/21 00:30 Multi-Ingredient Cream (Artificial Tears Op Oint 3.5 Gm Tube) 1 appln OP Q4H TONY Stop: 01/23/21 09:59 Last Admin: 12/25/20 14:48 Dose: 1 appln Documented by: Nutritional Formula (Peptamen Intense Vhp 1.0 Yoandy 1,000 Ml Bag) 1,000 ml OG UD [facility]; Protocol Stop: 01/12/21 10:14 Last Admin: 12/24/20 22:53 Dose: 1,000 ml Documented by: Ondansetron HCl (Ondansetron Inj 2 Mg/Ml 2 Ml Vial) 4 mg IV Q6H PRN PRN Reason: Nausea Stop: 01/02/21 22:22 Last Admin: 12/08/20 23:37 Dose: 4 mg Documented by: Oxycodone HCl (Oxycodone Hcl Ir 5 Mg Tab (Immediate Release)) 15 mg PO Q6 TONY Stop: 01/06/21 11:59 Last Admin: 12/25/20 11:31 Dose: 15 mg Documented by: Polyethylene Glycol (Polyethylene (Miralax) 17 Gm Pack) 17 gm PO QAM [facility] Stop: 01/22/21 10:59 Last Admin: 12/25/20 07:26 Dose: 17 gm Documented by: Sennosides (Senna 8.6 Mg Tab) 8.6 mg PO QAM [facility] Stop: 01/17/21 10:29 Last Admin: 12/25/20 07:26 Dose: 8.6 mg Documented by: Sterile Water (Tube Feeding Water Flush) 30 ml OG Q4 [facility] Stop: 01/12/21 11:59 Last Admin: 12/25/20 15:31 Dose: 30 ml Documented by: PG Care Time/CCT Total # of Minutes Spent Total Time Spent: 40 Total Time Spent with Patient: Total time spent is greater than 50% in coordination of care (as documented) at patient's floor/unit and/or counseling patient: Coding Level of Care Code 15348 Subseq Hosp Care Lvl 3 (25 - SIGNIFICANT, SEPARATELY IDENTIFIABLE ) Diagnoses Septic shock A41.9; R65.21 Pneumonia due to 2019 novel coronavirus U07.1; J12.82 Acute respiratory failure with hypoxia J96.01 Fever R50.9 Pneumothorax J93.9 CAD (coronary artery disease) I25.10 Benign essential hypertension I10 Hyperlipidemia E78.5 GERD (gastroesophageal reflux disease) K21.9 Elevated LFTs R79.89 Hyponatremia E87.1 DVT prophylaxis Z29.9 Constipation K59.00 Hyperkalemia E87.5 Acute kidney failure N17.9
[2020-12-25] MEDS ORDERED: CALCIUM GLUCONATE 10% 1,000 MG in SODIUM CHLORIDE 0.9% 50 ML IV ONE (16:15)
[2020-12-25] MEDS ORDERED: INSULIN HUMAN REGULAR PER IV ONE (16:30)
[2020-12-25] MEDS: ASPIRIN 81 MG CHEW PO SCH (20:11)
[2020-12-25] MEDS: ATORVASTATIN 40 MG TAB PO SCH (20:11)
--- NOTE | 2020-12-25 20:57 | Nephrology Consultation ---
Date of Consultation December 25, 2020 Assessment & Plan (1) Acute kidney failure: Non-oliguric, consistent with ATN. Document strict I/O's. Medications appropriately dosed for kidney function. No emergent indication for BACK TENDER FOURDRINIER. MAP goal >65. (2) Hyperkalemia: TF held. Switch to renal appropriate TF tomorrow -- will discuss with dietitian in the morning. Patiromer 8.4 gm now. Repeat labs this evening. Tele monitor. (3) Septic shock: TTE reviewed. Remains on cefepime. Sputum cultures noted. Plan to wean off phenylephrine and vasopressin and initiate dobutamine with levophed PRN. History of Present Illness Reason for Consultation: Hyperkalemia Requesting Physician: Felipe Davila DO Attending Physician: Felipe Davila DO History of Present Illness Nephrology consultation requested for MANINDER and hyperkalemia. The patient is non- oliguric. He was seen and evaluated in the ICU this evening. Mr. Rony Sierra is a 65-year-old male with Covid pneumonia and ARDS admitted since 12/03. He was intubated 12/12 for progressive respiratory distress and increased work of breathing. Tracheostomy placed 12/22. Chest CTA completed 12/22/2020 with diffuse airspace opacities and dense bibasilar consolidations.TTE today demonstrating LVEF 40-45%, global hypokinesis, no LVH, moderately dilated RV with severely reduced function and moderate TR. RVSP 36. Completed a course of dexamethasone. In the past 24 hours developed sepsis with fevers, notable leukocytosis, and hypotension requiring vasopressor support. Blood cultures NGTD. Urine cultures negative. Sputum + staphylococcus and group B strep. Antibiotic therapy provided with cefepime. Creatinine 1.24 mg/dL. Creatinine had been stable at 0.6 mg/dL until ~10.26. The patient is non-oliguric. IV furosemide and SPS provided today for hyperkalemia. Serum potassium 6.4 mmol/L. PVCs noted on tele for the past several days. No widening of QRS appreciated. Allergies Allergy/AdvReac Type Severity Reaction Status Date / Time latex Allergy Unknown RASH Verified 12/03/20 20:36 Penicillins Allergy Unknown RASH Verified 12/03/20 20:36 shellfish derived Allergy Unknown RASH Verified 12/03/20 20:36 Home Medications Medication Instructions Recorded Confirmed Type aspirin 81 mg tablet,delayed 81 mg PO HS tab 11/03/18 12/03/20 History release atorvastatin 80 mg tablet 0 mg PO QPM #90 tab 11/03/18 12/03/20 History lisinopril 5 mg tablet 0 mg PO DAILY #30 tab 11/03/18 12/03/20 History omeprazole 20 mg capsule,delayed 20 mg PO DAILY cap 11/03/18 12/03/20 History release ibuprofen 200 mg tablet 400 - 600 mg PO DAILY tab 11/25/18 12/03/20 History metoprolol succinate 25 mg 0 mg PO DAILY 11/25/18 12/03/20 History tablet,extended release 24 hr nitroglycerin 0.4 mg sublingual 0.4 mg SL Q5M PRN 11/25/18 12/03/20 History tablet (Nitrostat) Patient History Medical History Acute delirium Benign essential hypertension CAD (coronary artery disease) s/p TATI x 2 to RCA in 06/2015 Cirrhosis GERD (gastroesophageal reflux disease) Hyperlipidemia Palliative care encounter Weakness Surgical History S/P coronary artery stent placement Social History Smoking Status: Never smoker Do You Dip or Chew Tobacco: No; Hx Alcohol Use: No Hx Substance Use: No Preferred Language: Armenian Communication Ability: Unable 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 Required: No Beliefs That Will Affect Care: None marital status: Current Living Situation: Spouse Feels Safe at Home: Yes Assistive Devices: Oxygen - Continuous Review of Systems Review of Systems: Unobtainable due to cognitive status Physical Exam Constitutional: + thin, + frail appearing and + mechanically ventilated; no acute distress Eyes: + scleral abnormality; no corneal abnormality ENMT: Mouth: + dry oral mucous membranes Neck: trachea midline and + tracheostomy present Respiratory: normal respiratory pattern Auscultation: lungs clear to auscultation bilaterally Cardiovascular: Rate/Rhythm: + tachycardic Heart Sounds: normal S1, normal S2 and + murmur Extremities: no edema Musculoskeletal: Extremities: + cyanosis; no clubbing Skin: normal turgor; no lesions Results & Data ([facility]) Vital Signs (Past 12 Hours) Vital Signs Temp Pulse Pulse Resp BP Pulse Ox 12/25/20 18:00 38.2 C H 104 H 32 H 91 12/25/20 17:00 105 H 32 H 94 12/25/20 16:00 38.9 C H 100 H 32 H 98 12/25/20 15:00 100 H 32 H 95 12/25/20 14:55 85 32 H 98 12/25/20 14:10 85 32 H 98 12/25/20 14:00 87 28 H 97 12/25/20 13:00 87 28 H 97 12/25/20 12:38 38.7 C H 12/25/20 12:00 87 28 H 97/62 L 96 12/25/20 11:36 88 33 H 96 12/25/20 11:00 93 H 28 H 94 12/25/20 10:00 93 H 32 H 104/67 93 12/25/20 09:00 90 32 H 94 Laboratory Results Laboratory Results - last 24 hr 12/24/20 12/24/20 12/24/20 22:03 23:26 23:43 WBC RBC Hgb POC Hgb 11.9 L Hct POC Hct 35 L MCV MCH MCHC RDW Std Deviation RDW Coeff of Lu Plt Count MPV Immature Gran % (Auto) Neut % (Auto) Lymph % (Auto) Harnett % (Auto) Eos % (Auto) Baso % (Auto) Neut # (Auto) Lymph # (Auto) Harnett # (Auto) Eos # (Auto) Baso # (Auto) Immature Gran # (Auto) Absolute Nucleated RBC Nucleated RBC % (auto) Sample Site Art Line POC pH 7.26 L POC pCO2 72 H POC pO2 65 L POC HCO3 32 H POC Total CO2 34 H POC Base Excess 5.0 H ABG pH (Temp Correct) 7.231 L ABG pCO2 (Temp Corrct 79 H POC ABG pO2 at Pt Temp 76 POC ABG O2 Sat 88.0 L Robert Test NA O2 Delivery Device Ventilator POC O2 Rate 32 POC FiO2 60 Tidal Volume 375 PEEP 7 POC Sodium 130 L Sodium 130 L POC Potassium 5.7 H Potassium 5.7 H Chloride 98 Carbon Dioxide 28 Anion Gap 5.0 BUN 75 H Creatinine 1.30 Est Cr Clr Drug Dosing 53.3 Est GFR ( Amer) 65.4 Est GFR (Non-Af Amer) 56.5 BUN/Creatinine Ratio 57.5 H Glucose 154 H POC Glucose POC Glucose (other) 173 H Lactate Calcium 8.8 Phosphorus Magnesium Total Creatine Kinase 12/25/20 12/25/20 12/25/20 03:09 03:12 03:20 WBC RBC Hgb POC Hgb 13.3 L Hct POC Hct 39 L MCV MCH MCHC RDW Std Deviation RDW Coeff of Lu Plt Count MPV Immature Gran % (Auto) Neut % (Auto) Lymph % (Auto) Harnett % (Auto) Eos % (Auto) Baso % (Auto) Neut # (Auto) Lymph # (Auto) Harnett # (Auto) Eos # (Auto) Baso # (Auto) Immature Gran # (Auto) Absolute Nucleated RBC Nucleated RBC % (auto) Sample Site Art Line Art Line POC pH 7.23 L 7.19 L* POC pCO2 78 H 84 H POC pO2 56 L 57 L POC HCO3 32 H 32 H POC Total CO2 35 H 34 H POC Base Excess 5.0 H 4.0 H ABG pH (Temp Correct) 7.199 L* ABG pCO2 (Temp Corrct 85 H POC ABG pO2 at Pt Temp 64 POC ABG O2 Sat 81.0 L 80.0 L Robert Test NA NA O2 Delivery Device Ventilator Ventilator POC O2 Rate 32 32 POC FiO2 70 70 Tidal Volume 375 375 PEEP 8 8 POC Sodium 131 L Sodium POC Potassium 5.7 H Potassium Chloride Carbon Dioxide Anion Gap BUN Creatinine Est Cr Clr Drug Dosing Est GFR ( Amer) Est GFR (Non-Af Amer) BUN/Creatinine Ratio Glucose POC Glucose POC Glucose (other) 107 H Lactate Calcium Phosphorus Magnesium Total Creatine Kinase 12/25/20 12/25/20 12/25/20 04:05 04:05 07:38 WBC 20.39 H RBC 3.89 L Hgb 11.5 L POC Hgb Hct 37.5 L POC Hct MCV 96.4 MCH 29.6 MCHC 30.7 L RDW Std Deviation 57.6 H RDW Coeff of Lu 16.4 H Plt Count 255 MPV 9.9 Immature Gran % (Auto) 0.6 Neut % (Auto) 83.8 Lymph % (Auto) 7.7 Harnett % (Auto) 7.2 Eos % (Auto) 0.5 Baso % (Auto) 0.2 Neut # (Auto) 17.09 H Lymph # (Auto) 1.56 Harnett # (Auto) 1.47 H Eos # (Auto) 0.10 Baso # (Auto) 0.04 Immature Gran # (Auto) 0.13 H Absolute Nucleated RBC 0.09 H Nucleated RBC % (auto) 0.4 Sample Site POC pH POC pCO2 POC pO2 POC HCO3 POC Total CO2 POC Base Excess ABG pH (Temp Correct) ABG pCO2 (Temp Corrct POC ABG pO2 at Pt Temp POC ABG O2 Sat Robert Test O2 Delivery Device POC O2 Rate POC FiO2 Tidal Volume PEEP POC Sodium Sodium 129 L POC Potassium Potassium 5.9 H Chloride 96 L Carbon Dioxide 30 Anion Gap 3.0 BUN 76 H Creatinine 1.39 Est Cr Clr Drug Dosing 49.9 Est GFR ( Amer) 60.4 Est GFR (Non-Af Amer) 52.1 BUN/Creatinine Ratio 54.9 H Glucose 130 H POC Glucose POC Glucose (other) 155 H Lactate Calcium 8.9 Phosphorus 4.5 D Magnesium 2.9 H Total Creatine Kinase 12/25/20 12/25/20 12/25/20 08:09 11:13 11:37 WBC RBC Hgb POC Hgb 12.9 L Hct POC Hct 38 L MCV MCH MCHC RDW Std Deviation RDW Coeff of Lu Plt Count MPV Immature Gran % (Auto) Neut % (Auto) Lymph % (Auto) Harnett % (Auto) Eos % (Auto) Baso % (Auto) Neut # (Auto) Lymph # (Auto) Harnett # (Auto) Eos # (Auto) Baso # (Auto) Immature Gran # (Auto) Absolute Nucleated RBC Nucleated RBC % (auto) Sample Site Art Line POC pH 7.21 L POC pCO2 80 H POC pO2 74 L POC HCO3 32 H POC Total CO2 35 H POC Base Excess 4.0 H ABG pH (Temp Correct) 7.212 L ABG pCO2 (Temp Corrct 80 H POC ABG pO2 at Pt Temp 74 POC ABG O2 Sat 90.0 Robert Test NA O2 Delivery Device Ventilator POC O2 Rate 32 POC FiO2 80 Tidal Volume 375 PEEP 8 POC Sodium 129 L Sodium 128 L POC Potassium 6.1 H* Potassium 5.6 H Chloride 95 L Carbon Dioxide 29 Anion Gap 4.0 BUN 77 H Creatinine 1.26 Est Cr Clr Drug Dosing 55.0 Est GFR ( Amer) 68.0 Est GFR (Non-Af Amer) 58.6 BUN/Creatinine Ratio 61.0 H Glucose 153 H POC Glucose POC Glucose (other) 153 H Lactate Calcium 9.1 Phosphorus Magnesium Total Creatine Kinase 12/25/20 12/25/20 12/25/20 13:58 13:58 14:56 WBC RBC Hgb POC Hgb 11.9 L Hct POC Hct 35 L MCV MCH MCHC RDW Std Deviation RDW Coeff of Lu Plt Count MPV Immature Gran % (Auto) Neut % (Auto) Lymph % (Auto) [place]arnett % (Auto) Eos % (Auto) Baso % (Auto) Neut # (Auto) Lymph # (Auto) Harnett # (Auto) Eos # (Auto) Baso # (Auto) Immature Gran # (Auto) Absolute Nucleated RBC Nucleated RBC % (auto) Sample Site Art Line POC pH 7.26 L POC pCO2 80 H POC pO2 57 L POC HCO3 36 H POC Total CO2 38 H POC Base Excess 9.0 H ABG pH (Temp Correct) 7.237 L ABG pCO2 (Temp Corrct 86 H POC ABG pO2 at Pt Temp 64 POC ABG O2 Sat 83.0 L Robert Test NA O2 Delivery Device Ventilator POC O2 Rate 32 POC FiO2 100 Tidal Volume 375 PEEP 10 POC Sodium 131 L Sodium POC Potassium 6.3 H* Potassium Chloride Carbon Dioxide Anion Gap BUN Creatinine Est Cr Clr Drug Dosing Est GFR ( Amer) Est GFR (Non-Af Amer) BUN/Creatinine Ratio Glucose POC Glucose POC Glucose (other) Lactate 1.3 Calcium Phosphorus Magnesium Total Creatine Kinase 99 12/25/20 12/25/20 12/25/20 14:58 14:58 15:40 WBC RBC Hgb POC Hgb Hct POC Hct MCV MCH MCHC RDW Std Deviation RDW Coeff of Lu Plt Count MPV Immature Gran % (Auto) Neut % (Auto) Lymph % (Auto) [place]ett % (Auto) Eos % (Auto) Baso % (Auto) Neut # (Auto) Lymph # (Auto) [place]ett # (Auto) Eos # (Auto) Baso # (Auto) Immature Gran # (Auto) Absolute Nucleated RBC Nucleated RBC % (auto) Sample Site POC pH POC pCO2 POC pO2 POC HCO3 POC Total CO2 POC Base Excess ABG pH (Temp Correct) ABG pCO2 (Temp Corrct POC ABG pO2 at Pt Temp POC ABG O2 Sat Robert Test O2 Delivery Device POC O2 Rate POC FiO2 Tidal Volume PEEP POC Sodium Sodium 129 L POC Potassium Potassium 6.1 H* Chloride 95 L Carbon Dioxide 30 Anion Gap 4.0 BUN 79 H Creatinine 1.24 Est Cr Clr Drug Dosing 55.9 Est GFR ( Amer) 69.3 Est GFR (Non-Af Amer) 59.8 BUN/Creatinine Ratio 63.7 H Glucose 162 H POC Glucose POC Glucose (other) 166 H Lactate 1.7 Calcium 9.1 Phosphorus Magnesium Total Creatine Kinase 12/25/20 20:15 WBC RBC Hgb POC Hgb Hct POC Hct MCV MCH MCHC RDW Std Deviation RDW Coeff of Lu Plt Count MPV Immature Gran % (Auto) Neut % (Auto) Lymph % (Auto) [place]ett % (Auto) Eos % (Auto) Baso % (Auto) Neut # (Auto) Lymph # (Auto) [place]ett # (Auto) Eos # (Auto) Baso # (Auto) Immature Gran # (Auto) Absolute Nucleated RBC Nucleated RBC % (auto) Sample Site POC pH POC pCO2 POC pO2 POC HCO3 POC Total CO2 POC Base Excess ABG pH (Temp Correct) ABG pCO2 (Temp Corrct POC ABG pO2 at Pt Temp POC ABG O2 Sat Robert Test O2 Delivery Device POC O2 Rate POC FiO2 Tidal Volume PEEP POC Sodium Sodium POC Potassium Potassium Chloride Carbon Dioxide Anion Gap BUN Creatinine Est Cr Clr Drug Dosing Est GFR ( Amer) Est GFR (Non-Af Amer) BUN/Creatinine Ratio Glucose POC Glucose 211 H POC Glucose (other) Lactate Calcium Phosphorus Magnesium Total Creatine Kinase PG Care Time/CCT Total # of Minutes Spent Total Time Spent with Patient: Total time spent is greater than 50% in coordination of care (as documented) at patient's floor/unit and/or counseling patient: Coding Level of Care Code 45946 Inpt Consult Level 4 Diagnoses Acute kidney failure N17.9 Hyperkalemia E87.5 Septic shock A41.9; R65.21
--- NOTE | 2020-12-25 21:59 | Communication Note ---
Date of Service: December 25, 2020 Echo with depressed LVEF and RVEF. Will attempt to wean off phenylephrine and vasopressin. Will initiate dobutamine and consider starting levophed to improve RV function and forward flow. Discussed with nocturnal ICU provider. Coding Level of Care Code None
[2020-12-25] MEDS ORDERED: DOBUTamine / D5W 500 MG/250 ML BAG IV SCH (22:00)
[2020-12-25] MEDS ORDERED: DOBUTamine 500MG / 250ML D5W IV ONE (22:09)
[2020-12-25] MEDS: DOBUTamine / D5W 500 MG/250 ML BAG IV SCH (22:18)
[2020-12-26] MEDS: INSULIN ASPART 100 UNITS/ML 3 ML PEN SC SCH ×8 (00:01→23:21)
[2020-12-26] MEDS: TUBE FEEDING WATER FLUSH OG SCH ×7 (00:02→23:43)
[2020-12-26] MEDS: ALBUTEROL 0.083% NEBU SOLN 3 ML VIAL NEB SCH ×4 (00:09→19:52)
[2020-12-26] MEDS: oxyCODONE HCL IR 5 MG TAB (IMMEDIATE RELEASE) PO SCH ×5 (00:14→23:43)
[2020-12-26 00:45] LABS: BUN Creatinine Ratio 87.9 (10-20); Creatinine Clr Calc Pharmacy 74.6 ml/min; Est GFR (African American) 98.1 ml/min; Est GFR (Non-African American) 84.6 ml/min
[2020-12-26] MEDS: CISATRACURIUM BESYLATE 40 MG in 0.9 % SODIUM CHLORIDE 80 ML IV SCH ×6 (00:51→20:44)
[2020-12-26] MEDS: ARTIFICIAL TEARS OP OINT 3.5 GM TUBE OP SCH ×7 (01:37→23:43)
[2020-12-26] MEDS: HYDROCORTISONE SOD 50 MG in SYRINGE 0 ML IV SCH ×3 (04:42→19:39)
[2020-12-26] MEDS: fentaNYL DRIP 1,250 MCG/250 ML BAG IV SCH ×2 (04:43→17:13)
[2020-12-26 04:53] LABS: iSTAT Art Bld Gas pCO2 Correct 65 mmHg (35-46); iSTAT Art Bld Gas pH Corrected 7.334 (7.35-7.45); iSTAT Arterial Blood Gas HCO3 35 meg/L (19-24); iSTAT Arterial Blood Gas pCO2 68 mmHg (35-46); iSTAT Arterial Blood Gas pH 7.32 (7.35-7.45); iSTAT Arterial Blood Gas pO2 69 mmHg (80-95); iSTAT Arterial Blood Gas pO2 C 64; iSTAT Carbon Dioxide 37 mmol/L (24-31); iSTAT FiO2 60 %; iSTAT Hematocrit 33 % (42-52); iSTAT Hemoglobin 11.2 g/dl (14.0-18.0); iSTAT Potassium 5.4 mmol/L (3.3-5.0); iSTAT Site Art Line; iSTAT Sodium 134 mmol/L (135-144)
[2020-12-26] MEDS ORDERED: PATIROMER CALCIUM SORBITEX 8.4 GM PACK PO SCH (05:00)
--- NOTE | 2020-12-26 05:37 | Electrocardiogram Report ---
Test Reason : Blood Pressure : / mmHG Vent. Rate : 095 BPM Atrial Rate : 095 BPM P-R Int : 184 ms QRS Dur : 136 ms QT Int : 376 ms P-R-T Axes : 054 -50 -03 degrees QTc Int : 472 ms Sinus rhythm with frequent Premature ventricular complexes Left axis deviation Right bundle branch block T wave abnormality, consider anterior ischemia Abnormal ECG When compared with ECG of 24-DEC-2020 14:45, No significant change was found Confirmed by Nguyễn Friend ([id number]) on 12/26/2020 5:37:19 AM Referred By: REFERRED SELF Confirmed By:Nguyễn Friend
[2020-12-26 05:49] LABS: BUN Creatinine Ratio 89.8 (10-20); Calcium 8.6 mg/dl (8.5-10.1); Creatinine Clr Calc Pharmacy 85.6 ml/min; Est GFR (African American) 106.6 ml/min; Magnesium 2.5 mg/dl (1.8-2.4); Potassium 5.5 mmol/L (3.5-5.1)
[2020-12-26 05:51] LABS: Phosphorus 2.6 mg/dl (2.5-4.9)
[2020-12-26] MEDS: DEXMEDETOMIDINE HCL 400 MCG in 0.9 % SODIUM CHLORIDE 96 ML IV SCH ×5 (06:16→21:57)
[2020-12-26] MEDS: PHENYLEPHRINE HCL 40 MG in DEXTROSE 5% 500 ML IV SCH ×2 (07:24→07:25)
--- NOTE | 2020-12-26 07:37 | XRay Report ---
XR chest 1V portable CLINICAL HISTORY: Respiratory failure. COMPARISON STUDY: Chest radiograph December 25, 2020 FINDINGS: Tracheostomy tube is in place. Feeding tube is coiled within the stomach. Tip projects over the gastric cardia. Left subclavian central line is in place. There is no pneumothorax. Possible sma ll left pleural effusion. Extensive bilateral airspace opacities persist. IMPRESSION: 1. Satisfactory positioning of lines and tubes. 2. No pneumothorax. 2. Persistent extensive bilateral airspace opacities. ACT 112: Negative or not required by law. Electronically signed by: Alcides Adrian M.D. 12/26/2020 7:36 AM
[2020-12-26] MEDS: FAMOTIDINE 20 MG in SYRINGE 3 ML IV SCH ×2 (08:14→20:08)
[2020-12-26] MEDS: CEFEPIME 2,000 MG in SYRINGE 0 ML IV SCH (08:15)
[2020-12-26] MEDS: POLYETHYLENE (MIRALAX) 17 GM PACK PO SCH (08:15)
[2020-12-26] MEDS: SENNA 8.6 MG TAB PO SCH (08:15)
[2020-12-26] MEDS: clonazePAM 0.5 MG TAB PO SCH ×2 (08:18→20:08)
--- NOTE | 2020-12-26 09:02 | Hospitalist Progress Note ---
Date of Service December 26, 2020 Assessment & Plan (1) Septic shock: Plan: hypotensive, initially on Levophed, changed to Neosynephrine due to tachycardia now on Dobutamine with findings of poor EF, better response to dobutamine blood and urine cultures taken - no growth at this time A line in place for monitoring BP continue Cefepime empirically, no fevers today met with Kaden at the bedside 12/25, changed to DNR, she understands he is dying daughter was able to visit today plan to withdraw care tomorrow, I will be with Kaden at the bedside (2) Pneumonia due to 2019 novel coronavirus: Plan: Severe disease declined to point of needing intubation on 12/12 tracheostomy performed on 12/22 Remains on ventilator, PEEP and FiO2 slightly improved after starting dobutamine still requiring paralytics pH is improved and CO2 down from yesterday -completed high-dose dexamethasone course x 10 days -He was not a candidate for Tocilizumab at the time his respiratory status decompensated -Completed a course of azithromycin early on and now completed course of ceftriaxone for MSSA PNA diuretics PRN to keep lungs dry DNR, plans to withdrawal care tomorrow (3) Acute respiratory failure with hypoxia: Plan: ventilator dependent respiratory failure Covid-19 pneumonia as well as bacterial pneumonia, intubated on 12/[address] Hernandez s/p tracheostomy on 12/22 requiring high levels of sedation and paralytics for ventilatory synchrony CXR without pneumothorax on 12/24 poor prognosis (4) Acute systolic heart failure: Plan: EF is 45% started on dobutamine, better response however, this make prognosis even worse (5) Acute right heart failure: Plan: severely reduced RV function, dilated continue dobutamine (6) Acute kidney failure: Plan: some improvement with dobutamine and more forward flow to kidneys K still high appreciate nephrology input (7) Hyperkalemia: Plan: coming down, improved with dobutamine (8) Fever: Plan: no fever today continue Cefepime (9) Pneumothorax: Plan: resolved on CXR now low PEEP high FiO2 Follow chest x-ray daily (10) CAD (coronary artery disease): Plan: h/o RCA stents remains on asa, statin was NOT taking REI or BB at home but is on his home medication list no ischemic symptoms during this illness EKG with inverted T's inferiorly however it is unchanged from EKG from several years ago (11) Benign essential hypertension: Plan: BP stable (12) Hyperlipidemia: Plan: statin (13) GERD (gastroesophageal reflux disease): Plan: PPI (14) Elevated LFTs: Plan: likely 2nd to COVID-19 infection Resolved (15) Hyponatremia: Plan: 2nd recent diarrhea, poor oral intake, etc resolved (16) DVT prophylaxis: Plan: lovenox 40mg BID (17) Constipation: Plan: bowel regimen Plan: Disposition-continued stay in the ICU no further escalation of care changed to DNR per his Kaden after discussion at the bedside on 12/25 plan for withdrawal of care tomorrow, Kaden will be here at 3pm Admission and Anticipated Discharge Date Admission Date: December 03, 2020 Subjective echo yesterday: reduced LV EF at 45% and severely reduces RV function, elevated pulmonary pressures started on dobutamine and Levophed some improvement in blood gas this morning and renal numbers, although K still high I reviewed labs I discussed with Dr. Koenig and Dr. Huddleston in ICU spoke with Kaden, his , over the phone, she plans to come in tomorrow at 3pm, withdrawal care at that time patient's daughter Jorge was able to visit at the bedside today, I was not able to visit with her but RN was able to answer her questions Review of Systems Review of Systems: Unobtainable due to endotracheal tube and Unobtainable due to reduced consciousness Physical Exam Physical Exam: General: thin, frail appearing, sedated, mechanically ventilated, ill appearing Neck: supple, tracheostomy present Lungs: no wheezing, symmetric chest movement on ventilator Heart: tachycardic, S1 and S2, no murmur, weak peripheral pulses, delayed capillary refill, extremities cool Abdomen: soft, NT, ND, + BS, no hepatomegaly, normal to percussion Extremities: normal in appearance, mildly cyanotic, no petechiae, paralyzed Neuro: sedated, no focal motor deficits, CN II-XII intact Skin: warm, dry, no rash, normal turgor Psych: sedated on ventilator Results & Data Results & Data ([facility]) Vital Signs (Past 12 Hours) Vital Signs Temp Pulse Resp BP Pulse Ox 12/26/20 07:13 75 12/26/20 06:00 35.6 C L 76 32 H 94 12/26/20 05:30 35.3 C L 75 32 H 95 12/26/20 05:00 35.4 C L 79 32 H 111/65 93 12/26/20 04:30 35.6 C L 79 32 H 113/66 93 12/26/20 04:00 35.7 C L 80 32 H 111/66 93 12/26/20 03:30 35.9 C L 85 32 H 111/66 92 12/26/20 03:15 79 34 H 92 12/26/20 03:00 35.9 C L 88 32 H 115/70 92 12/26/20 02:30 36.0 C L 92 H 32 H 122/68 91 12/26/20 02:00 36.0 C L 95 H 32 H 138/72 91 12/26/20 01:30 36.0 C L 100 H 32 H 124/68 91 12/26/20 01:00 94 H 32 H 137/75 91 12/26/20 00:30 37.3 C 102 H 33 H 148/81 H 93 12/26/20 00:15 37.3 C 96 H 29 H 150/79 H 96 12/26/20 00:00 37.3 C 96 H 32 H 132/77 94 12/25/20 23:45 37.3 C 97 H 32 H 139/78 95 12/25/20 23:30 37.4 C 97 H 32 H 136/80 95 12/25/20 23:15 37.4 C 103 H 32 H 139/79 94 12/25/20 23:04 85 32 H 91 12/25/20 23:00 37.4 C 102 H 32 H 140/85 94 12/25/20 22:45 37.4 C 101 H 32 H 145/76 H 94 12/25/20 22:30 37.4 C 82 32 H 138/89 94 12/25/20 22:15 37.4 C 83 32 H 110/80 92 12/25/20 22:00 37.6 C H 83 32 H 107/74 97 12/25/20 21:45 37.6 C H 83 32 H 111/74 97 12/25/20 21:30 37.6 C H 84 32 H 110/78 97 12/25/20 21:20 37.7 C H 81 32 H 104/75 98 12/25/20 21:05 37.7 C H 82 32 H 103/73 98 Laboratory Results Laboratory Results - last 24 hr 12/25/20 12/25/20 12/25/20 08:09 11:13 11:37 POC Hgb 12.9 L POC Hct 38 L Sample Site Art Line POC pH 7.21 L POC pCO2 80 H POC pO2 74 L POC HCO3 32 H POC Total CO2 35 H POC Base Excess 4.0 H ABG pH (Temp Correct) 7.212 L ABG pCO2 (Temp Corrct 80 H POC ABG pO2 at Pt Temp 74 POC ABG O2 Sat 90.0 Robert Test NA O2 Delivery Device Ventilator POC O2 Rate 32 Minute Ventilation POC FiO2 80 Tidal Volume 375 PEEP 8 POC Sodium 129 L Sodium 128 L POC Potassium 6.1 H* Potassium 5.6 H Chloride 95 L Carbon Dioxide 29 Anion Gap 4.0 BUN 77 H Creatinine 1.26 Est Cr Clr Drug Dosing 55.0 Est GFR ( Amer) 68.0 Est GFR (Non-Af Amer) 58.6 BUN/Creatinine Ratio 61.0 H Glucose 153 H POC Glucose POC Glucose (other) 153 H Lactate Calcium 9.1 Phosphorus Magnesium Total Creatine Kinase 12/25/20 12/25/20 12/25/20 13:58 13:58 14:56 POC Hgb 11.9 L POC Hct 35 L Sample Site Art Line POC pH 7.26 L POC pCO2 80 H POC pO2 57 L POC HCO3 36 H POC Total CO2 38 H POC Base Excess 9.0 H ABG pH (Temp Correct) 7.237 L ABG pCO2 (Temp Corrct 86 H POC ABG pO2 at Pt Temp 64 POC ABG O2 Sat 83.0 L Robert Test NA O2 Delivery Device Ventilator POC O2 Rate 32 Minute Ventilation POC FiO2 100 Tidal Volume 375 PEEP 10 POC Sodium 131 L Sodium POC Potassium 6.3 H* Potassium Chloride Carbon Dioxide Anion Gap BUN Creatinine Est Cr Clr Drug Dosing Est GFR ( Amer) Est GFR (Non-Af Amer) BUN/Creatinine Ratio Glucose POC Glucose POC Glucose (other) Lactate 1.3 Calcium Phosphorus Magnesium Total Creatine Kinase 99 12/25/20 12/25/20 12/25/20 14:58 14:58 15:40 POC Hgb POC Hct Sample Site POC pH POC pCO2 POC pO2 POC HCO3 POC Total CO2 POC Base Excess ABG pH (Temp Correct) ABG pCO2 (Temp Corrct POC ABG pO2 at Pt Temp POC ABG O2 Sat Robert Test O2 Delivery Device POC O2 Rate Minute Ventilation POC FiO2 Tidal Volume PEEP POC Sodium Sodium 129 L POC Potassium Potassium 6.1 H* Chloride 95 L Carbon Dioxide 30 Anion Gap 4.0 BUN 79 H Creatinine 1.24 Est Cr Clr Drug Dosing 55.9 Est GFR ( Amer) 69.3 Est GFR (Non-Af Amer) 59.8 BUN/Creatinine Ratio 63.7 H Glucose 162 H POC Glucose POC Glucose (other) 166 H Lactate 1.7 Calcium 9.1 Phosphorus Magnesium Total Creatine Kinase 12/25/20 12/25/20 12/25/20 20:15 23:48 23:57 POC Hgb POC Hct Sample Site POC pH POC pCO2 POC pO2 POC HCO3 POC Total CO2 POC Base Excess ABG pH (Temp Correct) ABG pCO2 (Temp Corrct POC ABG pO2 at Pt Temp POC ABG O2 Sat Robert Test O2 Delivery Device POC O2 Rate Minute Ventilation POC FiO2 Tidal Volume PEEP POC Sodium Sodium 127 L POC Potassium Potassium 6.0 H Chloride 95 L Carbon Dioxide 29 Anion Gap 4.0 BUN 82 H Creatinine 0.93 D Est Cr Clr Drug Dosing 74.6 Est GFR ( Amer) 98.1 Est GFR (Non-Af Amer) 84.6 BUN/Creatinine Ratio 87.9 H Glucose 214 H POC Glucose 211 H POC Glucose (other) 217 H Lactate Calcium 9.0 Phosphorus Magnesium Total Creatine Kinase 12/26/20 12/26/20 12/26/20 04:08 04:12 05:00 POC Hgb 11.2 L POC Hct 33 L Sample Site Art Line POC pH 7.32 L POC pCO2 68 H POC pO2 69 L POC HCO3 35 H POC Total CO2 37 H POC Base Excess 9.0 H ABG pH (Temp Correct) 7.334 L ABG pCO2 (Temp Corrct 65 H POC ABG pO2 at Pt Temp 64 POC ABG O2 Sat 91.0 Robert Test NA O2 Delivery Device Ventilator POC O2 Rate 32 Minute Ventilation 12.0 POC FiO2 60 Tidal Volume 375 PEEP 8 POC Sodium 134 L Sodium 131 L POC Potassium 5.4 H Potassium 5.5 H Chloride 96 L Carbon Dioxide 35 H Anion Gap 0 L BUN 72 H Creatinine 0.81 Est Cr Clr Drug Dosing 85.6 Est GFR ( Amer) 106.6 Est GFR (Non-Af Amer) 92.0 BUN/Creatinine Ratio 89.8 H Glucose 147 H POC Glucose POC Glucose (other) 157 H Lactate Calcium 8.6 Phosphorus 2.6 D Magnesium 2.5 H Total Creatine Kinase 12/26/20 08:21 POC Hgb POC Hct Sample Site POC pH POC pCO2 POC pO2 POC HCO3 POC Total CO2 POC Base Excess ABG pH (Temp Correct) ABG pCO2 (Temp Corrct POC ABG pO2 at Pt Temp POC ABG O2 Sat Robert Test O2 Delivery Device POC O2 Rate Minute Ventilation POC FiO2 Tidal Volume PEEP POC Sodium Sodium POC Potassium Potassium Chloride Carbon Dioxide Anion Gap BUN Creatinine Est Cr Clr Drug Dosing Est GFR ( Amer) Est GFR (Non-Af Amer) BUN/Creatinine Ratio Glucose POC Glucose 129 H POC Glucose (other) Lactate Calcium Phosphorus Magnesium Total Creatine Kinase Medications Administered Current Inpatient Medications Acetaminophen (Acetaminophen Susp 325 Mg/10.15 Ml Udc) 650 mg PO Q6H PRN PRN Reason: Fever Stop: 01/22/21 23:00 Last Admin: 12/25/20 03:16 Dose: 650 mg Documented by: Albuterol (Albuterol 0.083% Nebu Soln 3 Ml Vial) 2.5 mg NEB Q6R TONY Stop: 01/24/21 00:59 Last Admin: 12/26/20 07:33 Dose: 2.5 mg Documented by: Aspirin (Aspirin 81 Mg Chew) 81 mg PO HS TONY Stop: 01/15/21 20:59 Last Admin: 12/25/20 20:11 Dose: 81 mg Documented by: Atorvastatin Calcium (Atorvastatin 40 Mg Tab) 80 mg PO QPM TONY Stop: 01/15/21 20:59 Last Admin: 12/25/20 20:11 Dose: 80 mg Documented by: Clonazepam (Clonazepam 0.5 Mg Tab) 0.5 mg PO BID TONY Stop: 01/22/21 10:14 Last Admin: 12/26/20 08:18 Dose: 0.5 mg Documented by: Dextrose (Dextrose 50% 50 Ml Syringe) 25 - 50 ml IV UD PRN; Protocol PRN Reason: Hypoglycemia Protocol Stop: 01/12/21 01:29 Enoxaparin Sodium (Enoxaparin Inj 40 Mg/0.4 Ml Syr) 40 mg SQ Q12H TONY Stop: 01/02/21 22:59 Last Admin: 12/25/20 22:06 Dose: 40 mg Documented by: Fentanyl Citrate (Fentanyl Bolus From Bag) 50 mcg IV Q60M PRN PRN Reason: Pain or Agitation Stop: 12/26/20 13:44 Last Admin: 12/22/20 16:07 Dose: 50 mcg Documented by: Glucagon (Glucagon For Inj 1 Mg Vial) 1 mg SQ UD PRN; Protocol PRN Reason: Hypoglycemia Protocol Stop: 01/12/21 01:29 Glucose (Glucose 40% Gel 15 Gm Tube) 15 - 30 gm PO UD PRN; Protocol PRN Reason: Hypoglycemia Protocol Stop: 01/12/21 01:29 Glucose (Glucose 10 Tabs/Tube) 4 - 8 tabs PO UD PRN; Protocol PRN Reason: Hypoglycemia Protocol Stop: 01/12/21 01:29 Famotidine 20 mg/ Syringe 5 mls @ 2.5 mls/min IV Q12H TONY Stop: 01/11/21 20:59 Last Admin: 12/26/20 08:14 Dose: 2.5 mls/min Documented by: Fentanyl Citrate (Fentanyl Drip) 1,250 mcg in 250 mls @ 20 mls/hr IV .D16Q01G TONY; Protocol Stop: 12/26/20 13:44 Last Titration: 12/26/20 07:07 Dose: 100 mcg/hr, 20 mls/hr Documented by: Dexmedetomidine HCl 400 mcg/ (Sodium Chloride) 100 mls @ 10.845 mls/hr IV .Q9H14M TONY; Protocol Stop: 12/28/20 05:59 Last Titration: 12/26/20 07:07 Dose: 0.6 mcg/kg/hr, 10.8 mls/hr Documented by: Cisatracurium Besylate 40 mg/ (Sodium Chloride) 100 mls @ 0 mls/hr IV .Q0M TONY; Protocol Stop: 01/23/21 09:59 Last Titration: 12/26/20 08:22 Dose: 0 mcg/kg/min, 0 mls/hr Documented by: Phenylephrine HCl 40 mg/ (Dextrose) 504 mls @ 0 mls/hr IV .Q0M TONY; Protocol Stop: 01/23/21 20:59 Last Admin: 12/26/20 07:25 Dose: Not Given Documented by: Cefepime HCl 2,000 mg/ Syringe 20 mls @ 5 mls/min IV Q12H TONY; Protocol Stop: 01/01/21 07:59 Last Admin: 12/26/20 08:15 Dose: 5 mls/min Documented by: Hydrocortisone Sodium (Succinate 50 mg/ Syringe) 1 mls @ 4 mls/min IV Q6H TONY Stop: 01/24/21 09:59 Last Admin: 12/26/20 04:42 Dose: 4 mls/min Documented by: Vasopressin 20 units/ Sodium (Chloride) 101 mls @ 0 mls/hr IV .Q0M TONY; Protocol Stop: 01/24/21 09:59 Last Titration: 12/26/20 07:07 Dose: 0 unit/min, 0 mls/hr Documented by: Dobutamine HCl/Dextrose (Dobutamine / D5w) 500 mg in 250 mls @ 5.325 mls/hr IV .Q24H TONY; Protocol Stop: 01/24/21 21:59 Last Titration: 12/26/20 07:07 Dose: 2.5 mcg/kg/min, 5.3 mls/hr Documented by: Insulin Aspart (Insulin Aspart 100 Units/Ml 3 Ml Pen) 0 units SC Q4 TONY; Protocol Stop: 01/12/21 01:29 Last Admin: 12/26/20 08:22 Dose: Not Given Documented by: Miscellaneous (Carbohydrates For Hypoglycemia ) 15 - 30 gm PO UD PRN PRN Reason: Hypoglycemia Treatment Stop: 01/12/21 01:29 Miscellaneous Information (Pharmacy Glycemic Mgmt Consult) 1 ea N/A UD PRN PRN Reason: Consult Stop: 01/12/21 00:30 Multi-Ingredient Cream (Artificial Tears Op Oint 3.5 Gm Tube) 1 appln OP Q4H TONY Stop: 01/23/21 09:59 Last Admin: 12/26/20 05:13 Dose: 1 appln Documented by: Ondansetron HCl (Ondansetron Inj 2 Mg/Ml 2 Ml Vial) 4 mg IV Q6H PRN PRN Reason: Nausea Stop: 01/02/21 22:22 Last Admin: 12/08/20 23:37 Dose: 4 mg Documented by: Oxycodone HCl (Oxycodone Hcl Ir 5 Mg Tab (Immediate Release)) 15 mg PO Q6 [facility] Stop: 01/06/21 11:59 Last Admin: 12/26/20 05:25 Dose: 15 mg Documented by: Patiromer (Patiromer Calcium Sorbitex 8.4 Gm Pack) 8.4 gm PO DAILY@0500 [facility] Stop: 01/25/21 04:59 Last Admin: 12/26/20 05:13 Dose: 8.4 gm Documented by: Polyethylene Glycol (Polyethylene (Miralax) 17 Gm Pack) 17 gm PO QAM [facility] Stop: 01/22/21 10:59 Last Admin: 12/26/20 08:15 Dose: 17 gm Documented by: Sennosides (Senna 8.6 Mg Tab) 8.6 mg PO QAM [facility] Stop: 01/17/21 10:29 Last Admin: 12/26/20 08:15 Dose: 8.6 mg Documented by: Sterile Water (Tube Feeding Water Flush) 30 ml OG Q4 [facility] Stop: 01/12/21 11:59 Last Admin: 12/26/20 08:22 Dose: 30 ml Documented by: PG Care Time/CCT Total # of Minutes Spent Total Time Spent with Patient: Total time spent is greater than 50% in coordination of care (as documented) at patient's floor/unit and/or counseling patient: Coding Level of Care Code 16138 Subseq Hosp Care Lvl 3 Diagnoses Septic shock A41.9; R65.21 Pneumonia due to 2019 novel coronavirus U07.1; J12.82 Acute respiratory failure with hypoxia J96.01 Acute kidney failure N17.9 Hyperkalemia E87.5 Fever R50.9 Pneumothorax J93.9 CAD (coronary artery disease) I25.10 Benign essential hypertension I10 Hyperlipidemia E78.5 GERD (gastroesophageal reflux disease) K21.9 Elevated LFTs R79.89 Hyponatremia E87.1 DVT prophylaxis Z29.9 Constipation K59.00 Acute systolic heart failure I50.21 Acute right heart failure I50.811
--- NOTE | 2020-12-26 09:38 | Nephrology Progress Note ---
Date of Service December 26, 2020 Assessment & Plan (1) Acute kidney failure: Plan: Non-oliguric. Creatinine stable. Document strict I/O's. Goal to maintain slightly negative fluid balance. Medications appropriately dosed for kidney function. No emergent indication for STRATEGIC ADVISOR. MAP goal >65. (2) Hyperkalemia: Plan: TF held. Switch to renal appropriate TF today. Patiromer 8.4 gm provided this AM . Repeat labs this afternoon. (3) Acute systolic heart failure: Plan: Improvement with dobutamine gtt. Admission and Anticipated Discharge Date Admission Date: December 03, 2020 Subjective Switched to dobutamine overnight. Remains non-oliguric. BP acceptable. Tube feeds held overnight. I discussed with Dr. Koenig and Dr. Davila in ICU this morning. Review of Systems Review of Systems: All systems reviewed & are unremarkable except as noted in HPI & below Physical Exam Constitutional: + thin, + frail appearing and + mechanically ventilated Eyes: + scleral abnormality; no corneal abnormality ENMT: Mouth: + dry oral mucous membranes Neck: trachea midline and + tracheostomy present Respiratory: normal respiratory pattern Auscultation: lungs clear to auscultation bilaterally Cardiovascular: Rate/Rhythm: + tachycardic Heart Sounds: normal S1, normal S2 and + murmur Extremities: no edema Musculoskeletal: Extremities: + cyanosis; no clubbing Skin: normal turgor; no lesions Neurologic: Motor/Sensory: no tremor and no asterixis Psychiatric: Orientation: alert and oriented x 3 Results & Data ([facility]) Vital Signs (Past 12 Hours) Vital Signs Temp Pulse Resp BP Pulse Ox 12/26/20 09:30 35.7 C L 88 26 H 161/68 H 86 L 12/26/20 09:00 35.5 C L 91 H 28 H 87 L 12/26/20 08:30 35.4 C L 85 29 H 89 L 12/26/20 08:00 86 96 12/26/20 07:30 35.4 C L 67 94 12/26/20 07:13 75 12/26/20 07:00 72 14 91 12/26/20 06:30 76 32 H 94 12/26/20 06:00 35.6 C L 76 32 H 94 12/26/20 05:30 35.3 C L 75 32 H 95 12/26/20 05:00 35.4 C L 79 32 H 111/65 93 12/26/20 04:30 35.6 C L 79 32 H 113/66 93 12/26/20 04:00 35.7 C L 80 32 H 111/66 93 12/26/20 03:30 35.9 C L 85 32 H 111/66 92 12/26/20 03:15 79 34 H 92 12/26/20 03:00 35.9 C L 88 32 H 115/70 92 12/26/20 02:30 36.0 C L 92 H 32 H 122/68 91 12/26/20 02:00 36.0 C L 95 H 32 H 138/72 91 12/26/20 01:30 36.0 C L 100 H 32 H 124/68 91 12/26/20 01:00 94 H 32 H 137/75 91 12/26/20 00:30 37.3 C 102 H 33 H 148/81 H 93 12/26/20 00:15 37.3 C 96 H 29 H 150/79 H 96 12/26/20 00:00 37.3 C 96 H 32 H 132/77 94 12/25/20 23:45 37.3 C 97 H 32 H 139/78 95 12/25/20 23:30 37.4 C 97 H 32 H 136/80 95 12/25/20 23:15 37.4 C 103 H 32 H 139/79 94 12/25/20 23:04 85 32 H 91 12/25/20 23:00 37.4 C 102 H 32 H 140/85 94 12/25/20 22:45 37.4 C 101 H 32 H 145/76 H 94 12/25/20 22:30 37.4 C 82 32 H 138/89 94 12/25/20 22:15 37.4 C 83 32 H 110/80 92 12/25/20 22:00 37.6 C H 83 32 H 107/74 97 12/25/20 21:45 37.6 C H 83 32 H 111/74 97 Laboratory Results Laboratory Results - last 24 hr 12/25/20 12/25/20 12/25/20 11:13 11:37 13:58 POC Hgb 12.9 L POC Hct 38 L Sample Site Art Line POC pH 7.21 L POC pCO2 80 H POC pO2 74 L POC HCO3 32 H POC Total CO2 35 H POC Base Excess 4.0 H ABG pH (Temp Correct) 7.212 L ABG pCO2 (Temp Corrct 80 H POC ABG pO2 at Pt Temp 74 POC ABG O2 Sat 90.0 Robert Test NA O2 Delivery Device Ventilator POC O2 Rate 32 Minute Ventilation POC FiO2 80 Tidal Volume 375 PEEP 8 POC Sodium 129 L Sodium POC Potassium 6.1 H* Potassium Chloride Carbon Dioxide Anion Gap BUN Creatinine Est Cr Clr Drug Dosing Est GFR ( Amer) Est GFR (Non-Af Amer) BUN/Creatinine Ratio Glucose POC Glucose POC Glucose (other) 153 H Lactate 1.3 Calcium Phosphorus Magnesium Total Creatine Kinase 12/25/20 12/25/20 12/25/20 13:58 14:56 14:58 POC Hgb 11.9 L POC Hct 35 L Sample Site Art Line POC pH 7.26 L POC pCO2 80 H POC pO2 57 L POC HCO3 36 H POC Total CO2 38 H POC Base Excess 9.0 H ABG pH (Temp Correct) 7.237 L ABG pCO2 (Temp Corrct 86 H POC ABG pO2 at Pt Temp 64 POC ABG O2 Sat 83.0 L Robert Test NA O2 Delivery Device Ventilator POC O2 Rate 32 Minute Ventilation POC FiO2 100 Tidal Volume 375 PEEP 10 POC Sodium 131 L Sodium 129 L POC Potassium 6.3 H* Potassium 6.1 H* Chloride 95 L Carbon Dioxide 30 Anion Gap 4.0 BUN 79 H Creatinine 1.24 Est Cr Clr Drug Dosing 55.9 Est GFR ( Amer) 69.3 Est GFR (Non-Af Amer) 59.8 BUN/Creatinine Ratio 63.7 H Glucose 162 H POC Glucose POC Glucose (other) Lactate Calcium 9.1 Phosphorus Magnesium Total Creatine Kinase 99 12/25/20 12/25/20 12/25/20 14:58 15:40 20:15 POC Hgb POC Hct Sample Site POC pH POC pCO2 POC pO2 POC HCO3 POC Total CO2 POC Base Excess ABG pH (Temp Correct) ABG pCO2 (Temp Corrct POC ABG pO2 at Pt Temp POC ABG O2 Sat Robert Test O2 Delivery Device POC O2 Rate Minute Ventilation POC FiO2 Tidal Volume PEEP POC Sodium Sodium POC Potassium Potassium Chloride Carbon Dioxide Anion Gap BUN Creatinine Est Cr Clr Drug Dosing Est GFR ( Amer) Est GFR (Non-Af Amer) BUN/Creatinine Ratio Glucose POC Glucose 211 H POC Glucose (other) 166 H Lactate 1.7 Calcium Phosphorus Magnesium Total Creatine Kinase 12/25/20 12/25/20 12/26/20 23:48 23:57 04:08 POC Hgb POC Hct Sample Site POC pH POC pCO2 POC pO2 POC HCO3 POC Total CO2 POC Base Excess ABG pH (Temp Correct) ABG pCO2 (Temp Corrct POC ABG pO2 at Pt Temp POC ABG O2 Sat Robert Test O2 Delivery Device POC O2 Rate Minute Ventilation POC FiO2 Tidal Volume PEEP POC Sodium Sodium 127 L POC Potassium Potassium 6.0 H Chloride 95 L Carbon Dioxide 29 Anion Gap 4.0 BUN 82 H Creatinine 0.93 D Est Cr Clr Drug Dosing 74.6 Est GFR ( Amer) 98.1 Est GFR (Non-Af Amer) 84.6 BUN/Creatinine Ratio 87.9 H Glucose 214 H POC Glucose POC Glucose (other) 217 H 157 H Lactate Calcium 9.0 Phosphorus Magnesium Total Creatine Kinase 12/26/20 12/26/20 12/26/20 04:12 05:00 08:21 POC Hgb 11.2 L POC Hct 33 L Sample Site Art Line POC pH 7.32 L POC pCO2 68 H POC pO2 69 L POC HCO3 35 H POC Total CO2 37 H POC Base Excess 9.0 H ABG pH (Temp Correct) 7.334 L ABG pCO2 (Temp Corrct 65 H POC ABG pO2 at Pt Temp 64 POC ABG O2 Sat 91.0 Robert Test NA O2 Delivery Device Ventilator POC O2 Rate 32 Minute Ventilation 12.0 POC FiO2 60 Tidal Volume 375 PEEP 8 POC Sodium 134 L Sodium 131 L POC Potassium 5.4 H Potassium 5.5 H Chloride 96 L Carbon Dioxide 35 H Anion Gap 0 L BUN 72 H Creatinine 0.81 Est Cr Clr Drug Dosing 85.6 Est GFR ( Amer) 106.6 Est GFR (Non-Af Amer) 92.0 BUN/Creatinine Ratio 89.8 H Glucose 147 H POC Glucose 129 H POC Glucose (other) Lactate Calcium 8.6 Phosphorus 2.6 D Magnesium 2.5 H Total Creatine Kinase PG Care Time/CCT Total # of Minutes Spent Total Time Spent with Patient: Total time spent is greater than 50% in coordination of care (as documented) at patient's floor/unit and/or counseling patient: Coding Level of Care Code 40195 Subseq Hosp Care Lvl 3 Diagnoses Acute kidney failure N17.9 Hyperkalemia E87.5 Acute systolic heart failure I50.21
[2020-12-26] MEDS: ENOXAPARIN INJ 40 MG/0.4 ML SYR SQ SCH ×2 (11:08→22:33)
[2020-12-26] MEDS ORDERED: NOVASOURCE RENAL 2.0 CAL 1000ML BAG NG SCH (12:00)
[2020-12-26 12:50] LABS: BUN Creatinine Ratio 90.9 (10-20); Creatinine Clr Calc Pharmacy 105.2 ml/min; Est GFR (African American) 111.9 ml/min; Est GFR (Non-African American) 96.5 ml/min; Potassium 5.6 mmol/L (3.5-5.1)
--- NOTE | 2020-12-26 12:54 | Critical Care Progress Note ---
Date of Service December 26, 2020 Assessment & Plan (1) Acute respiratory failure with hypoxia: (2) Pneumonia due to 2019 novel coronavirus: (3) Acute delirium: (4) Cirrhosis: Plan: Impression: 65-year-old male with Covid pneumonia and ARDS. He has been admitted since 12/03 and has been on dexamethasone. He has been hospitalized long enough that was outside the window for Tocilizumab or Baricitinib. He was intubated 12/12 for progressive respiratory distress and increased work of breathing. Recommendations: 1. Neurologic: Difficult to wean sedation due to ventilator dyssynchrony and hypoxemia. Continues on neuromuscular blockade with Nimbex. Continue Klonopin 0.5 mg twice daily and oxycodone 15 mg every 6 hours. 2. Pulmonary: ARDS secondary to Covid pneumonia. Tracheostomy placed 12/22/2020. On ventilator since 12/12/2020. Chest CTA completed 12/22/2020 with diffuse airspace opacities and dense bibasilar consolidations. Currently off steroids. Completed a course of increased dexamethasone for the fibroproliferative phase of ARDS. Continue lung protective ventilation strategy. Previously had pneumomediastinum with a small apical pneumothorax. These were not seen on the most recent CTA from 12/22/2020. Continue lung protective ventilation strategy. Continue MetaNeb. 3. Cardiovascular: Hemodynamics greatly improved with dobutamine. Echo from 12/25/2020 with a reduced LVEF of 40 to 45%. Moderately dilated right ventricle was noted. RVSP 36 mmHg. Phenylephrine and vasopressin stopped. 4. Renal: Patient with recalcitrant hyperkalemia. Improving with Patiromer. Appreciate nephrology input. Dobutamine is also likely beneficial due to the increase forward flow. Repeat BMP from noon is pending. 5. GI: Renal tube feeding per nutritional services. PPI in place. Continue bowel regimen. He has an apparent history of cirrhosis. Will check ammonia level. 6. ID: Covid pneumonitis with ARDS physiology. Repeat sputum cultures growing Staphylococcus species and group B strep. Cefepime downgraded to ceftriaxone. Will complete a total course of 7 days of antibiotics. Blood cultures unremarkable. Urine culture with less than 1000 colonies. Continues to have periods of hyperthermia and hypothermia. Unclear whether this is related to autonomic dysfunction from COVID-19 itself or indication of sepsis. 7. Endocrine: Wean hydrocortisone to 50 mg 3 times daily. This was initiated for the initial concern of septic shock. 8. Heme-onc: Hemoglobin and platelet counts stable. 9. Continue Lovenox 40 mg twice daily. Continue SCDs. Continue PPI prophylaxis. Overall prognosis is extremely poor. Appreciate ongoing discussions by the hospitalist service with the family. Patient is currently DNR/DNI. CRITICAL CARE TIME - I have personally spent 35 minutes of critical care time in the direct management of this patient. This is a life/limb threatening event. This includes time spent evaluating patient, direct bedside care, chart review, placing orders, interpretation of diagnostic studies, discussion with consultants, patient, and family members, as well as other required patient management activities. This time is exclusive of all separately billable procedures, and teaching time and separate from and in addition to any other critical care service time. Admission and Anticipated Discharge Date Admission Date: December 03, 2020 Subjective Patient seen and examined this morning. We attempted to remove neuromuscular blockade, the patient became profoundly hypoxic in the low to mid 80s. Continues to be heavily sedated. No purposeful movements. Review of Systems Review of Systems: Unobtainable due to endotracheal tube and Unobtainable due to reduced consciousness Physical Exam Physical Exam: Constitutional: Tracheostomy in place. Mild distress. Eyes: Pupils are equal round and reactive to light. Conjunctivae are normal. Anicteric sclera. Ears nose, mouth and throat: Tracheostomy in place. Neck: Trachea is midline. Visual inspection is normal. Respiratory: Tachypnea. Coarse lung sounds on the ventilator. Cardiovascular: Regular rate and rhythm. No murmurs. Trace lower extremity edema. Gastrointestinal: Normal bowel sounds, soft, nontender and nondistended. Musculoskeletal: No cyanosis. Patient is able to move all extremities. Skin: No rashes, warm dry and intact. Neurologic: Heavily sedated. No obvious focal deficits. Difficult to assess given tracheostomy status. Results & Data Results & Data ([facility]) Vital Signs (Past 12 Hours) Vital Signs Temp Pulse Resp BP Pulse Ox 12/26/20 12:00 97.9 F 89 28 H 92 12/26/20 11:30 97.5 F L 87 28 H 91 12/26/20 11:00 97.3 F L 85 28 H 89 L 12/26/20 10:30 97.0 F L 88 28 H 141/63 H 87 L 12/26/20 10:00 96.6 F L 91 H 28 H 86 L 12/26/20 09:30 96.3 F L 88 26 H 161/68 H 86 L 12/26/20 09:00 95.9 F L 91 H 28 H 87 L 12/26/20 08:30 95.7 F L 85 29 H 89 L 12/26/20 08:00 86 96 12/26/20 07:30 95.7 F L 67 94 12/26/20 07:20 73 32 H 91 12/26/20 07:13 75 12/26/20 07:00 72 14 91 12/26/20 06:30 76 32 H 94 12/26/20 06:00 96.1 F L 76 32 H 94 12/26/20 05:30 95.5 F L 75 32 H 95 12/26/20 05:00 95.7 F L 79 32 H 111/65 93 12/26/20 04:30 96.1 F L 79 32 H 113/66 93 12/26/20 04:00 96.3 F L 80 32 H 111/66 93 12/26/20 03:30 96.6 F L 85 32 H 111/66 92 12/26/20 03:15 79 34 H 92 12/26/20 03:00 96.6 F L 88 32 H 115/70 92 12/26/20 02:30 96.8 F L 92 H 32 H 122/68 91 12/26/20 02:00 96.8 F L 95 H 32 H 138/72 91 12/26/20 01:30 96.8 F L 100 H 32 H 124/68 91 12/26/20 01:00 94 H 32 H 137/75 91 Vital signs, labs and imaging were personally reviewed Coding Level of Care Code Critical Care 1st 30-74 mins Diagnoses Acute respiratory failure with hypoxia J96.01 Pneumonia due to 2019 novel coronavirus U07.1; J12.82 Acute delirium R41.0 Cirrhosis K74.60 Time Spent (min) 35
[2020-12-26] MEDS ORDERED: PATIROMER CALCIUM SORBITEX 8.4 GM PACK PO ONE (15:14)
[2020-12-26 16:01] LABS: BUN Creatinine Ratio 92.3 (10-20); Calcium 8.9 mg/dl (8.5-10.1); Creatinine Clr Calc Pharmacy 106.7 ml/min; Est GFR (African American) 112.5 ml/min; Est GFR (Non-African American) 97.1 ml/min; Phosphorus 2.6 mg/dl (2.5-4.9); Potassium 5.9 mmol/L (3.5-5.1)
--- NOTE | 2020-12-26 16:01 | Pharmacy Report ---
Pharmacy Glycemic Short Note 2 - Date of Service December 26, 2020 - Glycemic Short BSG Results (Last 24 hours): 12/25/20 12/25/20 12/25/20 15:40 20:15 23:48 Glucose POC Glucose 211 H POC Glucose (other) 166 H 217 H 12/25/20 12/26/20 12/26/20 23:57 04:08 05:00 Glucose 214 H 147 H POC Glucose POC Glucose (other) 157 H 12/26/20 12/26/20 12/26/20 08:21 11:51 11:57 Glucose 147 H POC Glucose 129 H 138 H POC Glucose (other) 12/26/20 15:43 Glucose POC Glucose 125 H POC Glucose (other) OUTPATIENT ANTIDIABETIC REGIMEN: * n/A * A1c pending ASSESSMENT: 12/26: * BSGs overall continue to be well controlled. Of note, [facility] Will tighten CR slightly given high carb formula. 12/23: * BSGs well controlled. Patient received 4 units of bolus insulin yesterday. TFs continue. 12/20: * BSGs below 180 mg/dL, received 10 units of insulin yesterday * Dexamethasone discontinued, will continue current parameters for now, may need to d/c carb coverage 12/18: * Patient's BSGs yesterday were [phone] mg/dL * Patient received 5 units of bolus insulin yesterday. * TFs are running, delivering ~19g CHO per 4 hours. * Last dose of dexamethasone tomorrow 12/15/20 * Patient's BSGs yesterday were [phone] mg/dL. * Patient received 0 units of insulin. * Fasting BSG today was 108 mg/dL. Continue to hold Lantus. * Patient is on trickle feeds so no coverage for this at this time. Background * Patient currently intubated, sedated with propofol, fentanyl. Norepinephrine was started overnight but has been titrated off. Patient was also paralyzed with nimbex, this has also been weened off. * Blood sugars elevated last evening and met criteria for glycemic consult. Patient's blood sugars have trended down with 10 units of lantus and cor rection factor of 30. * Tube feeds to begin with trickle (no titration), will add carb coverage. * Patient is currently on dexamethasone 20 mg, last day tomorrow and will taper down to 10 mg on 12/15. Will put additional lantus dose on for this evening if BSG >160 mg/dL PLAN FOR INPATIENT GLYCEMIC CONTROL: * Basal insulin * Lantus - held * Bolus insulin * NovoLog per scale ACHS or Q6hrs while NPO * Goal Range: Low 110 mg/dL - High 140 mg/dL * Correction Factor: 30 mg/dL/unit * Nutritional / Prandial insulin per carb ratio of 1 unit per 15 grams CHO consumed PLAN FOR DISCHARGE: * Patient's HbA1C is slightly elevated at 6.6% but is at goal (goal HbA1C < 7%) * Recommend continued monitoring as an outpatient. * Patient may adopt dietary and exercise changes to help control HbA1C.
[2020-12-26] MEDS ORDERED: STAT IV Infusion **Titration per Protocol STA (16:53)
[2020-12-26] MEDS ORDERED: cefTRIAXone SODIUM 2,000 MG in DEXTROSE 5% 50 ML IV SCH (20:00)
[2020-12-26] MEDS: ATORVASTATIN 40 MG TAB PO SCH (20:04)
[2020-12-26] MEDS: ASPIRIN 81 MG CHEW PO SCH (20:08)
[2020-12-26] MEDS: DOBUTamine / D5W 500 MG/250 ML BAG IV SCH (22:32)
[2020-12-27] MEDS: DEXMEDETOMIDINE HCL 400 MCG in 0.9 % SODIUM CHLORIDE 96 ML IV SCH ×2 (00:06→09:49)
[2020-12-27] MEDS: CISATRACURIUM BESYLATE 40 MG in 0.9 % SODIUM CHLORIDE 80 ML IV SCH ×6 (00:06→15:06)
[2020-12-27] MEDS: ALBUTEROL 0.083% NEBU SOLN 3 ML VIAL NEB SCH ×2 (00:20→07:47)
[2020-12-27] MEDS: ARTIFICIAL TEARS OP OINT 3.5 GM TUBE OP SCH ×3 (03:38→13:54)
[2020-12-27] MEDS: TUBE FEEDING WATER FLUSH OG SCH ×3 (03:38→11:42)
[2020-12-27] MEDS: HYDROCORTISONE SOD 50 MG in SYRINGE 0 ML IV SCH (03:38)
[2020-12-27] MEDS: INSULIN ASPART 100 UNITS/ML 3 ML PEN SC SCH ×3 (03:44→11:41)
[2020-12-27 05:22] LABS: Basophils # (auto) 0.01 K/uL (0-0.2); Basophils % (auto) 0.1 %; Hematocrit (blood only) 33.5 % (42-52); Hemoglobin 10.3 g/dL (14.0-18.0); Immature Granulocytes # (auto) 0.08 K/uL (0.00-0.02); Immature Granulocytes % (auto) 0.7 %; Lymphocytes # (auto) 0.46 K/uL (1.2-3.4); Mean Corpuscular Hemoglobin 29.7 pg (25-34); Mean Corpuscular Hgb Conc 30.7 g/dL (32-36); Mean Corpuscular Volume 96.5 fL (80-100); Mean Platelet Volume 10.3 fL (7.4-10.4); Monocytes # (auto) 0.65 K/uL (0.11-0.59); Monocytes % (auto) 5.7 %; Neutrophils # (auto) 10.23 K/uL (1.4-6.5); Neutrophils % (auto) 89.5 %; Platelet Count 178 K/uL (130-400); RDW Coefficient of Variation 16.5 % (11.5-14.5); RDW Standard Deviation 56.8 fL (36.4-46.3); Red Blood Count 3.47 M/uL (4.7-6.1); White Blood Count 11.43 K/uL (4.8-10.8)
[2020-12-27] MEDS: fentaNYL DRIP 1,250 MCG/250 ML BAG IV SCH ×2 (05:24→15:03)
[2020-12-27] MEDS: oxyCODONE HCL IR 5 MG TAB (IMMEDIATE RELEASE) PO SCH ×2 (05:24→11:41)
[2020-12-27 05:46] LABS: BUN Creatinine Ratio 83.2 (10-20); Calcium 8.6 mg/dl (8.5-10.1); Creatinine Clr Calc Pharmacy 115.3 ml/min; Magnesium 2.4 mg/dl (1.8-2.4); Potassium 5.3 mmol/L (3.5-5.1)
[2020-12-27 05:50] LABS: Phosphorus 1.9 mg/dl (2.5-4.9)
[2020-12-27] MEDS: ENOXAPARIN INJ 40 MG/0.4 ML SYR SQ SCH (07:36)
[2020-12-27] MEDS: POLYETHYLENE (MIRALAX) 17 GM PACK PO SCH (07:36)
[2020-12-27] MEDS: FAMOTIDINE 20 MG in SYRINGE 3 ML IV SCH (07:37)
[2020-12-27] MEDS: SENNA 8.6 MG TAB PO SCH (07:37)
[2020-12-27] MEDS: clonazePAM 0.5 MG TAB PO SCH (07:37)
[2020-12-27] MEDS ORDERED: LANTUS PER UNIT CHARGE SQ ONE (09:00)
--- NOTE | 2020-12-27 10:11 | Nephrology Progress Note ---
Date of Service December 27, 2020 Assessment & Plan (1) Acute kidney failure: Plan: Non-oliguric. Creatinine stable. Goal to maintain slightly negative fluid balance. Medications appropriately dosed for kidney function. No indication for [employer]WORK [employer]ER. I discussed the plan of care with Dr. Koenig. Nephrology will sign-off. Please call with questions or concerns. (2) Hyperkalemia: Plan: Continue low potassium TF. Monitor closely while weaning hydrocortisone. (3) Acute systolic heart failure: Plan: Remains on dobutamine gtt. Admission and Anticipated Discharge Date Admission Date: December 03, 2020 Subjective Remains sedated and paralyzed on ventilator support. Review of Systems Review of Systems: Unobtainable due to cognitive status Physical Exam Constitutional: + ill appearing, + physical limitations and + mechanically ventilated Eyes: + anicteric sclerae; no corneal abnormality ENMT: Mouth: + dry oral mucous membranes Neck: trachea midline and + tracheostomy present Respiratory: normal respiratory pattern Auscultation: lungs clear to auscultation bilaterally Cardiovascular: Rate/Rhythm: regular rate Heart Sounds: normal S1, normal S2 and + murmur Extremities: no edema Musculoskeletal: Extremities: + cyanosis; no clubbing Skin: normal turgor; no lesions Neurologic: Motor/Sensory: no tremor and no asterixis Psychiatric: Orientation: alert and oriented x 3 Results & Data ([facility]) Vital Signs (Past 12 Hours) Vital Signs Temp Pulse Pulse Resp Pulse Ox 12/27/20 08:00 90 12/27/20 07:53 103 H 29 H 88 L 12/27/20 07:51 103 H 29 H 88 L 12/27/20 05:00 36.6 C 92 H 28 H 92 12/27/20 04:30 36.4 C L 98 H 28 H 91 12/27/20 04:00 36.2 C L 95 H 28 H 91 12/27/20 03:35 86 28 H 93 12/27/20 03:30 36.1 C L 88 28 H 93 12/27/20 03:00 36.0 C L 85 28 H 93 12/27/20 02:30 36.0 C L 87 28 H 92 12/27/20 02:00 36.1 C L 88 28 H 92 12/27/20 01:30 36.3 C L 94 H 28 H 90 12/27/20 01:00 36.6 C 101 H 28 H 90 12/27/20 00:30 36.8 C 103 H 28 H 91 12/27/20 00:00 37.0 C 112 H 28 H 90 12/26/20 23:33 110 H 28 H 93 12/26/20 23:30 37.1 C 104 H 28 H 95 12/26/20 23:00 37.2 C 110 H 28 H 94 12/26/20 22:30 37.3 C 107 H 28 H 95 Laboratory Results Laboratory Results - last 24 hr 12/26/20 12/26/20 12/26/20 11:51 11:57 13:18 WBC RBC Hgb Hct MCV MCH MCHC RDW Std Deviation RDW Coeff of Lu Plt Count MPV Immature Gran % (Auto) Neut % (Auto) Lymph % (Auto) [place] % (Auto) Eos % (Auto) Baso % (Auto) Neut # (Auto) Lymph # (Auto) [place] # (Auto) Eos # (Auto) Baso # (Auto) Immature Gran # (Auto) Sodium 131 L Potassium 5.6 H Chloride 96 L Carbon Dioxide 33 H Anion Gap 2.0 L BUN 65 H Creatinine 0.72 Est Cr Clr Drug Dosing 105.2 Est GFR ( Amer) 111.9 Est GFR (Non-Af Amer) 96.5 BUN/Creatinine Ratio 90.9 H Glucose 147 H POC Glucose 138 H Calcium 9.0 Phosphorus Magnesium Ammonia 32.0 Albumin 12/26/20 12/26/20 12/26/20 15:15 15:43 19:41 WBC RBC Hgb Hct MCV MCH MCHC RDW Std Deviation RDW Coeff of Lu Plt Count MPV Immature Gran % (Auto) Neut % (Auto) Lymph % (Auto) [place] % (Auto) Eos % (Auto) Baso % (Auto) Neut # (Auto) Lymph # (Auto) [place] # (Auto) Eos # (Auto) Baso # (Auto) Immature Gran # (Auto) Sodium 133 L Potassium 5.9 H Chloride 98 Carbon Dioxide 33 H Anion Gap 2.0 L BUN 66 H Creatinine 0.71 Est Cr Clr Drug Dosing 106.7 Est GFR ( Amer) 112.5 Est GFR (Non-Af Amer) 97.1 BUN/Creatinine Ratio 92.3 H Glucose 137 H POC Glucose 125 H 139 H Calcium 8.9 Phosphorus 2.6 Magnesium Ammonia Albumin 1.0 L 12/26/20 12/27/20 12/27/20 23:11 03:41 04:58 WBC 11.43 H RBC 3.47 L Hgb 10.3 L Hct 33.5 L MCV 96.5 MCH 29.7 MCHC 30.7 L RDW Std Deviation 56.8 H RDW Coeff of Lu 16.5 H Plt Count 178 MPV 10.3 Immature Gran % (Auto) 0.7 Neut % (Auto) 89.5 Lymph % (Auto) 4.0 [place] % (Auto) 5.7 Eos % (Auto) 0.0 Baso % (Auto) 0.1 Neut # (Auto) 10.23 H Lymph # (Auto) 0.46 L [place] # (Auto) 0.65 H Eos # (Auto) 0.00 Baso # (Auto) 0.01 Immature Gran # (Auto) 0.08 H Sodium Potassium Chloride Carbon Dioxide Anion Gap BUN Creatinine Est Cr Clr Drug Dosing Est GFR ( Amer) Est GFR (Non-Af Amer) BUN/Creatinine Ratio Glucose POC Glucose 151 H 175 H Calcium Phosphorus Magnesium Ammonia Albumin 12/27/20 12/27/20 04:58 07:31 WBC RBC Hgb Hct MCV MCH MCHC RDW Std Deviation RDW Coeff of Lu Plt Count MPV Immature Gran % (Auto) Neut % (Auto) Lymph % (Auto) [place] % (Auto) Eos % (Auto) Baso % (Auto) Neut # (Auto) Lymph # (Auto) [place] # (Auto) Eos # (Auto) Baso # (Auto) Immature Gran # (Auto) Sodium 134 L Potassium 5.3 H Chloride 99 Carbon Dioxide 35 H Anion Gap 0 L BUN 55 H Creatinine 0.66 Est Cr Clr Drug Dosing 115.3 Est GFR ( Amer) 116.0 Est GFR (Non-Af Amer) 100.0 BUN/Creatinine Ratio 83.2 H Glucose 197 H POC Glucose 185 H Calcium 8.6 Phosphorus 1.9 L Magnesium 2.4 Ammonia Albumin PG Care Time/CCT Total # of Minutes Spent Total Time Spent with Patient: Total time spent is greater than 50% in coordination of care (as documented) at patient's floor/unit and/or counseling patient: Coding Level of Care Code 41539 Subseq Hosp Care Lvl 2 Diagnoses Acute kidney failure N17.9 Hyperkalemia E87.5 Acute systolic heart failure I50.21
[2020-12-27] MEDS ORDERED: ALBUTEROL 0.083% NEBU SOLN 3 ML VIAL NEB PRN (10:39)
--- NOTE | 2020-12-27 11:02 | Critical Care Progress Note ---
Date of Service December 27, 2020 Assessment & Plan (1) Acute respiratory failure with hypoxia: (2) Pneumonia due to 2019 novel coronavirus: (3) Acute delirium: (4) Cirrhosis: Plan: Impression: 65-year-old male with Covid pneumonia and ARDS. He has been admitted since 12/03 and has been on dexamethasone. He has been hospitalized long enough that was outside the window for Tocilizumab or Baricitinib. He was intubated 12/12 for progressive respiratory distress and increased work of breathing. Recommendations: 1. Neurologic: Difficult to wean sedation due to ventilator dyssynchrony and hypoxemia. Continues on neuromuscular blockade with Nimbex. Continue Klonopin 0.5 mg twice daily and oxycodone 15 mg every 6 hours. 2. Pulmonary: ARDS secondary to Covid pneumonia. Tracheostomy placed 12/22/2020. On ventilator since 12/12/2020. Chest CTA completed 12/22/2020 with diffuse airspace opacities and dense bibasilar consolidations. Currently off steroids. Completed a course of increased dexamethasone for the fibroproliferative phase of ARDS. Continue lung protective ventilation strategy. Previously had pneumomediastinum with a small apical pneumothorax. These were not seen on the most recent CTA from 12/22/2020. Plateau pressures continues to be increased due to very poor lung compliance. ABG continues to demonstrate hypercapnic respiratory failure with severe hypoxemia. Repeat chest x-ray ordered this afternoon due to increasing plateau pressures and concern for possible pneumothorax. 3. Cardiovascular: Hemodynamics greatly improved with dobutamine. Echo from 12/25/2020 with a reduced LVEF of 40 to 45%. Moderately dilated right ventricle was noted. RVSP 36 mmHg. Phenylephrine and vasopressin stopped. 4. Renal: Patient with recalcitrant hyperkalemia. Improving with Patiromer. Appreciate nephrology input. Dobutamine is also likely beneficial due to the increase forward flow. 5. GI: Renal tube feeding per nutritional services. PPI in place. Continue bowel regimen. He has an apparent history of cirrhosis. Will check ammonia level. 6. ID: Covid pneumonitis with ARDS physiology. Repeat sputum cultures growing Staphylococcus species and group B strep. Cefepime downgraded to ceftriaxone. Will complete a total course of 7 days of antibiotics. Blood cultures unremarkable. Urine culture with less than 1000 colonies. Likely autonomic dysfunction from Covid contributing to hypothermia and hyperthermia. 7. Endocrine: Weaning hydrocortisone to 50 mgtwice daily. 8. Heme-onc: Hemoglobin and platelet counts stable. 9. Continue Lovenox 40 mg twice daily. Continue SCDs. Continue PPI prophylaxis. Overall prognosis is extremely poor. Likely transition to comfort measures only later today. Appreciate hospitalist input and discussions with the family. CRITICAL CARE TIME - I have personally spent 39 minutes of critical care time in the direct management of this patient. This is a life/limb threatening event. This includes time spent evaluating patient, direct bedside care, chart review, placing orders, interpretation of diagnostic studies, discussion with consultants, patient, and family members, as well as other required patient management activities. This time is exclusive of all separately billable procedures, and teaching time and separate from and in addition to any other critical care service time. Admission and Anticipated Discharge Date Admission Date: December 03, 2020 Subjective Patient continues to be severely hypoxemic requiring neuromuscular blockade. Increasing plateau pressures. Review of Systems Review of Systems: Unobtainable due to cognitive status Physical Exam Physical Exam: Constitutional: Tracheostomy in place. Eyes: Pupils are equal round and reactive to light. Conjunctivae are normal. Anicteric sclera. Ears nose, mouth and throat: Tracheostomy in place. Neck: Trachea is midline. Visual inspection is normal. Respiratory: Tachypnea. Coarse lung sounds on the ventilator. Cardiovascular: Regular rate and rhythm. No murmurs. Trace lower extremity edema. Gastrointestinal: Normal bowel sounds, soft, nontender and nondistended. Musculoskeletal: No cyanosis. Patient is able to move all extremities. Skin: No rashes, warm dry and intact. Neurologic: Heavily sedated. No obvious focal deficits. Difficult to assess given tracheostomy status. Results & Data Results & Data ([facility]) Vital Signs (Past 12 Hours) Vital Signs Temp Pulse Pulse Resp Pulse Ox 12/27/20 10:35 101 H 28 H 92 12/27/20 08:00 90 12/27/20 07:53 103 H 29 H 88 L 12/27/20 07:51 103 H 29 H 88 L 12/27/20 05:00 97.9 F 92 H 28 H 92 12/27/20 04:30 97.5 F L 98 H 28 H 91 12/27/20 04:00 97.2 F L 95 H 28 H 91 12/27/20 03:35 86 28 H 93 12/27/20 03:30 97.0 F L 88 28 H 93 12/27/20 03:00 96.8 F L 85 28 H 93 12/27/20 02:30 96.8 F L 87 28 H 92 12/27/20 02:00 97.0 F L 88 28 H 92 12/27/20 01:30 97.3 F L 94 H 28 H 90 12/27/20 01:00 97.9 F 101 H 28 H 90 12/27/20 00:30 98.2 F 103 H 28 H 91 12/27/20 00:00 98.6 F 112 H 28 H 90 12/26/20 23:33 110 H 28 H 93 12/26/20 23:30 98.8 F 104 H 28 H 95 12/26/20 23:00 99.0 F 110 H 28 H 94 vital signs, labs and imaging personally reviewed Coding Level of Care Code Critical Care 1st 30-74 mins Diagnoses Acute respiratory failure with hypoxia J96.01 Pneumonia due to 2019 novel coronavirus U07.1; J12.82 Acute delirium R41.0 Cirrhosis K74.60 Time Spent (min) 39
--- NOTE | 2020-12-27 11:23 | XRay Report ---
XR chest 1V portable HISTORY: 65 years-old Male hypoxia, change in status, on trach acute hypoxia COMPARISON: Chest radiograph 12/26/2020 TECHNIQUE: Portable AP view the chest FINDINGS: Cardiac silhouette is enlarged. Left subclavian catheter is unchanged. Stable positioning of tracheos kofi cannula. Feeding tube distal tip projects over the gastric fundus projected superiorly medially. No pneumothorax. Small pleural effusions. Extensive bilateral airspace opacities are redemonstrated and have mildly progressed. Degenerative changes of the shoulders and spine. IMPRESSION: 1. Satisfactory positioning of the lines and tubes as above. 2. Mild progression of the extensive bilateral airspace opacities. 3. Small pleural effusions. ACT 112: Negative or not required by law. The above report was generated using voice recognition software. It may contain grammatical, syntax o r spelling errors. Electronically signed by: Peter Aguilar M.D. 12/27/2020 11:21 AM
[2020-12-27] MEDS ORDERED: LORazepam 0.5 MG/1 ML VIAL IV PRN (15:18)
--- NOTE | 2020-12-27 17:08 | Death Pronouncement Note ---
Date of Service December 27, 2020 Pronouncement Note Admission Date Admission Date: December 03, 2020 Date and Time of Date of : 12/27/20 Time of : 17:03 PCOD Preliminary cause of : COVID-19 Contributing Factors (1) Acute respiratory failure with hypoxia: (2) Pneumonia due to 2019 novel coronavirus: (3) Acute delirium: (4) Cirrhosis: Hospital Course Hospital Course: see d/c summary Additional Data Confirmation of : no pulse, no respirations, no heart sounds and pupils fixed and dilated Family: at bedside Attending/PCP notified?: Yes Attending physician: Felipe Davila, DO Was code activated?: No Autopsy requested?: No final cigar and box examiner notified?: No Organ bank notified?: No Advance directives: No Coding Level of Care Code None Diagnoses Acute respiratory failure with hypoxia J96.01 Pneumonia due to 2019 novel coronavirus U07.1; J12.82 Acute delirium R41.0 Cirrhosis K74.60
--- NOTE | 2020-12-27 17:09 | Discharge Summary ---
Date of Service December 27, 2020 Admission HPI Per Admitting Provider Rony Sierra is a 65yo male presenting to [facility] with 10d of cough productive for yellow sputum, congestion, SOB, chills, body aches and headache. Patient also with loss of taste and smell. Found to be POSITIVE for Covid-19 infection. He is unvaccinated against Covid-19. Uncertain of where his was exposed. He denies chest pain, abdominal pain, nausea, vomiting. He had some diarrhea last week which has since resolved. Upon arrival to the ER patient afebrile, mildly hypertensive. RR of 22 saturating 89% on room air. He was placed on 3L NC which was increased to 4L. Presently breathing comfortably on 4L, saturating 94% No additional complaints at this time ER Course: Dexamethasone 6mg IV, NSS x 500mL bolus Principal Diagnosis COVID 19 pneumonia ARDS Acute hypoxic respiratory failure Discharge Exam no pulse, no respirations, no heart tones, no breath sounds, pupils fixed, unresponsive Discharge Data Allergies Allergy/AdvReac Type Severity Reaction Status Date / Time latex Allergy Unknown RASH Verified 12/03/20 20:36 Penicillins Allergy Unknown RASH Verified 12/03/20 20:36 shellfish derived Allergy Unknown RASH Verified 12/03/20 20:36 Consultations 12/09/20 09:14 Consult Pulmonology Routine 12/18/20 09:34 Consult Palliative Care Routine 12/25/20 12:49 Consult Nephrology Routine Ordered Studies 12/08/20 10:17 CT head/brain wo con Urgent 12/09/20 13:12 CT angio chest PE protocol Urgent 12/22/20 16:56 CT angio chest PE protocol Stat Hospital Course (1) Acute respiratory failure with hypoxia: ventilator dependent respiratory failure Covid-19 pneumonia as well as bacterial pneumonia, intubated on 12/[address] Hernandez s/p tracheostomy on 12/22 requiring high levels of sedation and paralytics for ventilatory synchrony CXR without pneumothorax on 12/24 patient with very poor prognosis made DNR on 12/25 care was withdrawn on 12/27, he peacefully with at the bedside (2) Pneumonia due to 2019 novel coronavirus: Severe disease declined to point of needing intubation on 12/12 tracheostomy performed on 12/22 Remained on ventilator still requiring paralytics for synchrony -completed high-dose dexamethasone course x 10 days -He was not a candidate for Tocilizumab at the time his respiratory status decompensated -Completed a course of azithromycin early on and now completed course of ceftriaxone for MSSA PNA diuretics PRN to keep lungs dry care withdrawn 12/27 (3) Septic shock: Septic shock: Plan: hypotensive, initially on Levophed, changed to Neosynephrine due to tachycardia now on Dobutamine with findings of poor EF, better response to dobutamine blood and urine cultures taken - no growth at this time A line in place for monitoring BP continue Cefepime empirically, no fevers today met with Kaden at the bedside 12/25, changed to DNR, she understands he is dying care withdrawn 12/27 (4) Acute systolic heart failure: Plan: EF is 45% started on dobutamine, better response however, this make prognosis even worse (5) Acute right heart failure: Plan: severely reduced RV function, dilated continue dobutamine (6) Acute kidney failure: Plan: some improvement with dobutamine and more forward flow to kidneys K still high appreciate nephrology input (7) Hyperkalemia: Plan: coming down, improved with dobutamine (8) Fever: Plan: no fever today continue Cefepime (9) Pneumothorax: Plan: resolved on CXR now low PEEP high FiO2 Follow chest x-ray daily (4) Acute right heart failure: (5) Acute systolic heart failure: (6) Acute kidney failure: (7) Hyperkalemia: (8) Cirrhosis: (9) Acute delirium: (10) Fever: Disposition-continued stay in the ICU no further escalation of care changed to DNR per his Kaden after discussion at the bedside on 12/25 plan for withdrawal of care tomorrow, Kaden will be here at 3pm Total Time Total Time Spent Total Time Spent (In Minutes): 36 Total Time Includes: Examination of the Patient, Communication With Other Pr oviders (Dr. Koenig, nurses) and Other (time with at the bedside) Discharge Plan Discharge Items Patient Disposition: Other Date/Time: 12/27/20 18:02 Coding Level of Care Code D/C DAY MANAGEMENT >30 MINS Diagnoses Acute respiratory failure with hypoxia J96.01 Pneumonia due to 2019 novel coronavirus U07.1; J12.82 Acute delirium R41.0 Cirrhosis K74.60 Acute right heart failure I50.811 Acute systolic heart failure I50.21 Acute kidney failure N17.9 Hyperkalemia E87.5 Fever R50.9 Septic shock A41.9; R65.21
[2020-12-27] MEDS ORDERED: HYDROCORTISONE SOD 50 MG in SYRINGE 0 ML IV SCH (21:00)
--- NOTE | 2021-01-02 10:13 | Coding Query ---
CODING QUERY To promote full compliance with coding requirements relating to patient care, provider participation is requested in all cases of [employer] uncertainty. Please assist us with the question(s) below: Coding Question(s): Covid 19 patient admitted with acute respiratory failure /Covid 19 Pneumonia. Seeking to clarify Present on Admission status for Sepsis. Please check below. Thank you . Galen Ramirez [facility] Physician's Response(s): ____x____ Sepsis was not present on Admission Sepsis was present on Admission Cannot Clinically Correlate if Sepsis was present on Admission Other: Please document: Principal Diagnosis: "that condition established after study, to be chiefly responsible for occasioning the admission of the patient to the hospital for care." Co-Existing Principal Diagnosis: "when two or more diagnoses equally meet the criteria for principal diagnosis as determined by the circumstances of admission, diagnostic work up, and/or therapy provided, and the Alphabetic Index, Tabular List, or another coding guideline does not provide sequencing direction, any one of the diagnoses may be sequenced first." "When the physician has documented what appears to be a current diagnosis in the body of the record, but has not included the diagnosis in the final diagnostic statement, the physician should be asked whether the diagnosis should be added." (Source Coding Clinic 2 QTR90. p3-4) NIKKI
== END 2020-12-27 18:34 | disposition expired | DRG 4 ==
LOC: ED 17:02 → SUATTDRO 20:52 → 3W 20:52 → 2S 12-08 15:36 → 1E 12-12 11:15